=== PATIENT | female | born 1935 | race Hispanic/Latino ===

== ENCOUNTER 2016-02-27 10:05 | Inpatient (IN) | payer MEDICARE, OTHER ==
[~2016-02-27] VITALS: Ht 160 cm; Wt 54.4 kg
[2016-02-27] MEDS ORDERED: Ampicillin/Sulbactam Sod 3 GM in NS 100 ML IV SCH (10:45)
[2016-02-27 10:55] LABS: MEAN CORPUSCULAR HEMOGLOBIN 31.6 PG (27.0-31.0); MEAN CORPUSCULAR HGB CONC 33.9 G/DL (32.0-36.0); MEAN CORPUSCULAR VOLUME 93 FL (80-99); MEAN PLATELET VOLUME 6.9 FL (6.5-10.1); PLATELET COUNT 282 K/UL (150-450); RED BLOOD COUNT 5.18 M/UL (4.20-5.40); RED CELL DISTRIBUTION WIDTH 12.3 % (11.6-14.8)
[2016-02-27 10:59] LABS: ABG ALLEN TEST POSITIVE; ABG BASE EXCESS -0.5; ABG PCO2 33.8 mmHg (35.0-45.0)
[2016-02-27 11:00] VITALS: BP 124/72
[2016-02-27] MEDS ORDERED: Unasyn 3gm Inj ONE ×2 (11:09→11:37)
[2016-02-27 11:13] LABS: ALANINE AMINOTRANSFERASE 18 U/L (3-33); ALBUMIN/GLOBULIN RATIO 0.9 (1.0-2.7); ANION GAP 17 (5-15); ASPARTATE AMINO TRANSFERASE 23 U/L (5-40); CALCIUM 9.6 mg/dL (8.6-10.2); CARBON DIOXIDE 26 mEQ/L (20-30); CHLORIDE 97 mEQ/L (98-107); CREATININE 0.9 mg/dL (0.5-0.9); HEMOLYSIS 5; POTASSIUM 4.6 mEQ/L (3.4-4.9); SODIUM 140 mEQ/L (135-145); TOTAL PROTEIN 8.6 g/dL (6.6-8.7); TROPONIN I < 0.30 ng/mL (<=0.30)
[2016-02-27 11:16] LABS: REFLEX LACTIC ACID YES OR NO YES
[2016-02-27 11:23] LABS: CKMB 2.7 ng/mL (< 3.8)
[2016-02-27 11:25] LABS: BAND NEUTROPHILS % (MANUAL) 4 % (0-8); BASOPHILS % (MANUAL) 0 % (0-2); EOSINOPHILS % (MANUAL) 0 % (0-3); LYMPHOCYTES % (MANUAL) 4 % (20-45); NEUTROPHILS % (MANUAL) 87 % (45-75); PLATELET ESTIMATE ADEQUATE; PLATELET MORPHOLOGY NORMAL; TOTAL CELLS COUNTED 100
[2016-02-27 11:34] LABS: APPEARANCE,URINE CLEAR; KETONES,URINE 1+ (NEGATIVE); LEUKOCYTE ESTERASE ,URINE 1+ (NEGATIVE); NITRITE,URINE POSITIVE (NEGATIVE); PH,URINE 5 (4.5-8.0); PROTEIN,URINE 1+ (NEGATIVE); UROBILINOGEN,URINE 8 MG/DL (0.0-1.0)
[2016-02-27] MEDS ORDERED: MULTIVITAMINS1 EA11 ORAL (11:41)
[2016-02-27] MEDS ORDERED: SIMVASTATIN10 MG ORAL (11:41)
[2016-02-27] MEDS ORDERED: DONEPEZIL HCL10 M2 ORAL (11:41)
[2016-02-27] MEDS ORDERED: ASPIRIN81 MG ORAL (11:41)
[2016-02-27] MEDS ORDERED: DOK100 M1 PO (11:41)
[2016-02-27] MEDS ORDERED: VITAMIN D400 INTLU ORAL (11:41)
[2016-02-27] MEDS ORDERED: A & D OINT1 APPLI1 TOPIC (11:41)
[2016-02-27] MEDS ORDERED: CALCIUM CARBON500 M1 PO (11:41)
[2016-02-27] MEDS ORDERED: NORVASC2.5 MG ORAL (11:41)
[2016-02-27] MEDS ORDERED: OMEPRAZOLE20 M2 ORAL (11:41)
[2016-02-27 11:45] LABS: BACTERIA,URINE FEW /HPF; ICTOTEST NEGATIVE; SQUAMOUS EPITHELIAL CELL,UR FEW /LPF (NONE/OCC)
[2016-02-27] MEDS ORDERED: Vancomycin 1gm inj IVPB ONE (12:28)
[2016-02-27 13:45] VITALS: BP 149/86
--- NOTE | 2016-02-27 14:52 | Emergency Room Report ---
History of Present Illness General Chief Complaint: Vomiting Source: Medical Record Present Illness HPI Patient is a 80-year-old female who presented after increased fever and vomiting. The patient had had prior history of advanced dementia. She is normally nonverbal. The patient resides at [facility]. The patient was noted to have a nonbilious nonbloody vomit. She is also noted to have some diarrhea. The patient was noted to have prior a DO NOT RESUSCITATE. She has a durable power of literary writer. Allergies: Coded Allergies: No Known Allergies (Unverified , 02/27/16) Patient History Past Medical History: see triage record Reviewed Nursing Documentation: PMH: Agreed, PSxH: Agreed Nursing Documentation-PMH Past Medical History: No History, Except For Hx Hypertension: Yes Hx Gastrointestinal Problems: Yes - GERD History Of Psychiatric Problem: Yes - anxiety depression Hx Neurological Problems: Yes - dementia Review of Systems All Other Systems: limited - by mental status Physical Exam Vital Signs Date Time Temp Pulse Resp B/P Pulse Ox O2 Delivery O2 Flow Rate FiO2 02/27/16 10:07 100.8 101 24 130/69 95 Nasal Cannula 2.0 Sp02 EP Interpretation: normal General Appearance: moderate distress, Chronically Ill Eyes: bilateral eye PERRL, bilateral eye other ENT: moist mucus membranes Neck: limited range of motion Respiratory: lungs clear, no rhonchi Cardiovascular #1: no edema, tachycardia Gastrointestinal: soft, non-distended Musculoskeletal: decreased range of motion Neurologic: alert, motor weakness Psychiatric: other - aphasic Skin: normal inspection, normal color, no rash Medical Decision Making Diagnostic Impression: Primary Impression: Severe sepsis Additional Impressions: Advanced dementia Dehydration ER Course Patient presented for abdominal pain. Patient presented for abdominal pain. Differential diagnoses included ischemic bowel, appendicitis, perforated viscus , abdominal aortic aneurysm, inferior myocardial infarction, viral gastroenteritis Because of complexity of patient's case laboratory testing and imaging studies were ordered. The patient started on IV fluids and IV antibiotics. The patient is noted to be DO NOT RESUSCITATE. After discussion with the patient power of literary writer, the patient has received a treatment with IV fluids and IV antibiotics. She's not to be placed on mechanical ventilator or have surgery. The patient was okay to be hospitalized. Patient was discussed with Dr. Yazmin Shore who agreed to admit the patient. Labs Test 02/27/16 10:20 02/27/16 10:38 02/27/16 11:00 02/27/16 12:21 White Blood Count 21.0 K/UL (4.8-10.8) Red Blood Count 5.18 M/UL (4.20-5.40) Hemoglobin 16.3 G/DL (12.0-16.0) Hematocrit 48.2 % (37.0-47.0) Mean Corpuscular Volume 93 FL (80-99) Mean Corpuscular Hemoglobin 31.6 PG (27.0-31.0) Mean Corpuscular Hemoglobin Concent 33.9 G/DL (32.0-36.0) Red Cell Distribution Width 12.3 % (11.6-14.8) Platelet Count 282 K/UL (150-450) Mean Platelet Volume 6.9 FL (6.5-10.1) Neutrophils (%) (Auto) % (45.0-75.0) Lymphocytes (%) (Auto) % (20.0-45.0) Monocytes (%) (Auto) % (1.0-10.0) Eosinophils (%) (Auto) % (0.0-3.0) Basophils (%) (Auto) % (0.0-2.0) Differential Total Cells Counted 100 Neutrophils % (Manual) 87 % (45-75) Lymphocytes % (Manual) 4 % (20-45) Monocytes % (Manual) 5 % (1-10) Eosinophils % (Manual) 0 % (0-3) Basophils % (Manual) 0 % (0-2) Band Neutrophils 4 % (0-8) Platelet Estimate Adequate Platelet Morphology Normal Red Blood Cell Morphology Normal Sodium Level 140 mEQ/L (135-145) Potassium Level 4.6 mEQ/L (3.4-4.9) Chloride Level 97 mEQ/L (98-107) Carbon Dioxide Level 26 mEQ/L (20-30) Anion Gap 17 (5-15) Blood Urea Nitrogen 19 mg/dL (7-23) Creatinine 0.9 mg/dL (0.5-0.9) Estimat Glomerular Filtration Rate mL/min (>60) Glucose Level 188 mg/dL (74-106) Lactic Acid Level 3.60 mmol/L (0.66-2.22) 4.40 mmol/L (0.66-2.22) Calcium Level 9.6 mg/dL (8.6-10.2) Total Bilirubin 0.6 mg/dL (0.0-1.2) Aspartate Amino Transf (AST/SGOT) 23 U/L (5-40) Alanine Aminotransferase (ALT/SGPT) 18 U/L (3-33) Alkaline Phosphatase 115 U/L (35-104) Total Creatine Kinase 53 U/L (26-140) Creatine Kinase MB 2.7 ng/mL (< 3.8) Creatine Kinase MB Relative Index 5.0 Troponin I < 0.30 ng/mL (<=0.30) Total Protein 8.6 g/dL (6.6-8.7) Albumin 4.2 g/dL (3.5-5.2) Globulin 4.4 g/dL Albumin/Globulin Ratio 0.9 (1.0-2.7) Arterial Blood pH 7.440 (7.350-7.450) Arterial Blood Partial Pressure CO2 33.8 mmHg (35.0-45.0) Arterial Blood Partial Pressure O2 103.5 mmHg (75.0-100.0) Arterial Blood HCO3 22.8 mmol/L (22.0-26.0) Arterial Blood Oxygen Saturation 97.9 % (92.0-98.0) Arterial Blood Base Excess -0.5 Erick Test Positive Urine Color Brown Urine Appearance Clear Urine pH 5 (4.5-8.0) Urine Specific [place] 1.025 (1.005-1.035) Urine Protein 1+ (NEGATIVE) Urine Glucose (UA) Negative (NEGATIVE) Urine Ketones 1+ (NEGATIVE) Urine Occult Blood 4+ (NEGATIVE) Urine Nitrite Positive (NEGATIVE) Urine Bilirubin 1+ (NEGATIVE) Urine Ictotest Negative Urine Urobilinogen 8 MG/DL (0.0-1.0) Urine Leukocyte Esterase 1+ (NEGATIVE) Urine RBC 10-15 /HPF (0 - 2) Urine WBC 2-4 /HPF (0 - 2) Urine Squamous Epithelial Cells Few /LPF (NONE/OCC) Urine Bacteria Few /HPF (NONE) Last Vital Signs Date Time Temp Pulse Resp B/P Pulse Ox O2 Delivery O2 Flow Rate FiO2 02/27/16 13:45 98.0 99 29 149/86 100 Nasal Cannula 2.0 Status: unchanged Disposition: ADMITTED INPATIENT Condition: Critical Referrals: YAZMIN SHORE (PCP) Tim Hannah Feb 27, 2016 14:52
[2016-02-27 15:22] VITALS: BP 119/75
[2016-02-27 16:32] VITALS: BP 128/87
[2016-02-27] MEDS ORDERED: Hydromorphone 0.5mg/0.5ml inj IVP PRN (17:15)
[2016-02-27] MEDS: D5NS 1,000 ML IV SCH (19:55)
[2016-02-27] MEDS: Pantoprazole Inj IVP SCH (19:56)
[2016-02-27 20:00] VITALS: BP 146/70
[2016-02-28] VITALS: BP 127/44
[2016-02-28 04:00] VITALS: BP 105/58
[2016-02-28] MEDS: D5NS 1,000 ML IV SCH ×2 (07:05→14:35)
[2016-02-28] MEDS: Aspirin Baby 81mg ORAL SCH (09:00)
[2016-02-28] MEDS: Docusate 100mg cap ORAL SCH ×3 (09:00→18:00)
--- NOTE | 2016-02-28 10:07 | History & Physical ---
History and Physical History & Physicial Patient is a 80-year-old female who presented after increased fever and vomiting. The patient had had prior history of advanced dementia. She is normally nonverbal. The patient resides at [facility]. The patient was noted to have a nonbilious nonbloody vomit. She is also noted to have some diarrhea. The patient was noted to have prior a DO NOT RESUSCITATE. She has a durable power of traffic law attorney. sepsis dementia dehydration DNR DNI # [id number] YAZMIN CROSS Feb 28, 2016 10:07
[2016-02-28] MEDS: Pantoprazole Inj IVP SCH (10:18)
[2016-02-28 11:29] LABS: BASOPHILS % (AUTO) 0.8 % (0.0-2.0); EOSINOPHILS % (AUTO) 0.2 % (0.0-3.0); LYMPHOCYTES % (AUTO) 10.4 % (20.0-45.0); MEAN CORPUSCULAR HEMOGLOBIN 30.9 PG (27.0-31.0); MEAN CORPUSCULAR HGB CONC 32.4 G/DL (32.0-36.0); MEAN CORPUSCULAR VOLUME 96 FL (80-99); MEAN PLATELET VOLUME 7.2 FL (6.5-10.1); MONOCYTES % (AUTO) 5.8 % (1.0-10.0); NEUTROPHILS % (AUTO) 82.9 % (45.0-75.0); PLATELET COUNT 232 K/UL (150-450); RED CELL DISTRIBUTION WIDTH 12.8 % (11.6-14.8); WHITE BLOOD COUNT 15.1 K/UL (4.8-10.8)
--- NOTE | 2016-02-28 11:45 | Diagnostic Imaging Report ---
Indication: Dyspnea Comparison: None A single view chest radiograph was obtained. Findings: No definite infiltrate or pulmonary vascular congestion identified. The heart is enlarged. The aorta is mildly enlarged consistent with atherosclerotic vascular disease. The bones are osteopenic. Impression: No acute disease
[2016-02-28 11:47] LABS: ALANINE AMINOTRANSFERASE 15 U/L (3-33); ALBUMIN/GLOBULIN RATIO 0.8 (1.0-2.7); ANION GAP 12 (5-15); ASPARTATE AMINO TRANSFERASE 20 U/L (5-40); CALCIUM 8.5 mg/dL (8.6-10.2); CARBON DIOXIDE 27 mEQ/L (20-30); CHLORIDE 101 mEQ/L (98-107); CREATININE 0.9 mg/dL (0.5-0.9); HEMOLYSIS 3; PHOSPHORUS 2.7 mg/dL (2.5-4.8); POTASSIUM 3.9 mEQ/L (3.4-4.9); SODIUM 140 mEQ/L (135-145); TOTAL PROTEIN 7.1 g/dL (6.6-8.7); URIC ACID 3.2 mg/dL (3.0-7.5)
[2016-02-28] MEDS ORDERED: D5NS 1000ml IV ONE (17:44)
[2016-02-28] MEDS ORDERED: Tubing IV Secondary IV ONE (17:44)
--- NOTE | 2016-02-28 17:57 | History and Physical Report ---
DATE OF ADMISSION: 02/27/2016 HISTORY OF PRESENT ILLNESS: The patient is a 80-year-old female is a resident of [facility]. The patient was found to be vomiting multiple times, was sent to emergency room here at [facility]. After initial evaluation, the patient was found to have leukocytosis of 21,000, evidence of dehydration and high lactic level. The patient is being admitted for a sepsis. PAST MEDICAL HISTORY: Organic brain syndrome, previous CVA, hypertension, high cholesterol, and osteoporosis. PHYSICAL EXAMINATION: GENERAL: The patient is not verbal. VITAL SIGNS: Temperature 97.7 degrees, pulse rate 82, respiratory rate, which was 25 is now 18 and blood pressure now is 105/58. HEENT: Head is normocephalic. The face is pale. NECK: Rigid to all directions. Not icteric. HEART: Regular. LUNGS: Poor inspiratory effort. Decreased breath sounds over the bases. ABDOMEN: Soft to touch. NEUROMUSCULAR: The patient weak in all extremities. LABORATORY AND DIAGNOSTIC DATA: White BCs 21,000 and hemoglobin 16.3. BUN and creatinine normal. Lactate level 4.4. Albumin 4.2. Urine 15 RBCs, 4 white BCs 1+ and leukocyte esterase. The blood gas, pH 7.44 pCO2 33, pO2 103.5. Chest x-ray results has not reviewed yet. IMPRESSION: 1. Sepsis, source unclear. 2. Multiple vomiting, benign abdomen on examination. 3. Dementia. 4. Dehydration. 5. History of hypertension. 6. History of osteoporosis. PLAN: At this point is to keep the patient NPO, on IV hydration, Zosyn, ST evaluation and monitor CBC and electrolytes. The patient is Do Not Resuscitate/ Do Not Intubate. According to how the patient's condition evolves, we will make the proper changes in our future management. Seth Shore M.D. DR: ANA JOB#: [id number] CC:
[2016-02-28 20:00] VITALS: BP 130/48
[2016-02-28] MEDS: Donepezil 10mg tab ORAL SCH (21:41)
[2016-02-29] VITALS: BP 143/48
[2016-02-29 04:00] VITALS: BP 108/80
[2016-02-29 06:30] LABS: BASOPHILS % (AUTO) 0.5 % (0.0-2.0); EOSINOPHILS % (AUTO) 1.3 % (0.0-3.0); LYMPHOCYTES % (AUTO) 16.9 % (20.0-45.0); MEAN CORPUSCULAR HGB CONC 31.9 G/DL (32.0-36.0); MEAN CORPUSCULAR VOLUME 97 FL (80-99); MEAN PLATELET VOLUME 6.6 FL (6.5-10.1); MONOCYTES % (AUTO) 6.2 % (1.0-10.0); NEUTROPHILS % (AUTO) 75.2 % (45.0-75.0); PLATELET COUNT 216 K/UL (150-450); RED BLOOD COUNT 4.32 M/UL (4.20-5.40); RED CELL DISTRIBUTION WIDTH 12.6 % (11.6-14.8); WHITE BLOOD COUNT 12.8 K/UL (4.8-10.8)
[2016-02-29 07:08] LABS: ALANINE AMINOTRANSFERASE 11 U/L (3-33); ALBUMIN/GLOBULIN RATIO 0.8 (1.0-2.7); ANION GAP 13 (5-15); ASPARTATE AMINO TRANSFERASE 16 U/L (5-40); CALCIUM 8.3 mg/dL (8.6-10.2); CARBON DIOXIDE 25 mEQ/L (20-30); CHLORIDE 103 mEQ/L (98-107); CRP QUANT 9.3 mg/dL (< 0.5); HEMOLYSIS 9; MAGNESIUM 1.9 mg/dL (1.7-2.5); PHOSPHORUS 2.5 mg/dL (2.5-4.8); POTASSIUM 3.4 mEQ/L (3.4-4.9); SODIUM 141 mEQ/L (135-145); TOTAL PROTEIN 6.6 g/dL (6.6-8.7); URIC ACID 2.8 mg/dL (3.0-7.5)
[2016-02-29 08:00] VITALS: BP 142/51
--- NOTE | 2016-02-29 10:04 | General Progress Note ---
Assessment/Plan Status: stable Status Narrative WBCs lowering Assessment/Plan 1. Sepsis, source unclear. WBCs lowerin 2. Multiple vomiting, benign abdomen on examination. 3. Dementia. 4. Dehydration. 5. History of hypertension. 6. History of osteoporosis. Plan; Antibiotic- Hydrate- monitor Sx and Leukocytosis- St eval Subjective ROS Limited/Unobtainable: Yes Allergies: Coded Allergies: No Known Allergies (Unverified , 02/27/16) Objective Last 24 Hour Vital Signs Date Time Temp Pulse Resp B/P Pulse Ox O2 Delivery O2 Flow Rate FiO2 02/29/16 08:00 97.2 68 18 142/51 97 Nasal Cannula 2.0 02/29/16 07:56 Nasal Cannula 2.0 28 02/29/16 07:55 98 Nasal Cannula 2.0 28 02/29/16 04:00 97.5 71 18 108/80 95 Nasal Cannula 3.0 02/29/16 00:00 96.8 80 18 143/48 97 Nasal Cannula 3.0 02/28/16 20:12 Nasal Cannula 2.0 28 02/28/16 20:12 96 Nasal Cannula 2.0 28 02/28/16 20:00 98.4 81 20 130/48 95 Nasal Cannula 3.0 02/28/16 13:25 Nasal Cannula 2.0 28 02/28/16 13:25 98 Nasal Cannula 2.0 28 Intake and Output 02/28/16 02/29/16 19:00 07:00 Intake Total 375 ml Output Total 400 ml 350 ml Balance -25 ml -350 ml Intake IV Total 375 ml Output Urine Total 400 ml 350 ml # Bowel Movements 1 2 Laboratory Tests 02/28/16 10:55: White Blood Count 15.1H, Red Blood Count 4.50, Hemoglobin 13.9, Hematocrit 43.0 , Mean Corpuscular Volume 96, Mean Corpuscular Hemoglobin 30.9, Mean Corpuscular Hemoglobin Concent 32.4, Red Cell Distribution Width 12.8, Platelet Count 232, Mean Platelet Volume 7.2, Neutrophils (%) (Auto) 82.9H, Lymphocytes ( %) (Auto) 10.4L, Monocytes (%) (Auto) 5.8, Eosinophils (%) (Auto) 0.2, Basophils (%) (Auto) 0.8, Sodium Level 140, Potassium Level 3.9, Chloride Level 101, Carbon Dioxide Level 27, Anion Gap 12, Blood Urea Nitrogen 13, Creatinine 0.9, Estimat Glomerular Filtration Rate , Glucose Level 146H, Uric Acid 3.2, Calcium Level 8.5L, Phosphorus Level 2.7, Magnesium Level 2.0, Total Bilirubin 0.7, Gamma Glutamyl Transpeptidase 21, Aspartate Amino Transf (AST/SGOT) 20, Alanine Aminotransferase (ALT/SGPT) 15, Alkaline Phosphatase 104, C-Reactive Protein, Quantitative 13.0H, Pro-B-Type Natriuretic Peptide 1180H, Total Protein 7.1, Albumin 3.2L, Globulin 3.9, Albumin/Globulin Ratio 0.8L 02/29/16 05:15: White Blood Count 12.8H, Red Blood Count 4.32, Hemoglobin 13.4, Hematocrit 42.0 , Mean Corpuscular Volume 97, Mean Corpuscular Hemoglobin 31.0, Mean Corpuscular Hemoglobin Concent 31.9L, Red Cell Distribution Width 12.6, Platelet Count 216, Mean Platelet Volume 6.6, Neutrophils (%) (Auto) 75.2H, Lymphocytes (%) (Auto) 16.9L, Monocytes (%) (Auto) 6.2, Eosinophils (%) (Auto) 1.3, Basophils (%) (Auto) 0.5, Sodium Level 141, Potassium Level 3.4, Chloride Level 103, Carbon Dioxide Level 25, Anion Gap 13, Blood Urea Nitrogen 15, Creatinine 1.0H, Estimat Glomerular Filtration Rate , Glucose Level 144H, Uric Acid 2.8L, Calcium Level 8.3L, Phosphorus Level 2.5, Magnesium Level 1.9, Total Bilirubin 0.5, Aspartate Amino Transf (AST/SGOT) 16, Alanine Aminotransferase ( ALT/SGPT) 11, Alkaline Phosphatase 89, C-Reactive Protein, Quantitative 9.3H, Pro-B-Type Natriuretic Peptide 463H, Total Protein 6.6, Albumin 3.0L, Globulin 3.6, Albumin/Globulin Ratio 0.8L Height (Feet): 5 Height (Inches): 3.00 Weight (Pounds): 120 General Appearance: no apparent distress, confused Abdomen: soft Objective other PE not changed YAZMIN CROSS Feb 29, 2016 10:04
[2016-02-29] MEDS: Aspirin Baby 81mg ORAL SCH (10:34)
[2016-02-29] MEDS: Docusate 100mg cap ORAL SCH ×3 (10:34→17:50)
[2016-02-29] MEDS: D5NS 1,000 ML IV SCH (10:35)
--- NOTE | 2016-02-29 11:41 | Diagnostic Imaging Report ---
Indication: Chest Pain Comparison: 02/27/16 A single view chest radiograph was obtained. Findings: Cardiomegaly is stable. No definite infiltrate identified. Bones are osteopenic. Impression: No change
[2016-02-29 12:00] VITALS: BP 132/48
[2016-02-29] MEDS: Heparin 5000 units/ml inj SUBQ SCH ×2 (13:08→21:38)
[2016-02-29 16:00] VITALS: BP 113/64
[2016-02-29] MEDS ORDERED: NS 275ml ONE (16:31)
--- NOTE | 2016-02-29 17:47 | Consultation ---
History of Present Illness General Date patient seen: Feb 29, 2016 Chief Complaint: Coughing after emesis Reason for Consultation: high suspicion for aspiration Present Illness HPI The patient is a 80-year-old female, resident of [facility]. The patient patient was found to be vomiting multiple times and was sent to [facility]. The patient has been noticed to be coughing intractably and high suspicion for aspiration exists in the context of elderly patient with emesis and cough following. Initial chest radiographs not revealing acute infiltrate, which may be obscured in the context of emesis and dehydration. Allergies: Coded Allergies: No Known Allergies (Unverified , 02/27/16) Medication History Scheduled Amlodipine Besylate (Norvasc), 2.5 MG ORAL DAILY, (Reported) Aspirin* (Aspirin*), 81 MG ORAL DAILY, (Reported) Calcium Carbonate (Calcium Carbonate), 500 MG PO BID, (Reported) Docusate Sodium* (Colace*), 100 MG ORAL THREE TIMES A DAY Donepezil Hcl* (Donepezil Hcl*), 10 MG ORAL HS, (Reported) Levofloxacin* (Levaquin*), 250 MG ORAL DAILY Multivitamin (Multivitamins), 1 CAP ORAL DAILY, (Reported) Omeprazole (Omeprazole), 20 MG ORAL DAILY, (Reported) Simvastatin (Zocor), 10 MG ORAL BEDTIME, (Reported) Vitamin A & D (Vitamin A & D Ointment), TOPIC DAILY, (Reported) Vitamin D (Vitamin D3), 2,000 UNITS ORAL DAILY, (Reported) Scheduled PRN Acetaminophen* (Acetaminophen*), 650 MG ORAL Q6H PRN Codeine/Promethazine Hcl* (Promethazine-Codeine Syrup*), 5 ML ORAL Q4H PRN Patient History Healthcare decision maker DANAY PIERRE Resuscitation status Do Not Resuscitate Advanced Directive on File Review of Systems Constitutional: Reports: malaise Respiratory: Reports: PARADA, cough, shortness of breath, sputum, wheezing Gastrointestinal: Reports: abdominal pain, diarrhea, vomiting Physical Exam General Appearance: no apparent distress, mild distress Lines, tubes and drains: peripheral HEENT: normocephalic, atraumatic, PERRL Neck: non-tender, normal alignment Respiratory/Chest: chest wall non-tender, crackles/rales, rhonchi - bilaterally Breasts: no masses Cardiovascular/Chest: normal peripheral pulses, normal rate, regular rhythm, no JVD Abdomen: hyperactive bowel sounds, distended, guarding, rebound, tender Genitourinary/Rectal: normal genital exam, normal rectal exam Extremities: normal range of motion, non-tender, non-pitting Skin Exam: normal pigmentation Neurologic: butt maker II-XII grossly normal, no motor/sensory deficits Last 24 Hour Vital Signs Date Time Temp Pulse Resp B/P Pulse Ox O2 Delivery O2 Flow Rate FiO2 02/29/16 16:00 98.1 82 19 113/64 98 Nasal Cannula 2.5 02/29/16 12:00 97.3 73 18 132/48 95 Nasal Cannula 2.0 02/29/16 08:00 97.2 68 18 142/51 97 Nasal Cannula 2.0 02/29/16 07:56 Nasal Cannula 2.0 28 02/29/16 07:55 98 Nasal Cannula 2.0 28 02/29/16 04:00 97.5 71 18 108/80 95 Nasal Cannula 3.0 02/29/16 00:00 96.8 80 18 143/48 97 Nasal Cannula 3.0 02/28/16 20:12 Nasal Cannula 2.0 28 02/28/16 20:12 96 Nasal Cannula 2.0 28 02/28/16 20:00 98.4 81 20 130/48 95 Nasal Cannula 3.0 Intake and Output 02/28/16 02/29/16 19:00 07:00 Intake Total 375 ml Output Total 400 ml 350 ml Balance -25 ml -350 ml Intake IV Total 375 ml Output Urine Total 400 ml 350 ml # Bowel Movements 1 2 Laboratory Tests Test 02/29/16 05:15 White Blood Count 12.8 K/UL (4.8-10.8) H Red Blood Count 4.32 M/UL (4.20-5.40) Hemoglobin 13.4 G/DL (12.0-16.0) Hematocrit 42.0 % (37.0-47.0) Mean Corpuscular Volume 97 FL (80-99) Mean Corpuscular Hemoglobin 31.0 PG (27.0-31.0) Mean Corpuscular Hemoglobin Concent 31.9 G/DL (32.0-36.0) L Red Cell Distribution Width 12.6 % (11.6-14.8) Platelet Count 216 K/UL (150-450) Mean Platelet Volume 6.6 FL (6.5-10.1) Neutrophils (%) (Auto) 75.2 % (45.0-75.0) H Lymphocytes (%) (Auto) 16.9 % (20.0-45.0) L Monocytes (%) (Auto) 6.2 % (1.0-10.0) Eosinophils (%) (Auto) 1.3 % (0.0-3.0) Basophils (%) (Auto) 0.5 % (0.0-2.0) Sodium Level 141 mEQ/L (135-145) Potassium Level 3.4 mEQ/L (3.4-4.9) Chloride Level 103 mEQ/L (98-107) Carbon Dioxide Level 25 mEQ/L (20-30) Anion Gap 13 (5-15) Blood Urea Nitrogen 15 mg/dL (7-23) Creatinine 1.0 mg/dL (0.5-0.9) H Estimat Glomerular Filtration Rate mL/min (>60) Glucose Level 144 mg/dL (74-106) H Uric Acid 2.8 mg/dL (3.0-7.5) L Calcium Level 8.3 mg/dL (8.6-10.2) L Phosphorus Level 2.5 mg/dL (2.5-4.8) Magnesium Level 1.9 mg/dL (1.7-2.5) Total Bilirubin 0.5 mg/dL (0.0-1.2) Aspartate Amino Transf (AST/SGOT) 16 U/L (5-40) Alanine Aminotransferase (ALT/SGPT) 11 U/L (3-33) Alkaline Phosphatase 89 U/L (35-104) C-Reactive Protein, Quantitative 9.3 mg/dL (< 0.5) H Pro-B-Type Natriuretic Peptide 463 pg/mL (0-450) H Total Protein 6.6 g/dL (6.6-8.7) Albumin 3.0 g/dL (3.5-5.2) L Globulin 3.6 g/dL Albumin/Globulin Ratio 0.8 (1.0-2.7) L Height (Feet): 5 Height (Inches): 3.00 Weight (Pounds): 120 Medications Current Medications Medications (Trade) Dose Ordered Sig/Baljit Route PRN Reason Start Time Stop Time Status Last Admin Dose Admin Acetaminophen (Tylenol) 650 mg Q6H PRN ORAL Mild Pain/Temp > 100.0 02/27/16 17:15 03/28/16 17:14 Aspirin (ASA) 81 mg DAILY ORAL 02/28/16 09:00 03/29/16 08:59 02/29/16 10:34 Clonidine HCl (Catapres) 0.1 mg Q4H PRN ORAL SBP >170 02/27/16 17:15 03/28/16 17:14 Dextrose/Sodium Chloride (D5ns) 1,000 ml @ 50 mls/hr Q20H IV 02/29/16 10:30 03/30/16 10:29 02/29/16 10:35 Docusate Sodium (Colace) 100 mg THREE TIMES A DAY ORAL 02/28/16 09:00 03/29/16 08:59 02/29/16 13:06 Donepezil HCl (Aricept) 10 mg QHS ORAL 02/28/16 21:00 03/29/16 20:59 02/28/16 21:41 Heparin Sodium (Porcine) (Heparin 5000 units/ml) 5,000 units EVERY 12 HOURS SUBQ 02/29/16 11:00 03/30/16 10:59 02/29/16 13:08 Hydromorphone HCl (Dilaudid) 0.5 mg Q4H PRN IVP For moderate to severe pain 02/27/16 17:15 03/05/16 17:14 Ondansetron HCl (Zofran) 4 mg Q8H PRN IVP Nausea & Vomiting 02/27/16 17:15 03/28/16 17:14 Pantoprazole 40 mg 40 mg EVERY 12 HOURS ORAL 02/29/16 10:15 03/30/16 10:14 02/29/16 10:35 Piperacillin Sod/ Tazobactam Sod/ Dextrose (Zosyn/D5W 100ml) 100 ml @ 25 mls/hr EVERY 8 HOURS IVPB 02/27/16 22:00 03/05/16 21:59 02/29/16 13:06 Assessment/Plan Status: stable, progressing Assessment/Plan Assessment Dyspnea and cough after emesis Intractable emesis Jail patient Plan Aspiration precautions Empiric broad spec antbx Anti-emetics as needed Gentle IVF hydration CARA SOARES Feb 29, 2016 17:47
[2016-02-29] MEDS ORDERED: Promethazine/Codeine 5ml UD ORAL PRN (18:00)
[2016-02-29] MEDS: Donepezil 10mg tab ORAL SCH (21:37)
[2016-03-01] VITALS: BP 132/69
[2016-03-01 04:00] VITALS: BP 132/59
[2016-03-01] MEDS: D5NS 1,000 ML IV SCH (06:17)
[2016-03-01 07:41] LABS: BASOPHILS % (AUTO) 0.6 % (0.0-2.0); EOSINOPHILS % (AUTO) 3.2 % (0.0-3.0); LYMPHOCYTES % (AUTO) 21.8 % (20.0-45.0); MEAN CORPUSCULAR HEMOGLOBIN 30.5 PG (27.0-31.0); MEAN CORPUSCULAR HGB CONC 31.7 G/DL (32.0-36.0); MEAN CORPUSCULAR VOLUME 96 FL (80-99); MEAN PLATELET VOLUME 6.3 FL (6.5-10.1); MONOCYTES % (AUTO) 7.5 % (1.0-10.0); NEUTROPHILS % (AUTO) 66.8 % (45.0-75.0); PLATELET COUNT 192 K/UL (150-450); RED BLOOD COUNT 4.14 M/UL (4.20-5.40); RED CELL DISTRIBUTION WIDTH 12.1 % (11.6-14.8); WHITE BLOOD COUNT 10.1 K/UL (4.8-10.8)
[2016-03-01 07:57] LABS: ALANINE AMINOTRANSFERASE 10 U/L (3-33); ALBUMIN/GLOBULIN RATIO 0.7 (1.0-2.7); ANION GAP 12 (5-15); ASPARTATE AMINO TRANSFERASE 14 U/L (5-40); CALCIUM 8.3 mg/dL (8.6-10.2); CARBON DIOXIDE 27 mEQ/L (20-30); CHLORIDE 104 mEQ/L (98-107); CREATININE 0.8 mg/dL (0.5-0.9); CRP QUANT 4.3 mg/dL (< 0.5); HEMOLYSIS 4; POTASSIUM 3.5 mEQ/L (3.4-4.9); SODIUM 143 mEQ/L (135-145); TOTAL PROTEIN 6.1 g/dL (6.6-8.7)
[2016-03-01 08:00] VITALS: BP 130/51
[2016-03-01] MEDS: Docusate 100mg cap ORAL SCH ×2 (09:34→12:26)
[2016-03-01] MEDS: Aspirin Baby 81mg ORAL SCH (09:34)
[2016-03-01] MEDS: Heparin 5000 units/ml inj SUBQ SCH (09:35)
--- NOTE | 2016-03-01 11:23 | General Progress Note ---
Assessment/Plan Status: stable Status Narrative leukocytosis and high lactate level resolved Assessment/Plan 1. Sepsis, source unclear. WBCs lowering 2. Multiple vomiting, benign abdomen on examination. 3. Dementia. 4. Dehydration. 5. History of hypertension. 6. History of osteoporosis. Plan; change antibiotics to po levaquin DC ECF Subjective ROS Limited/Unobtainable: Yes Allergies: Coded Allergies: No Known Allergies (Unverified , 02/27/16) Objective Last 24 Hour Vital Signs Date Time Temp Pulse Resp B/P Pulse Ox O2 Delivery O2 Flow Rate FiO2 03/01/16 08:00 97.2 66 18 130/51 100 Nasal Cannula 2.0 03/01/16 07:51 Nasal Cannula 2.0 28 03/01/16 07:50 95 Nasal Cannula 2.0 28 03/01/16 04:00 97.7 62 20 132/59 96 Nasal Cannula 2.0 03/01/16 00:00 98.4 73 22 132/69 95 Nasal Cannula 2.0 02/29/16 19:30 98 Nasal Cannula 2.0 28 02/29/16 19:30 Nasal Cannula 2.0 28 02/29/16 16:00 98.1 82 19 113/64 98 Nasal Cannula 2.5 02/29/16 12:00 97.3 73 18 132/48 95 Nasal Cannula 2.0 Intake and Output 02/29/16 03/01/16 19:00 07:00 Intake Total 500 ml 175 ml Output Total 400 ml 700 ml Balance 100 ml -525 ml Intake IV Total 500 ml 175 ml Output Urine Total 400 ml 700 ml Current Medications Medications (Trade) Dose Ordered Sig/Baljit Route PRN Reason Start Time Stop Time Status Last Admin Dose Admin Acetaminophen (Tylenol) 650 mg Q6H PRN ORAL Mild Pain/Temp > 100.0 02/27/16 17:15 03/28/16 17:14 Aspirin (ASA) 81 mg DAILY ORAL 02/28/16 09:00 03/29/16 08:59 03/01/16 09:34 Clonidine HCl (Catapres) 0.1 mg Q4H PRN ORAL SBP >170 02/27/16 17:15 03/28/16 17:14 Docusate Sodium (Colace) 100 mg THREE TIMES A DAY ORAL 02/28/16 09:00 03/29/16 08:59 03/01/16 09:34 Donepezil HCl (Aricept) 10 mg QHS ORAL 02/28/16 21:00 03/29/16 20:59 02/29/16 21:37 Levofloxacin (Levaquin) 250 mg DAILY ORAL 03/01/16 12:00 03/08/16 11:59 Pantoprazole (Protonix) 40 mg EVERY 12 HOURS ORAL 02/29/16 10:15 03/30/16 10:14 03/01/16 09:34 Promethazine HCl/ Codeine (Phenergan with Codeine) 5 ml Q4H PRN ORAL For Cough 02/29/16 18:00 03/30/16 17:59 Laboratory Tests 03/01/16 05:55: White Blood Count 10.1, Red Blood Count 4.14L, Hemoglobin 12.6, Hematocrit 39.8 , Mean Corpuscular Volume 96, Mean Corpuscular Hemoglobin 30.5, Mean Corpuscular Hemoglobin Concent 31.7L, Red Cell Distribution Width 12.1, Platelet Count 192, Mean Platelet Volume 6.3L, Neutrophils (%) (Auto) 66.8, Lymphocytes (%) (Auto) 21.8, Monocytes (%) (Auto) 7.5, Eosinophils (%) (Auto) 3.2H, Basophils (%) (Auto) 0.6, Sodium Level 143, Potassium Level 3.5, Chloride Level 104, Carbon Dioxide Level 27, Anion Gap 12, Blood Urea Nitrogen 11, Creatinine 0.8, Estimat Glomerular Filtration Rate , Glucose Level 105, Calcium Level 8.3L, Total Bilirubin 0.4, Aspartate Amino Transf (AST/SGOT) 14, Alanine Aminotransferase (ALT/SGPT) 10, Alkaline Phosphatase 102, C-Reactive Protein, Quantitative 4.3H, Total Protein 6.1L, Albumin 2.7L, Globulin 3.4, Albumin/ Globulin Ratio 0.7L Height (Feet): 5 Height (Inches): 3.00 Weight (Pounds): 120 General Appearance: no apparent distress Objective other PE not changed YAZMIN CROSS Mar 01, 2016 11:23
[2016-03-01] MEDS ORDERED: COLACE100 MG ORAL (11:26)
[2016-03-01] MEDS ORDERED: PROMETHAZINE-C118 M1 ORAL (11:26)
[2016-03-01] MEDS ORDERED: ACETAMINOPHEN325 M1 ORAL (11:26)
[2016-03-01] MEDS ORDERED: LEVAQUIN250 M1 ORAL (11:26)
--- NOTE | 2016-03-01 11:27 | Discharge Instructions ---
Discharge Instructions Discharge Instructions Follow up with: myself at facility Call MD/Return to Hospital if: fever , lethargy. Diet: cardiac 2 GM Na, low fat Special Instructions aspiration percautions- For Congestive Heart Failure Reminder Report to your physician any weight gain of 5 pounds or more in one week. YAZMIN CROSS Mar 01, 2016 11:27
[2016-03-01 12:00] VITALS: BP 121/55
--- NOTE | 2016-03-01 18:02 | Cardiology Report ---
APPROVED REPORT EKG Measurement Heart [id number] Sinus tachycardia with frequent premature ventricular complexes Otherwise normal ECG
--- NOTE | 2016-03-03 19:08 | Discharge Summary ---
Discharge Summary Hospital Course Date of Admission Feb 27, 2016 at 15:03 Date of Discharge Mar 01, 2016 at 15:00 Admitting Diagnosis Sepsis, Urinary Tract Infection TANYA Negin Victoria is a 80 year old female who was admitted on Feb 27, 2016 at 15:03 for Urinary Tract Infection Hospital Course [id number] Discharge Discharge Disposition Patient was discharged to SNF/Subacute Facility(03) Discharge Diagnoses: Discharge Instructions Discharge Instructions Follow up with: myself at facility Call MD/Return to Hospital if: fever , lethargy. Gretchen Perez NP Mar 03, 2016 19:08
--- NOTE | 2016-03-04 09:18 | Discharge Summary 2 SIG ---
DATE OF ADMISSION: 02/27/2016 DATE OF DISCHARGE: 03/01/2016 BRIEF HOSPITAL COURSE: The patient is a 80-year-old female, resident of [facility]. The patient patient was found to be vomiting multiple times and was sent to [facility]. After evaluation was found to have leukocytosis of 21,000 with evidence of dehydration and high lactic acid level. The patient was admitted for sepsis. Initially was placed on NPO and was given IV hydration and started on Zosyn. The patient is DNR/DNI status. She was pancultured. Blood culture did not isolate any growth. Influenza A and B was negative. The C. difficile was negative. Sepsis, source was unclear. WBC improved. Antibiotics was changed to p.o. Levaquin. The patient was eventually discharged back to senior living with strict aspiration precautions. FINAL DIAGNOSES: 1. Sepsis, source unclear. 2. Multiple vomiting with benign abdominal examination. 3. Dementia. 4. Dehydration. 5. Hypertension. 6. Osteoporosis. Seth Shore M.D. I have been assigned to dictate discharge summary on this account and I was not involved in the patient's management. Gretchen Perez N.P. DR: Chris JOB#: [id number] CC: WILLI
== END 2016-03-01 15:00 | DRG 872 ==
LOC: EDUNIT# 10:05 → EDBD 10:05 → EMR 10:49 → EDBEDREQSVC 12:32 → EDBEDREQ 14:42 → 4W 15:03
DX: A41.9 Sepsis, unspecified organism (principal); E86.0 Dehydration; F03.90 Unspecified dementia, unspecified severity, without behavioral disturbance, psychotic disturbance, mood disturbance, and anxiety; Z66 Do not resuscitate; M81.0 Age-related osteoporosis without current pathological fracture; I10 Essential (primary) hypertension; R11.10 Vomiting, unspecified; Z86.73 Personal history of transient ischemic attack (TIA), and cerebral infarction without residual deficits
CPT/HCPCS: 36415; 36600; 71010; 80053; 81003; 82550; 82553; 82803; 82977; 83605; 83735; 83880; 84100; 84484; 84550; 85007; 85025; 86140; 86710; 87040; 87081; 87493; 93005; 94760; J2405

== ENCOUNTER 2017-04-22 21:43 | Inpatient (IN) | payer MEDICARE, OTHER ==
[~2017-04-22] VITALS: Ht 165.1 cm; Wt 61.2 kg
[~2017-04-22 21:43] MED LIST: A & D OINT1 APPLI1 TOPIC; ACETAMINOPHEN325 M1 ORAL; ASPIRIN81 MG ORAL; CALCIUM CARBON500 M1 PO; COLACE100 MG ORAL; DOK100 M1 PO; DONEPEZIL HCL10 M2 ORAL; LEVAQUIN250 M1 ORAL; MULTIVITAMINS1 EA11 ORAL; NORVASC2.5 MG ORAL; OMEPRAZOLE20 M2 ORAL; PROMETHAZINE-C118 M1 ORAL; SIMVASTATIN10 MG ORAL; VITAMIN D400 INTLU ORAL
[2017-04-22 22:00] VITALS: BP 137/72
[2017-04-22 23:10] LABS: HEMATOCRIT 51.2 % (37.0-47.0); HEMOGLOBIN 17.1 G/DL (12.0-16.0); MEAN CORPUSCULAR VOLUME 93 FL (80-99); PLATELET COUNT 239 K/UL (150-450); RED CELL DISTRIBUTION WIDTH 12.6 % (11.6-14.8); WHITE BLOOD COUNT 13.1 K/UL (4.8-10.8)
[2017-04-22 23:25] LABS: ANION GAP 10 mmol/L (5-15); BLOOD UREA NITROGEN 44 mg/dL (7-18); CALCIUM 9.1 MG/DL (8.5-10.1); CARBON DIOXIDE 29 MMOL/L (21-32); CHLORIDE 117 MMOL/L (98-107); CREATININE 1.4 MG/DL (0.55-1.30); POTASSIUM 3.6 MMOL/L (3.5-5.1); SODIUM 156 MMOL/L (136-145)
[2017-04-22] MEDS ORDERED: Acetaminophen 650 MG SUPP RECTAL ONE (23:45)
[2017-04-22 23:53] LABS: ALANINE AMINOTRANSFERASE 63 U/L (12-78); ALBUMIN/GLOBULIN RATIO 0.5 (1.0-2.7); ALKALINE PHOSPHATASE 106 U/L (46-116); ASPARTATE AMINO TRANSFERASE 64 U/L (15-37); BILIRUBIN,TOTAL 0.5 MG/DL (0.2-1.0); CKMB 1.1 NG/ML (0.0-3.6); CREATINE KINASE 398 U/L (26-308)
[2017-04-23] VITALS (10 sets, daily range): BP systolic 111–159; BP diastolic 63–84
[2017-04-23] MEDS ORDERED: Cefepime HCl 1 GM in D5W 55 ML IVPB ONE (00:15)
--- NOTE | 2017-04-23 00:19 | Emergency Room Report ---
History of Present Illness General Chief Complaint: Fever Source: Family Member, EMS Present Illness HPI 82-year-old female sent by primary care doctor at [facility] for fever. per SNF records, sepsis, UTI, dysphagia, GERD, HTN, osteo She has history of Alzheimer's, not providing history of present illness at this time. History of present illness otherwise limited. Allergies: Coded Allergies: No Known Allergies (Unverified , 02/27/16) Patient History Past Medical History: other - see HPI Past Surgical History: none, unable to obtain Pertinent Family History: none, unable to obtain Social History: Denies: smoking, alcohol use, drug use Now: No Immunizations: UTD Reviewed Nursing Documentation: PMH: Agreed, PSxH: Agreed Nursing Documentation-PMH Hx Hypertension: Yes - Hyperlipidemia Hx Cancer: No Hx Gastrointestinal Problems: Yes - Sepsis, UTI, gastric reflux History Of Psychiatric Problem: Yes - Dementia, Anxiety , depression Hx Neurological Problems: Yes - Dysphagia, Hx Dementia: Yes Review of Systems All Other Systems: limited - Alzheimers Physical Exam Vital Signs Date Time Temp Pulse Resp B/P (MAP) Pulse Ox O2 Delivery O2 Flow Rate FiO2 04/22/17 21:34 100.9 90 18 137/72 94 Nasal Cannula 4.0 100.9 Sp02 EP Interpretation: reviewed, normal General Appearance: normal inspection, well appearing, no apparent distress, alert, non-toxic, other - Eyes closed, smiling, responds to physical stimuli Head: normocephalic, atraumatic Eyes: bilateral eye PERRL, bilateral eye EOMI ENT: normal ENT inspection, normal pharynx, no angioedema, TMs + canals normal , uvula midline, moist mucus membranes Neck: normal inspection, full range of motion, supple, thyroid normal, no meningismus, no bony tend Respiratory: normal inspection, lungs clear, normal breath sounds, no rhonchi, no respiratory distress, no retraction, no accessory muscle use, no wheezing, speaking full sentences Cardiovascular #1: regular rate, rhythm, no edema, no JVD, normal capillary refill Gastrointestinal: normal inspection, normal bowel sounds, non tender, soft, no mass, no peritonitis, non-distended, no guarding, no hernia, no pulsatile mass Genitourinary: no CVA tenderness Musculoskeletal: normal inspection, back normal, normal range of motion, no calf tenderness, pelvis stable, Vanessa's Sign negative Neurologic: normal inspection, alert, responsive, cut off saw grader III-XII nml as tested, motor strength/tone normal, cerebellar normal, normal gait, speech normal, other - 4 limb movement normal Skin: normal inspection, normal color, no rash Lymphatic: normal inspection, no adenopathy Medical Decision Making Diagnostic Impression: Primary Impression: Fever of unknown origin ER Course Fever of unknown origin VSS, afebrile No obvious source - UA pending at time of admission ?aspiration Was given empiric Abx Blood, Urine Cx pending Endorsed to Dr Shore for tele admit at 1218am EKG Diagnostic Results Rate: normal Rhythm: NSR ST Segments: no acute changes ASA given to the pt in ED: No Rhythm Strip Diag. Results EP Interpretation: yes Rate: 94 Rhythm: NSR Chest X-Ray Diagnostic Results Chest X-Ray Diagnostic Results : Chest X-Ray Ordered: Yes # of Views/Limited/Complete: 1 View Indication: Shortness of Breath EP Interpretation: Yes Interpretation: no consolidation, no effusion, no pneumothorax, no acute cardiopulmonary disease Impression: No acute disease Electronically Signed by: Dr Raleigh Zuniga MD Last Vital Signs Date Time Temp Pulse Resp B/P (MAP) Pulse Ox O2 Delivery O2 Flow Rate FiO2 04/22/17 23:59 102.0 04/22/17 21:34 90 18 137/72 94 Nasal Cannula 4.0 Status: improved Disposition: ADMITTED INPATIENT Condition: Serious Referrals: YAZMIN SHORE (PCP) RALEIGH ZUNIGA M.D. Apr 23, 2017 00:19
[2017-04-23 00:35] LABS: APPEARANCE,URINE CLEAR; BILIRUBIN, URINE NEGATIVE (NEGATIVE); GLUCOSE, URINE (UA) NEGATIVE (NEGATIVE); KETONES,URINE 1+ (NEGATIVE); LEUKOCYTE ESTERASE ,URINE 1+ (NEGATIVE); NITRITE,URINE NEGATIVE (NEGATIVE); PH,URINE 5 (4.5-8.0); PROTEIN,URINE 2+ (NEGATIVE); UROBILINOGEN,URINE 1 MG/DL (0.0-1.0)
[2017-04-23 00:38] LABS: COLOR,URINE YELLOW
[2017-04-23] MEDS ORDERED: Vancomycin 1 GM in D5W 275 ML IVPB ONE (01:00)
[2017-04-23] MEDS ORDERED: Cefepime 1gm vial ONE (01:11)
[2017-04-23] MEDS ORDERED: Acetaminophen 650 MG SUPP RECTAL PRN (01:30)
[2017-04-23] MEDS ORDERED: Vancomycin 1gm inj IVPB ONE (01:30)
[2017-04-23] MEDS ORDERED: Vancomycin 1gm/D5W 275ml IVPB SCH ×2 (04:00)
[2017-04-23] MEDS ORDERED: Oseltamivir 75mg cap ORAL SCH (09:00)
[2017-04-23 09:11] LABS: HEMATOCRIT 49.1 % (37.0-47.0); HEMOGLOBIN 16.3 G/DL (12.0-16.0); MEAN CORPUSCULAR VOLUME 94 FL (80-99); PLATELET COUNT 230 K/UL (150-450); RED BLOOD COUNT 5.21 M/UL (4.20-5.40); RED CELL DISTRIBUTION WIDTH 12.5 % (11.6-14.8); WHITE BLOOD COUNT 13.6 K/UL (4.8-10.8)
[2017-04-23] MEDS: Heparin 5000 units/ml inj SUBQ SCH ×2 (09:44→21:13)
[2017-04-23 09:52] LABS: ALANINE AMINOTRANSFERASE 57 U/L (12-78); ALBUMIN 2.8 G/DL (3.4-5.0); ALBUMIN/GLOBULIN RATIO 0.5 (1.0-2.7); ALKALINE PHOSPHATASE 100 U/L (46-116); ANION GAP 12 mmol/L (5-15); ASPARTATE AMINO TRANSFERASE 52 U/L (15-37); BILIRUBIN,TOTAL 0.6 MG/DL (0.2-1.0); BLOOD UREA NITROGEN 47 mg/dL (7-18); CALCIUM 8.7 MG/DL (8.5-10.1); CARBON DIOXIDE 25 MMOL/L (21-32); CHLORIDE 116 MMOL/L (98-107); CHOLESTEROL 129 MG/DL (< 200); CREATININE 1.3 MG/DL (0.55-1.30); HDL CHOLESTEROL 29 MG/DL (40-60); PHOSPHORUS 2.8 MG/DL (2.5-4.9); POTASSIUM 3.3 MMOL/L (3.5-5.1); SODIUM 153 MMOL/L (136-145); TRIGLYCERIDES 95 MG/DL (30-150)
--- NOTE | 2017-04-23 11:31 | Consultation ---
History of Present Illness General Date patient seen: Apr 23, 2017 Time patient seen: 11:00 Chief Complaint: Fever Referring physician: dr Shore Reason for Consultation: aspiration Present Illness HPI 82 y/old female with DNR/DNII status, with PMH of Alzheimer dementia, HTN, OP , dysphagia, GERD, was brought for evaluation from SNF for fever in ED hypoxic, febrile, with leukocytosis ECG with NSR CXR no acute CP pathology UA no gross evidence of UTI Na-156 BUN-44 and creat-1.4 troponin negative patient was admitted for further management Allergies: Coded Allergies: No Known Allergies (Unverified , 02/27/16) Medication History Scheduled Amlodipine Besylate (Norvasc), 2.5 MG ORAL DAILY, (Reported) Aspirin* (Aspirin*), 81 MG ORAL DAILY, (Reported) Calcium Carbonate (Calcium Carbonate), 500 MG PO BID, (Reported) Docusate Sodium* (Colace*), 100 MG ORAL THREE TIMES A DAY Donepezil Hcl* (Donepezil Hcl*), 10 MG ORAL HS, (Reported) Levofloxacin* (Levaquin*), 250 MG ORAL DAILY Multivitamin (Multivitamins), 1 CAP ORAL DAILY, (Reported) Omeprazole (Omeprazole), 20 MG ORAL DAILY, (Reported) Simvastatin (Zocor), 10 MG ORAL BEDTIME, (Reported) Vitamin A & D (Vitamin A & D Ointment), TOPIC DAILY, (Reported) Vitamin D (Vitamin D3), 2,000 UNITS ORAL DAILY, (Reported) Scheduled PRN Acetaminophen* (Acetaminophen 325MG Tablet*), 650 MG ORAL Q6H PRN Codeine/Promethazine Hcl* (Promethazine-Codeine Syrup*), 5 ML ORAL Q4H PRN Patient History Healthcare decision maker Resuscitation status Do Not Resuscitate Advanced Directive on File No Review of Systems ROS Narrative unable to obtain any info due to ALOC Physical Exam Lines, tubes and drains: peripheral HEENT: normocephalic, atraumatic, anicteric Neck: supple Respiratory/Chest: rhonchi - bilaterally - with coarse BS quality Cardiovascular/Chest: normal peripheral pulses, normal rate - SR with frequent PAC and PVC, short run of A flutter , self subsided Abdomen: normal bowel sounds, non tender, soft Skin Exam: other - R foot ulcer Neurologic: abnormal gait - bedridden , other - lethargic, contracted BLE Musculoskeletal: atrophy Last 24 Hour Vital Signs Date Time Temp Pulse Resp B/P (MAP) Pulse Ox O2 Delivery O2 Flow Rate FiO2 04/23/17 08:10 154 04/23/17 08:00 92 04/23/17 08:00 98.4 95 20 143/84 93 Nasal Cannula 3.0 98.4 04/23/17 04:25 97.9 80 19 150/80 95 Nasal Cannula 3.0 97.9 04/23/17 04:00 84 04/23/17 02:00 84 04/23/17 01:43 100.0 80 18 159/84 94 Nasal Cannula 3.0 100.0 04/23/17 01:24 100.0 80 18 159/84 94 Nasal Cannula 3.0 100.0 04/23/17 00:29 100.0 04/22/17 23:59 102.0 04/22/17 22:00 100.9 90 18 137/72 94 Nasal Cannula 4.0 100.9 04/22/17 21:34 100.9 90 18 137/72 94 Nasal Cannula 4.0 100.9 Intake and Output 04/22/17 04/23/17 19:00 07:00 Intake Total 0 ml Output Total 200 ml Balance -200 ml Intake Oral 0 ml Output Urine Total 200 ml # Bowel Movements 1 Laboratory Tests Test 04/22/17 20:00 04/22/17 23:07 04/23/17 06:25 White Blood Count 13.1 K/UL (4.8-10.8) H 13.6 K/UL (4.8-10.8) H Red Blood Count 5.50 M/UL (4.20-5.40) H 5.21 M/UL (4.20-5.40) Hemoglobin 17.1 G/DL (12.0-16.0) H 16.3 G/DL (12.0-16.0) H Hematocrit 51.2 % (37.0-47.0) H 49.1 % (37.0-47.0) H Mean Corpuscular Volume 93 FL (80-99) 94 FL (80-99) Mean Corpuscular Hemoglobin 31.1 PG (27.0-31.0) H 31.3 PG (27.0-31.0) H Mean Corpuscular Hemoglobin Concent 33.4 G/DL (32.0-36.0) 33.2 G/DL (32.0-36.0) Red Cell Distribution Width 12.6 % (11.6-14.8) 12.5 % (11.6-14.8) Platelet Count 239 K/UL (150-450) 230 K/UL (150-450) Mean Platelet Volume 7.4 FL (6.5-10.1) 7.3 FL (6.5-10.1) Neutrophils (%) (Auto) % (45.0-75.0) % (45.0-75.0) Lymphocytes (%) (Auto) % (20.0-45.0) % (20.0-45.0) Monocytes (%) (Auto) % (1.0-10.0) % (1.0-10.0) Eosinophils (%) (Auto) % (0.0-3.0) % (0.0-3.0) Basophils (%) (Auto) % (0.0-2.0) % (0.0-2.0) Differential Total Cells Counted 100 100 Neutrophils % (Manual) 79 % (45-75) H 84 % (45-75) H Lymphocytes % (Manual) 13 % (20-45) L 12 % (20-45) L Monocytes % (Manual) 3 % (1-10) 4 % (1-10) Eosinophils % (Manual) 0 % (0-3) 0 % (0-3) Basophils % (Manual) 0 % (0-2) 0 % (0-2) Band Neutrophils 5 % (0-8) 0 % (0-8) Platelet Estimate Adequate Adequate Platelet Morphology Normal Normal Sodium Level 156 MMOL/L (136-145) H 153 MMOL/L (136-145) H Potassium Level 3.6 MMOL/L (3.5-5.1) 3.3 MMOL/L (3.5-5.1) L Chloride Level 117 MMOL/L (98-107) H 116 MMOL/L (98-107) H Carbon Dioxide Level 29 MMOL/L (21-32) 25 MMOL/L (21-32) Anion Gap 10 mmol/L (5-15) 12 mmol/L (5-15) Blood Urea Nitrogen 44 mg/dL (7-18) H 47 mg/dL (7-18) H Creatinine 1.4 MG/DL (0.55-1.30) H 1.3 MG/DL (0.55-1.30) Estimat Glomerular Filtration Rate mL/min (>60) mL/min (>60) Glucose Level 177 MG/DL (74-106) H 221 MG/DL (74-106) H Lactic Acid Level 1.70 mmol/L (0.66-2.22) Calcium Level 9.1 MG/DL (8.5-10.1) 8.7 MG/DL (8.5-10.1) Total Bilirubin 0.5 MG/DL (0.2-1.0) 0.6 MG/DL (0.2-1.0) Aspartate Amino Transf (AST/SGOT) 64 U/L (15-37) H 52 U/L (15-37) H Alanine Aminotransferase (ALT/SGPT) 63 U/L (12-78) 57 U/L (12-78) Alkaline Phosphatase 106 U/L (46-116) 100 U/L (46-116) Total Creatine Kinase 398 U/L (26-308) H Creatine Kinase MB 1.1 NG/ML (0.0-3.6) Creatine Kinase MB Relative Index 0.2 Troponin I 0.084 ng/mL (0.000-0.056) 0.092 ng/mL (0.000-0.056) Total Protein 8.8 G/DL (6.4-8.2) H 8.3 G/DL (6.4-8.2) H Albumin 3.0 G/DL (3.4-5.0) L 2.8 G/DL (3.4-5.0) L Globulin 5.8 g/dL 5.5 g/dL Albumin/Globulin Ratio 0.5 (1.0-2.7) L 0.5 (1.0-2.7) L Urine Color Yellow Urine Appearance Clear Urine pH 5 (4.5-8.0) Urine Specific [place] 1.025 (1.005-1.035) Urine Protein 2+ (NEGATIVE) H Urine Glucose (UA) Negative (NEGATIVE) Urine Ketones 1+ (NEGATIVE) H Urine Occult Blood 1+ (NEGATIVE) H Urine Nitrite Negative (NEGATIVE) Urine Bilirubin Negative (NEGATIVE) Urine Urobilinogen 1 MG/DL (0.0-1.0) H Urine Leukocyte Esterase 1+ (NEGATIVE) H Urine RBC 0-2 /HPF (0 - 2) Urine WBC 2-4 /HPF (0 - 2) Urine Squamous Epithelial Cells Occasional /LPF Urine Amorphous Sediment Moderate /LPF (NONE) H Urine Bacteria Few /HPF (NONE) Urine Mucus Few /LPF (NONE/OCC) H Red Blood Cell Morphology Normal Hemoglobin A1c 6.1 % (4.3-6.0) H Uric Acid 7.1 MG/DL (2.6-7.2) Phosphorus Level 2.8 MG/DL (2.5-4.9) Magnesium Level 2.1 MG/DL (1.8-2.4) C-Reactive Protein, Quantitative 5.0 mg/dL (0.00-0.90) H Pro-B-Type Natriuretic Peptide 818 pg/mL (0-125) H Triglycerides Level 95 MG/DL (30-150) Cholesterol Level 129 MG/DL (< 200) LDL Cholesterol 88 mg/dL (<100) HDL Cholesterol 29 MG/DL (40-60) L Cholesterol/HDL Ratio 4.4 (3.3-4.4) Thyroid Stimulating Hormone (TSH) 1.070 uiU/mL (0.358-3.740) Height (Feet): 5 Height (Inches): 3.00 Weight (Pounds): 135 Medications Current Medications Medications (Trade) Dose Ordered Sig/Baljit Route PRN Reason Start Time Stop Time Status Last Admin Dose Admin Acetaminophen (Tylenol) 650 mg Q4H PRN RECTAL Mild Pain (Pain Scale 1-3) 04/23/17 01:30 05/23/17 01:29 Cefepime HCl 0.5 gm/Dextrose 55 ml @ 110 mls/hr Q24H IVPB 04/24/17 09:00 05/01/17 08:59 Heparin Sodium (Porcine) (Heparin 5000 units/ml) 5,000 units EVERY 12 HOURS SUBQ 04/23/17 09:00 05/23/17 08:59 04/23/17 09:44 Metronidazole 100 ml @ 100 mls/hr Q8HR IVPB 04/23/17 06:00 04/30/17 05:59 04/23/17 10:49 Ondansetron HCl (Zofran) 4 mg Q6H PRN IVP Nausea & Vomiting 04/23/17 01:30 05/23/17 01:29 Oseltamivir Phosphate (Tamiflu) 30 mg DAILY ORAL 04/23/17 09:00 04/28/17 08:59 Sodium Chloride 1,000 ml @ 75 mls/hr [id number] IV 04/23/17 02:00 05/23/17 01:59 04/23/17 04:34 Vancomycin HCl (Vanco rx to dose) 1 ea DAILY PRN MISC Per rx protocol 04/23/17 01:15 05/23/17 01:14 Vancomycin HCl 1 gm/Dextrose 275 ml @ 140 mls/hr Q48H IVPB 04/25/17 09:00 04/28/17 08:59 Assessment/Plan Assessment/Plan ASSESSMENT new onset of A fib with RVR acute hypoxemic RF probably sepsis aspiration probable aspiration PNA possible UTI R foot ulcer elevated troponin Hyper Na ( likely free water deficit) dehydration ANATOLY likely 2 to dehydration PLAN OF CARE tele O2 titrate pulm toilet with HHN atc and prn and CPT tid x 48 hrs NPO empiric abx + Tamiflu ( empirically, influenza screen negative but came from SNF with flu cases) ID follows fup with cx Fup with CXR in am sputum cx if able swallow eval when more awake repeat troponin, ECG ECHO DVT prophylaxis IVF monitor renal parameters, correct lytes as needed, avoid nephrotoxic ADDENDUM AT 1500 : suddenly developed AF with RVR , HHN treatment stopped cardio eval s/p Digoxin x 1- not responded Cardizem IV if no response, amiodarone gtt and transfer to ICU cardio at the bedside case discussed and evaluated by supervising physician Cristo Hendricks)Benita NP Apr 23, 2017 11:31
--- NOTE | 2017-04-23 11:43 | Diagnostic Imaging Report ---
Indication: Dyspnea Comparison: 02/29/2016 A single view chest radiograph was obtained. Findings: No definite infiltrate or pulmonary vascular congestion identified. The heart is enlarged. The aorta is mildly enlarged consistent with atherosclerotic vascular disease. The bones are osteopenic. Impression: No acute disease
[2017-04-23] MEDS ORDERED: Albuterol/Ipratropium 3ml neb HHN PRN (11:45)
[2017-04-23] MEDS ORDERED: Pantoprazole Inj IVP ONE (12:00)
--- NOTE | 2017-04-23 12:00 | History & Physical ---
History and Physical History & Physicial fever chest congestion, hypoxia , possible aspiration UTI Renal failure Dehydration High Na Low Alb High Troponin DNR DNI Osteoporosis h/o HTN functional quadriplegia Hydrate NPO Antibiotics ASA Nitro Beta blockers # [id number] YAZMIN CROSS Apr 23, 2017 12:00
[2017-04-23] MEDS ORDERED: Nitroglycerin 2% oint pkt TOPIC ONE (12:15)
[2017-04-23] MEDS ORDERED: Albuterol/Ipratropium 3ml neb HHN SCH (13:00)
[2017-04-23] MEDS ORDERED: Potassium Chloride 40 MEQ in Sodium Chloride 500ML 550 ML IVPB ONE (13:00)
[2017-04-23] MEDS ORDERED: Digoxin 0.5mg/2ml Inj IVP ONE ×2 (13:27→13:30)
--- NOTE | 2017-04-23 13:29 | Wound Care Consultation ---
Wound Assessment Wound Assessment : Wound Number: 1 Wound Present on Admission: Yes New Wound: No Status Change of Wound: No Wound Location Body Site Modif: right, plantar Wound Location Body Site: metatarsal head - 1st Wound Type: pressure ulcer Mumtaz Test: Does not Mumtaz Pressure Ulcer Stage: IV Wound Thickness: Full Thickness Wound Length: 2.5 Wound Width: 2.5 Wound Depth: 0.4 Percent of Wound [place]/Red: 80 Percent of Wound Bed Yellow/Wh: 20 Wound Drainage Description: Serosanguineous Wound Drainage Amount: Moderate Wound Drainage Odor: None/Absent Tissue Surrounding Wound: Macerated Wound General Appearance: Reddened, Draining, Muscle Visible, Bone Visible Wound Comment #1 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
--- NOTE | 2017-04-23 13:39 | Infectious Diseases Prog Note ---
Assessment/Plan Problems: (1) Right foot ulcer Assessment & Plan: rule out underlying osteomyelitis, will order ESR, and X ray of the right foot, await wound culture , continue vancomycin and cefepime, add metronidazol (2) Urinary tract infection Assessment & Plan: will send urine culture, already on cefepime (3) Sepsis Assessment & Plan: due to the above , continue vancomycin and cefepime, pending blood culture (4) Fever Assessment & Plan: due to the above , continue wide spectrum antibiotics , and tylenol as needed (5) Tachycardia Assessment & Plan: suspect due to A fIB , new onset started on metroprolol and digoxin loading dose, monitor HR, repeat EKG , consider cards consult Subjective Allergies: Coded Allergies: No Known Allergies (Unverified , 02/27/16) Objective Vital Signs Last 24 Hour Vital Signs Date Time Temp Pulse Resp B/P (MAP) Pulse Ox O2 Delivery O2 Flow Rate FiO2 04/23/17 13:17 62 18 98 Nasal Cannula 2.0 28 04/23/17 13:05 28 04/23/17 13:05 84 18 91 Nasal Cannula 2.0 28 04/23/17 08:10 154 04/23/17 08:00 92 04/23/17 08:00 98.4 95 20 143/84 93 Nasal Cannula 3.0 98.4 04/23/17 04:25 97.9 80 19 150/80 95 Nasal Cannula 3.0 97.9 04/23/17 04:00 84 04/23/17 02:00 84 04/23/17 01:43 100.0 80 18 159/84 94 Nasal Cannula 3.0 100.0 04/23/17 01:24 100.0 80 18 159/84 94 Nasal Cannula 3.0 100.0 04/23/17 00:29 100.0 04/22/17 23:59 102.0 04/22/17 22:00 100.9 90 18 137/72 94 Nasal Cannula 4.0 100.9 04/22/17 21:34 100.9 90 18 137/72 94 Nasal Cannula 4.0 100.9 Height (Feet): 5 Height (Inches): 3.00 Weight (Pounds): 135 Microbiology Date/Time Source Procedure Growth Status 04/22/17 00:00 Nasal Nares Influenza Types A,B Antigen (KARUNA) - Final Complete Laboratory Tests Test 3/3/18 20:00 04/22/17 23:07 04/23/17 06:25 White Blood Count 13.1 K/UL (4.8-10.8) H 13.6 K/UL (4.8-10.8) H Red Blood Count 5.50 M/UL (4.20-5.40) H 5.21 M/UL (4.20-5.40) Hemoglobin 17.1 G/DL (12.0-16.0) H 16.3 G/DL (12.0-16.0) H Hematocrit 51.2 % (37.0-47.0) H 49.1 % (37.0-47.0) H Mean Corpuscular Volume 93 FL (80-99) 94 FL (80-99) Mean Corpuscular Hemoglobin 31.1 PG (27.0-31.0) H 31.3 PG (27.0-31.0) H Mean Corpuscular Hemoglobin Concent 33.4 G/DL (32.0-36.0) 33.2 G/DL (32.0-36.0) Red Cell Distribution Width 12.6 % (11.6-14.8) 12.5 % (11.6-14.8) Platelet Count 239 K/UL (150-450) 230 K/UL (150-450) Mean Platelet Volume 7.4 FL (6.5-10.1) 7.3 FL (6.5-10.1) Neutrophils (%) (Auto) % (45.0-75.0) % (45.0-75.0) Lymphocytes (%) (Auto) % (20.0-45.0) % (20.0-45.0) Monocytes (%) (Auto) % (1.0-10.0) % (1.0-10.0) Eosinophils (%) (Auto) % (0.0-3.0) % (0.0-3.0) Basophils (%) (Auto) % (0.0-2.0) % (0.0-2.0) Differential Total Cells Counted 100 100 Neutrophils % (Manual) 79 % (45-75) H 84 % (45-75) H Lymphocytes % (Manual) 13 % (20-45) L 12 % (20-45) L Monocytes % (Manual) 3 % (1-10) 4 % (1-10) Eosinophils % (Manual) 0 % (0-3) 0 % (0-3) Basophils % (Manual) 0 % (0-2) 0 % (0-2) Band Neutrophils 5 % (0-8) 0 % (0-8) Platelet Estimate Adequate Adequate Platelet Morphology Normal Normal Sodium Level 156 MMOL/L (136-145) H 153 MMOL/L (136-145) H Potassium Level 3.6 MMOL/L (3.5-5.1) 3.3 MMOL/L (3.5-5.1) L Chloride Level 117 MMOL/L (98-107) H 116 MMOL/L (98-107) H Carbon Dioxide Level 29 MMOL/L (21-32) 25 MMOL/L (21-32) Anion Gap 10 mmol/L (5-15) 12 mmol/L (5-15) Blood Urea Nitrogen 44 mg/dL (7-18) H 47 mg/dL (7-18) H Creatinine 1.4 MG/DL (0.55-1.30) H 1.3 MG/DL (0.55-1.30) Estimat Glomerular Filtration Rate mL/min (>60) mL/min (>60) Glucose Level 177 MG/DL (74-106) H 221 MG/DL (74-106) H Lactic Acid Level 1.70 mmol/L (0.66-2.22) Calcium Level 9.1 MG/DL (8.5-10.1) 8.7 MG/DL (8.5-10.1) Total Bilirubin 0.5 MG/DL (0.2-1.0) 0.6 MG/DL (0.2-1.0) Aspartate Amino Transf (AST/SGOT) 64 U/L (15-37) H 52 U/L (15-37) H Alanine Aminotransferase (ALT/SGPT) 63 U/L (12-78) 57 U/L (12-78) Alkaline Phosphatase 106 U/L (46-116) 100 U/L (46-116) Total Creatine Kinase 398 U/L (26-308) H Creatine Kinase MB 1.1 NG/ML (0.0-3.6) Creatine Kinase MB Relative Index 0.2 Troponin I 0.084 ng/mL (0.000-0.056) 0.092 ng/mL (0.000-0.056) Total Protein 8.8 G/DL (6.4-8.2) H 8.3 G/DL (6.4-8.2) H Albumin 3.0 G/DL (3.4-5.0) L 2.8 G/DL (3.4-5.0) L Globulin 5.8 g/dL 5.5 g/dL Albumin/Globulin Ratio 0.5 (1.0-2.7) L 0.5 (1.0-2.7) L Urine Color Yellow Urine Appearance Clear Urine pH 5 (4.5-8.0) Urine Specific [place] 1.025 (1.005-1.035) Urine Protein 2+ (NEGATIVE) H Urine Glucose (UA) Negative (NEGATIVE) Urine Ketones 1+ (NEGATIVE) H Urine Occult Blood 1+ (NEGATIVE) H Urine Nitrite Negative (NEGATIVE) Urine Bilirubin Negative (NEGATIVE) Urine Urobilinogen 1 MG/DL (0.0-1.0) H Urine Leukocyte Esterase 1+ (NEGATIVE) H Urine RBC 0-2 /HPF (0 - 2) Urine WBC 2-4 /HPF (0 - 2) Urine Squamous Epithelial Cells Occasional /LPF Urine Amorphous Sediment Moderate /LPF (NONE) H Urine Bacteria Few /HPF (NONE) Urine Mucus Few /LPF (NONE/OCC) H Red Blood Cell Morphology Normal Hemoglobin A1c 6.1 % (4.3-6.0) H Uric Acid 7.1 MG/DL (2.6-7.2) Phosphorus Level 2.8 MG/DL (2.5-4.9) Magnesium Level 2.1 MG/DL (1.8-2.4) C-Reactive Protein, Quantitative 5.4 mg/dL (0.00-0.90) H Pro-B-Type Natriuretic Peptide 818 pg/mL (0-125) H Triglycerides Level 95 MG/DL (30-150) Cholesterol Level 129 MG/DL (< 200) LDL Cholesterol 88 mg/dL (<100) HDL Cholesterol 29 MG/DL (40-60) L Cholesterol/HDL Ratio 4.4 (3.3-4.4) Thyroid Stimulating Hormone (TSH) 1.070 uiU/mL (0.358-3.740) Current Medications Medications (Trade) Dose Ordered Sig/Baljit Route PRN Reason Start Time Stop Time Status Last Admin Dose Admin Acetaminophen (Tylenol) 650 mg Q4H PRN RECTAL Mild Pain (Pain Scale 1-3) 04/23/17 01:30 05/23/17 01:29 Albuterol/ Ipratropium (Albuterol/ Ipratropium) 3 ml Q4H PRN HHN Shortness of Breath 04/23/17 11:45 04/28/17 11:44 Aspirin (ASA) 325 mg DAILY ORAL 04/23/17 12:30 05/23/17 12:29 Cefepime HCl 0.5 gm/Dextrose 55 ml @ 110 mls/hr Q24H IVPB 04/24/17 09:00 05/01/17 08:59 Heparin Sodium (Porcine) (Heparin 5000 units/ml) 5,000 units EVERY 12 HOURS SUBQ 04/23/17 09:00 05/23/17 08:59 04/23/17 09:44 Metoprolol Tartrate (Lopressor) 12.5 mg Q12HR ORAL 04/23/17 21:00 05/23/17 20:59 Metronidazole 100 ml @ 100 mls/hr Q8HR IVPB 04/23/17 06:00 04/30/17 05:59 04/23/17 10:49 Nitroglycerin (Nitro-Bid) 1 inch Q6HR TOPIC 04/23/17 18:00 05/23/17 17:59 Ondansetron HCl (Zofran) 4 mg Q6H PRN IVP Nausea & Vomiting 04/23/17 01:30 05/23/17 01:29 Oseltamivir Phosphate (Tamiflu) 30 mg DAILY ORAL 04/23/17 09:00 04/28/17 08:59 Pantoprazole (Protonix) 40 mg EVERY 12 HOURS IVP 04/23/17 21:00 05/23/17 20:59 Potassium Chloride 40 meq/ Sodium Chloride 570 ml @ 142.5 mls/ hr ONCE ONCE IVPB 04/23/17 13:00 04/23/17 16:59 Sodium Chloride 1,000 ml @ 100 mls/hr Q10H IV 04/23/17 13:00 05/23/17 12:59 Vancomycin HCl (Vanco rx to dose) 1 ea DAILY PRN MISC Per rx protocol 04/23/17 01:15 05/23/17 01:14 Vancomycin/Sodium Chloride 250 ml @ 166.667 mls/hr Q24H IVPB 04/24/17 05:00 04/29/17 04:59 Damon Briggs M.D. Apr 23, 2017 13:39
[2017-04-23] MEDS ORDERED: metroNIDAZOLE 500mg tab ORAL SCH ×2 (14:00→22:00)
--- NOTE | 2017-04-23 14:27 | Cardiology Progress Note ---
Assessment/Plan Assessment/Plan [id number] afib tachy dehydration dementia ditl iv may need trip may need kathy trasfer resume bb Objective Last 24 Hour Vital Signs Date Time Temp Pulse Resp B/P (MAP) Pulse Ox O2 Delivery O2 Flow Rate FiO2 04/23/17 13:40 118/53 04/23/17 13:38 206 04/23/17 13:17 62 18 98 Nasal Cannula 2.0 28 04/23/17 13:05 28 04/23/17 13:05 84 18 91 Nasal Cannula 2.0 28 04/23/17 08:10 154 04/23/17 08:00 92 04/23/17 08:00 98.4 95 20 143/84 93 Nasal Cannula 3.0 98.4 04/23/17 04:25 97.9 80 19 150/80 95 Nasal Cannula 3.0 97.9 04/23/17 04:00 84 04/23/17 02:00 84 04/23/17 01:43 100.0 80 18 159/84 94 Nasal Cannula 3.0 100.0 04/23/17 01:24 100.0 80 18 159/84 94 Nasal Cannula 3.0 100.0 04/23/17 00:29 100.0 04/22/17 23:59 102.0 04/22/17 22:00 100.9 90 18 137/72 94 Nasal Cannula 4.0 100.9 04/22/17 21:34 100.9 90 18 137/72 94 Nasal Cannula 4.0 100.9 Intake and Output 04/22/17 04/23/17 19:00 07:00 Intake Total 0 ml Output Total 200 ml Balance -200 ml Intake Oral 0 ml Output Urine Total 200 ml # Bowel Movements 1 Laboratory Tests Test 04/22/17 20:00 04/22/17 23:07 04/23/17 06:25 White Blood Count 13.1 K/UL (4.8-10.8) H 13.6 K/UL (4.8-10.8) H Red Blood Count 5.50 M/UL (4.20-5.40) H 5.21 M/UL (4.20-5.40) Hemoglobin 17.1 G/DL (12.0-16.0) H 16.3 G/DL (12.0-16.0) H Hematocrit 51.2 % (37.0-47.0) H 49.1 % (37.0-47.0) H Mean Corpuscular Volume 93 FL (80-99) 94 FL (80-99) Mean Corpuscular Hemoglobin 31.1 PG (27.0-31.0) H 31.3 PG (27.0-31.0) H Mean Corpuscular Hemoglobin Concent 33.4 G/DL (32.0-36.0) 33.2 G/DL (32.0-36.0) Red Cell Distribution Width 12.6 % (11.6-14.8) 12.5 % (11.6-14.8) Platelet Count 239 K/UL (150-450) 230 K/UL (150-450) Mean Platelet Volume 7.4 FL (6.5-10.1) 7.3 FL (6.5-10.1) Neutrophils (%) (Auto) % (45.0-75.0) % (45.0-75.0) Lymphocytes (%) (Auto) % (20.0-45.0) % (20.0-45.0) Monocytes (%) (Auto) % (1.0-10.0) % (1.0-10.0) Eosinophils (%) (Auto) % (0.0-3.0) % (0.0-3.0) Basophils (%) (Auto) % (0.0-2.0) % (0.0-2.0) Differential Total Cells Counted 100 100 Neutrophils % (Manual) 79 % (45-75) H 84 % (45-75) H Lymphocytes % (Manual) 13 % (20-45) L 12 % (20-45) L Monocytes % (Manual) 3 % (1-10) 4 % (1-10) Eosinophils % (Manual) 0 % (0-3) 0 % (0-3) Basophils % (Manual) 0 % (0-2) 0 % (0-2) Band Neutrophils 5 % (0-8) 0 % (0-8) Platelet Estimate Adequate Adequate Platelet Morphology Normal Normal Sodium Level 156 MMOL/L (136-145) H 153 MMOL/L (136-145) H Potassium Level 3.6 MMOL/L (3.5-5.1) 3.3 MMOL/L (3.5-5.1) L Chloride Level 117 MMOL/L (98-107) H 116 MMOL/L (98-107) H Carbon Dioxide Level 29 MMOL/L (21-32) 25 MMOL/L (21-32) Anion Gap 10 mmol/L (5-15) 12 mmol/L (5-15) Blood Urea Nitrogen 44 mg/dL (7-18) H 47 mg/dL (7-18) H Creatinine 1.4 MG/DL (0.55-1.30) H 1.3 MG/DL (0.55-1.30) Estimat Glomerular Filtration Rate mL/min (>60) mL/min (>60) Glucose Level 177 MG/DL (74-106) H 221 MG/DL (74-106) H Lactic Acid Level 1.70 mmol/L (0.66-2.22) Calcium Level 9.1 MG/DL (8.5-10.1) 8.7 MG/DL (8.5-10.1) Total Bilirubin 0.5 MG/DL (0.2-1.0) 0.6 MG/DL (0.2-1.0) Aspartate Amino Transf (AST/SGOT) 64 U/L (15-37) H 52 U/L (15-37) H Alanine Aminotransferase (ALT/SGPT) 63 U/L (12-78) 57 U/L (12-78) Alkaline Phosphatase 106 U/L (46-116) 100 U/L (46-116) Total Creatine Kinase 398 U/L (26-308) H Creatine Kinase MB 1.1 NG/ML (0.0-3.6) Creatine Kinase MB Relative Index 0.2 Troponin I 0.084 ng/mL (0.000-0.056) 0.092 ng/mL (0.000-0.056) Total Protein 8.8 G/DL (6.4-8.2) H 8.3 G/DL (6.4-8.2) H Albumin 3.0 G/DL (3.4-5.0) L 2.8 G/DL (3.4-5.0) L Globulin 5.8 g/dL 5.5 g/dL Albumin/Globulin Ratio 0.5 (1.0-2.7) L 0.5 (1.0-2.7) L Urine Color Yellow Urine Appearance Clear Urine pH 5 (4.5-8.0) Urine Specific [place] 1.025 (1.005-1.035) Urine Protein 2+ (NEGATIVE) H Urine Glucose (UA) Negative (NEGATIVE) Urine Ketones 1+ (NEGATIVE) H Urine Occult Blood 1+ (NEGATIVE) H Urine Nitrite Negative (NEGATIVE) Urine Bilirubin Negative (NEGATIVE) Urine Urobilinogen 1 MG/DL (0.0-1.0) H Urine Leukocyte Esterase 1+ (NEGATIVE) H Urine RBC 0-2 /HPF (0 - 2) Urine WBC 2-4 /HPF (0 - 2) Urine Squamous Epithelial Cells Occasional /LPF Urine Amorphous Sediment Moderate /LPF (NONE) H Urine Bacteria Few /HPF (NONE) Urine Mucus Few /LPF (NONE/OCC) H Red Blood Cell Morphology Normal Erythrocyte Sedimentation Rate Pending Hemoglobin A1c 6.1 % (4.3-6.0) H Uric Acid 7.1 MG/DL (2.6-7.2) Phosphorus Level 2.8 MG/DL (2.5-4.9) Magnesium Level 2.1 MG/DL (1.8-2.4) C-Reactive Protein, Quantitative 5.4 mg/dL (0.00-0.90) H Pro-B-Type Natriuretic Peptide 818 pg/mL (0-125) H Triglycerides Level 95 MG/DL (30-150) Cholesterol Level 129 MG/DL (< 200) LDL Cholesterol 88 mg/dL (<100) HDL Cholesterol 29 MG/DL (40-60) L Cholesterol/HDL Ratio 4.4 (3.3-4.4) Thyroid Stimulating Hormone (TSH) 1.070 uiU/mL (0.358-3.740) Microbiology Date/Time Source Procedure Growth Status 04/22/17 00:00 Nasal Nares Influenza Types A,B Antigen (KARUNA) - Final Complete KHOA KWONG Apr 23, 2017 14:26
[2017-04-23] MEDS ORDERED: dilTIAZem HCl 25mg/5ml Inj IVP ONE (14:30)
[2017-04-23] MEDS ORDERED: 1/2 NS 1000ml IV ONE (16:38)
[2017-04-23] MEDS ORDERED: D5W 275ml ONE (16:38)
[2017-04-23] MEDS ORDERED: Tubing IV Secondary IV ONE (16:38)
[2017-04-23] MEDS ORDERED: Nitroglycerin 2% oint pkt TOPIC SCH (18:00)
[2017-04-23] MEDS ORDERED: Amiodarone 200mg tab ORAL ONE (18:45)
[2017-04-23] MEDS ORDERED: Levalbuterol Inh UD 1.25mg/0.5ml HHN SCH (19:00)
--- NOTE | 2017-04-23 19:15 | History and Physical Report ---
DATE OF ADMISSION: 04/22/2017 HISTORY OF PRESENT ILLNESS: The patient is an 82-year-old female, a resident of [facility]. The patient has multiple medical problems. The patient was transferred to emergency room last evening with the complaint of chest congestion and fever, which are symptoms that the nurses brought up to my attention. The patient was summoned to go to emergency room. After initial evaluation, the patient was admitted for further management. PAST MEDICAL HISTORY: The patient is significant for organic brain syndrome, previous CVA, hypertension, high cholesterol, and osteoporosis. The patient is DNR and DNI. PHYSICAL EXAMINATION: GENERAL: On examination today, the patient is not verbal. VITAL SIGNS: Heart rate is variable, around 85 at this time, temperature was 100 degrees max and now is 98.4 degrees, respiratory rate 20, and the patient is on oxygen with 3 liters. HEENT: Head is normocephalic. Face is pale. NECK: Rigid to all directions. HEART: Mainly irregular with occasional irregular beats. LUNGS: Poor inspiratory effort. Decreased breath sounds over the bases. Few rhonchi. ABDOMEN: Soft. EXTREMITIES: The patient is weak in all extremities. LABORATORY AND DIAGNOSTIC DATA: WBCs were 13.1 and hemoglobin 17.1. Sodium 156, BUN 44, and creatinine 1.4. Albumin of 3. Urine had 1+ leukocyte esterase, 4 RBCs, few bacteria. The chest x-ray was not suggestive of any acute problem. IMPRESSION: This 82-year-old came in with fever, chest congestion, hypoxia, and is suspected to have aspiration pneumonia early. Other conditions, acute renal failure, hypernatremia secondary to dehydration, and elevated troponin, which appears to be a stress-related and leak, hypoalbuminemia, evidence of UTI, and also the patient is DNR, DNI, osteoporosis, and hypertension by history. PLAN: Hydrate with half normal saline. Keep NPO. The patient started on cefepime, vancomycin, and Flagyl. ST evaluation is pending. Nitro paste, beta-josué, and aspirin is being given. According to how the patient's condition evolves, we will make the proper changes in our future management. Seth Shore M.D. DR: ANA JOB#: [id number] CC:
[2017-04-23] MEDS ORDERED: Metoprolol Tartrate 12.5mg TAB ORAL SCH (21:00)
[2017-04-23] MEDS ORDERED: Pantoprazole Inj IVP SCH (21:00)
[2017-04-23] MEDS ORDERED: Pneumococcal Vaccine 25mcg/0.5ml IM ONE (21:00)
[2017-04-23] MEDS: Nitroglycerin 2% oint pkt TOPIC SCH (23:08)
[2017-04-23] MEDS ORDERED: Metoprolol 5mg/5ml Inj IVP PRN (23:45)
--- NOTE | 2017-04-23 23:45 | Consultation ---
DATE OF CONSULTATION: 04/23/2017 CARDIOLOGY CONSULTATION CONSULTING PHYSICIAN: Bryn Islas M.D. REFERRING PHYSICIAN: Lauro Lopez M.D. and Seth Shore M.D. REASON FOR REFERRAL: Acute onset of atrial fibrillation with rapid ventricular response. HISTORY OF PRESENT ILLNESS: This is a very unfortunate female who is a resident of a convalescent facility. The patient is completely incapable of providing any meaningful history. Information was obtained from the patient's chart. It appears from the emergency room from the [facility] sheet that they picked the patient up from [facility] for fevers and chest congestion. The patient nonambulatory, unable to get out of bed without assistance due to risk. In any case, the patient was transferred to the emergency room at [facility]. Initially, blood pressure 139/67 with a pulse of 103 per paramedics. The patient was brought to the emergency room, was seen by the emergency room physician, and was admitted to the hospital because of fevers to be worked up. Temperature of 102 was documented in the emergency room. She has been receiving some breathing treatments here on the telemetry unit, developed sudden onset of tachycardia, rates upwards of 180 to 190. This urgent consultation requested. The patient is again not able to provide information. Data from the chart indicates she has a history of sepsis, dementia, dehydration, hypertension, osteoporosis, organic brain syndrome, prior CVA, hyperlipidemia, and systemic hypertension. SOCIAL HISTORY: She is a resident of [facility]. REVIEW OF SYSTEMS: Unable to obtain. PHYSICAL EXAMINATION: GENERAL: Shows to be elderly female, responsive but not verbal, noncommunicative to . Oral hygiene is quite poor with layer of lower part of the dentures. NECK: Supple. LUNGS: Bilaterally appear to be clear. CARDIAC: Irregularly irregular. Tachycardic. No heaves or thrills noted. ABDOMEN: Soft and nontender. EXTREMITIES: Contracted with edema. NEUROLOGICALLY: As mentioned arousable but not very communicative at all. LABORATORY AND DIAGNOSTIC DATA: White count of 13.6, hemoglobin 16.3, and platelet count of 230 is documented. Sodium of 153, potassium 3.3, chloride 116, bicarb 25, BUN 47, creatinine 1.3 glucose of 221. In direct comparison with prior levels in February 2016 BUN of 11 at that time. Hemoglobin A1c of 6.1. Liver function tests are normal. Troponin is 0.084 and 0.092. CRP of 5.4. ProBNP is only 818. Total cholesterol 129. TSH of 1.07. Urinalysis 0 to 2 RBCs and 2 to 4 WBCs. Influenza A negative. Chest x-ray that showed no acute disease processes. The EKG just performed shows atrial fibrillation with rapid ventricular response with some nonspecific ST-segment changes compared to the EKG performed earlier at the time of admission, sinus rhythm was documented on that EKG with normal QRS axis. ASSESSMENT AND PLAN: 1. Acute onset of atrial fibrillation with rapid ventricular response. 2. Tachycardia. 3. Dementia. 4. History of cerebrovascular accident. 5. Azotemia. 6. Possible sepsis. This patient was seen in urgent consultation, requested urgent administration of intravenous boluses of Cardizem to be given. The patient remains DNR/DNI as per my discussion with Pulmonary. Beta-agonist inhalers should be discontinued. The patient does not appear to be wheezing. She received some intravenous fluids as she does appear to be somewhat dehydrated based on her laboratories and her oral mucosa and if possible to restart the patient's beta blockers to control the patient's heart rate, not a candidate for cardioversion. The patient will be treated medically and this point we will hold off on anticoagulation as I suspect she may convert but we will watch the patient on telemetry and provide further recommendation depending on the duration and/or recurrence of episodes of atrial fibrillation. Bryn Islas M.D. DR: Duncan JOB#: [id number] CC:
[2017-04-24] VITALS: BP 120/78
--- NOTE | 2017-04-24 00:15 | Consultation ---
DATE OF CONSULTATION: 04/23/2017 INFECTIOUS DISEASE CONSULTATION REQUESTING PHYSICIAN: Seth Shore M.D. REASON FOR CONSULTATION: Fever and right foot ulcer, possible osteomyelitis and urinary tract infection. Recommendation for antibiotics treatment and further management. HISTORY OF PRESENT ILLNESS: The patient is an 82-year-old female who is a intermediate resident of [facility] with past medical history of dementia, depression, dysphagia and hyperlipidemia was sent to the emergency room at [facility] for fever and right foot wound ulcer. The patient was found to have temperature of 100.9 and was saturating 94% on four liters nasal cannula. She also had urine tract infection on urinalysis at the emergency room. The patient also was found to have right foot ulcer with possible underlying osteomyelitis. Infectious diseases consultation was requested for further evaluation and management. As of note, the patient is demented, cannot provide any history. History was mainly obtained from the medical record. REVIEW OF SYSTEMS: Unable to obtain. The patient is a poor historian, cannot provide any good history. PAST MEDICAL HISTORY: Significant for hypertension, hyperlipidemia, GERD, dementia, anxiety, depression, dysphagia. PAST SURGICAL HISTORY: Unable to obtain at this point. FAMILY HISTORY: Unable to obtain. SOCIAL HISTORY: The patient is a resident of [facility]. No recent drugs, tobacco, or alcohol. ALLERGIES: No known drug allergy. MEDICATIONS: She is currently started on cefepime and vancomycin by the admitting team. She received also vancomycin and cefepime in the emergency room. For the rest of her medications, please refer to MAR. PHYSICAL EXAMINATION: VITAL SIGNS: Temperature of 98.4, pulse 95, respirations 20, blood pressure 143/84, pulse oximetry 93% on three liters nasal cannula. GENERAL: Elderly female, lying in bed, comfortable, respond to verbal commands, breathing through her mouth, not in acute distress, tachycardic. HEENT: Normocephalic and atraumatic. Pupils reactive to light equally. Poor dental hygiene. No oral ulcers or thrush. NECK: Supple. No lymphadenopathy. CARDIOVASCULAR: She is tachycardic with regular rhythm. S1 and S2 normal. No murmur. LUNGS: She had diminished breathing sounds at the bases. No wheezing or rhonchi. ABDOMEN: Soft, nontender, nondistended. Positive bowel sounds. No hepatosplenomegaly or ascites. EXTREMITIES: She had right foot wound on the medial lower aspect of the front foot draining brownish pus like material with skin erythema on the borders and exposed bone. LABORATORY DATA: Labs showed white count of 13.6, hemoglobin of 16.3, platelet count of 230. BUN of 47 and creatinine 1.3. AST of 52 and ALT of 57. Urinalysis showed negative nitrite, urobilinogen of 1, few bacteria, and few mucus. IMAGING: Chest x-ray showed no acute disease. ASSESSMENT AND RECOMMENDATION: 1. Right foot ulcer to rule out underlying osteomyelitis. We will order sedimentation rate and MRI of the right foot and send wound culture. We will continue vancomycin and cefepime. Add Flagyl to cover anaerobes. Continue local wound care as per wound care service. 2. Urinary tract infection. The patient already on cefepime. We will send urine culture. 3. Sepsis due to the above. Continue vancomycin and cefepime. Pending further culture results. 4. Fever due to the above. Continue wide-spectrum antibiotics and Tylenol as needed. 5. Tachycardia suspect due to atrial fibrillation new onset started on digoxin loading dose and metoprolol. Consult Cardiology. Monitor EKG. Thank you for the consult. ID will continue to follow. Damon Briggs M.D. DR: Christiane JOB#: [id number] CC:
[2017-04-24] MEDS ORDERED: Acetaminophen 650 MG SUPP RECTAL PRN (01:30)
[2017-04-24 04:00] VITALS: BP 117/63
[2017-04-24] MEDS ORDERED: Vancomycin 750mg/NS 250ml IVPB SCH (05:00)
[2017-04-24] MEDS ORDERED: Vancomycin 750mg/NS 250ml 250 ML IVPB SCH (05:00)
[2017-04-24] MEDS: Nitroglycerin 2% oint pkt TOPIC SCH ×3 (06:14→18:25)
[2017-04-24 08:00] VITALS: BP 158/56
[2017-04-24] MEDS: Levalbuterol Inh UD 1.25mg/0.5ml HHN SCH ×3 (08:14→19:34)
[2017-04-24] MEDS: Amiodarone 200mg tab ORAL SCH ×3 (09:00→21:12)
[2017-04-24] MEDS ORDERED: Cefepime HCl 0.5 GM in D5W 55 ML IVPB SCH ×4 (09:00)
[2017-04-24] MEDS ORDERED: Amiodarone 200mg tab ORAL SCH (09:00)
[2017-04-24] MEDS: Metoprolol Tartrate 12.5mg TAB ORAL SCH ×3 (09:00→21:11)
[2017-04-24] MEDS: Pantoprazole Inj IVP SCH ×2 (09:11→21:12)
[2017-04-24] MEDS: Heparin 5000 units/ml inj SUBQ SCH ×2 (09:14→21:19)
[2017-04-24 09:21] LABS: HEMATOCRIT 44.4 % (37.0-47.0); HEMOGLOBIN 14.5 G/DL (12.0-16.0); MEAN CORPUSCULAR VOLUME 96 FL (80-99); PLATELET COUNT 172 K/UL (150-450); RED BLOOD COUNT 4.63 M/UL (4.20-5.40); RED CELL DISTRIBUTION WIDTH 12.9 % (11.6-14.8); WHITE BLOOD COUNT 13.9 K/UL (4.8-10.8)
[2017-04-24 09:42] LABS: ALANINE AMINOTRANSFERASE 40 U/L (12-78); ALBUMIN 2.6 G/DL (3.4-5.0); ALBUMIN/GLOBULIN RATIO 0.5 (1.0-2.7); ALKALINE PHOSPHATASE 98 U/L (46-116); ANION GAP 11 mmol/L (5-15); ASPARTATE AMINO TRANSFERASE 43 U/L (15-37); BILIRUBIN,TOTAL 0.6 MG/DL (0.2-1.0); BLOOD UREA NITROGEN 36 mg/dL (7-18); CALCIUM 8.5 MG/DL (8.5-10.1); CARBON DIOXIDE 25 MMOL/L (21-32); CHLORIDE 118 MMOL/L (98-107); CREATININE 1.3 MG/DL (0.55-1.30); PHOSPHORUS 1.9 MG/DL (2.5-4.9); POTASSIUM 3.9 MMOL/L (3.5-5.1); SODIUM 154 MMOL/L (136-145)
--- NOTE | 2017-04-24 11:17 | General Progress Note ---
Assessment/Plan Problem List: (1) Urinary tract infection ICD Codes: N39.0 - Urinary tract infection, site not specified SNOMED: 33242931 (2) Sepsis ICD Codes: A41.9 - Sepsis, unspecified organism SNOMED: 68894773 (3) Pneumonia Assessment & Plan: likely aspiration ICD Codes: J18.9 - Pneumonia, unspecified organism SNOMED: 423812553 (4) Acute renal failure Assessment & Plan: partly dehydration ICD Codes: N17.9 - Acute kidney failure, unspecified SNOMED: 83623603 (5) Atrial fibrillation with RVR Assessment & Plan: new onset ICD Codes: I48.91 - Unspecified atrial fibrillation SNOMED: 605033403335666 Status Narrative This 82-year-old came in with fever, chest congestion, hypoxia, and is suspected to have aspiration pneumonia early. acute renal failure, hypernatremia secondary to dehydration, elevated troponin, which appears to be a stress-related and leak, hypoalbuminemia, evidence of UTI, DNR, DNI, osteoporosis, hypertension atrial fib with FVR Assessment/Plan NGT Hydrate HR control Antibiotics ? PEG- DPOA to decide Per orders Subjective ROS Limited/Unobtainable: No Constitutional: Reports: malaise Allergies: Coded Allergies: No Known Allergies (Unverified , 02/27/16) Objective Last 24 Hour Vital Signs Date Time Temp Pulse Resp B/P (MAP) Pulse Ox O2 Delivery O2 Flow Rate FiO2 04/24/17 09:10 92 128/79 04/24/17 08:19 Nasal Cannula 4.0 36 04/24/17 08:00 98.1 74 18 158/56 97 Nasal Cannula 4.0 98.1 04/24/17 08:00 73 04/24/17 07:54 92 18 98 Nasal Cannula 4.0 36 04/24/17 07:45 88 20 96 Nasal Cannula 4.0 36 04/24/17 07:44 88 20 Nasal Cannula 4.0 36 04/24/17 07:44 96 Nasal Cannula 4.0 36 04/24/17 06:14 128/79 04/24/17 04:00 69 04/24/17 04:00 97.5 70 20 117/63 97 Nasal Cannula 3.0 97.5 04/24/17 00:00 75 04/24/17 00:00 98.5 80 24 120/78 97 Nasal Cannula 3.0 98.5 04/23/17 23:08 136/82 04/23/17 21:15 86 130/74 04/23/17 20:03 36 04/23/17 20:03 86 20 93 Nasal Cannula 4.0 36 04/23/17 20:00 99.1 90 22 116/75 96 Nasal Cannula 3.0 99.1 04/23/17 20:00 155 04/23/17 19:25 97.9 81 20 130/74 94 Nasal Cannula 3.0 97.9 04/23/17 18:00 84 24 143/73 92 Nasal Cannula 3.0 04/23/17 17:45 147/77 04/23/17 17:00 79 22 136/63 93 Nasal Cannula 3.0 04/23/17 16:30 86 04/23/17 16:00 85 04/23/17 16:00 97.6 78 27 111/76 92 Nasal Cannula 3.0 97.6 04/23/17 15:43 37 125/66 92 Nasal Cannula 3.0 04/23/17 15:30 97.3 88 20 143/84 93 Nasal Cannula 3.0 97.3 04/23/17 15:30 88 04/23/17 14:30 180 123/66 04/23/17 13:40 118/53 04/23/17 13:38 206 04/23/17 13:17 62 18 98 Nasal Cannula 2.0 28 04/23/17 13:05 28 04/23/17 13:05 84 18 91 Nasal Cannula 2.0 28 04/23/17 12:00 81 Intake and Output 04/23/17 04/24/17 19:00 07:00 Intake Total 1332 ml 1373.2 ml Output Total 380 ml 200 ml Balance 952 ml 1173.2 ml IV Total 1332 ml 1373.2 ml Output Urine Total 380 ml 200 ml # Bowel Movements 1 Laboratory Tests 04/24/17 08:50: White Blood Count 13.9H, Red Blood Count 4.63, Hemoglobin 14.5, Hematocrit 44.4 , Mean Corpuscular Volume 96, Mean Corpuscular Hemoglobin 31.3H, Mean Corpuscular Hemoglobin Concent 32.6, Red Cell Distribution Width 12.9, Platelet Count 172, Mean Platelet Volume 8.4, Neutrophils (%) (Auto) , Lymphocytes (%) ( Auto) , Monocytes (%) (Auto) , Eosinophils (%) (Auto) , Basophils (%) (Auto) , Differential Total Cells Counted 100, Neutrophils % (Manual) 86H, Lymphocytes % (Manual) 8L, Monocytes % (Manual) 6, Eosinophils % (Manual) 0, Basophils % ( Manual) 0, Band Neutrophils 0, Platelet Estimate Adequate, Platelet Morphology Normal, Red Blood Cell Morphology Normal, Sodium Level 154H, Potassium Level 3.9 , Chloride Level 118H, Carbon Dioxide Level 25, Anion Gap 11, Blood Urea Nitrogen 36H, Creatinine 1.3, Estimat Glomerular Filtration Rate , Glucose Level 169H, Uric Acid 5.5, Calcium Level 8.5, Phosphorus Level 1.9L, Magnesium Level 1.9, Total Bilirubin 0.6, Aspartate Amino Transf (AST/SGOT) 43H, Alanine Aminotransferase (ALT/SGPT) 40, Alkaline Phosphatase 98, Troponin I 0.282H, Pro- B-Type Natriuretic Peptide 1861H, Total Protein 7.6, Albumin 2.6L, Globulin 5.0 , Albumin/Globulin Ratio 0.5L Height (Feet): 5 Height (Inches): 3.00 Weight (Pounds): 135 General Appearance: mild distress Cardiovascular: tachycardia, arrhythmia Respiratory/Chest: decreased breath sounds Abdomen: soft YAZMIN CROSS 5, 2018 11:17
--- NOTE | 2017-04-24 11:32 | Diagnostic Imaging Report ---
Indication: Shortness of breath Technique: One view of the chest Comparison: 04/22/2017 Findings: The heart is upper limits of normal in size. There is suggestion of retrocardiac atelectasis and consolidation, as well as some hazy and reticular infiltrate developing in the right midlung. Impression: Suspect developing retrocardiac atelectasis and right perihilar hazy and reticular infiltrate
--- NOTE | 2017-04-24 11:59 | Pulmonology Progress Note ---
Assessment/Plan Problems: (1) Pneumonia (2) Acute renal failure (3) Atrial fibrillation with RVR (4) Fever (5) Sepsis Assessment/Plan titrate fio2 to st of 92% aspiration precaution respiratory treatment continue abx check cultures dvt prophylaxis monitor heart rate d/w manager social and pts DPOA, Subjective ROS Limited/Unobtainable: No Constitutional: Reports: no symptoms HEENT: Repors: no symptoms Allergies: Coded Allergies: No Known Allergies (Unverified , 02/27/16) Objective Last 24 Hour Vital Signs Date Time Temp Pulse Resp B/P (MAP) Pulse Ox O2 Delivery O2 Flow Rate FiO2 04/24/17 11:40 128/79 04/24/17 09:10 92 128/79 04/24/17 08:19 Nasal Cannula 4.0 36 04/24/17 08:00 98.1 74 18 158/56 97 Nasal Cannula 4.0 98.1 04/24/17 08:00 73 04/24/17 07:54 92 18 98 Nasal Cannula 4.0 36 04/24/17 07:45 88 20 96 Nasal Cannula 4.0 36 04/24/17 07:44 88 20 Nasal Cannula 4.0 36 04/24/17 07:44 96 Nasal Cannula 4.0 36 04/24/17 06:14 128/79 04/24/17 04:00 69 04/24/17 04:00 97.5 70 20 117/63 97 Nasal Cannula 3.0 97.5 04/24/17 00:00 75 04/24/17 00:00 98.5 80 24 120/78 97 Nasal Cannula 3.0 98.5 04/23/17 23:08 136/82 04/23/17 21:15 86 130/74 04/23/17 20:03 36 04/23/17 20:03 86 20 93 Nasal Cannula 4.0 36 04/23/17 20:00 99.1 90 22 116/75 96 Nasal Cannula 3.0 99.1 04/23/17 20:00 155 04/23/17 19:25 97.9 81 20 130/74 94 Nasal Cannula 3.0 97.9 04/23/17 18:00 84 24 143/73 92 Nasal Cannula 3.0 04/23/17 17:45 147/77 04/23/17 17:00 79 22 136/63 93 Nasal Cannula 3.0 04/23/17 16:30 86 04/23/17 16:00 85 04/23/17 16:00 97.6 78 27 111/76 92 Nasal Cannula 3.0 97.6 04/23/17 15:43 37 125/66 92 Nasal Cannula 3.0 04/23/17 15:30 97.3 88 20 143/84 93 Nasal Cannula 3.0 97.3 04/23/17 15:30 88 04/23/17 14:30 180 123/66 04/23/17 13:40 118/53 04/23/17 13:38 206 04/23/17 13:17 62 18 98 Nasal Cannula 2.0 28 04/23/17 13:05 28 04/23/17 13:05 84 18 91 Nasal Cannula 2.0 28 04/23/17 12:00 81 Intake and Output 04/23/17 04/24/17 19:00 07:00 Intake Total 1332 ml 1373.2 ml Output Total 380 ml 200 ml Balance 952 ml 1173.2 ml IV Total 1332 ml 1373.2 ml Output Urine Total 380 ml 200 ml # Bowel Movements 1 General Appearance: WD/WN HEENT: atraumatic Respiratory/Chest: chest wall non-tender, lungs clear Abdomen: normal bowel sounds, soft, non tender Genitourinary: normal external genitalia Extremities: no clubbing Skin: no rash Microbiology Date/Time Source Procedure Growth Status 04/22/17 20:05 Blood Blood Culture - Preliminary NO GROWTH AFTER 24 HOURS Resulted 04/22/17 20:00 Blood Blood Culture - Preliminary NO GROWTH AFTER 24 HOURS Resulted 04/22/17 00:00 Nasal Nares Influenza Types A,B Antigen (KARUNA) - Final Complete Laboratory Tests 04/24/17 08:50: White Blood Count 13.9H, Red Blood Count 4.63, Hemoglobin 14.5, Hematocrit 44.4 , Mean Corpuscular Volume 96, Mean Corpuscular Hemoglobin 31.3H, Mean Corpuscular Hemoglobin Concent 32.6, Red Cell Distribution Width 12.9, Platelet Count 172, Mean Platelet Volume 8.4, Neutrophils (%) (Auto) , Lymphocytes (%) ( Auto) , Monocytes (%) (Auto) , Eosinophils (%) (Auto) , Basophils (%) (Auto) , Differential Total Cells Counted 100, Neutrophils % (Manual) 86H, Lymphocytes % (Manual) 8L, Monocytes % (Manual) 6, Eosinophils % (Manual) 0, Basophils % ( Manual) 0, Band Neutrophils 0, Platelet Estimate Adequate, Platelet Morphology Normal, Red Blood Cell Morphology Normal, Sodium Level 154H, Potassium Level 3.9 , Chloride Level 118H, Carbon Dioxide Level 25, Anion Gap 11, Blood Urea Nitrogen 36H, Creatinine 1.3, Estimat Glomerular Filtration Rate , Glucose Level 169H, Uric Acid 5.5, Calcium Level 8.5, Phosphorus Level 1.9L, Magnesium Level 1.9, Total Bilirubin 0.6, Aspartate Amino Transf (AST/SGOT) 43H, Alanine Aminotransferase (ALT/SGPT) 40, Alkaline Phosphatase 98, Troponin I 0.282H, C- Reactive Protein, Quantitative 15.5H, Pro-B-Type Natriuretic Peptide 1861H, Total Protein 7.6, Albumin 2.6L, Globulin 5.0, Albumin/Globulin Ratio 0.5L Current Medications Medications (Trade) Dose Ordered Sig/Baljit Route PRN Reason Start Time Stop Time Status Last Admin Dose Admin Acetaminophen (Tylenol) 650 mg Q4H PRN RECTAL Mild Pain (Pain Scale 1-3) 04/24/17 01:30 05/23/17 01:29 Amiodarone HCl (Cordarone) 200 mg EVERY 12 HOURS ORAL 04/24/17 09:00 05/24/17 08:59 04/24/17 09:10 Aspirin (ASA) 325 mg DAILY ORAL 04/24/17 09:00 05/23/17 12:29 04/24/17 09:07 Cefepime HCl 0.5 gm/Dextrose 55 ml @ 110 mls/hr Q24H IVPB 04/24/17 09:00 05/01/17 08:59 04/24/17 09:07 Dextrose 1,000 ml @ 75 mls/hr [id number] IV 04/24/17 11:30 05/24/17 11:29 04/24/17 11:41 Heparin Sodium (Porcine) (Heparin 5000 units/ml) 5,000 units EVERY 12 HOURS SUBQ 04/24/17 09:00 05/23/17 08:59 04/24/17 09:14 Levalbuterol HCl (Xopenex) 1.25 mg TIDRT HHN 04/24/17 07:00 04/28/17 18:59 04/24/17 08:14 Metoprolol Tartrate (Lopressor) 5 mg Q6HR PRN IVP for heart rate >125 04/23/17 23:45 05/23/17 23:44 Metoprolol Tartrate (Lopressor) 12.5 mg Q12HR ORAL 04/24/17 09:00 05/23/17 20:59 04/24/17 09:10 Metronidazole 100 ml @ 100 mls/hr Q8HR IVPB 04/23/17 22:00 04/30/17 05:59 04/24/17 06:14 Nitroglycerin (Nitro-Bid) 1.5 inch Q6HR TOPIC 04/24/17 12:00 05/24/17 11:59 04/24/17 11:40 Ondansetron HCl (Zofran) 4 mg Q6H PRN IVP Nausea & Vomiting 04/24/17 01:30 05/23/17 01:29 Oseltamivir Phosphate (Tamiflu) 30 mg DAILY ORAL 04/24/17 09:00 04/28/17 08:59 04/24/17 09:07 Pantoprazole (Protonix) 40 mg EVERY 12 HOURS IVP 04/24/17 09:00 05/23/17 20:59 04/24/17 09:11 Potassium Phosphate 30 mm/ Sodium Chloride 285 ml @ 47.5 mls/hr ONCE ONCE IV 04/24/17 13:00 04/24/17 18:59 Vancomycin HCl (Vanco rx to dose) 1 ea DAILY PRN MISC Per rx protocol 04/24/17 09:00 05/23/17 01:14 Vancomycin/Sodium Chloride 250 ml @ 166.667 mls/hr Q24H IVPB 04/24/17 05:00 04/29/17 04:59 04/24/17 04:04 CARA SOARES Apr 24, 2017 11:59
[2017-04-24 12:48] VITALS: BP 141/64
[2017-04-24] MEDS ORDERED: Potassium Phosphate 30 MM in NS 275 ML IV ONE (13:00)
--- NOTE | 2017-04-24 14:20 | Infectious Diseases Prog Note ---
Assessment/Plan Problems: (1) Pneumonia Assessment & Plan: with right perihilar infiltrates , continue vancomycin, cefepime and metronidazole , pending culture (2) Right foot ulcer Assessment & Plan: rule out underlying osteomyelitis, await MRI of of the right foot, and wound culture , continue vancomycin, cefepime, and metronidazole (3) Urinary tract infection Assessment & Plan: await urine culture, already on cefepime (4) Sepsis Assessment & Plan: due to the above , continue vancomycin and cefepime, pending blood culture (5) Fever Assessment & Plan: due to the above , continue wide spectrum antibiotics , and tylenol as needed (6) Tachycardia Assessment & Plan: suspect due to A fIB , new onset started on metroprolol and digoxin loading dose, monitor HR, repeat EKG , cardiology is following Subjective ROS Limited/Unobtainable: Yes Allergies: Coded Allergies: No Known Allergies (Unverified , 02/27/16) Subjective she was up in bed, alert, nonverbale, no cough or SOB, no fever or chills, no nausea or vomiting Objective Vital Signs Last 24 Hour Vital Signs Date Time Temp Pulse Resp B/P (MAP) Pulse Ox O2 Delivery O2 Flow Rate FiO2 04/24/17 12:57 Nasal Cannula 04/24/17 12:57 Nasal Cannula 04/24/17 12:48 98.1 97 19 141/64 97 Nasal Cannula 4.0 98.1 04/24/17 11:40 128/79 04/24/17 09:10 92 128/79 04/24/17 08:19 Nasal Cannula 4.0 36 04/24/17 08:00 98.1 74 18 158/56 97 Nasal Cannula 4.0 98.1 04/24/17 08:00 73 04/24/17 07:54 92 18 98 Nasal Cannula 4.0 36 04/24/17 07:45 88 20 96 Nasal Cannula 4.0 36 04/24/17 07:44 88 20 Nasal Cannula 4.0 36 04/24/17 07:44 96 Nasal Cannula 4.0 36 04/24/17 06:14 128/79 04/24/17 04:00 69 04/24/17 04:00 97.5 70 20 117/63 97 Nasal Cannula 3.0 97.5 04/24/17 00:00 75 04/24/17 00:00 98.5 80 24 120/78 97 Nasal Cannula 3.0 98.5 04/23/17 23:08 136/82 04/23/17 21:15 86 130/74 04/23/17 20:03 36 04/23/17 20:03 86 20 93 Nasal Cannula 4.0 36 04/23/17 20:00 99.1 90 22 116/75 96 Nasal Cannula 3.0 99.1 04/23/17 20:00 155 04/23/17 19:25 97.9 81 20 130/74 94 Nasal Cannula 3.0 97.9 04/23/17 18:00 84 24 143/73 92 Nasal Cannula 3.0 04/23/17 17:45 147/77 04/23/17 17:00 79 22 136/63 93 Nasal Cannula 3.0 04/23/17 16:30 86 04/23/17 16:00 85 04/23/17 16:00 97.6 78 27 111/76 92 Nasal Cannula 3.0 97.6 04/23/17 15:43 37 125/66 92 Nasal Cannula 3.0 04/23/17 15:30 97.3 88 20 143/84 93 Nasal Cannula 3.0 97.3 04/23/17 15:30 88 04/23/17 14:30 180 123/66 Height (Feet): 5 Height (Inches): 3.00 Weight (Pounds): 135 General Appearance: WD/WN, no acute distress HEENT: normocephalic, atraumatic, anicteric, mucous membranes moist, PERRL Respiratory/Chest: chest wall non-tender, normal breath sounds, no respiratory distress, no accessory muscle use, decreased breath sounds Cardiovascular: normal peripheral pulses, normal rate, regular rhythm, no gallop/murmur, no JVD Abdomen: normal bowel sounds, soft, non tender, no organomegaly, non distended , no mass, no scars Extremities: no cyanosis, no clubbing Skin: no rash, no lesions, no ulcers Neurologic/Psychiatric: alert, responsive Lymphatic: no neck adenopathy, no groin adenopathy Microbiology Date/Time Source Procedure Growth Status 04/22/17 20:05 Blood Blood Culture - Preliminary NO GROWTH AFTER 24 HOURS Resulted 04/22/17 20:00 Blood Blood Culture - Preliminary NO GROWTH AFTER 24 HOURS Resulted 04/22/17 00:00 Nasal Nares Influenza Types A,B Antigen (KARUNA) - Final Complete Laboratory Tests Test 04/24/17 08:50 White Blood Count 13.9 K/UL (4.8-10.8) H Red Blood Count 4.63 M/UL (4.20-5.40) Hemoglobin 14.5 G/DL (12.0-16.0) Hematocrit 44.4 % (37.0-47.0) Mean Corpuscular Volume 96 FL (80-99) Mean Corpuscular Hemoglobin 31.3 PG (27.0-31.0) H Mean Corpuscular Hemoglobin Concent 32.6 G/DL (32.0-36.0) Red Cell Distribution Width 12.9 % (11.6-14.8) Platelet Count 172 K/UL (150-450) Mean Platelet Volume 8.4 FL (6.5-10.1) Neutrophils (%) (Auto) % (45.0-75.0) Lymphocytes (%) (Auto) % (20.0-45.0) Monocytes (%) (Auto) % (1.0-10.0) Eosinophils (%) (Auto) % (0.0-3.0) Basophils (%) (Auto) % (0.0-2.0) Differential Total Cells Counted 100 Neutrophils % (Manual) 86 % (45-75) H Lymphocytes % (Manual) 8 % (20-45) L Monocytes % (Manual) 6 % (1-10) Eosinophils % (Manual) 0 % (0-3) Basophils % (Manual) 0 % (0-2) Band Neutrophils 0 % (0-8) Platelet Estimate Adequate Platelet Morphology Normal Red Blood Cell Morphology Normal Sodium Level 154 MMOL/L (136-145) H Potassium Level 3.9 MMOL/L (3.5-5.1) Chloride Level 118 MMOL/L (98-107) H Carbon Dioxide Level 25 MMOL/L (21-32) Anion Gap 11 mmol/L (5-15) Blood Urea Nitrogen 36 mg/dL (7-18) H Creatinine 1.3 MG/DL (0.55-1.30) Estimat Glomerular Filtration Rate mL/min (>60) Glucose Level 169 MG/DL (74-106) H Uric Acid 5.5 MG/DL (2.6-7.2) Calcium Level 8.5 MG/DL (8.5-10.1) Phosphorus Level 1.9 MG/DL (2.5-4.9) L Magnesium Level 1.9 MG/DL (1.8-2.4) Total Bilirubin 0.6 MG/DL (0.2-1.0) Aspartate Amino Transf (AST/SGOT) 43 U/L (15-37) H Alanine Aminotransferase (ALT/SGPT) 40 U/L (12-78) Alkaline Phosphatase 98 U/L (46-116) Troponin I 0.282 ng/mL (0.000-0.056) C-Reactive Protein, Quantitative 15.5 mg/dL (0.00-0.90) H Pro-B-Type Natriuretic Peptide 1861 pg/mL (0-125) H Total Protein 7.6 G/DL (6.4-8.2) Albumin 2.6 G/DL (3.4-5.0) L Globulin 5.0 g/dL Albumin/Globulin Ratio 0.5 (1.0-2.7) L Current Medications Medications (Trade) Dose Ordered Sig/Baljit Route PRN Reason Start Time Stop Time Status Last Admin Dose Admin Acetaminophen (Tylenol) 650 mg Q4H PRN RECTAL Mild Pain (Pain Scale 1-3) 04/24/17 01:30 05/23/17 01:29 Amiodarone HCl (Cordarone) 200 mg EVERY 12 HOURS ORAL 04/24/17 09:00 05/24/17 08:59 04/24/17 09:10 Aspirin (ASA) 325 mg DAILY ORAL 04/24/17 09:00 05/23/17 12:29 04/24/17 09:07 Cefepime HCl 1 gm/ Sodium Chloride 55 ml @ 110 mls/hr Q24H IVPB 04/24/17 21:00 05/01/17 20:59 Dextrose 1,000 ml @ 75 mls/hr [id number] IV 04/24/17 11:30 05/24/17 11:29 04/24/17 11:41 Heparin Sodium (Porcine) (Heparin 5000 units/ml) 5,000 units EVERY 12 HOURS SUBQ 04/24/17 09:00 05/23/17 08:59 04/24/17 09:14 Levalbuterol HCl (Xopenex) 1.25 mg TIDRT HHN 04/24/17 07:00 04/28/17 18:59 04/24/17 08:14 Metoprolol Tartrate (Lopressor) 5 mg Q6HR PRN IVP for heart rate >125 04/23/17 23:45 05/23/17 23:44 Metoprolol Tartrate (Lopressor) 12.5 mg Q12HR ORAL 04/24/17 09:00 05/23/17 20:59 04/24/17 09:10 Metronidazole 100 ml @ 100 mls/hr Q8HR IVPB 04/23/17 22:00 04/30/17 05:59 04/24/17 06:14 Nitroglycerin (Nitro-Bid) 1.5 inch Q6HR TOPIC 04/24/17 12:00 05/24/17 11:59 04/24/17 11:40 Ondansetron HCl (Zofran) 4 mg Q6H PRN IVP Nausea & Vomiting 04/24/17 01:30 05/23/17 01:29 Oseltamivir Phosphate (Tamiflu) 30 mg DAILY ORAL 04/24/17 09:00 04/28/17 08:59 04/24/17 09:07 Pantoprazole (Protonix) 40 mg EVERY 12 HOURS IVP 04/24/17 09:00 05/23/17 20:59 04/24/17 09:11 Potassium Phosphate 30 mm/ Sodium Chloride 285 ml @ 47.5 mls/hr ONCE ONCE IV 04/24/17 13:00 04/24/17 18:59 Vancomycin HCl (Vanco rx to dose) 1 ea DAILY PRN MISC Per rx protocol 04/24/17 09:00 05/23/17 01:14 Vancomycin/Sodium Chloride 250 ml @ 166.667 mls/hr Q24H IVPB 04/24/17 05:00 04/29/17 04:59 04/24/17 04:04 Damon Briggs M.D. Apr 24, 2017 14:20
[2017-04-24 16:00] VITALS: BP 150/64
--- NOTE | 2017-04-24 16:35 | Diagnostic Imaging Report ---
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 No plain radiographic correlation available Findings: Exam is limited. Due to patient being in traction, only torso coil couldn't be utilized, surface coil not able to be utilized. Also, patient demonstrated limited ability to hold still, so there is significant motion artifact. I STIR and abnormal low T1 signal is seen in the first metatarsal head, and in the base of the first proximal phalanx. The distal aspect of the proximal phalanx as well as the distal phalanx of the first toe demonstrate normal signal. Abnormal increased STIR and decreased T1 signal is also seen in the largest sesamoid adjacent to the inferomedial aspect of the first metatarsophalangeal joint There is edema surrounding the first metatarsal head, as well as edema extending into the deep plantar soft tissues. The remainder of the osseous marrow signal is normal. No focal drainable fluid collection demonstrated. Impression: Abnormal marrow signal within the first metatarsal head and base of the first proximal phalanx, highly suspicious for acute osteomyelitis. Surrounding edema is suspicious for soft tissue cellulitis. There is probably involvement of the adjacent largest sesamoid as well. No drainable abscess demonstrated Findings discussed by phone with Dr. Shore at the time of interpretation
--- NOTE | 2017-04-24 16:43 | Diagnostic Imaging Report ---
Indication: Nasogastric tube placement Technique: One view of the upper abdomen Comparison: 09/14/2011 Findings: Interim placement of a nasogastric tube, tip which projects at the level gastric fundus, proximal port just beyond the gastroesophageal junction. Small bowel loops are upper limits of normal in caliber but not frankly dilated. Gas is seen in nondilated colon. There is an inferior vena cava filter Impression: Satisfactory nasogastric tube placement Other findings as described
--- NOTE | 2017-04-24 19:58 | Cardiology Progress Note ---
Assessment/Plan Assessment/Plan 1. Acute onset of atrial fibrillation with rapid ventricular response. 2. Tachycardia. 3. Dementia. 4. History of cerebrovascular accident. 5. Azotemia. 6. Possible sepsis multiple phone call and med adjustment n over ntie now on kathy tele sinus at the moment on amiod oral / ng loading iv metoprolol prn trop min elevated likely related to demand with hr in excess of 160 bpm yest bp seem good cxr personally reviewed tel personally reviewed afib sinus Subjective ROS Limited/Unobtainable: Yes Objective Last 24 Hour Vital Signs Date Time Temp Pulse Resp B/P (MAP) Pulse Ox O2 Delivery O2 Flow Rate FiO2 04/24/17 19:43 88 18 97 Nasal Cannula 4.0 36 04/24/17 19:39 Nasal Cannula 4.0 36 04/24/17 19:39 96 Nasal Cannula 4.0 36 04/24/17 19:34 84 20 96 Nasal Cannula 4.0 36 04/24/17 18:25 150/64 04/24/17 16:00 98.4 98 20 150/64 98 Nasal Cannula 4.0 98.4 04/24/17 16:00 77 04/24/17 12:57 Nasal Cannula 04/24/17 12:57 Nasal Cannula 04/24/17 12:48 98.1 97 19 141/64 97 Nasal Cannula 4.0 98.1 04/24/17 11:40 128/79 04/24/17 08:19 Nasal Cannula 4.0 36 04/24/17 08:00 98.1 74 18 158/56 97 Nasal Cannula 4.0 98.1 04/24/17 08:00 73 04/24/17 07:54 92 18 98 Nasal Cannula 4.0 36 04/24/17 07:45 88 20 96 Nasal Cannula 4.0 36 04/24/17 07:44 88 20 Nasal Cannula 4.0 36 04/24/17 07:44 96 Nasal Cannula 4.0 36 04/24/17 06:14 128/79 04/24/17 04:00 69 04/24/17 04:00 97.5 70 20 117/63 97 Nasal Cannula 3.0 97.5 04/24/17 00:00 75 04/24/17 00:00 98.5 80 24 120/78 97 Nasal Cannula 3.0 98.5 04/23/17 23:08 136/82 3/4/18 21:15 86 130/74 04/23/17 20:03 36 04/23/17 20:03 86 20 93 Nasal Cannula 4.0 36 04/23/17 20:00 99.1 90 22 116/75 96 Nasal Cannula 3.0 99.1 04/23/17 20:00 155 General Appearance: no apparent distress, alert Neck: supple Cardiovascular: normal rate Respiratory/Chest: lungs clear, normal breath sounds Abdomen: normal bowel sounds, non tender, soft Extremities: no swelling Intake and Output 04/23/17 04/24/17 19:00 07:00 Intake Total 1432 ml 1373.2 ml Output Total 380 ml 200 ml Balance 1052 ml 1173.2 ml IV Total 1432 ml 1373.2 ml Output Urine Total 380 ml 200 ml # Bowel Movements 1 Laboratory Tests Test 04/24/17 08:50 White Blood Count 13.9 K/UL (4.8-10.8) H Red Blood Count 4.63 M/UL (4.20-5.40) Hemoglobin 14.5 G/DL (12.0-16.0) Hematocrit 44.4 % (37.0-47.0) Mean Corpuscular Volume 96 FL (80-99) Mean Corpuscular Hemoglobin 31.3 PG (27.0-31.0) H Mean Corpuscular Hemoglobin Concent 32.6 G/DL (32.0-36.0) Red Cell Distribution Width 12.9 % (11.6-14.8) Platelet Count 172 K/UL (150-450) Mean Platelet Volume 8.4 FL (6.5-10.1) Neutrophils (%) (Auto) % (45.0-75.0) Lymphocytes (%) (Auto) % (20.0-45.0) Monocytes (%) (Auto) % (1.0-10.0) Eosinophils (%) (Auto) % (0.0-3.0) Basophils (%) (Auto) % (0.0-2.0) Differential Total Cells Counted 100 Neutrophils % (Manual) 86 % (45-75) H Lymphocytes % (Manual) 8 % (20-45) L Monocytes % (Manual) 6 % (1-10) Eosinophils % (Manual) 0 % (0-3) Basophils % (Manual) 0 % (0-2) Band Neutrophils 0 % (0-8) Platelet Estimate Adequate Platelet Morphology Normal Red Blood Cell Morphology Normal Sodium Level 154 MMOL/L (136-145) H Potassium Level 3.9 MMOL/L (3.5-5.1) Chloride Level 118 MMOL/L (98-107) H Carbon Dioxide Level 25 MMOL/L (21-32) Anion Gap 11 mmol/L (5-15) Blood Urea Nitrogen 36 mg/dL (7-18) H Creatinine 1.3 MG/DL (0.55-1.30) Estimat Glomerular Filtration Rate mL/min (>60) Glucose Level 169 MG/DL (74-106) H Uric Acid 5.5 MG/DL (2.6-7.2) Calcium Level 8.5 MG/DL (8.5-10.1) Phosphorus Level 1.9 MG/DL (2.5-4.9) L Magnesium Level 1.9 MG/DL (1.8-2.4) Total Bilirubin 0.6 MG/DL (0.2-1.0) Aspartate Amino Transf (AST/SGOT) 43 U/L (15-37) H Alanine Aminotransferase (ALT/SGPT) 40 U/L (12-78) Alkaline Phosphatase 98 U/L (46-116) Troponin I 0.282 ng/mL (0.000-0.056) C-Reactive Protein, Quantitative 15.5 mg/dL (0.00-0.90) H Pro-B-Type Natriuretic Peptide 1861 pg/mL (0-125) H Total Protein 7.6 G/DL (6.4-8.2) Albumin 2.6 G/DL (3.4-5.0) L Globulin 5.0 g/dL Albumin/Globulin Ratio 0.5 (1.0-2.7) L Microbiology Date/Time Source Procedure Growth Status 04/22/17 20:05 Blood Blood Culture - Preliminary NO GROWTH AFTER 24 HOURS Resulted 04/22/17 20:00 Blood Blood Culture - Preliminary NO GROWTH AFTER 24 HOURS Resulted 04/22/17 00:00 Nasal Nares Influenza Types A,B Antigen (KARUNA) - Final Complete KHOA KWONG Apr 24, 2017 19:58
[2017-04-24 20:00] VITALS: BP 133/57
[2017-04-24] MEDS ORDERED: Cefepime HCl 1 GM in NS 55 ML IVPB SCH (21:00)
[2017-04-25] VITALS (8 sets, daily range): BP systolic 116–142; BP diastolic 47–85
[2017-04-25] MEDS ORDERED: Metoprolol 5mg/5ml Inj IVP PRN
[2017-04-25] MEDS: Nitroglycerin 2% oint pkt TOPIC SCH ×2 (01:26→05:46)
[2017-04-25] MEDS ORDERED: Acetaminophen 650 MG SUPP RECTAL PRN (01:30)
[2017-04-25] MEDS: Vancomycin 750mg/NS 250ml 250 ML IVPB SCH (05:45)
[2017-04-25] MEDS: Levalbuterol Inh UD 1.25mg/0.5ml HHN SCH ×3 (07:00→19:56)
[2017-04-25 08:31] LABS: HEMATOCRIT 37.7 % (37.0-47.0); HEMOGLOBIN 12.6 G/DL (12.0-16.0); MEAN CORPUSCULAR VOLUME 94 FL (80-99); PLATELET COUNT 149 K/UL (150-450); RED BLOOD COUNT 4.02 M/UL (4.20-5.40); RED CELL DISTRIBUTION WIDTH 12.1 % (11.6-14.8); WHITE BLOOD COUNT 10.8 K/UL (4.8-10.8)
[2017-04-25 08:45] LABS: ALANINE AMINOTRANSFERASE 24 U/L (12-78); ALBUMIN 2.1 G/DL (3.4-5.0); ALBUMIN/GLOBULIN RATIO 0.5 (1.0-2.7); ALKALINE PHOSPHATASE 85 U/L (46-116); ANION GAP 9 mmol/L (5-15); ASPARTATE AMINO TRANSFERASE 25 U/L (15-37); BILIRUBIN,TOTAL 0.4 MG/DL (0.2-1.0); BLOOD UREA NITROGEN 20 mg/dL (7-18); CALCIUM 7.9 MG/DL (8.5-10.1); CARBON DIOXIDE 25 MMOL/L (21-32); CHLORIDE 118 MMOL/L (98-107); PHOSPHORUS 1.8 MG/DL (2.5-4.9); POTASSIUM 3.3 MMOL/L (3.5-5.1); SODIUM 152 MMOL/L (136-145)
--- NOTE | 2017-04-25 08:52 | Pulmonology Progress Note ---
Assessment/Plan Problems: (1) Pneumonia (2) Acute renal failure (3) Atrial fibrillation with RVR (4) Fever (5) Sepsis Assessment/Plan titrate fio2 to st of 92% aspiration precaution respiratory treatment continue abx check cultures dvt prophylaxis monitor heart rate, sinus and afib d/w manager social services and pts DPOA, pt will get PEG feeding tube as indicated by the pt Subjective ROS Limited/Unobtainable: No Constitutional: Reports: no symptoms HEENT: Repors: no symptoms Respiratory: Reports: no symptoms Allergies: Coded Allergies: No Known Allergies (Unverified , 02/27/16) Objective Last 24 Hour Vital Signs Date Time Temp Pulse Resp B/P (MAP) Pulse Ox O2 Delivery O2 Flow Rate FiO2 04/25/17 07:46 97.1 69 18 126/85 94 97.1 04/25/17 05:46 116/47 04/25/17 04:00 70 04/25/17 04:00 97.6 67 20 116/47 95 Nasal Cannula 4.0 97.6 04/25/17 01:26 119/49 04/25/17 00:00 66 04/25/17 00:00 97.5 66 20 119/49 97 Nasal Cannula 4.0 97.5 04/24/17 21:11 76 133/57 04/24/17 20:00 73 04/24/17 20:00 97.7 76 24 133/57 94 Nasal Cannula 4.0 97.7 04/24/17 19:43 88 18 97 Nasal Cannula 4.0 36 04/24/17 19:39 Nasal Cannula 4.0 36 04/24/17 19:39 96 Nasal Cannula 4.0 36 04/24/17 19:34 84 20 96 Nasal Cannula 4.0 36 04/24/17 18:25 150/64 04/24/17 16:00 98.4 98 20 150/64 98 Nasal Cannula 4.0 98.4 04/24/17 16:00 77 04/24/17 12:57 Nasal Cannula 04/24/17 12:57 Nasal Cannula 04/24/17 12:48 98.1 97 19 141/64 97 Nasal Cannula 4.0 98.1 04/24/17 11:40 128/79 Intake and Output 04/24/17 04/25/17 19:00 07:00 Intake Total 2823.0 ml 825 ml Output Total 800 ml 350 ml Balance 2023.0 ml 475 ml IV Total 2823.0 ml 825 ml Output Urine Total 800 ml 350 ml # Bowel Movements 2 General Appearance: WD/WN HEENT: normocephalic, atraumatic Respiratory/Chest: chest wall non-tender, lungs clear Breasts: no masses Cardiovascular: normal peripheral pulses, normal rate, regularly irregular Abdomen: normal bowel sounds, soft, non tender Microbiology Date/Time Source Procedure Growth Status 04/22/17 20:05 Blood Blood Culture - Preliminary NO GROWTH AFTER 24 HOURS Resulted 04/22/17 20:00 Blood Blood Culture - Preliminary NO GROWTH AFTER 24 HOURS Resulted Laboratory Tests 04/25/17 06:30: White Blood Count 10.8, Red Blood Count 4.02L, Hemoglobin 12.6, Hematocrit 37.7 , Mean Corpuscular Volume 94, Mean Corpuscular Hemoglobin 31.4H, Mean Corpuscular Hemoglobin Concent 33.5, Red Cell Distribution Width 12.1, Platelet Count 149L, Mean Platelet Volume 8.6, Neutrophils (%) (Auto) , Lymphocytes (%) ( Auto) , Monocytes (%) (Auto) , Eosinophils (%) (Auto) , Basophils (%) (Auto) , Differential Total Cells Counted 100, Neutrophils % (Manual) 82H, Lymphocytes % (Manual) 15L, Monocytes % (Manual) 2, Eosinophils % (Manual) 1, Basophils % ( Manual) 0, Band Neutrophils 0, Platelet Estimate DecreasedL, Platelet Morphology Normal, Red Blood Cell Morphology Normal, Sodium Level [Pending], Potassium Level [Pending], Chloride Level [Pending], Carbon Dioxide Level [ Pending], Blood Urea Nitrogen [Pending], Creatinine [Pending], Estimat Glomerular Filtration Rate [Pending], Glucose Level [Pending], Uric Acid [ Pending], Calcium Level [Pending], Phosphorus Level [Pending], Magnesium Level [ Pending], Total Bilirubin [Pending], Aspartate Amino Transf (AST/SGOT) [Pending] , Alanine Aminotransferase (ALT/SGPT) [Pending], Alkaline Phosphatase [Pending] , Pro-B-Type Natriuretic Peptide [Pending], Total Protein [Pending], Albumin [ Pending], Globulin [Pending] Current Medications Medications (Trade) Dose Ordered Sig/Baljit Route PRN Reason Start Time Stop Time Status Last Admin Dose Admin Acetaminophen (Tylenol) 650 mg Q4H PRN RECTAL Mild Pain (Pain Scale 1-3) 04/25/17 01:30 05/23/17 01:29 Amiodarone HCl (Cordarone) 200 mg EVERY 12 HOURS ORAL 04/25/17 09:00 05/24/17 08:59 Aspirin (ASA) 325 mg DAILY ORAL 04/25/17 09:00 05/23/17 12:29 Cefepime HCl 1 gm/ Sodium Chloride 55 ml @ 110 mls/hr Q24H IVPB 04/25/17 21:00 05/01/17 20:59 Dextrose 1,000 ml @ 75 mls/hr [id number] IV 04/24/17 22:30 05/24/17 11:29 04/25/17 00:19 Heparin Sodium (Porcine) (Heparin 5000 units/ml) 5,000 units EVERY 12 HOURS SUBQ 04/25/17 09:00 05/23/17 08:59 Levalbuterol HCl (Xopenex) 1.25 mg TIDRT HHN 04/25/17 07:00 04/28/17 18:59 Metoprolol Tartrate (Lopressor) 5 mg Q6HR PRN IVP for heart rate >125 04/25/17 00:00 05/23/17 23:44 Metoprolol Tartrate (Lopressor) 12.5 mg Q12HR ORAL 04/25/17 09:00 05/23/17 20:59 Metronidazole 100 ml @ 100 mls/hr Q8HR IVPB 04/25/17 06:00 04/30/17 05:59 04/25/17 05:46 Nitroglycerin (Nitro-Bid) 1.5 inch Q6HR TOPIC 04/25/17 00:00 05/24/17 11:59 04/25/17 05:46 Ondansetron HCl (Zofran) 4 mg Q6H PRN IVP Nausea & Vomiting 04/25/17 01:30 05/23/17 01:29 Pantoprazole (Protonix) 40 mg EVERY 12 HOURS IVP 04/25/17 09:00 05/23/17 20:59 Vancomycin HCl (Vanco rx to dose) 1 ea DAILY PRN MISC Per rx protocol 04/25/17 09:00 05/23/17 01:14 Vancomycin/Sodium Chloride 250 ml @ 166.667 mls/hr Q24H IVPB 04/25/17 05:00 04/29/17 04:59 04/25/17 05:45 CARA SOARES Apr 25, 2017 08:52
[2017-04-25] MEDS ORDERED: Vancomycin 1gm/D5W 275ml IVPB SCH ×2 (09:00)
[2017-04-25] MEDS ORDERED: Metoprolol Tartrate 12.5mg TAB ORAL SCH (09:00)
[2017-04-25] MEDS ORDERED: Albuterol/Ipratropium 3ml neb ONE ×2 (09:03→13:44)
[2017-04-25] MEDS ORDERED: Albuterol/Ipratropium 3ml neb HHN PRN (09:15)
[2017-04-25] MEDS: Amiodarone 200mg tab ORAL SCH ×2 (09:43→21:08)
[2017-04-25] MEDS: Pantoprazole Inj IVP SCH ×2 (09:43→21:05)
[2017-04-25] MEDS: Heparin 5000 units/ml inj SUBQ SCH ×3 (09:44→21:00)
--- NOTE | 2017-04-25 11:13 | Cardiology Progress Note ---
Assessment/Plan Assessment/Plan 1. Acute onset of atrial fibrillation with rapid ventricular response. 2. Tachycardia. 3. Dementia. 4. History of cerebrovascular accident. 5. Azotemia. 6. Possible sepsis now on tele unite tele sinus with intermittent afib but short on amiod oral / ng loading iv metoprolol prn trop min elevated likely related to demand with hr in excess of 160 bpm previously bp seem good tel personally reviewed amiod loading 400 mg bid for 1 week then 200 mg dialy is to star ton feedign today need more free water as per dr martinez Subjective ROS Limited/Unobtainable: Yes Objective Last 24 Hour Vital Signs Date Time Temp Pulse Resp B/P (MAP) Pulse Ox O2 Delivery O2 Flow Rate FiO2 04/25/17 09:43 70 126/85 04/25/17 09:12 70 18 97 Nasal Cannula 4.0 36 04/25/17 09:00 67 20 93 Nasal Cannula 4.0 36 04/25/17 07:50 Nasal Cannula 4.0 36 04/25/17 07:49 93 Nasal Cannula 4.0 36 04/25/17 07:46 97.1 69 18 126/85 94 97.1 04/25/17 05:46 116/47 04/25/17 04:00 70 04/25/17 04:00 97.6 67 20 116/47 95 Nasal Cannula 4.0 97.6 04/25/17 01:26 119/49 04/25/17 00:00 66 04/25/17 00:00 97.5 66 20 119/49 97 Nasal Cannula 4.0 97.5 04/24/17 21:11 76 133/57 04/24/17 20:00 73 04/24/17 20:00 97.7 76 24 133/57 94 Nasal Cannula 4.0 97.7 04/24/17 19:43 88 18 97 Nasal Cannula 4.0 36 04/24/17 19:39 Nasal Cannula 4.0 36 04/24/17 19:39 96 Nasal Cannula 4.0 36 04/24/17 19:34 84 20 96 Nasal Cannula 4.0 36 04/24/17 18:25 150/64 04/24/17 16:00 98.4 98 20 150/64 98 Nasal Cannula 4.0 98.4 04/24/17 16:00 77 04/24/17 12:57 Nasal Cannula 04/24/17 12:57 Nasal Cannula 04/24/17 12:48 98.1 97 19 141/64 97 Nasal Cannula 4.0 98.1 04/24/17 11:40 128/79 General Appearance: alert Neck: supple Cardiovascular: normal rate Respiratory/Chest: rhonchi - bilaterally - few Abdomen: normal bowel sounds, soft, tender - min Extremities: no swelling, other - contracted Intake and Output 04/24/17 04/25/17 19:00 07:00 Intake Total 2823.0 ml 825 ml Output Total 800 ml 350 ml Balance 2023.0 ml 475 ml IV Total 2823.0 ml 825 ml Output Urine Total 800 ml 350 ml # Bowel Movements 2 Laboratory Tests Test 04/25/17 06:30 White Blood Count 10.8 K/UL (4.8-10.8) Red Blood Count 4.02 M/UL (4.20-5.40) L Hemoglobin 12.6 G/DL (12.0-16.0) Hematocrit 37.7 % (37.0-47.0) Mean Corpuscular Volume 94 FL (80-99) Mean Corpuscular Hemoglobin 31.4 PG (27.0-31.0) H Mean Corpuscular Hemoglobin Concent 33.5 G/DL (32.0-36.0) Red Cell Distribution Width 12.1 % (11.6-14.8) Platelet Count 149 K/UL (150-450) L Mean Platelet Volume 8.6 FL (6.5-10.1) Neutrophils (%) (Auto) % (45.0-75.0) Lymphocytes (%) (Auto) % (20.0-45.0) Monocytes (%) (Auto) % (1.0-10.0) Eosinophils (%) (Auto) % (0.0-3.0) Basophils (%) (Auto) % (0.0-2.0) Differential Total Cells Counted 100 Neutrophils % (Manual) 82 % (45-75) H Lymphocytes % (Manual) 15 % (20-45) L Monocytes % (Manual) 2 % (1-10) Eosinophils % (Manual) 1 % (0-3) Basophils % (Manual) 0 % (0-2) Band Neutrophils 0 % (0-8) Platelet Estimate Decreased L Platelet Morphology Normal Red Blood Cell Morphology Normal Sodium Level 152 MMOL/L (136-145) H Potassium Level 3.3 MMOL/L (3.5-5.1) L Chloride Level 118 MMOL/L (98-107) H Carbon Dioxide Level 25 MMOL/L (21-32) Anion Gap 9 mmol/L (5-15) Blood Urea Nitrogen 20 mg/dL (7-18) H Creatinine 1.0 MG/DL (0.55-1.30) Estimat Glomerular Filtration Rate mL/min (>60) Glucose Level 164 MG/DL (74-106) H Uric Acid 4.5 MG/DL (2.6-7.2) Calcium Level 7.9 MG/DL (8.5-10.1) L Phosphorus Level 1.8 MG/DL (2.5-4.9) L Magnesium Level 1.7 MG/DL (1.8-2.4) L Total Bilirubin 0.4 MG/DL (0.2-1.0) Aspartate Amino Transf (AST/SGOT) 25 U/L (15-37) Alanine Aminotransferase (ALT/SGPT) 24 U/L (12-78) Alkaline Phosphatase 85 U/L (46-116) Pro-B-Type Natriuretic Peptide 2136 pg/mL (0-125) H Total Protein 6.1 G/DL (6.4-8.2) L Albumin 2.1 G/DL (3.4-5.0) L Globulin 4.0 g/dL Albumin/Globulin Ratio 0.5 (1.0-2.7) L Microbiology Date/Time Source Procedure Growth Status 04/22/17 20:05 Blood Blood Culture - Preliminary NO GROWTH AFTER 24 HOURS Resulted 04/22/17 20:00 Blood Blood Culture - Preliminary NO GROWTH AFTER 24 HOURS Resulted KHOA KWONG Apr 25, 2017 11:13
[2017-04-25] MEDS: dilTIAZem HCl 30mg tab NG SCH ×2 (11:58→17:27)
--- NOTE | 2017-04-25 12:56 | General Progress Note ---
Assessment/Plan Problem List: (1) Urinary tract infection ICD Codes: N39.0 - Urinary tract infection, site not specified SNOMED: 04802550 (2) Sepsis ICD Codes: A41.9 - Sepsis, unspecified organism SNOMED: 74198091 (3) Pneumonia Assessment & Plan: likely aspiration ICD Codes: J18.9 - Pneumonia, unspecified organism SNOMED: 684609479 (4) Acute renal failure Assessment & Plan: partly dehydration ICD Codes: N17.9 - Acute kidney failure, unspecified SNOMED: 34535125 (5) Atrial fibrillation with RVR Assessment & Plan: new onset ICD Codes: I48.91 - Unspecified atrial fibrillation SNOMED: 487767383837702 Status: stable Status Narrative remains dehydrated Assessment/Plan Due PEG Hydrate D% KCL and Phos IV HR control Antibiotics Vanco Cefepime PEG- DPOA agreed Per orders Subjective ROS Limited/Unobtainable: No Constitutional: Reports: malaise Allergies: Coded Allergies: No Known Allergies (Unverified , 02/27/16) Objective Last 24 Hour Vital Signs Date Time Temp Pulse Resp B/P (MAP) Pulse Ox O2 Delivery O2 Flow Rate FiO2 04/25/17 11:58 70 126/85 04/25/17 09:43 70 126/85 04/25/17 09:12 70 18 97 Nasal Cannula 4.0 36 04/25/17 09:00 67 20 93 Nasal Cannula 4.0 36 04/25/17 08:00 66 04/25/17 07:50 Nasal Cannula 4.0 36 04/25/17 07:49 93 Nasal Cannula 4.0 36 04/25/17 07:46 97.1 69 18 126/85 94 97.1 04/25/17 05:46 116/47 04/25/17 04:00 70 04/25/17 04:00 97.6 67 20 116/47 95 Nasal Cannula 4.0 97.6 04/25/17 01:26 119/49 04/25/17 00:00 66 04/25/17 00:00 97.5 66 20 119/49 97 Nasal Cannula 4.0 97.5 04/24/17 21:11 76 133/57 04/24/17 20:00 73 04/24/17 20:00 97.7 76 24 133/57 94 Nasal Cannula 4.0 97.7 04/24/17 19:43 88 18 97 Nasal Cannula 4.0 36 04/24/17 19:39 Nasal Cannula 4.0 36 04/24/17 19:39 96 Nasal Cannula 4.0 36 04/24/17 19:34 84 20 96 Nasal Cannula 4.0 36 04/24/17 18:25 150/64 04/24/17 16:00 98.4 98 20 150/64 98 Nasal Cannula 4.0 98.4 04/24/17 16:00 77 04/24/17 12:57 Nasal Cannula 04/24/17 12:57 Nasal Cannula Intake and Output 04/24/17 04/25/17 19:00 07:00 Intake Total 2823.0 ml 825 ml Output Total 800 ml 350 ml Balance 2023.0 ml 475 ml IV Total 2823.0 ml 825 ml Output Urine Total 800 ml 350 ml # Bowel Movements 2 Laboratory Tests 04/25/17 06:30: White Blood Count 10.8, Red Blood Count 4.02L, Hemoglobin 12.6, Hematocrit 37.7 , Mean Corpuscular Volume 94, Mean Corpuscular Hemoglobin 31.4H, Mean Corpuscular Hemoglobin Concent 33.5, Red Cell Distribution Width 12.1, Platelet Count 149L, Mean Platelet Volume 8.6, Neutrophils (%) (Auto) , Lymphocytes (%) ( Auto) , Monocytes (%) (Auto) , Eosinophils (%) (Auto) , Basophils (%) (Auto) , Differential Total Cells Counted 100, Neutrophils % (Manual) 82H, Lymphocytes % (Manual) 15L, Monocytes % (Manual) 2, Eosinophils % (Manual) 1, Basophils % ( Manual) 0, Band Neutrophils 0, Platelet Estimate DecreasedL, Platelet Morphology Normal, Red Blood Cell Morphology Normal, Sodium Level 152H, Potassium Level 3.3L, Chloride Level 118H, Carbon Dioxide Level 25, Anion Gap 9 , Blood Urea Nitrogen 20H, Creatinine 1.0, Estimat Glomerular Filtration Rate , Glucose Level 164H, Uric Acid 4.5, Calcium Level 7.9L, Phosphorus Level 1.8L, Magnesium Level 1.7L, Total Bilirubin 0.4, Aspartate Amino Transf (AST/SGOT) 25 , Alanine Aminotransferase (ALT/SGPT) 24, Alkaline Phosphatase 85, Pro-B-Type Natriuretic Peptide 2136H, Total Protein 6.1L, Albumin 2.1L, Globulin 4.0, Albumin/Globulin Ratio 0.5L Height (Feet): 5 Height (Inches): 3.00 Weight (Pounds): 135 General Appearance: no apparent distress Neck: limited range of motion Cardiovascular: normal rate Respiratory/Chest: decreased breath sounds Abdomen: soft YAZMIN CROSS Apr 25, 2017 12:55
[2017-04-25] MEDS ORDERED: Potassium Phosphate 30 MM in NS 275 ML IV ONE (14:30)
--- NOTE | 2017-04-25 15:21 | GI Initial Consult Note ---
Davenport,Albertina Ye N.PHeather 04/25/17 1521: History of Present Illness General Date patient seen: Apr 25, 2017 Time patient seen: 15:11 Reason for Hospitalization: Fever Referring physician: dr Shore Reason for Consultation: PEG EVALUATION Present Illness HPI 82-year-old female sent by primary care doctor at [facility] for fever. per SNF records, sepsis, UTI, dysphagia, GERD, HTN, osteo She has history of Alzheimer's, not providing history of present illness at this time. History of present illness otherwise limited. GI consulted for PEG. HPI noted above. The patient is significant for organic brain syndrome, previous CVA, hypertension, high cholesterol, and osteoporosis. The patient is DNR and DNI. Primary MD, Dr. Shore had recently d/w family/DPOA regarding GT placement and they have agreed. Consent signed, and in chart. ROS limited, all medical record obtained in chart. Unknown history of endoscopy/colonoscopy. ST evaluation reviewed. Home Meds Active Scripts Acetaminophen* (ACETAMINOPHEN*) 650 Mg Supp.rect, 650 MG RECTAL Q4H Y for 30 Days, SUPP Prov:YAZMIN SHORE 04/27/17 Levalbuterol HCl (Xopenex Concentrate) 1.25 Mg/0.5 Ml Vial.neb, 1.25 MG HHN TIDRT for 14 Days, VIAL Prov:YAZMIN SHORE 04/27/17 Tramadol Hcl* (ULTRAM*) 50 Mg Tablet, 25 MG GT Q6HR Y for 30 Days, TAB Prov:YAZMIN SHORE 04/27/17 Lactobacillus Rhamnosus Gg* (CULTURELLE*) 1 Each Capsule, 1 TAB GT THREE TIMES A DAY for 30 Days, CAP Prov:YAZMIN SHORE 04/27/17 Isosorbide Dinitrate* (ISORDIL*) 10 Mg Tablet, 10 MG GT Q6HR for 30 Days, TAB Prov:YAZMIN SHORE 04/27/17 Famotidine (FAMOTIDINE) 20 Mg Tablet, 20 MG GT BID for 30 Days, TAB Prov:YAZMIN SHORE 04/27/17 Doxycycline Hyclate (DOXYCYCLINE HYCLATE) 100 Mg Capsule, 100 MG GT EVERY 12 HOURS for 30 Days, CAP Prov:YAZMIN SHORE 3/8/18 Diltiazem HCl (Diltiazem 12Hr ER) 60 Mg Cap.er.12h, 30 MG GT EVERY 8 HOURS for 30 Days, CAP Prov:YAZMIN SHORE 04/27/17 Ciprofloxacin* (CIPROFLOXACIN*) 250 Mg Tablet, 250 MG GT EVERY 12 HOURS for 30 Days, TAB Prov:YAZMIN SHORE 04/27/17 Amiodarone Hcl* (PACERONE*) 200 Mg Tablet, 200 MG GT DAILY for 30 Days, TAB Prov:YAZMIN SHORE 04/27/17 Codeine/Promethazine Hcl* (PROMETHAZINE-CODEINE SYRUP*) 118 Ml Syrup, 5 ML ORAL Q4H Y for 7 Days, ML Prov:YAZMIN SHORE 03/01/16 Acetaminophen* (ACETAMINOPHEN 325MG TABLET*) 325 Mg Tablet, 650 MG ORAL Q6H Y for 30 Days, TAB Prov:YAZMIN SHORE 03/01/16 Levofloxacin* (LEVAQUIN*) 250 Mg Tablet, 250 MG ORAL DAILY for 7 Days, TAB Prov:YAZMIN SHORE 03/01/16 Docusate Sodium* (COLACE*) 100 Mg Capsule, 100 MG ORAL THREE TIMES A DAY for 30 Days, CAP Prov:YAZMIN SHORE 03/01/16 Reported Medications Vitamin A & D (Vitamin A & D Ointment) 56.7 Gm Oint...g., TOPIC DAILY 02/27/16 Vitamin D (Vitamin D3) 400 Unit Tablet, 2000 UNITS ORAL DAILY, TAB 02/27/16 Simvastatin (ZOCOR) 10 Mg Tablet, 10 MG ORAL BEDTIME, TAB 02/27/16 Omeprazole (OMEPRAZOLE) 20 Mg Capsule.dr, 20 MG ORAL DAILY, CAP 02/27/16 Amlodipine Besylate (Norvasc) 2.5 Mg Tablet, 2.5 MG ORAL DAILY, TAB 02/27/16 Multivitamin (MULTIVITAMINS) 1 Each Capsule, 1 CAP ORAL DAILY, CAP 02/27/16 Donepezil Hcl* (DONEPEZIL HCL*) 10 Mg Tab.rapdis, 10 MG ORAL HS, TAB 02/27/16 Calcium Carbonate (CALCIUM CARBONATE) 500 Mg Tablet, 500 MG PO BID, TAB 02/27/16 Aspirin* (ASPIRIN*) 81 Mg Tab.chew, 81 MG ORAL DAILY, TAB 02/27/16 Med list reviewed/reconciled: Yes Allergies: Coded Allergies: No Known Allergies (Unverified , 02/27/16) Patient History Limited by: medical condition History Provided By: Medical Record Review of Systems All Other Systems: negative except mentioned in HPI Physical Exam Vital Signs Date Time Temp Pulse Resp B/P (MAP) Pulse Ox O2 Delivery O2 Flow Rate FiO2 04/22/17 21:34 100.9 90 18 137/72 94 Nasal Cannula 4.0 100.9 04/23/17 13:05 28 Sp02 EP Interpretation: reviewed Labs Laboratory Tests Test 04/25/17 06:30 White Blood Count 10.8 K/UL (4.8-10.8) Red Blood Count 4.02 M/UL (4.20-5.40) L Hemoglobin 12.6 G/DL (12.0-16.0) Hematocrit 37.7 % (37.0-47.0) Mean Corpuscular Volume 94 FL (80-99) Mean Corpuscular Hemoglobin 31.4 PG (27.0-31.0) H Mean Corpuscular Hemoglobin Concent 33.5 G/DL (32.0-36.0) Red Cell Distribution Width 12.1 % (11.6-14.8) Platelet Count 149 K/UL (150-450) L Mean Platelet Volume 8.6 FL (6.5-10.1) Neutrophils (%) (Auto) % (45.0-75.0) Lymphocytes (%) (Auto) % (20.0-45.0) Monocytes (%) (Auto) % (1.0-10.0) Eosinophils (%) (Auto) % (0.0-3.0) Basophils (%) (Auto) % (0.0-2.0) Differential Total Cells Counted 100 Neutrophils % (Manual) 82 % (45-75) H Lymphocytes % (Manual) 15 % (20-45) L Monocytes % (Manual) 2 % (1-10) Eosinophils % (Manual) 1 % (0-3) Basophils % (Manual) 0 % (0-2) Band Neutrophils 0 % (0-8) Platelet Estimate Decreased L Platelet Morphology Normal Red Blood Cell Morphology Normal Sodium Level 152 MMOL/L (136-145) H Potassium Level 3.3 MMOL/L (3.5-5.1) L Chloride Level 118 MMOL/L (98-107) H Carbon Dioxide Level 25 MMOL/L (21-32) Anion Gap 9 mmol/L (5-15) Blood Urea Nitrogen 20 mg/dL (7-18) H Creatinine 1.0 MG/DL (0.55-1.30) Estimat Glomerular Filtration Rate mL/min (>60) Glucose Level 164 MG/DL (74-106) H Uric Acid 4.5 MG/DL (2.6-7.2) Calcium Level 7.9 MG/DL (8.5-10.1) L Phosphorus Level 1.8 MG/DL (2.5-4.9) L Magnesium Level 1.7 MG/DL (1.8-2.4) L Total Bilirubin 0.4 MG/DL (0.2-1.0) Aspartate Amino Transf (AST/SGOT) 25 U/L (15-37) Alanine Aminotransferase (ALT/SGPT) 24 U/L (12-78) Alkaline Phosphatase 85 U/L (46-116) Pro-B-Type Natriuretic Peptide 2136 pg/mL (0-125) H Total Protein 6.1 G/DL (6.4-8.2) L Albumin 2.1 G/DL (3.4-5.0) L Globulin 4.0 g/dL Albumin/Globulin Ratio 0.5 (1.0-2.7) L General Appearance: no apparent distress Head: normocephalic EENT: normal ENT inspection Neck: supple Respiratory: other - NC Cardiovascular: normal rate Gastrointestinal: soft Neurologic: alert Skin: normal inspection, normal color, no rash, warm/dry Lymphatic: normal inspection, no adenopathy Current Medications Current Medications Medications (Trade) Dose Ordered Sig/Baljit Route PRN Reason Start Time Stop Time Status Last Admin Dose Admin Acetaminophen (Tylenol) 650 mg Q4H PRN RECTAL Mild Pain (Pain Scale 1-3) 04/25/17 01:30 05/23/17 01:29 Amiodarone HCl (Cordarone) 200 mg EVERY 12 HOURS ORAL 04/25/17 09:00 05/02/17 08:59 04/25/17 09:43 Aspirin (ASA) 325 mg DAILY ORAL 04/25/17 09:00 05/23/17 12:29 04/25/17 09:42 Cefepime HCl 1 gm/ Sodium Chloride 55 ml @ 110 mls/hr Q24H IVPB 04/25/17 21:00 05/01/17 20:59 Dextrose 1,000 ml @ 100 mls/hr Q10H IV 04/25/17 13:45 05/25/17 13:44 04/25/17 13:30 Diltiazem HCl (Cardizem) 30 mg EVERY 6 HOURS NG 04/25/17 12:00 05/25/17 11:59 04/25/17 11:58 Heparin Sodium (Porcine) (Heparin 5000 units/ml) 5,000 units EVERY 12 HOURS SUBQ 04/25/17 09:00 05/23/17 08:59 04/25/17 11:14 Levalbuterol HCl (Xopenex) 1.25 mg TIDRT HHN 04/25/17 07:00 04/28/17 18:59 Magnesium Sulfate 100 ml @ 100 mls/hr Q1H IVPB 04/25/17 14:00 04/25/17 17:59 04/25/17 14:43 Metoprolol Tartrate (Lopressor) 5 mg Q6HR PRN IVP for heart rate >125 04/25/17 00:00 05/23/17 23:44 Metronidazole 100 ml @ 100 mls/hr Q8HR IVPB 04/25/17 06:00 04/30/17 05:59 04/25/17 13:32 Ondansetron HCl (Zofran) 4 mg Q6H PRN IVP Nausea & Vomiting 04/25/17 01:30 05/23/17 01:29 Pantoprazole (Protonix) 40 mg EVERY 12 HOURS IVP 04/25/17 09:00 05/23/17 20:59 04/25/17 09:43 Potassium Phosphate 30 mm/ Sodium Chloride 285 ml @ 47.5 mls/hr ONCE ONCE IV 04/25/17 14:30 04/25/17 20:29 Vancomycin HCl (Vanco rx to dose) 1 ea DAILY PRN MISC Per rx protocol 04/25/17 09:00 05/23/17 01:14 Vancomycin/Sodium Chloride 250 ml @ 166.667 mls/hr Q24H IVPB 04/25/17 05:00 04/29/17 04:59 04/25/17 05:45 GI: Plan Problems: (1) Encounter for PEG (percutaneous endoscopic gastrostomy) (2) Dysphagia Plan PEG tentatively scheduled for tomorrow, will require cardiac clearance given elevated troponin levels. - NPO @ [place]. - hold all blood thinners tonight. - consent signed, primary d/w with DPOA ST evaluation reviewed ppi prn transfusions RD recs fu labs Discussed with Dr. Rascon. Thank you for this patient referral, we will follow. ABIODUNCHRISTIE 05/02/17 1330: History of Present Illness General Reason for Hospitalization: Fever Present Illness Home Meds Active Scripts Acetaminophen* (ACETAMINOPHEN*) 650 Mg Supp.rect, 650 MG RECTAL Q4H Y for 30 Days, SUPP Prov:YAZMIN SHORE 04/27/17 Levalbuterol HCl (Xopenex Concentrate) 1.25 Mg/0.5 Ml Vial.neb, 1.25 MG HHN TIDRT for 14 Days, VIAL Prov:YAZMIN SHORE 04/27/17 Tramadol Hcl* (ULTRAM*) 50 Mg Tablet, 25 MG GT Q6HR Y for 30 Days, TAB Prov:YAZMIN SHORE 04/27/17 Lactobacillus Rhamnosus Gg* (CULTURELLE*) 1 Each Capsule, 1 TAB GT THREE TIMES A DAY for 30 Days, CAP Prov:YAZMIN SHORE 04/27/17 Isosorbide Dinitrate* (ISORDIL*) 10 Mg Tablet, 10 MG GT Q6HR for 30 Days, TAB Prov:YAZMIN SHORE 04/27/17 Famotidine (FAMOTIDINE) 20 Mg Tablet, 20 MG GT BID for 30 Days, TAB Prov:YAZMIN SHORE 04/27/17 Doxycycline Hyclate (DOXYCYCLINE HYCLATE) 100 Mg Capsule, 100 MG GT EVERY 12 HOURS for 30 Days, CAP Prov:YAZMIN SHORE 04/27/17 Diltiazem HCl (Diltiazem 12Hr ER) 60 Mg Cap.er.12h, 30 MG GT EVERY 8 HOURS for 30 Days, CAP Prov:YAZMIN SHORE 04/27/17 Ciprofloxacin* (CIPROFLOXACIN*) 250 Mg Tablet, 250 MG GT EVERY 12 HOURS for 30 Days, TAB Prov:YAZMIN SHORE 04/27/17 Amiodarone Hcl* (PACERONE*) 200 Mg Tablet, 200 MG GT DAILY for 30 Days, TAB Prov:YAZMIN SHORE 04/27/17 Codeine/Promethazine Hcl* (PROMETHAZINE-CODEINE SYRUP*) 118 Ml Syrup, 5 ML ORAL Q4H Y for 7 Days, ML Prov:YAZMIN SHORE 03/01/16 Acetaminophen* (ACETAMINOPHEN 325MG TABLET*) 325 Mg Tablet, 650 MG ORAL Q6H Y for 30 Days, TAB Prov:YAZMIN SHORE 03/01/16 Levofloxacin* (LEVAQUIN*) 250 Mg Tablet, 250 MG ORAL DAILY for 7 Days, TAB Prov:YAZMIN SHORE 03/01/16 Docusate Sodium* (COLACE*) 100 Mg Capsule, 100 MG ORAL THREE TIMES A DAY for 30 Days, CAP Prov:YAZMIN SHROE 03/01/16 Reported Medications Vitamin A & D (Vitamin A & D Ointment) 56.7 Gm Oint...g., TOPIC DAILY 02/27/16 Vitamin D (Vitamin D3) 400 Unit Tablet, 2000 UNITS ORAL DAILY, TAB 02/27/16 Simvastatin (ZOCOR) 10 Mg Tablet, 10 MG ORAL BEDTIME, TAB 02/27/16 Omeprazole (OMEPRAZOLE) 20 Mg Capsule.dr, 20 MG ORAL DAILY, CAP 02/27/16 Amlodipine Besylate (Norvasc) 2.5 Mg Tablet, 2.5 MG ORAL DAILY, TAB 02/27/16 Multivitamin (MULTIVITAMINS) 1 Each Capsule, 1 CAP ORAL DAILY, CAP 02/27/16 Donepezil Hcl* (DONEPEZIL HCL*) 10 Mg Tab.rapdis, 10 MG ORAL HS, TAB 02/27/16 Calcium Carbonate (CALCIUM CARBONATE) 500 Mg Tablet, 500 MG PO BID, TAB 02/27/16 Aspirin* (ASPIRIN*) 81 Mg Tab.chew, 81 MG ORAL DAILY, TAB 02/27/16 Allergies: Coded Allergies: No Known Allergies (Unverified , 02/27/16) GI: Plan Plan The patient was seen and examined at bedside and all new and available data was reviewed in the patients chart. I agree with the above findings, impression and plan. (Patient seen earlier today. Signature stamp does not reflect patient encounter time.). - MD Ethel Salcido,[facility] Ye N.PHeather Apr 25, 2017 15:21 CHRISTIE RASCON May 02, 2017 13:30
--- NOTE | 2017-04-25 15:27 | Infectious Diseases Prog Note ---
Assessment/Plan Problems: (1) Pneumonia Assessment & Plan: with right perihilar infiltrates , continue vancomycin, cefepime and metronidazole , pending culture (2) Foot osteomyelitis, right Assessment & Plan: confirmed on MRI of the right foot , will need 6 weeks of iv antibiotics , and local wound care (3) Right foot ulcer Assessment & Plan: with cellulitis and underlying osteomyelitis as per MRI of of the right foot, await wound culture , continue vancomycin, cefepime, and metronidazole for 6 weeks . monitor labs weekly , continue local wound care (4) Urinary tract infection Assessment & Plan: await urine culture, already on cefepime (5) Sepsis Assessment & Plan: due to the above , continue vancomycin and cefepime, pending blood culture (6) Fever Assessment & Plan: improving , due to the above , continue wide spectrum antibiotics , and tylenol as needed (7) Tachycardia Assessment & Plan: suspect due to A fIB , new onset started on rate controlling meds , monitor HR, repeat EKG , cardiology is following Subjective ROS Limited/Unobtainable: Yes Allergies: Coded Allergies: No Known Allergies (Unverified , 02/27/16) Subjective she was up in bed, responds to verbal commands , non verbal , no cough or SOB, no fever or chills, no nausea or vomiting Objective Vital Signs Last 24 Hour Vital Signs Date Time Temp Pulse Resp B/P (MAP) Pulse Ox O2 Delivery O2 Flow Rate FiO2 04/25/17 13:59 69 18 97 Nasal Cannula 4.0 36 04/25/17 13:50 65 20 Nasal Cannula 4.0 36 04/25/17 11:58 70 126/85 04/25/17 09:43 70 126/85 04/25/17 09:12 70 18 97 Nasal Cannula 4.0 36 04/25/17 09:00 67 20 93 Nasal Cannula 4.0 36 04/25/17 08:00 66 04/25/17 07:50 Nasal Cannula 4.0 36 04/25/17 07:49 93 Nasal Cannula 4.0 36 04/25/17 07:46 97.1 69 18 126/85 94 97.1 04/25/17 05:46 116/47 04/25/17 04:00 70 04/25/17 04:00 97.6 67 20 116/47 95 Nasal Cannula 4.0 97.6 04/25/17 01:26 119/49 04/25/17 00:00 66 04/25/17 00:00 97.5 66 20 119/49 97 Nasal Cannula 4.0 97.5 04/24/17 21:11 76 133/57 04/24/17 20:00 73 04/24/17 20:00 97.7 76 24 133/57 94 Nasal Cannula 4.0 97.7 04/24/17 19:43 88 18 97 Nasal Cannula 4.0 36 04/24/17 19:39 Nasal Cannula 4.0 36 04/24/17 19:39 96 Nasal Cannula 4.0 36 04/24/17 19:34 84 20 96 Nasal Cannula 4.0 36 04/24/17 18:25 150/64 04/24/17 16:00 98.4 98 20 150/64 98 Nasal Cannula 4.0 98.4 04/24/17 16:00 77 Height (Feet): 5 Height (Inches): 3.00 Weight (Pounds): 135 General Appearance: WD/WN, no acute distress HEENT: normocephalic, atraumatic, anicteric, mucous membranes moist, PERRL, supple, no JVD Respiratory/Chest: chest wall non-tender, normal breath sounds, no respiratory distress, no accessory muscle use, decreased breath sounds Cardiovascular: normal peripheral pulses, normal rate, regular rhythm, no gallop/murmur, no JVD Abdomen: normal bowel sounds, soft, non tender, no organomegaly, non distended , no mass, no scars Extremities: no cyanosis, no clubbing Skin: no rash, ulcers Neurologic/Psychiatric: responsive Lymphatic: no neck adenopathy, no groin adenopathy Microbiology Date/Time Source Procedure Growth Status 04/22/17 20:05 Blood Blood Culture - Preliminary NO GROWTH AFTER 24 HOURS Resulted 04/22/17 20:00 Blood Blood Culture - Preliminary NO GROWTH AFTER 24 HOURS Resulted Laboratory Tests Test 04/25/17 06:30 White Blood Count 10.8 K/UL (4.8-10.8) Red Blood Count 4.02 M/UL (4.20-5.40) L Hemoglobin 12.6 G/DL (12.0-16.0) Hematocrit 37.7 % (37.0-47.0) Mean Corpuscular Volume 94 FL (80-99) Mean Corpuscular Hemoglobin 31.4 PG (27.0-31.0) H Mean Corpuscular Hemoglobin Concent 33.5 G/DL (32.0-36.0) Red Cell Distribution Width 12.1 % (11.6-14.8) Platelet Count 149 K/UL (150-450) L Mean Platelet Volume 8.6 FL (6.5-10.1) Neutrophils (%) (Auto) % (45.0-75.0) Lymphocytes (%) (Auto) % (20.0-45.0) Monocytes (%) (Auto) % (1.0-10.0) Eosinophils (%) (Auto) % (0.0-3.0) Basophils (%) (Auto) % (0.0-2.0) Differential Total Cells Counted 100 Neutrophils % (Manual) 82 % (45-75) H Lymphocytes % (Manual) 15 % (20-45) L Monocytes % (Manual) 2 % (1-10) Eosinophils % (Manual) 1 % (0-3) Basophils % (Manual) 0 % (0-2) Band Neutrophils 0 % (0-8) Platelet Estimate Decreased L Platelet Morphology Normal Red Blood Cell Morphology Normal Sodium Level 152 MMOL/L (136-145) H Potassium Level 3.3 MMOL/L (3.5-5.1) L Chloride Level 118 MMOL/L (98-107) H Carbon Dioxide Level 25 MMOL/L (21-32) Anion Gap 9 mmol/L (5-15) Blood Urea Nitrogen 20 mg/dL (7-18) H Creatinine 1.0 MG/DL (0.55-1.30) Estimat Glomerular Filtration Rate mL/min (>60) Glucose Level 164 MG/DL (74-106) H Uric Acid 4.5 MG/DL (2.6-7.2) Calcium Level 7.9 MG/DL (8.5-10.1) L Phosphorus Level 1.8 MG/DL (2.5-4.9) L Magnesium Level 1.7 MG/DL (1.8-2.4) L Total Bilirubin 0.4 MG/DL (0.2-1.0) Aspartate Amino Transf (AST/SGOT) 25 U/L (15-37) Alanine Aminotransferase (ALT/SGPT) 24 U/L (12-78) Alkaline Phosphatase 85 U/L (46-116) Pro-B-Type Natriuretic Peptide 2136 pg/mL (0-125) H Total Protein 6.1 G/DL (6.4-8.2) L Albumin 2.1 G/DL (3.4-5.0) L Globulin 4.0 g/dL Albumin/Globulin Ratio 0.5 (1.0-2.7) L Current Medications Medications (Trade) Dose Ordered Sig/Baljit Route PRN Reason Start Time Stop Time Status Last Admin Dose Admin Acetaminophen (Tylenol) 650 mg Q4H PRN RECTAL Mild Pain (Pain Scale 1-3) 04/25/17 01:30 05/23/17 01:29 Amiodarone HCl (Cordarone) 200 mg EVERY 12 HOURS ORAL 04/25/17 09:00 05/02/17 08:59 04/25/17 09:43 Aspirin (ASA) 325 mg DAILY ORAL 04/25/17 09:00 05/23/17 12:29 04/25/17 09:42 Cefepime HCl 1 gm/ Sodium Chloride 55 ml @ 110 mls/hr Q24H IVPB 04/25/17 21:00 05/01/17 20:59 Dextrose 1,000 ml @ 100 mls/hr Q10H IV 04/25/17 13:45 05/25/17 13:44 04/25/17 13:30 Diltiazem HCl (Cardizem) 30 mg EVERY 6 HOURS NG 04/25/17 12:00 05/25/17 11:59 04/25/17 11:58 Heparin Sodium (Porcine) (Heparin 5000 units/ml) 5,000 units EVERY 12 HOURS SUBQ 04/25/17 09:00 05/23/17 08:59 04/25/17 11:14 Levalbuterol HCl (Xopenex) 1.25 mg TIDRT HHN 04/25/17 07:00 04/28/17 18:59 Magnesium Sulfate 100 ml @ 100 mls/hr Q1H IVPB 04/25/17 14:00 04/25/17 17:59 04/25/17 14:43 Metoprolol Tartrate (Lopressor) 5 mg Q6HR PRN IVP for heart rate >125 04/25/17 00:00 05/23/17 23:44 Metronidazole 100 ml @ 100 mls/hr Q8HR IVPB 04/25/17 06:00 04/30/17 05:59 04/25/17 13:32 Ondansetron HCl (Zofran) 4 mg Q6H PRN IVP Nausea & Vomiting 04/25/17 01:30 05/23/17 01:29 Pantoprazole (Protonix) 40 mg EVERY 12 HOURS IVP 04/25/17 09:00 05/23/17 20:59 04/25/17 09:43 Potassium Phosphate 30 mm/ Sodium Chloride 285 ml @ 47.5 mls/hr ONCE ONCE IV 04/25/17 14:30 04/25/17 20:29 Vancomycin HCl (Vanco rx to dose) 1 ea DAILY PRN MISC Per rx protocol 04/25/17 09:00 05/23/17 01:14 Vancomycin/Sodium Chloride 250 ml @ 166.667 mls/hr Q24H IVPB 04/25/17 05:00 04/29/17 04:59 04/25/17 05:45 Damon Briggs M.D. Apr 25, 2017 15:27
--- NOTE | 2017-04-25 19:59 | Cardiology Report ---
APPROVED REPORT EKG Measurement Heart [id number] OR [id number] Sinus rhythm, non-conducted APC. Abnormal ECG
[2017-04-25] MEDS ORDERED: Cefepime HCl 1 GM in NS 55 ML IVPB SCH (21:00)
[2017-04-26] VITALS (8 sets, daily range): BP systolic 101–141; BP diastolic 49–71
[2017-04-26] MEDS: dilTIAZem HCl 30mg tab NG SCH ×2 (01:06→06:42)
[2017-04-26] MEDS: Vancomycin 750mg/NS 250ml 250 ML IVPB SCH (04:58)
[2017-04-26 05:09] LABS: BASOPHILS % (AUTO) 0.1 % (0.0-2.0); EOSINOPHILS % (AUTO) 0.6 % (0.0-3.0); HEMATOCRIT 34.1 % (37.0-47.0); HEMOGLOBIN 11.7 G/DL (12.0-16.0); LYMPHOCYTES % (AUTO) 11.8 % (20.0-45.0); MEAN CORPUSCULAR VOLUME 92 FL (80-99); MONOCYTES % (AUTO) 3.6 % (1.0-10.0); NEUTROPHILS % (AUTO) 83.9 % (45.0-75.0); PLATELET COUNT 155 K/UL (150-450); RED CELL DISTRIBUTION WIDTH 12.4 % (11.6-14.8); WHITE BLOOD COUNT 8.3 K/UL (4.8-10.8)
[2017-04-26 05:12] LABS: INR 1.2 (0.9-1.1)
[2017-04-26 05:15] LABS: PHOSPHORUS 2.1 MG/DL (2.5-4.9)
[2017-04-26 05:27] LABS: ALANINE AMINOTRANSFERASE 35 U/L (12-78); ALBUMIN 1.8 G/DL (3.4-5.0); ALBUMIN/GLOBULIN RATIO 0.5 (1.0-2.7); ALKALINE PHOSPHATASE 94 U/L (46-116); ANION GAP 8 mmol/L (5-15); ASPARTATE AMINO TRANSFERASE 78 U/L (15-37); BILIRUBIN,TOTAL 0.2 MG/DL (0.2-1.0); BLOOD UREA NITROGEN 17 mg/dL (7-18); CALCIUM 7.4 MG/DL (8.5-10.1); CARBON DIOXIDE 24 MMOL/L (21-32); CHLORIDE 113 MMOL/L (98-107); CREATININE 0.9 MG/DL (0.55-1.30); POTASSIUM 3.5 MMOL/L (3.5-5.1); SODIUM 145 MMOL/L (136-145)
[2017-04-26] MEDS ORDERED: fentaNYL 100 mcg/2 mL IV PRN (06:45)
[2017-04-26] MEDS ORDERED: DiphenhydrAMINE 50mg/ml Inj IVP PRN (06:45)
[2017-04-26] MEDS ORDERED: Atropine Inj 1mg/10ml Syr IV PRN (06:45)
--- NOTE | 2017-04-26 06:45 | Anethesia Preoperative Eval ---
Anesthesia Pre-op PMH/ROS General Date of Evaluation: Apr 26, 2017 Time of Evaluation: 06:42 Anesthesiologist: lance ASA Score: ASA 3 Mallampati Score Class I : Soft palate, uvula, fauces, pillars visible Class II: Soft palate, uvula, fauces visible Class III: Soft palate, base of uvula visible Class IV: Only hard plate visible Mallampati Classification: Class II Surgeon: magy Diagnosis: dysphagia Surgical Procedure: egd/peg Anesthesia History: none Social History: smoking - nonsmoker Family History: no anesthesia problems Allergies: Coded Allergies: No Known Allergies (Unverified , 02/27/16) Medications: see eMAR Past Medical History Cardiovascular: Reports: HTN, arrhythmia Pulmonary: Reports: other - pneumonia Gastrointestinal/Genitourinary: Reports: GERD, other - arf Neurologic/Psychiatric: Reports: dementia, depression/anxiety Hematology/Immune: Reports: anemia Anesthesia Pre-op Phys. Exam Physician Exam Last Vital Signs Date Time Temp Pulse Resp B/P (MAP) Pulse Ox O2 Delivery O2 Flow Rate FiO2 04/26/17 04:02 65 04/26/17 01:06 124/55 04/26/17 00:00 97.5 16 95 Nasal Cannula 4.0 97.5 04/25/17 20:01 32 Constitutional: NAD Neurologic: CN 2-12 intact Cardiovascular: RRR Respiratory: CTA Gastrointestinal: S/NT/ND Airway Exam Mallampati Score: Class II MO: full Neck: short TMD: 2fb ROM: limited Teeth: missing Anesthesia Pre-op A/P Labs Hematology Test 04/26/17 04:00 White Blood Count 8.3 K/UL (4.8-10.8) Red Blood Count 3.70 M/UL (4.20-5.40) L Hemoglobin 11.7 G/DL (12.0-16.0) L Hematocrit 34.1 % (37.0-47.0) L Mean Corpuscular Volume 92 FL (80-99) Mean Corpuscular Hemoglobin 31.8 PG (27.0-31.0) H Mean Corpuscular Hemoglobin Concent 34.4 G/DL (32.0-36.0) Red Cell Distribution Width 12.4 % (11.6-14.8) Platelet Count 155 K/UL (150-450) Mean Platelet Volume 9.8 FL (6.5-10.1) Neutrophils (%) (Auto) 83.9 % (45.0-75.0) H Lymphocytes (%) (Auto) 11.8 % (20.0-45.0) L Monocytes (%) (Auto) 3.6 % (1.0-10.0) Eosinophils (%) (Auto) 0.6 % (0.0-3.0) Basophils (%) (Auto) 0.1 % (0.0-2.0) Coagulation Test 04/26/17 04:00 Prothrombin Time 12.7 SEC (9.30-11.50) H Prothromb Time International Ratio 1.2 (0.9-1.1) H Activated Partial Thromboplast Time 31 SEC (23-33) Chemistry Test 04/26/17 04:00 Sodium Level 145 MMOL/L (136-145) Potassium Level 3.5 MMOL/L (3.5-5.1) Chloride Level 113 MMOL/L (98-107) H Carbon Dioxide Level 24 MMOL/L (21-32) Anion Gap 8 mmol/L (5-15) Blood Urea Nitrogen 17 mg/dL (7-18) Creatinine 0.9 MG/DL (0.55-1.30) Estimat Glomerular Filtration Rate mL/min (>60) Glucose Level 182 MG/DL (74-106) H Uric Acid 3.7 MG/DL (2.6-7.2) Calcium Level 7.4 MG/DL (8.5-10.1) L Phosphorus Level 2.1 MG/DL (2.5-4.9) L Magnesium Level 2.4 MG/DL (1.8-2.4) Total Bilirubin 0.2 MG/DL (0.2-1.0) Aspartate Amino Transf (AST/SGOT) 78 U/L (15-37) H Alanine Aminotransferase (ALT/SGPT) 35 U/L (12-78) Alkaline Phosphatase 94 U/L (46-116) Troponin I 0.078 ng/mL (0.000-0.056) C-Reactive Protein, Quantitative 9.7 mg/dL (0.00-0.90) H Pro-B-Type Natriuretic Peptide 2197 pg/mL (0-125) H Total Protein 5.1 G/DL (6.4-8.2) L Albumin 1.8 G/DL (3.4-5.0) L Globulin 3.3 g/dL Albumin/Globulin Ratio 0.5 (1.0-2.7) L Risk Assessment & Plan Assessment: asa3 Plan: mac Status Change Before Surgery: No Pre-Antibiotics Drug: RONALD Fung Apr 26, 2017 06:45
[2017-04-26] MEDS: Levalbuterol Inh UD 1.25mg/0.5ml HHN SCH ×3 (07:00→19:52)
--- NOTE | 2017-04-26 07:03 | Pre-Procedure Note/Attestation ---
Pre-Procedure Note/Attestation Complete Prior to Procedure Planned Procedure: not applicable Procedure Narrative: egd/peg Indications for Procedure Pre-Operative Diagnosis: dysphagia, FTT Attestation I attest that I discussed the nature of the procedure; its benefits; risks and complications; and alternatives (and the risks and benefits of such alternatives ), prior to the procedure, with the patient (or the patient's legal business center representative). I attest that, if there was a reasonable possibility of needing a blood transfusion, the patient (or the patient's legal business center representative) was given the [facility] standardized written summary, pursuant to the Steve Conchita Blood Safety Act ([place] Health and Safety Code # 1645, as amended). I attest that I re-evaluated the patient just prior to the surgery and that there has been no change in the patient's H&P, except as documented below: CHRISTIE RASCON Apr 26, 2017 07:03
--- NOTE | 2017-04-26 07:05 | General Progress Note ---
Assessment/Plan Problem List: (1) Dysphagia ICD Codes: R13.10 - Dysphagia, unspecified SNOMED: 11828722, [id number] (2) Atrial fibrillation with RVR ICD Codes: I48.91 - Unspecified atrial fibrillation SNOMED: 532257791142631 Assessment/Plan plan EGD/peg placement for today Subjective ROS Limited/Unobtainable: No Allergies: Coded Allergies: No Known Allergies (Unverified , 02/27/16) Objective Last 24 Hour Vital Signs Date Time Temp Pulse Resp B/P (MAP) Pulse Ox O2 Delivery O2 Flow Rate FiO2 04/26/17 06:42 68 114/57 04/26/17 04:02 65 04/26/17 01:06 67 124/55 04/26/17 00:00 97.5 67 16 124/55 95 Nasal Cannula 4.0 97.5 04/26/17 00:00 69 04/25/17 21:00 97.7 65 18 124/62 95 Nasal Cannula 4.0 97.7 04/25/17 20:01 72 16 96 Nasal Cannula 3.0 32 04/25/17 20:00 60 04/25/17 20:00 97.7 65 16 124/57 95 97.7 04/25/17 20:00 68 20 92 Nasal Cannula 3.0 32 04/25/17 19:58 Nasal Cannula 3.0 32 04/25/17 19:30 92 Nasal Cannula 3.0 32 04/25/17 17:27 67 130/71 04/25/17 16:00 97.5 72 17 130/71 96 Nasal Cannula 4.0 97.5 04/25/17 16:00 67 04/25/17 13:59 69 18 97 Nasal Cannula 4.0 36 04/25/17 13:50 65 20 Nasal Cannula 4.0 36 04/25/17 12:00 97.3 64 18 142/63 95 Nasal Cannula 4.0 97.3 04/25/17 12:00 69 04/25/17 11:58 70 126/85 04/25/17 09:43 70 126/85 04/25/17 09:12 70 18 97 Nasal Cannula 4.0 36 04/25/17 09:00 67 20 93 Nasal Cannula 4.0 36 04/25/17 08:00 66 04/25/17 07:50 Nasal Cannula 4.0 36 04/25/17 07:49 93 Nasal Cannula 4.0 36 04/25/17 07:46 97.1 69 18 126/85 94 97.1 Intake and Output 04/25/17 04/26/17 19:00 07:00 Intake Total 795.0 ml 710 ml Output Total 750 ml Balance 795.0 ml -40 ml IV Total 795.0 ml 710 ml Output Urine Total 750 ml # Bowel Movements 1 1 Laboratory Tests 04/26/17 04:00: White Blood Count 8.3, Red Blood Count 3.70L, Hemoglobin 11.7L, Hematocrit 34.1L , Mean Corpuscular Volume 92, Mean Corpuscular Hemoglobin 31.8H, Mean Corpuscular Hemoglobin Concent 34.4, Red Cell Distribution Width 12.4, Platelet Count 155, Mean Platelet Volume 9.8, Neutrophils (%) (Auto) 83.9H, Lymphocytes ( %) (Auto) 11.8L, Monocytes (%) (Auto) 3.6, Eosinophils (%) (Auto) 0.6, Basophils (%) (Auto) 0.1, Prothrombin Time 12.7H, Prothromb Time International Ratio 1.2H, Activated Partial Thromboplast Time 31, Sodium Level 145, Potassium Level 3.5, Chloride Level 113H, Carbon Dioxide Level 24, Anion Gap 8, Blood Urea Nitrogen 17, Creatinine 0.9, Estimat Glomerular Filtration Rate , Glucose Level 182H, Uric Acid 3.7, Calcium Level 7.4L, Phosphorus Level 2.1L, Magnesium Level 2.4, Total Bilirubin 0.2, Aspartate Amino Transf (AST/SGOT) 78H, Alanine Aminotransferase (ALT/SGPT) 35, Alkaline Phosphatase 94, Troponin I 0.078H, C- Reactive Protein, Quantitative 9.7H, Pro-B-Type Natriuretic Peptide 2197H, Total Protein 5.1L, Albumin 1.8L, Globulin 3.3, Albumin/Globulin Ratio 0.5L, Vancomycin Level Trough 5.6 Height (Feet): 5 Height (Inches): 3.00 Weight (Pounds): 135 General Appearance: no apparent distress EENT: normal ENT inspection Neck: supple Cardiovascular: normal rate Respiratory/Chest: decreased breath sounds Abdomen: normal bowel sounds, non tender, soft Extremities: non-tender CHRISTIE RASCON Apr 26, 2017 07:05
[2017-04-26] MEDS ORDERED: Propofol 200mg/20ml IV ONE (07:45)
[2017-04-26] MEDS ORDERED: Lidocaine 1% MPF 10mg/ml 5ml ONE (07:45)
[2017-04-26] MEDS ORDERED: NS 500ML IV ONE (08:00)
--- NOTE | 2017-04-26 08:11 | Endoscopy Procedure Note ---
Endoscopy Procedure Note General Indication for Procedure: ftt, dysphagia Procedures Performed: EGD, PEG Operative Findings/Diagnosis: gastritis, s/p peg Specimen: none Pt Tolerated Procedure Well: Yes Estimated Blood Loss: none Anesthesia Anesthesiologist: coco Anesthesia: MAC Inserted Devices Implant(s) used?: No GI Core Measures 50 yrs or older w/o bx or poly: Not Applicable 10yrs. F/U not recommended: Not Applicable CHRISTIE RASCON Apr 26, 2017 08:11
[2017-04-26] MEDS: Heparin 5000 units/ml inj SUBQ SCH ×2 (09:00→22:17)
[2017-04-26] MEDS ORDERED: Vancomycin 750mg/NS 250ml IVPB ONE (09:00)
[2017-04-26] MEDS: Amiodarone 200mg tab ORAL SCH (09:00)
--- NOTE | 2017-04-26 09:07 | Immediate Post-Op Evaluation ---
Immediate Post-Op Evalulation Immediate Post-Op Evalulation Procedure: egd/peg Date of Evaluation: Apr 26, 2017 Time of Evaluation: 08:31 IV Fluids: 150ml 0.9ns Blood Products: none Estimated Blood Loss: negligible Blood Pressure Systolic: 101 Blood Pressure Diastolic: 49 Pulse Rate: 57 Respiratory Rate: 18 O2 Sat by Pulse Oximetry: 97 Temperature (Fahrenheit): 97.8 Pain Score (1-10): 0 Nausea: No Vomiting: No Complications none Patient Status: awake, reacts, patent Hydration Status: adequate Drug: RONALD Fung Apr 26, 2017 09:07
--- NOTE | 2017-04-26 09:08 | 48 Hour Post Anesthesia Eval ---
Post Anesthesia Evaluation Procedure: egd/peg Date of Evaluation: Apr 26, 2017 Time of Evaluation: 08:33 Blood Pressure Systolic: 101 0: 49 Pulse Rate: 57 Respiratory Rate: 18 Temperature (Fahrenheit): 97.8 O2 Sat by Pulse Oximetry: 97 Airway: patent Nausea: No Vomiting: No Pain Intensity: 0 Hydration Status: adequate Cardiopulmonary Status: stable Mental Status/LOC: patient returned to baseline Post-Anesthesia Complications: none Follow-up care needed: N/A RONALD LANGE Apr 26, 2017 09:08
--- NOTE | 2017-04-26 09:22 | Pulmonology Progress Note ---
Assessment/Plan Problems: (1) Pneumonia (2) Acute renal failure (3) Atrial fibrillation with RVR (4) Fever (5) Sepsis Assessment/Plan titrate fio2 to st of 92% aspiration precaution respiratory treatment continue abx check cultures dvt prophylaxis monitor heart rate, sinus and afib d/w social media developer and pts DPOA, for PEG placement today might go to med/surg afterwards Subjective ROS Limited/Unobtainable: No Constitutional: Reports: no symptoms HEENT: Repors: no symptoms Allergies: Coded Allergies: No Known Allergies (Unverified , 02/27/16) Objective Last 24 Hour Vital Signs Date Time Temp Pulse Resp B/P (MAP) Pulse Ox O2 Delivery O2 Flow Rate FiO2 04/26/17 08:46 64 20 119/54 99 Nasal Cannula 4.0 04/26/17 08:29 55 20 110/51 99 Nasal Cannula 4.0 04/26/17 08:24 56 20 106/51 99 Nasal Cannula 4.0 04/26/17 08:19 97.0 56 20 101/49 99 Nasal Cannula 4.0 97.0 04/26/17 07:55 Nasal Cannula 04/26/17 07:55 Nasal Cannula 3.0 32 04/26/17 07:55 Nasal Cannula 04/26/17 07:55 Nasal Cannula 04/26/17 06:42 68 114/57 04/26/17 04:02 65 04/26/17 01:06 67 124/55 04/26/17 00:00 97.5 67 16 124/55 95 Nasal Cannula 4.0 97.5 04/26/17 00:00 69 04/25/17 21:00 97.7 65 18 124/62 95 Nasal Cannula 4.0 97.7 04/25/17 20:01 72 16 96 Nasal Cannula 3.0 32 04/25/17 20:00 60 04/25/17 20:00 97.7 65 16 124/57 95 97.7 04/25/17 20:00 68 20 92 Nasal Cannula 3.0 32 04/25/17 19:58 Nasal Cannula 3.0 32 04/25/17 19:30 92 Nasal Cannula 3.0 32 04/25/17 17:27 67 130/71 04/25/17 16:00 97.5 72 17 130/71 96 Nasal Cannula 4.0 97.5 04/25/17 16:00 67 04/25/17 13:59 69 18 97 Nasal Cannula 4.0 36 04/25/17 13:50 65 20 Nasal Cannula 4.0 36 04/25/17 12:00 97.3 64 18 142/63 95 Nasal Cannula 4.0 97.3 04/25/17 12:00 69 04/25/17 11:58 70 126/85 04/25/17 09:43 70 126/85 Intake and Output 04/25/17 04/26/17 19:00 07:00 Intake Total 795.0 ml 710 ml Output Total 750 ml Balance 795.0 ml -40 ml IV Total 795.0 ml 710 ml Output Urine Total 750 ml # Bowel Movements 1 1 Objective General Appearance: WD/WN Lines, tubes and drains: peripheral HEENT: normocephalic, atraumatic Neck: non-tender, normal alignment Respiratory/Chest: chest wall non-tender, lungs clear Breasts: no masses Cardiovascular/Chest: normal peripheral pulses, normal rate Abdomen: normal bowel sounds, non tender Genitourinary/Rectal: normal genital exam, heme negative stool Extremities: normal range of motion, non-tender Skin Exam: normal pigmentation Microbiology Date/Time Source Procedure Growth Status 04/24/17 16:00 Sputum Expectorated Gram Stain Pending Resulted 04/24/17 16:00 Sputum Culture - Preliminary Val Albicans Resulted Laboratory Tests 04/26/17 04:00: White Blood Count 8.3, Red Blood Count 3.70L, Hemoglobin 11.7L, Hematocrit 34.1L , Mean Corpuscular Volume 92, Mean Corpuscular Hemoglobin 31.8H, Mean Corpuscular Hemoglobin Concent 34.4, Red Cell Distribution Width 12.4, Platelet Count 155, Mean Platelet Volume 9.8, Neutrophils (%) (Auto) 83.9H, Lymphocytes ( %) (Auto) 11.8L, Monocytes (%) (Auto) 3.6, Eosinophils (%) (Auto) 0.6, Basophils (%) (Auto) 0.1, Prothrombin Time 12.7H, Prothromb Time International Ratio 1.2H, Activated Partial Thromboplast Time 31, Sodium Level 145, Potassium Level 3.5, Chloride Level 113H, Carbon Dioxide Level 24, Anion Gap 8, Blood Urea Nitrogen 17, Creatinine 0.9, Estimat Glomerular Filtration Rate , Glucose Level 182H, Uric Acid 3.7, Calcium Level 7.4L, Phosphorus Level 2.1L, Magnesium Level 2.4, Total Bilirubin 0.2, Aspartate Amino Transf (AST/SGOT) 78H, Alanine Aminotransferase (ALT/SGPT) 35, Alkaline Phosphatase 94, Troponin I 0.078H, C- Reactive Protein, Quantitative 9.7H, Pro-B-Type Natriuretic Peptide 2197H, Total Protein 5.1L, Albumin 1.8L, Globulin 3.3, Albumin/Globulin Ratio 0.5L, Vancomycin Level Trough 5.6 Current Medications Medications (Trade) Dose Ordered Sig/Baljit Route PRN Reason Start Time Stop Time Status Last Admin Dose Admin Acetaminophen (Tylenol) 650 mg Q4H PRN RECTAL Mild Pain (Pain Scale 1-3) 04/25/17 01:30 05/23/17 01:29 Al Hydroxide/Mg Hydroxide (Mylanta) 15 ml Q1H PRN ORAL gi upset 04/26/17 06:45 04/26/17 13:00 Amiodarone HCl (Cordarone) 200 mg EVERY 12 HOURS ORAL 04/25/17 09:00 05/02/17 08:59 04/25/17 21:08 Aspirin (ASA) 325 mg DAILY ORAL 04/25/17 09:00 05/23/17 12:29 04/25/17 09:42 Atropine Sulfate (Atropine) 0.5 mg Q5M PRN IV HR less than 45bpm 04/26/17 06:45 04/26/17 13:00 Cefepime HCl 1 gm/ Sodium Chloride 55 ml @ 110 mls/hr Q24H IVPB 04/25/17 21:00 05/01/17 20:59 04/25/17 21:07 Dextrose 1,000 ml @ 100 mls/hr Q10H IV 04/25/17 13:45 05/25/17 13:44 04/25/17 23:39 Diltiazem HCl (Cardizem) 30 mg EVERY 6 HOURS NG 04/25/17 12:00 05/25/17 11:59 04/26/17 06:42 Diphenhydramine HCl (Benadryl) 25 mg Q15M PRN IVP Itching 04/26/17 06:45 04/26/17 13:00 Fentanyl Citrate (Sublimaze 100 mcg/2 mL) 25 mcg Q10M PRN IV Moderate Pain (Pain Scale 4-6) 04/26/17 06:45 04/26/17 13:00 Heparin Sodium (Porcine) (Heparin 5000 units/ml) 5,000 units EVERY 12 HOURS SUBQ 04/25/17 09:00 05/23/17 08:59 04/25/17 11:14 Hydralazine HCl (Apresoline) 5 mg Q30M PRN IV SBP>160 /DBP>90 04/26/17 06:45 04/26/17 13:00 Levalbuterol HCl (Xopenex) 1.25 mg TIDRT HHN 04/25/17 07:00 04/28/17 18:59 04/25/17 19:56 Metoprolol Tartrate (Lopressor) 5 mg Q6HR PRN IVP for heart rate >125 04/25/17 00:00 05/23/17 23:44 Metronidazole 100 ml @ 100 mls/hr Q8HR IVPB 04/25/17 06:00 04/30/17 05:59 04/26/17 06:08 Ondansetron HCl (Zofran) 4 mg Q1H PRN IVP Nausea & Vomiting 04/26/17 06:45 04/26/17 13:00 Ondansetron HCl (Zofran) 4 mg Q6H PRN IVP Nausea & Vomiting 04/25/17 01:30 05/23/17 01:29 Vancomycin HCl (Vanco rx to dose) 1 ea DAILY PRN MISC Per rx protocol 04/25/17 09:00 05/23/17 01:14 Vancomycin HCl/ Dextrose 250 ml @ 166.667 mls/hr Q24H IVPB 04/27/17 09:00 05/02/17 08:59 Vancomycin/Sodium Chloride 250 ml @ 166.667 mls/hr ONCE ONCE IVPB 04/26/17 09:00 04/26/17 10:29 CARA SOARES Apr 26, 2017 09:22
[2017-04-26] MEDS ORDERED: Hydromorphone 0.5mg/0.5ml inj IVP PRN ×2 (10:15→20:53)
--- NOTE | 2017-04-26 12:22 | General Progress Note ---
Assessment/Plan Problem List: (1) Urinary tract infection ICD Codes: N39.0 - Urinary tract infection, site not specified SNOMED: 49898182 (2) Sepsis ICD Codes: A41.9 - Sepsis, unspecified organism SNOMED: 66215146 (3) Pneumonia Assessment & Plan: likely aspiration ICD Codes: J18.9 - Pneumonia, unspecified organism SNOMED: 478504955 (4) Acute renal failure Assessment & Plan: partly dehydration ICD Codes: N17.9 - Acute kidney failure, unspecified SNOMED: 06136856 (5) Atrial fibrillation with RVR Assessment & Plan: new onset ICD Codes: I48.91 - Unspecified atrial fibrillation SNOMED: 246407148777507 Assessment/Plan Had PEG 04/26 Stop Hydrate Meds via GT Pain meds Antibiotics Vanco Cefepime DC in am Per orders Subjective ROS Limited/Unobtainable: No Constitutional: Reports: malaise Allergies: Coded Allergies: No Known Allergies (Unverified , 02/27/16) Objective Last 24 Hour Vital Signs Date Time Temp Pulse Resp B/P (MAP) Pulse Ox O2 Delivery O2 Flow Rate FiO2 04/26/17 09:15 69 04/26/17 08:46 64 20 119/54 99 Nasal Cannula 4.0 04/26/17 08:29 55 20 110/51 99 Nasal Cannula 4.0 04/26/17 08:24 56 20 106/51 99 Nasal Cannula 4.0 04/26/17 08:19 97.0 56 20 101/49 99 Nasal Cannula 4.0 97.0 04/26/17 07:55 Nasal Cannula 04/26/17 07:55 Nasal Cannula 3.0 32 04/26/17 07:55 Nasal Cannula 04/26/17 07:55 Nasal Cannula 04/26/17 06:42 68 114/57 04/26/17 04:02 65 04/26/17 01:06 67 124/55 04/26/17 00:00 97.5 67 16 124/55 95 Nasal Cannula 4.0 97.5 04/26/17 00:00 69 04/25/17 21:00 97.7 65 18 124/62 95 Nasal Cannula 4.0 97.7 04/25/17 20:01 72 16 96 Nasal Cannula 3.0 32 04/25/17 20:00 60 04/25/17 20:00 97.7 65 16 124/57 95 97.7 04/25/17 20:00 68 20 92 Nasal Cannula 3.0 32 04/25/17 19:58 Nasal Cannula 3.0 32 04/25/17 19:30 92 Nasal Cannula 3.0 32 04/25/17 17:27 67 130/71 04/25/17 16:00 97.5 72 17 130/71 96 Nasal Cannula 4.0 97.5 04/25/17 16:00 67 04/25/17 13:59 69 18 97 Nasal Cannula 4.0 36 04/25/17 13:50 65 20 Nasal Cannula 4.0 36 Intake and Output 04/25/17 04/26/17 19:00 07:00 Intake Total 795.0 ml 710 ml Output Total 750 ml Balance 795.0 ml -40 ml IV Total 795.0 ml 710 ml Output Urine Total 750 ml # Bowel Movements 1 1 Current Medications Medications (Trade) Dose Ordered Sig/Baljit Route PRN Reason Start Time Stop Time Status Last Admin Dose Admin Acetaminophen (Tylenol) 650 mg Q4H PRN RECTAL Mild Pain (Pain Scale 1-3) 04/25/17 01:30 05/23/17 01:29 Amiodarone HCl (Cordarone) 200 mg DAILY GT 04/27/17 09:00 05/02/17 08:59 UNV Aspirin (ASA) 325 mg DAILY GT 04/27/17 09:00 05/27/17 08:59 UNV Cefepime HCl 1 gm/ Sodium Chloride 55 ml @ 110 mls/hr Q24H IVPB 04/25/17 21:00 05/01/17 20:59 04/25/17 21:07 Diltiazem HCl (Cardizem) 30 mg EVERY 8 HOURS GT 04/26/17 14:00 05/25/17 11:59 UNV Famotidine (Pepcid) 20 mg BID GT 04/26/17 12:15 05/26/17 12:14 UNV Heparin Sodium (Porcine) (Heparin 5000 units/ml) 5,000 units EVERY 12 HOURS SUBQ 04/25/17 09:00 05/23/17 08:59 04/25/17 11:14 Hydromorphone HCl (Dilaudid) 0.5 mg Q4H PRN IVP PAIN 4-10 04/26/17 10:15 05/03/17 10:14 04/26/17 10:59 Levalbuterol HCl (Xopenex) 1.25 mg TIDRT HHN 04/25/17 07:00 04/28/17 18:59 04/25/17 19:56 Metoprolol Tartrate (Lopressor) 5 mg Q6HR PRN IVP for heart rate >125 04/25/17 00:00 05/23/17 23:44 Metronidazole 100 ml @ 100 mls/hr Q8HR IVPB 04/25/17 06:00 04/30/17 05:59 04/26/17 06:08 Ondansetron HCl (Zofran) 4 mg Q6H PRN IVP Nausea & Vomiting 04/25/17 01:30 05/23/17 01:29 Tramadol HCl (Ultram) 25 mg Q6H GT 04/26/17 12:15 05/03/17 12:14 UNV Tramadol HCl (Ultram) 50 mg ONCE ONCE GT 04/26/17 12:15 04/26/17 12:16 UNV Vancomycin HCl (Vanco rx to dose) 1 ea DAILY PRN MISC Per rx protocol 04/25/17 09:00 05/23/17 01:14 Vancomycin HCl/ Dextrose 250 ml @ 166.667 mls/hr Q24H IVPB 04/27/17 09:00 05/02/17 08:59 Laboratory Tests 04/26/17 04:00: White Blood Count 8.3, Red Blood Count 3.70L, Hemoglobin 11.7L, Hematocrit 34.1L , Mean Corpuscular Volume 92, Mean Corpuscular Hemoglobin 31.8H, Mean Corpuscular Hemoglobin Concent 34.4, Red Cell Distribution Width 12.4, Platelet Count 155, Mean Platelet Volume 9.8, Neutrophils (%) (Auto) 83.9H, Lymphocytes ( %) (Auto) 11.8L, Monocytes (%) (Auto) 3.6, Eosinophils (%) (Auto) 0.6, Basophils (%) (Auto) 0.1, Prothrombin Time 12.7H, Prothromb Time International Ratio 1.2H, Activated Partial Thromboplast Time 31, Sodium Level 145, Potassium Level 3.5, Chloride Level 113H, Carbon Dioxide Level 24, Anion Gap 8, Blood Urea Nitrogen 17, Creatinine 0.9, Estimat Glomerular Filtration Rate , Glucose Level 182H, Uric Acid 3.7, Calcium Level 7.4L, Phosphorus Level 2.1L, Magnesium Level 2.4, Total Bilirubin 0.2, Aspartate Amino Transf (AST/SGOT) 78H, Alanine Aminotransferase (ALT/SGPT) 35, Alkaline Phosphatase 94, Troponin I 0.078H, C- Reactive Protein, Quantitative 9.7H, Pro-B-Type Natriuretic Peptide 2197H, Total Protein 5.1L, Albumin 1.8L, Globulin 3.3, Albumin/Globulin Ratio 0.5L, Vancomycin Level Trough 5.6 Height (Feet): 5 Height (Inches): 5.00 Weight (Pounds): 135 General Appearance: mild distress Cardiovascular: bradycardia Respiratory/Chest: decreased breath sounds Abdomen: other - PEG + YAZMIN CROSS Apr 26, 2017 12:22
[2017-04-26] MEDS ORDERED: traMADol 50mg tab GT ONE (12:30)
[2017-04-26] MEDS ORDERED: Potassium Phosphate 30 MM in NS 275 ML IV ONE (14:00)
[2017-04-26] MEDS ORDERED: dilTIAZem HCl 30mg tab GT SCH (14:00)
--- NOTE | 2017-04-26 14:57 | Infectious Diseases Prog Note ---
Assessment/Plan Problems: (1) Pneumonia Assessment & Plan: with right perihilar infiltrates , continue vancomycin, cefepime and metronidazole for 10 days . sputum culture grew yeast which is colonization . (2) Foot osteomyelitis, right Assessment & Plan: confirmed on MRI of the right foot , will need 6 weeks of iv antibiotics , and local wound care (3) Right foot ulcer Assessment & Plan: with cellulitis and underlying osteomyelitis as per MRI of of the right foot, await wound culture , continue vancomycin, cefepime, and metronidazole for 6 weeks . monitor labs weekly , continue local wound care (4) Urinary tract infection Assessment & Plan: no urine culture was done , already on cefepime (5) Sepsis Assessment & Plan: with negative blood culture , already vancomycin and cefepime (6) Fever Assessment & Plan: improving , due to the above , continue wide spectrum antibiotics , and tylenol as needed (7) Tachycardia Assessment & Plan: suspect due to A fIB , new onset started on rate controlling meds , monitor HR, repeat EKG , cardiology is following Subjective ROS Limited/Unobtainable: Yes Allergies: Coded Allergies: No Known Allergies (Unverified , 02/27/16) Subjective she was up in bed, unresponsive, non verbal , on high flow oxygen , has harsh breathing sounds , no cough or SOB, no fever or chills, no nausea or vomiting. Objective Vital Signs Last 24 Hour Vital Signs Date Time Temp Pulse Resp B/P (MAP) Pulse Ox O2 Delivery O2 Flow Rate FiO2 04/26/17 13:44 76 20 98 Nasal Cannula 3.0 32 04/26/17 13:28 78 20 94 Nasal Cannula 3.0 32 04/26/17 13:20 208.0 57 18 97 04/26/17 13:17 208.0 57 18 97 04/26/17 12:30 97.0 04/26/17 09:15 69 04/26/17 08:46 64 20 119/54 99 Nasal Cannula 4.0 04/26/17 08:29 55 20 110/51 99 Nasal Cannula 4.0 04/26/17 08:24 56 20 106/51 99 Nasal Cannula 4.0 04/26/17 08:19 97.0 56 20 101/49 99 Nasal Cannula 4.0 97.0 04/26/17 07:55 Nasal Cannula 04/26/17 07:55 Nasal Cannula 3.0 32 04/26/17 07:55 Nasal Cannula 04/26/17 07:55 Nasal Cannula 04/26/17 06:42 68 114/57 04/26/17 04:02 65 04/26/17 01:06 67 124/55 04/26/17 00:00 97.5 67 16 124/55 95 Nasal Cannula 4.0 97.5 04/26/17 00:00 69 04/25/17 21:00 97.7 65 18 124/62 95 Nasal Cannula 4.0 97.7 04/25/17 20:01 72 16 96 Nasal Cannula 3.0 32 04/25/17 20:00 60 04/25/17 20:00 97.7 65 16 124/57 95 97.7 04/25/17 20:00 68 20 92 Nasal Cannula 3.0 32 04/25/17 19:58 Nasal Cannula 3.0 32 04/25/17 19:30 92 Nasal Cannula 3.0 32 04/25/17 17:27 67 130/71 04/25/17 16:00 97.5 72 17 130/71 96 Nasal Cannula 4.0 97.5 04/25/17 16:00 67 Height (Feet): 5 Height (Inches): 5.00 Weight (Pounds): 135 General Appearance: WD/WN, no acute distress HEENT: normocephalic, atraumatic, anicteric, mucous membranes moist, PERRL Respiratory/Chest: chest wall non-tender, lungs clear, normal breath sounds, no respiratory distress, no accessory muscle use, respiratory distress Cardiovascular: normal peripheral pulses, normal rate, regular rhythm, no gallop/murmur, no JVD Abdomen: normal bowel sounds, soft, non tender, no organomegaly, non distended , no mass, no scars Extremities: no cyanosis, no clubbing Skin: no rash, no lesions, ulcers Neurologic/Psychiatric: unresponsiveness Microbiology Date/Time Source Procedure Growth Status 04/24/17 16:00 Sputum Expectorated Gram Stain - Final Resulted 04/24/17 16:00 Sputum Culture - Preliminary Val Albicans Resulted Laboratory Tests Test 04/26/17 04:00 White Blood Count 8.3 K/UL (4.8-10.8) Red Blood Count 3.70 M/UL (4.20-5.40) L Hemoglobin 11.7 G/DL (12.0-16.0) L Hematocrit 34.1 % (37.0-47.0) L Mean Corpuscular Volume 92 FL (80-99) Mean Corpuscular Hemoglobin 31.8 PG (27.0-31.0) H Mean Corpuscular Hemoglobin Concent 34.4 G/DL (32.0-36.0) Red Cell Distribution Width 12.4 % (11.6-14.8) Platelet Count 155 K/UL (150-450) Mean Platelet Volume 9.8 FL (6.5-10.1) Neutrophils (%) (Auto) 83.9 % (45.0-75.0) H Lymphocytes (%) (Auto) 11.8 % (20.0-45.0) L Monocytes (%) (Auto) 3.6 % (1.0-10.0) Eosinophils (%) (Auto) 0.6 % (0.0-3.0) Basophils (%) (Auto) 0.1 % (0.0-2.0) Prothrombin Time 12.7 SEC (9.30-11.50) H Prothromb Time International Ratio 1.2 (0.9-1.1) H Activated Partial Thromboplast Time 31 SEC (23-33) Sodium Level 145 MMOL/L (136-145) Potassium Level 3.5 MMOL/L (3.5-5.1) Chloride Level 113 MMOL/L (98-107) H Carbon Dioxide Level 24 MMOL/L (21-32) Anion Gap 8 mmol/L (5-15) Blood Urea Nitrogen 17 mg/dL (7-18) Creatinine 0.9 MG/DL (0.55-1.30) Estimat Glomerular Filtration Rate mL/min (>60) Glucose Level 182 MG/DL (74-106) H Uric Acid 3.7 MG/DL (2.6-7.2) Calcium Level 7.4 MG/DL (8.5-10.1) L Phosphorus Level 2.1 MG/DL (2.5-4.9) L Magnesium Level 2.4 MG/DL (1.8-2.4) Total Bilirubin 0.2 MG/DL (0.2-1.0) Aspartate Amino Transf (AST/SGOT) 78 U/L (15-37) H Alanine Aminotransferase (ALT/SGPT) 35 U/L (12-78) Alkaline Phosphatase 94 U/L (46-116) Troponin I 0.078 ng/mL (0.000-0.056) C-Reactive Protein, Quantitative 9.7 mg/dL (0.00-0.90) H Pro-B-Type Natriuretic Peptide 2197 pg/mL (0-125) H Total Protein 5.1 G/DL (6.4-8.2) L Albumin 1.8 G/DL (3.4-5.0) L Globulin 3.3 g/dL Albumin/Globulin Ratio 0.5 (1.0-2.7) L Vancomycin Level Trough 5.6 ug/mL (5.0-12.0) Current Medications Medications (Trade) Dose Ordered Sig/Baljit Route PRN Reason Start Time Stop Time Status Last Admin Dose Admin Acetaminophen (Tylenol) 650 mg Q4H PRN RECTAL Mild Pain (Pain Scale 1-3) 04/25/17 01:30 05/23/17 01:29 Amiodarone HCl (Cordarone) 200 mg DAILY GT 04/27/17 09:00 05/02/17 08:59 Aspirin (ASA) 325 mg DAILY GT 04/27/17 09:00 05/27/17 08:59 Cefepime HCl 1 gm/ Sodium Chloride 55 ml @ 110 mls/hr Q24H IVPB 04/25/17 21:00 05/01/17 20:59 04/25/17 21:07 Diltiazem HCl (Cardizem) 30 mg EVERY 8 HOURS GT 04/26/17 14:00 05/25/17 11:59 Famotidine (Pepcid) 20 mg BID GT 04/26/17 12:30 05/26/17 12:29 04/26/17 13:06 Heparin Sodium (Porcine) (Heparin 5000 units/ml) 5,000 units EVERY 12 HOURS SUBQ 04/25/17 09:00 05/23/17 08:59 04/25/17 11:14 Hydromorphone HCl (Dilaudid) 0.5 mg Q4H PRN IVP PAIN 4-10 04/26/17 10:15 05/03/17 10:14 04/26/17 10:59 Isosorbide Dinitrate (Isordil) 10 mg Q6HR GT 04/26/17 18:00 05/26/17 17:59 Levalbuterol HCl (Xopenex) 1.25 mg TIDRT HHN 04/25/17 07:00 04/28/17 18:59 04/26/17 13:30 Metronidazole 100 ml @ 100 mls/hr Q8HR IVPB 04/25/17 06:00 04/30/17 05:59 04/26/17 06:08 Ondansetron HCl (Zofran) 4 mg Q6H PRN IVP Nausea & Vomiting 04/25/17 01:30 05/23/17 01:29 Potassium Phosphate 30 mm/ Sodium Chloride 285 ml @ 47.5 mls/hr ONCE ONCE IV 04/26/17 14:00 04/26/17 19:59 Tramadol HCl (Ultram) 25 mg Q6HR GT 04/26/17 18:00 05/03/17 17:59 Vancomycin HCl (Vanco rx to dose) 1 ea DAILY PRN MISC Per rx protocol 04/25/17 09:00 05/23/17 01:14 Vancomycin HCl/ Dextrose 250 ml @ 166.667 mls/hr Q24H IVPB 04/27/17 09:00 05/02/17 08:59 Damon Birggs M.D. Apr 26, 2017 14:57
--- NOTE | 2017-04-26 15:00 | Procedure Note ---
DATE OF PROCEDURE: 04/26/2017 SURGEON: Karlos Briggs M.D. REFERRING PHYSICIAN: Seth Shore M.D. PROCEDURE: Upper endoscopy with PEG placement. ANESTHESIA: Per Dr. Shi. INSTRUMENT: Olympus adult flexible upper endoscope. INDICATION: Failure to thrive and dysphagia. The procedure, risks, benefits, and possible consequences, including hemorrhage, aspiration, perforation and infection, and alternative treatments, were explained to the patient/legal guardian by Dr. Karlos Briggs and the patient/legal guardian understood and accepted these risks. DESCRIPTION OF PROCEDURE: After informed consent was obtained and the patient was adequately sedated, Olympus upper endoscope was advanced from mouth into the second portion of duodenum and retroflexion was performed in the stomach. The patient has evidence of diffuse atrophic gastritis. No evidence of any ulceration or bleeding. Then, under endoscopic guidance, under sterile condition, a 20-[place] pull type of G-tube was successfully placed in the epigastric area. The distance from the tip of the tube to skin was about 3 cm in size. The patient tolerated the procedure very well without any complication. SUMMARY OF FINDINGS: 1. Status post successful PEG placement. 2. Atrophic gastritis. RECOMMENDATIONS: 1. Abdominal binder. 2. Elevate the head of the bed at all times. 3. G-tube flush. 4. G-tube care. 5. Start tube feeding later today. 6. The patient currently on two antibiotics, vancomycin and cefepime. I want to thank, Dr. Shore, for this kind referral. Karlos Briggs M.D. DR: ERIN JOB#: [id number] CC: Seth Shore M.D.
[2017-04-26] MEDS ORDERED: traMADol 50mg tab GT SCH (18:00)
--- NOTE | 2017-04-26 19:19 | Cardiology Progress Note ---
Assessment/Plan Assessment/Plan 1. Acute onset of atrial fibrillation with rapid ventricular response. 2. Tachycardia. 3. Dementia. 4. History of cerebrovascular accident. 5. Azotemia. 6. Possible sepsis on tele unit tele sinus last afib 04/25 on amiod oral / ng loading trop min elevated likely related to demand with hr in excess of 160 bpm previously bp seem good tel personally reviewed amiod loading 200 mg bid for 1 week then 200 mg dialy is to start on feedign today na now normal agree with dc planning Subjective ROS Limited/Unobtainable: Yes Objective Last 24 Hour Vital Signs Date Time Temp Pulse Resp B/P (MAP) Pulse Ox O2 Delivery O2 Flow Rate FiO2 04/26/17 17:57 128/64 04/26/17 16:00 89 04/26/17 16:00 97.7 80 18 128/64 94 Nasal Cannula 4.0 97.7 04/26/17 15:00 70 141/71 04/26/17 13:44 76 20 98 Nasal Cannula 3.0 32 04/26/17 13:28 78 20 94 Nasal Cannula 3.0 32 04/26/17 13:20 208.0 57 18 97 04/26/17 13:17 208.0 57 18 97 04/26/17 12:30 97.0 04/26/17 12:00 69 04/26/17 12:00 97.9 70 19 141/71 96 Nasal Cannula 4.0 97.9 04/26/17 09:15 69 04/26/17 08:46 64 20 119/54 99 Nasal Cannula 4.0 04/26/17 08:29 55 20 110/51 99 Nasal Cannula 4.0 04/26/17 08:24 56 20 106/51 99 Nasal Cannula 4.0 04/26/17 08:19 97.0 56 20 101/49 99 Nasal Cannula 4.0 97.0 04/26/17 07:55 Nasal Cannula 04/26/17 07:55 Nasal Cannula 3.0 32 04/26/17 07:55 Nasal Cannula 04/26/17 07:55 Nasal Cannula 04/26/17 06:42 68 114/57 04/26/17 04:02 65 04/26/17 01:06 67 124/55 04/26/17 00:00 97.5 67 16 124/55 95 Nasal Cannula 4.0 97.5 04/26/17 00:00 69 04/25/17 21:00 97.7 65 18 124/62 95 Nasal Cannula 4.0 97.7 04/25/17 20:01 72 16 96 Nasal Cannula 3.0 32 04/25/17 20:00 60 04/25/17 20:00 97.7 65 16 124/57 95 97.7 04/25/17 20:00 68 20 92 Nasal Cannula 3.0 32 04/25/17 19:58 Nasal Cannula 3.0 32 04/25/17 19:30 92 Nasal Cannula 3.0 32 General Appearance: patient on isolation Cardiovascular: normal rate, regular rhythm Respiratory/Chest: lungs clear Abdomen: normal bowel sounds, soft Extremities: no swelling Intake and Output 04/25/17 04/26/17 19:00 07:00 Intake Total 795.0 ml 710 ml Output Total 750 ml Balance 795.0 ml -40 ml IV Total 795.0 ml 710 ml Output Urine Total 750 ml # Bowel Movements 1 1 Laboratory Tests Test 04/26/17 04:00 White Blood Count 8.3 K/UL (4.8-10.8) Red Blood Count 3.70 M/UL (4.20-5.40) L Hemoglobin 11.7 G/DL (12.0-16.0) L Hematocrit 34.1 % (37.0-47.0) L Mean Corpuscular Volume 92 FL (80-99) Mean Corpuscular Hemoglobin 31.8 PG (27.0-31.0) H Mean Corpuscular Hemoglobin Concent 34.4 G/DL (32.0-36.0) Red Cell Distribution Width 12.4 % (11.6-14.8) Platelet Count 155 K/UL (150-450) Mean Platelet Volume 9.8 FL (6.5-10.1) Neutrophils (%) (Auto) 83.9 % (45.0-75.0) H Lymphocytes (%) (Auto) 11.8 % (20.0-45.0) L Monocytes (%) (Auto) 3.6 % (1.0-10.0) Eosinophils (%) (Auto) 0.6 % (0.0-3.0) Basophils (%) (Auto) 0.1 % (0.0-2.0) Prothrombin Time 12.7 SEC (9.30-11.50) H Prothromb Time International Ratio 1.2 (0.9-1.1) H Activated Partial Thromboplast Time 31 SEC (23-33) Sodium Level 145 MMOL/L (136-145) Potassium Level 3.5 MMOL/L (3.5-5.1) Chloride Level 113 MMOL/L (98-107) H Carbon Dioxide Level 24 MMOL/L (21-32) Anion Gap 8 mmol/L (5-15) Blood Urea Nitrogen 17 mg/dL (7-18) Creatinine 0.9 MG/DL (0.55-1.30) Estimat Glomerular Filtration Rate mL/min (>60) Glucose Level 182 MG/DL (74-106) H Uric Acid 3.7 MG/DL (2.6-7.2) Calcium Level 7.4 MG/DL (8.5-10.1) L Phosphorus Level 2.1 MG/DL (2.5-4.9) L Magnesium Level 2.4 MG/DL (1.8-2.4) Total Bilirubin 0.2 MG/DL (0.2-1.0) Aspartate Amino Transf (AST/SGOT) 78 U/L (15-37) H Alanine Aminotransferase (ALT/SGPT) 35 U/L (12-78) Alkaline Phosphatase 94 U/L (46-116) Troponin I 0.078 ng/mL (0.000-0.056) C-Reactive Protein, Quantitative 9.7 mg/dL (0.00-0.90) H Pro-B-Type Natriuretic Peptide 2197 pg/mL (0-125) H Total Protein 5.1 G/DL (6.4-8.2) L Albumin 1.8 G/DL (3.4-5.0) L Globulin 3.3 g/dL Albumin/Globulin Ratio 0.5 (1.0-2.7) L Vancomycin Level Trough 5.6 ug/mL (5.0-12.0) Microbiology Date/Time Source Procedure Growth Status 04/24/17 16:00 Sputum Expectorated Gram Stain - Final Resulted 04/24/17 16:00 Sputum Culture - Preliminary Val Albicans Resulted KHOA KWONG Apr 26, 2017 19:19
[2017-04-26] MEDS ORDERED: Acetaminophen 650 MG SUPP RECTAL PRN (20:52)
[2017-04-26] MEDS ORDERED: Cefepime HCl 1 GM in NS 55 ML IVPB SCH (21:00)
[2017-04-26] MEDS: dilTIAZem HCl 30mg tab GT SCH (22:15)
[2017-04-27] VITALS: BP 107/73
[2017-04-27] MEDS: traMADol 50mg tab GT SCH ×2 (00:24→05:53)
[2017-04-27 04:00] VITALS: BP 152/68
[2017-04-27] MEDS: dilTIAZem HCl 30mg tab GT SCH ×2 (05:52→14:33)
[2017-04-27] MEDS: Levalbuterol Inh UD 1.25mg/0.5ml HHN SCH ×2 (07:25→12:57)
[2017-04-27 08:00] VITALS: BP 117/50
[2017-04-27 08:08] LABS: BASOPHILS % (AUTO) 0.6 % (0.0-2.0); EOSINOPHILS % (AUTO) 0.5 % (0.0-3.0); HEMATOCRIT 33.8 % (37.0-47.0); HEMOGLOBIN 11.7 G/DL (12.0-16.0); LYMPHOCYTES % (AUTO) 11.1 % (20.0-45.0); MEAN CORPUSCULAR VOLUME 91 FL (80-99); MONOCYTES % (AUTO) 5.2 % (1.0-10.0); NEUTROPHILS % (AUTO) 82.6 % (45.0-75.0); PLATELET COUNT 179 K/UL (150-450); RED BLOOD COUNT 3.71 M/UL (4.20-5.40); RED CELL DISTRIBUTION WIDTH 12.4 % (11.6-14.8)
[2017-04-27 08:46] LABS: ANION GAP 4 mmol/L (5-15); BLOOD UREA NITROGEN 12 mg/dL (7-18); CALCIUM 7.7 MG/DL (8.5-10.1); CARBON DIOXIDE 27 MMOL/L (21-32); CHLORIDE 111 MMOL/L (98-107); CREATININE 0.8 MG/DL (0.55-1.30); PHOSPHORUS 2.7 MG/DL (2.5-4.9); POTASSIUM 3.7 MMOL/L (3.5-5.1); SODIUM 142 MMOL/L (136-145)
[2017-04-27] MEDS ORDERED: Amiodarone 200mg tab GT SCH ×2 (09:00)
[2017-04-27] MEDS ORDERED: Vancomycin 1250mg/D5W 250ml IVPB SCH (09:00)
[2017-04-27] MEDS ORDERED: Vancomycin 1250mg/D5W 250ml 250 ML IVPB SCH (09:00)
[2017-04-27 09:20] LABS: ALANINE AMINOTRANSFERASE 55 U/L (12-78); ALBUMIN 1.7 G/DL (3.4-5.0); ALKALINE PHOSPHATASE 174 U/L (46-116); ASPARTATE AMINO TRANSFERASE 105 U/L (15-37); BILIRUBIN,DIRECT 0.2 MG/DL (0.0-0.3); BILIRUBIN,TOTAL 0.3 MG/DL (0.2-1.0)
--- NOTE | 2017-04-27 09:58 | General Progress Note ---
Assessment/Plan Problem List: (1) Urinary tract infection ICD Codes: N39.0 - Urinary tract infection, site not specified SNOMED: 53305423 (2) Sepsis ICD Codes: A41.9 - Sepsis, unspecified organism SNOMED: 88442784 (3) Pneumonia Assessment & Plan: likely aspiration ICD Codes: J18.9 - Pneumonia, unspecified organism SNOMED: 314900727 (4) Acute renal failure Assessment & Plan: partly dehydration ICD Codes: N17.9 - Acute kidney failure, unspecified SNOMED: 09995630 (5) Atrial fibrillation with RVR Assessment & Plan: new onset ICD Codes: I48.91 - Unspecified atrial fibrillation SNOMED: 863680645798186 (6) Osteomyelitis Assessment & Plan: 1st metatarsal ICD Codes: M86.9 - Osteomyelitis, unspecified SNOMED: 09642550 Status: stable Status Narrative Abnormal marrow signal within the first metatarsal head and base of the first proximal phalanx, highly suspicious for acute osteomyelitis. Surrounding edema is suspicious for soft tissue cellulitis. There is probably involvement of the adjacent largest sesamoid as well. Assessment/Plan Had PEG 04/26 Meds via GT Pain meds Antibiotics Vanco Cefepime flagyl DC on Cipro and Doxy- Picc line and IV vanco will be discussed with DPOA as OP will discuss with ID Per orders Subjective ROS Limited/Unobtainable: No Constitutional: Reports: malaise Allergies: Coded Allergies: No Known Allergies (Unverified , 02/27/16) Objective Last 24 Hour Vital Signs Date Time Temp Pulse Resp B/P (MAP) Pulse Ox O2 Delivery O2 Flow Rate FiO2 04/27/17 08:00 97.8 82 17 117/50 97 Nasal Cannula 97.8 04/27/17 07:36 73 20 99 Nasal Cannula 2.0 28 04/27/17 07:25 Nasal Cannula 2.0 28 04/27/17 07:25 71 18 98 Nasal Cannula 2.0 28 04/27/17 07:25 98 Nasal Cannula 2.0 28 04/27/17 05:52 152/68 04/27/17 05:52 76 152/68 04/27/17 04:00 98.7 76 20 152/68 96 Nasal Cannula 98.7 04/27/17 00:22 129/53 04/27/17 00:00 98.1 80 20 107/73 95 98.1 04/26/17 22:15 98 129/53 04/26/17 22:00 97.7 98 22 129/53 98 97.7 04/26/17 19:49 Nasal Cannula 04/26/17 19:48 32 04/26/17 19:47 89 18 94 Nasal Cannula 3.0 32 04/26/17 19:41 Nasal Cannula 3.0 32 04/26/17 19:40 94 Nasal Cannula 3.0 32 04/26/17 17:57 128/64 04/26/17 16:00 89 04/26/17 16:00 97.7 80 18 128/64 94 Nasal Cannula 4.0 97.7 04/26/17 15:00 70 141/71 04/26/17 13:44 76 20 98 Nasal Cannula 3.0 32 04/26/17 13:28 78 20 94 Nasal Cannula 3.0 32 04/26/17 13:20 208.0 57 18 97 04/26/17 13:17 208.0 57 18 97 04/26/17 12:30 97.0 04/26/17 12:00 69 04/26/17 12:00 97.9 70 19 141/71 96 Nasal Cannula 4.0 97.9 Intake and Output 04/26/17 04/27/17 19:00 07:00 Intake Total 1243.334 ml 155 ml Output Total 750 ml 650 ml Balance 493.334 ml -495 ml Free Water 150 ml IV Total 873.334 ml 155 ml Tube Feeding 220 ml Output Urine Total 750 ml 650 ml # Bowel Movements 1 1 Current Medications Medications (Trade) Dose Ordered Sig/Baljit Route PRN Reason Start Time Stop Time Status Last Admin Dose Admin Acetaminophen (Tylenol) 650 mg Q4H PRN RECTAL Mild Pain (Pain Scale 1-3) 04/26/17 20:52 05/23/17 20:51 Amiodarone HCl (Cordarone) 200 mg DAILY GT 04/27/17 09:00 05/02/17 08:59 Aspirin (ASA) 325 mg DAILY GT 04/27/17 09:00 05/27/17 08:59 Cefepime HCl 1 gm/ Sodium Chloride 55 ml @ 110 mls/hr Q24H IVPB 04/26/17 21:00 05/01/17 20:59 04/26/17 22:16 Diltiazem HCl (Cardizem) 30 mg EVERY 8 HOURS GT 04/26/17 22:00 05/25/17 11:59 04/27/17 05:52 Famotidine (Pepcid) 20 mg BID GT 04/27/17 09:00 05/26/17 12:29 Heparin Sodium (Porcine) (Heparin 5000 units/ml) 5,000 units EVERY 12 HOURS SUBQ 04/26/17 21:00 05/23/17 08:59 04/26/17 22:17 Hydromorphone HCl (Dilaudid) 0.5 mg Q4H PRN IVP PAIN 4-10 04/26/17 20:53 05/03/17 20:52 Isosorbide Dinitrate (Isordil) 10 mg Q6HR GT 04/27/17 00:00 05/26/17 17:59 04/27/17 05:52 Levalbuterol HCl (Xopenex) 1.25 mg TIDRT HHN 04/27/17 07:00 04/28/17 18:59 04/27/17 07:25 Metronidazole 100 ml @ 100 mls/hr Q8HR IVPB 04/26/17 22:00 04/30/17 05:59 04/27/17 05:52 Ondansetron HCl (Zofran) 4 mg Q6H PRN IVP Nausea & Vomiting 04/26/17 20:54 05/26/17 20:53 Tramadol HCl (Ultram) 25 mg Q6HR GT 04/27/17 00:00 05/03/17 17:59 04/27/17 05:53 Vancomycin HCl (Vanco rx to dose) 1 ea DAILY PRN MISC Per rx protocol 04/27/17 09:00 05/23/17 01:14 Vancomycin HCl/ Dextrose 250 ml @ 166.667 mls/hr Q24H IVPB 04/27/17 09:00 05/02/17 08:59 Laboratory Tests 04/27/17 07:00: White Blood Count 8.0, Red Blood Count 3.71L, Hemoglobin 11.7L, Hematocrit 33.8L , Mean Corpuscular Volume 91, Mean Corpuscular Hemoglobin 31.6H, Mean Corpuscular Hemoglobin Concent 34.6, Red Cell Distribution Width 12.4, Platelet Count 179, Mean Platelet Volume 8.5, Neutrophils (%) (Auto) 82.6H, Lymphocytes ( %) (Auto) 11.1L, Monocytes (%) (Auto) 5.2, Eosinophils (%) (Auto) 0.5, Basophils (%) (Auto) 0.6, Sodium Level 142, Potassium Level 3.7, Chloride Level 111H, Carbon Dioxide Level 27, Anion Gap 4L, Blood Urea Nitrogen 12, Creatinine 0.8, Estimat Glomerular Filtration Rate , Glucose Level 168H, Uric Acid 2.9, Calcium Level 7.7L, Phosphorus Level 2.7, Magnesium Level 1.9, Total Bilirubin 0.3, Direct Bilirubin 0.2, Aspartate Amino Transf (AST/SGOT) 105H, Alanine Aminotransferase (ALT/SGPT) 55, Alkaline Phosphatase 174H, Troponin I [Pending] , C-Reactive Protein, Quantitative 9.2H, Total Protein 4.9L, Albumin 1.7L Height (Feet): 5 Height (Inches): 5.00 Weight (Pounds): 135 General Appearance: no apparent distress Cardiovascular: normal rate Respiratory/Chest: decreased breath sounds Abdomen: soft, other - PEG Objective no change YAZMIN CROSS Apr 27, 2017 09:58
[2017-04-27] MEDS ORDERED: traMADol 50mg tab GT PRN (10:00)
[2017-04-27] MEDS: Heparin 5000 units/ml inj SUBQ SCH (10:33)
[2017-04-27] MEDS ORDERED: TRAMADOL HCL50 MG GT (10:39)
[2017-04-27] MEDS ORDERED: CULTURELLE1 EACH GT (10:39)
[2017-04-27] MEDS ORDERED: FAMOTIDINE20 MG GT (10:39)
[2017-04-27] MEDS ORDERED: CIPROFLOXACIN250 MG GT (10:39)
[2017-04-27] MEDS ORDERED: ISOSORBIDE DINI10 MG GT (10:39)
[2017-04-27] MEDS ORDERED: PACERONE200 MG GT (10:39)
[2017-04-27] MEDS ORDERED: XOPENEX0.5 MG HHN (10:39)
[2017-04-27] MEDS ORDERED: CARDIZEM30 MG GT (10:39)
[2017-04-27] MEDS ORDERED: DOXYCYCLINE HY100 M2 GT (10:39)
[2017-04-27] MEDS ORDERED: ACETAMINOPHEN650 MG RECTAL (10:39)
--- NOTE | 2017-04-27 10:41 | Discharge Instructions ---
Discharge Instructions Discharge Instructions Follow up with: myself at [facility] Diet: other - tube feeding Special Instructions local care foot wound- aspiration percautions- tube feeding 50 cc hour Glucerna Skin care For Congestive Heart Failure Reminder Report to your physician any weight gain of 5 pounds or more in one week. YAZMIN CROSS Apr 27, 2017 10:41
[2017-04-27 12:00] VITALS: BP 110/60
--- NOTE | 2017-04-27 12:22 | GI Progress Note ---
Assessment/Plan Problems: (1) Dysphagia ICD Codes: R13.10 - Dysphagia, unspecified SNOMED: 91386321, 221500680 (2) Encounter for PEG (percutaneous endoscopic gastrostomy) ICD Codes: Z43.1 - Encounter for attention to gastrostomy SNOMED: 183512701, [id number] Status: unchanged Status Narrative Discussed with Dr. Briggs. Assessment/Plan SUMMARY OF FINDINGS: 1. Status post successful PEG placement. 2. Atrophic gastritis. RECOMMENDATIONS: 1. Abdominal binder. 2. Elevate the head of the bed at all times. 3. G-tube flush. 4. G-tube care. 5. Start tube feeding later today. 6. The patient currently on two antibiotics, vancomycin and cefepime. The patient was seen and examined at bedside and all new and available data was reviewed in the patients chart. I agree with the above findings, impression and plan. (Patient seen earlier today. Signature stamp does not reflect patient encounter time.). - Flower Briggs MD Subjective Subjective limited Objective Last 24 Hour Vital Signs Date Time Temp Pulse Resp B/P (MAP) Pulse Ox O2 Delivery O2 Flow Rate FiO2 04/27/17 08:00 97.8 82 17 117/50 97 Nasal Cannula 97.8 04/27/17 07:36 73 20 99 Nasal Cannula 2.0 28 04/27/17 07:25 Nasal Cannula 2.0 28 04/27/17 07:25 71 18 98 Nasal Cannula 2.0 28 04/27/17 07:25 98 Nasal Cannula 2.0 28 04/27/17 05:52 152/68 04/27/17 05:52 76 152/68 04/27/17 04:00 98.7 76 20 152/68 96 Nasal Cannula 98.7 04/27/17 00:22 129/53 04/27/17 00:00 98.1 80 20 107/73 95 98.1 04/26/17 22:15 98 129/53 04/26/17 22:00 97.7 98 22 129/53 98 97.7 04/26/17 19:49 Nasal Cannula 04/26/17 19:48 32 04/26/17 19:47 89 18 94 Nasal Cannula 3.0 32 04/26/17 19:41 Nasal Cannula 3.0 32 04/26/17 19:40 94 Nasal Cannula 3.0 32 04/26/17 17:57 128/64 04/26/17 16:00 89 04/26/17 16:00 97.7 80 18 128/64 94 Nasal Cannula 4.0 97.7 04/26/17 15:00 70 141/71 04/26/17 13:44 76 20 98 Nasal Cannula 3.0 32 04/26/17 13:28 78 20 94 Nasal Cannula 3.0 32 04/26/17 13:20 208.0 57 18 97 04/26/17 13:17 208.0 57 18 97 04/26/17 12:30 97.0 Intake and Output 04/26/17 04/27/17 19:00 07:00 Intake Total 1243.334 ml 155 ml Output Total 750 ml 650 ml Balance 493.334 ml -495 ml Free Water 150 ml IV Total 873.334 ml 155 ml Tube Feeding 220 ml Output Urine Total 750 ml 650 ml # Bowel Movements 1 1 Laboratory Tests Test 04/27/17 07:00 White Blood Count 8.0 K/UL (4.8-10.8) Red Blood Count 3.71 M/UL (4.20-5.40) L Hemoglobin 11.7 G/DL (12.0-16.0) L Hematocrit 33.8 % (37.0-47.0) L Mean Corpuscular Volume 91 FL (80-99) Mean Corpuscular Hemoglobin 31.6 PG (27.0-31.0) H Mean Corpuscular Hemoglobin Concent 34.6 G/DL (32.0-36.0) Red Cell Distribution Width 12.4 % (11.6-14.8) Platelet Count 179 K/UL (150-450) Mean Platelet Volume 8.5 FL (6.5-10.1) Neutrophils (%) (Auto) 82.6 % (45.0-75.0) H Lymphocytes (%) (Auto) 11.1 % (20.0-45.0) L Monocytes (%) (Auto) 5.2 % (1.0-10.0) Eosinophils (%) (Auto) 0.5 % (0.0-3.0) Basophils (%) (Auto) 0.6 % (0.0-2.0) Sodium Level 142 MMOL/L (136-145) Potassium Level 3.7 MMOL/L (3.5-5.1) Chloride Level 111 MMOL/L (98-107) H Carbon Dioxide Level 27 MMOL/L (21-32) Anion Gap 4 mmol/L (5-15) L Blood Urea Nitrogen 12 mg/dL (7-18) Creatinine 0.8 MG/DL (0.55-1.30) Estimat Glomerular Filtration Rate mL/min (>60) Glucose Level 168 MG/DL (74-106) H Uric Acid 2.9 MG/DL (2.6-7.2) Calcium Level 7.7 MG/DL (8.5-10.1) L Phosphorus Level 2.7 MG/DL (2.5-4.9) Magnesium Level 1.9 MG/DL (1.8-2.4) Total Bilirubin 0.3 MG/DL (0.2-1.0) Direct Bilirubin 0.2 MG/DL (0.0-0.3) Aspartate Amino Transf (AST/SGOT) 105 U/L (15-37) H Alanine Aminotransferase (ALT/SGPT) 55 U/L (12-78) Alkaline Phosphatase 174 U/L (46-116) H Troponin I 0.069 ng/mL (0.000-0.056) C-Reactive Protein, Quantitative 9.2 mg/dL (0.00-0.90) H Total Protein 4.9 G/DL (6.4-8.2) L Albumin 1.7 G/DL (3.4-5.0) L Height (Feet): 5 Height (Inches): 5.00 Weight (Pounds): 135 General Appearance: WD/WN, no apparent distress, alert, thin Cardiovascular: normal rate Respiratory/Chest: normal breath sounds, no respiratory distress, other - NC Abdominal Exam: normal bowel sounds, non tender, soft, GT site - c/d/i Extremities: non-tender Albertina Davenport N.P. Apr 27, 2017 12:22 CHRISTIE BRIGGS May 03, 2017 11:34
[2017-04-27] MEDS ORDERED: Lactobacillus-GG tablet GT SCH (13:00)
--- NOTE | 2017-04-27 14:08 | Infectious Diseases Prog Note ---
Assessment/Plan Problems: (1) Pneumonia Assessment & Plan: with right perihilar infiltrates , on vancomycin, cefepime and metronidazole for 10 days . sputum culture grew yeast which is colonization .may switch to ciprofloxacin and doxycycline to finish her course (2) Foot osteomyelitis, right Assessment & Plan: confirmed on MRI of the right foot , will need 6 weeks of iv antibiotics , and local wound care , may consider oral antibiotics treatment for now with doxycycline and ciprofloxacin , pedning discussion with POA regarding [facility] IV antibiotics with Dr Shore (3) Right foot ulcer Assessment & Plan: with cellulitis and underlying osteomyelitis as per MRI of of the right foot, await wound culture , continue vancomycin, cefepime, and metronidazole for 6 weeks . monitor labs weekly , continue local wound care (4) Urinary tract infection Assessment & Plan: no urine culture was done , already on cefepime (5) Sepsis Assessment & Plan: with negative blood culture , already on vancomycin and cefepime (6) Fever Assessment & Plan: improving , due to the above , continue wide spectrum antibiotics , and tylenol as needed (7) Tachycardia Assessment & Plan: suspect due to A fIB , new onset started on rate controlling meds , monitor HR, repeat EKG , cardiology is following Subjective ROS Limited/Unobtainable: Yes Allergies: Coded Allergies: No Known Allergies (Unverified , 02/27/16) Subjective she was up in bed, alert, unresponsive to verbal commands , non verbal , no cough or SOB, no fever or chills, no nausea or vomiting. Objective Vital Signs Last 24 Hour Vital Signs Date Time Temp Pulse Resp B/P (MAP) Pulse Ox O2 Delivery O2 Flow Rate FiO2 04/27/17 12:57 69 20 94 Nasal Cannula 2.0 28 04/27/17 12:42 117/50 04/27/17 12:08 70 18 99 Nasal Cannula 2.0 28 04/27/17 08:00 97.8 82 17 117/50 97 Nasal Cannula 97.8 04/27/17 07:36 73 20 99 Nasal Cannula 2.0 28 04/27/17 07:25 Nasal Cannula 2.0 28 04/27/17 07:25 71 18 98 Nasal Cannula 2.0 28 04/27/17 07:25 98 Nasal Cannula 2.0 28 04/27/17 05:52 152/68 04/27/17 05:52 76 152/68 04/27/17 04:00 98.7 76 20 152/68 96 Nasal Cannula 98.7 04/27/17 00:22 129/53 04/27/17 00:00 98.1 80 20 107/73 95 98.1 04/26/17 22:15 98 129/53 04/26/17 22:00 97.7 98 22 129/53 98 97.7 04/26/17 19:49 Nasal Cannula 04/26/17 19:48 32 04/26/17 19:47 89 18 94 Nasal Cannula 3.0 32 04/26/17 19:41 Nasal Cannula 3.0 32 04/26/17 19:40 94 Nasal Cannula 3.0 32 04/26/17 17:57 128/64 04/26/17 16:00 89 04/26/17 16:00 97.7 80 18 128/64 94 Nasal Cannula 4.0 97.7 04/26/17 15:00 70 141/71 Height (Feet): 5 Height (Inches): 5.00 Weight (Pounds): 135 General Appearance: WD/WN, no acute distress HEENT: normocephalic, atraumatic, anicteric, mucous membranes moist, PERRL Respiratory/Chest: chest wall non-tender, normal breath sounds, no respiratory distress, no accessory muscle use, decreased breath sounds Cardiovascular: normal peripheral pulses, normal rate, regular rhythm, no gallop/murmur, no JVD Abdomen: normal bowel sounds, soft, non tender, no organomegaly, non distended , no mass, no scars Genitourinary: normal external genitalia Extremities: no cyanosis, no clubbing Skin: no rash, no lesions, ulcers - right foot wound Neurologic/Psychiatric: alert Microbiology Date/Time Source Procedure Growth Status 04/26/17 04:30 Skin Gram Stain - Final Resulted 04/26/17 04:30 Skin Wound Culture Pending Resulted 04/24/17 16:00 Sputum Expectorated Gram Stain - Final Complete 04/24/17 16:00 Sputum Culture - Final Val Albicans Complete Laboratory Tests Test 04/27/17 07:00 White Blood Count 8.0 K/UL (4.8-10.8) Red Blood Count 3.71 M/UL (4.20-5.40) L Hemoglobin 11.7 G/DL (12.0-16.0) L Hematocrit 33.8 % (37.0-47.0) L Mean Corpuscular Volume 91 FL (80-99) Mean Corpuscular Hemoglobin 31.6 PG (27.0-31.0) H Mean Corpuscular Hemoglobin Concent 34.6 G/DL (32.0-36.0) Red Cell Distribution Width 12.4 % (11.6-14.8) Platelet Count 179 K/UL (150-450) Mean Platelet Volume 8.5 FL (6.5-10.1) Neutrophils (%) (Auto) 82.6 % (45.0-75.0) H Lymphocytes (%) (Auto) 11.1 % (20.0-45.0) L Monocytes (%) (Auto) 5.2 % (1.0-10.0) Eosinophils (%) (Auto) 0.5 % (0.0-3.0) Basophils (%) (Auto) 0.6 % (0.0-2.0) Sodium Level 142 MMOL/L (136-145) Potassium Level 3.7 MMOL/L (3.5-5.1) Chloride Level 111 MMOL/L (98-107) H Carbon Dioxide Level 27 MMOL/L (21-32) Anion Gap 4 mmol/L (5-15) L Blood Urea Nitrogen 12 mg/dL (7-18) Creatinine 0.8 MG/DL (0.55-1.30) Estimat Glomerular Filtration Rate mL/min (>60) Glucose Level 168 MG/DL (74-106) H Uric Acid 2.9 MG/DL (2.6-7.2) Calcium Level 7.7 MG/DL (8.5-10.1) L Phosphorus Level 2.7 MG/DL (2.5-4.9) Magnesium Level 1.9 MG/DL (1.8-2.4) Total Bilirubin 0.3 MG/DL (0.2-1.0) Direct Bilirubin 0.2 MG/DL (0.0-0.3) Aspartate Amino Transf (AST/SGOT) 105 U/L (15-37) H Alanine Aminotransferase (ALT/SGPT) 55 U/L (12-78) Alkaline Phosphatase 174 U/L (46-116) H Troponin I 0.069 ng/mL (0.000-0.056) C-Reactive Protein, Quantitative 9.2 mg/dL (0.00-0.90) H Total Protein 4.9 G/DL (6.4-8.2) L Albumin 1.7 G/DL (3.4-5.0) L Current Medications Medications (Trade) Dose Ordered Sig/Baljit Route PRN Reason Start Time Stop Time Status Last Admin Dose Admin Acetaminophen (Tylenol) 650 mg Q4H PRN RECTAL Mild Pain (Pain Scale 1-3) 04/26/17 20:52 05/23/17 20:51 Amiodarone HCl (Cordarone) 200 mg DAILY GT 04/27/17 09:00 05/02/17 08:59 04/27/17 10:31 Aspirin (ASA) 325 mg DAILY GT 04/27/17 09:00 05/27/17 08:59 04/27/17 09:00 Ciprofloxacin (Cipro 250mg tab) 250 mg EVERY 12 HOURS GT 04/27/17 21:00 05/04/17 20:59 UNV Diltiazem HCl (Cardizem) 30 mg EVERY 8 HOURS GT 04/26/17 22:00 05/25/17 11:59 04/27/17 05:52 Doxycycline Monohydrate (Vibramycin) 100 mg EVERY 12 HOURS GT 04/27/17 21:00 05/04/17 20:59 Famotidine (Pepcid) 20 mg BID GT 04/27/17 09:00 05/26/17 12:29 04/27/17 10:31 Heparin Sodium (Porcine) (Heparin 5000 units/ml) 5,000 units EVERY 12 HOURS SUBQ 04/26/17 21:00 05/23/17 08:59 04/27/17 10:33 Isosorbide Dinitrate (Isordil) 10 mg Q6HR GT 04/27/17 00:00 05/26/17 17:59 04/27/17 12:42 Lactobacillus Acidophilus (Culturelle) 1 tab THREE TIMES A DAY GT 04/27/17 13:00 05/27/17 12:59 04/27/17 12:52 Levalbuterol HCl (Xopenex) 1.25 mg TIDRT HHN 04/27/17 07:00 04/28/17 18:59 04/27/17 12:57 Ondansetron HCl (Zofran) 4 mg Q6H PRN IVP Nausea & Vomiting 04/26/17 20:54 05/26/17 20:53 Tramadol HCl (Ultram) 25 mg Q6HR PRN GT pain 04/27/17 10:00 05/04/17 09:59 04/27/17 12:42 Damon Briggs M.D. Apr 27, 2017 14:07
[2017-04-27 16:00] VITALS: BP 116/66
[2017-04-27] MEDS ORDERED: NS 275ml ONE (17:32)
[2017-04-27] MEDS ORDERED: Tubing IV Secondary IV ONE ×2 (17:32)
--- NOTE | 2017-04-27 18:20 | Pulmonology Progress Note ---
Assessment/Plan Problems: (1) Pneumonia (2) Acute renal failure (3) Atrial fibrillation with RVR (4) Fever (5) Sepsis Assessment/Plan titrate fio2 to st of 92% aspiration precaution respiratory treatment dvt prophylaxis monitor heart rate, sinus and afib d/w social work professor and pts DPOA, dc planning for today Subjective ROS Limited/Unobtainable: No Constitutional: Reports: no symptoms HEENT: Repors: no symptoms Respiratory: Reports: no symptoms Allergies: Coded Allergies: No Known Allergies (Unverified , 02/27/16) Objective Last 24 Hour Vital Signs Date Time Temp Pulse Resp B/P (MAP) Pulse Ox O2 Delivery O2 Flow Rate FiO2 04/27/17 16:00 98.2 75 19 116/66 97 Nasal Cannula 98.2 04/27/17 14:33 69 117/50 04/27/17 12:57 69 20 94 Nasal Cannula 2.0 28 04/27/17 12:42 117/50 04/27/17 12:08 70 18 99 Nasal Cannula 2.0 28 04/27/17 12:00 97.8 97 17 110/60 97 Nasal Cannula 97.8 04/27/17 08:00 97.8 82 17 117/50 97 Nasal Cannula 97.8 04/27/17 07:36 73 20 99 Nasal Cannula 2.0 28 04/27/17 07:25 Nasal Cannula 2.0 28 04/27/17 07:25 71 18 98 Nasal Cannula 2.0 28 04/27/17 07:25 98 Nasal Cannula 2.0 28 04/27/17 05:52 152/68 04/27/17 05:52 76 152/68 04/27/17 04:00 98.7 76 20 152/68 96 Nasal Cannula 98.7 04/27/17 00:22 129/53 04/27/17 00:00 98.1 80 20 107/73 95 98.1 04/26/17 22:15 98 129/53 04/26/17 22:00 97.7 98 22 129/53 98 97.7 04/26/17 19:49 Nasal Cannula 04/26/17 19:48 32 04/26/17 19:47 89 18 94 Nasal Cannula 3.0 32 04/26/17 19:41 Nasal Cannula 3.0 32 04/26/17 19:40 94 Nasal Cannula 3.0 32 Intake and Output 04/26/17 04/27/17 19:00 07:00 Intake Total 1243.334 ml 155 ml Output Total 750 ml 650 ml Balance 493.334 ml -495 ml Free Water 150 ml IV Total 873.334 ml 155 ml Tube Feeding 220 ml Output Urine Total 750 ml 650 ml # Bowel Movements 1 1 Objective General Appearance: WD/WN Lines, tubes and drains: peripheral HEENT: normocephalic, atraumatic Neck: non-tender, normal alignment Respiratory/Chest: chest wall non-tender, lungs clear Breasts: no masses Cardiovascular/Chest: normal peripheral pulses, normal rate Abdomen: normal bowel sounds, non tender Genitourinary/Rectal: normal genital exam, heme negative stool Extremities: normal range of motion, non-tender Skin Exam: normal pigmentation Microbiology Date/Time Source Procedure Growth Status 04/26/17 04:30 Skin Gram Stain - Final Resulted 04/26/17 04:30 Skin Wound Culture Pending Resulted Laboratory Tests 04/27/17 07:00: White Blood Count 8.0, Red Blood Count 3.71L, Hemoglobin 11.7L, Hematocrit 33.8L , Mean Corpuscular Volume 91, Mean Corpuscular Hemoglobin 31.6H, Mean Corpuscular Hemoglobin Concent 34.6, Red Cell Distribution Width 12.4, Platelet Count 179, Mean Platelet Volume 8.5, Neutrophils (%) (Auto) 82.6H, Lymphocytes ( %) (Auto) 11.1L, Monocytes (%) (Auto) 5.2, Eosinophils (%) (Auto) 0.5, Basophils (%) (Auto) 0.6, Sodium Level 142, Potassium Level 3.7, Chloride Level 111H, Carbon Dioxide Level 27, Anion Gap 4L, Blood Urea Nitrogen 12, Creatinine 0.8, Estimat Glomerular Filtration Rate , Glucose Level 168H, Uric Acid 2.9, Calcium Level 7.7L, Phosphorus Level 2.7, Magnesium Level 1.9, Total Bilirubin 0.3, Direct Bilirubin 0.2, Aspartate Amino Transf (AST/SGOT) 105H, Alanine Aminotransferase (ALT/SGPT) 55, Alkaline Phosphatase 174H, Troponin I 0.069H, C- Reactive Protein, Quantitative 9.2H, Total Protein 4.9L, Albumin 1.7L CARA SOARES Apr 27, 2017 18:20
--- NOTE | 2017-04-28 14:42 | Discharge Summary ---
Discharge Summary Hospital Course Date of Admission Apr 22, 2017 at 22:07 Date of Discharge Apr 27, 2017 at 17:33 Admitting Diagnosis SEPSIS HPI Negin Victoria is a 82 year old female who was admitted on Apr 22, 2017 at 22:07 for Sepsis Hospital Course [id number] Discharge Discharge Disposition Patient was discharged to SNF/Subacute Facility(03) Discharge Diagnoses: Discharge Instructions Discharge Instructions Follow up with: myself at [facility] Gretchen Perez NP Apr 28, 2017 14:42
--- NOTE | 2017-04-29 02:45 | Discharge Summary 2 SIG ---
DATE OF ADMISSION: 04/22/2017 DATE OF DISCHARGE: 04/27/2017 CONSULTANTS: 1. Lauro Lopez M.D. 2. Damon Briggs M.D. 3. Karlos Briggs M.D. 4. Bryn Islas M.D. BRIEF HOSPITAL COURSE: The patient is an 82-year-old female, who is a resident of [facility]. The patient has medical history significant for organic brain syndrome, previous CVA, hypertension, hypercholesterolemia, and osteoporosis. She is DNR and DNI. She was transferred to [facility] ER for chest congestion and fever. On evaluation at ED, the patient was febrile, temperature was 100.9. Blood work showed slight leukocytosis, WBC of 13. Sodium was 156 and chloride 117 with creatinine elevated to 1.4 and BUN of 44. She had elevated troponin 0.084. Chest x-ray showed no acute disease. She was started empirically on antibiotic. Influenza A and B screen was negative. However, was having some episodes of coughing and she was given empiric Tamiflu treatment. She was eventually admitted to telemetry for possible aspiration pneumonia, acute renal failure, hypernatremia, and elevated troponin. She was given hydration with half normal saline and was placed on NPO. She was given pulmonary treatment and chest physiotherapy. During breathing treatment, she developed atrial fibrillation with rapid RVR. She was given one dose of digoxin and Cardizem. An urgent Cardiology referral was made with Dr. Islas. She was eventually transferred to [facility]. NG tube was inserted. She was given amiodarone loading dose. She was also noted to have a right foot ulcer. She was given wound care. She was followed by Infectious Disease specialist and was initially started on vancomycin, cefepime, and metronidazole. MRI of the foot confirmed osteomyelitis. The patient will eventually need six weeks of IV antibiotics. Speech evaluation was done. The patient is high risk for aspiration and was recommended non-oral feeding. Social service was called. DPOA consented to G-tube placement. On 04/26/2017, she underwent EGD with PEG tube placement by Dr. Briggs. She was eventually started on tube feedings. She converted to sinus rhythm. She had minimal troponin elevation likely related to demand ischemia due to increased heart rate. Her sodium level normalized. She was eventually cleared for discharge back to alf to continue local foot wound care and on strict aspiration precaution to continue tube feeding 50 mL/h. The patient was discharged back to alf. FINAL DIAGNOSES: 1. Sepsis. 2. Pneumonia likely aspiration. 3. Acute osteomyelitis of the first metatarsal right foot. 4. Acute renal failure. 5. Atrial fibrillation with rapid ventricular response. 6. Urinary tract infection. 7. Right plantar first metatarsal head stage IV pressure ulcer, present on admission. DISPOSITION: The patient was discharged to alf. DISCHARGE MEDICATIONS: Refer to medication list. Seth Shore M.D. I have been assigned to dictate discharge summary on this account and I was not involved in the patient's management. Gretchen Perez N.P. DR: MALI JOB#: [id number] CC: WILLI
[2017-05-02] MEDS ORDERED: Amiodarone 200mg tab ORAL SCH (09:00)
== END 2017-04-27 17:33 | DRG 871 ==
LOC: EDBD 21:43 → EDSEX 21:43 → EMR 22:00 → 2E 22:07 → EDBEDREQ 22:41 → 2E 04-23 08:40 → ICU 04-23 15:38 → 2W 04-23 21:00 → 2E 04-24 23:20 → 4E 04-26 20:32
PROC: 0DH63UZ Insertion of Feeding Device into Stomach, Percutaneous Approach (ICD-10-PCS; principal; 2017-04-26 08:02)
DX: A41.9 Sepsis, unspecified organism (principal); J69.0 Pneumonitis due to inhalation of food and vomit; J96.01 Acute respiratory failure with hypoxia; N17.9 Acute kidney failure, unspecified; L89.894 Pressure ulcer of other site, stage 4; E87.0 Hyperosmolality and hypernatremia; R53.2 Functional quadriplegia; R13.10 Dysphagia, unspecified; N39.0 Urinary tract infection, site not specified; M86.141 Other acute osteomyelitis, right hand; I24.8 Other forms of acute ischemic heart disease; I48.91 Unspecified atrial fibrillation; E86.0 Dehydration; Z66 Do not resuscitate; Z23 Encounter for immunization; M81.0 Age-related osteoporosis without current pathological fracture; G30.9 Alzheimer's disease, unspecified; F02.80 Dementia in other diseases classified elsewhere, unspecified severity, without behavioral disturbance, psychotic disturbance, mood disturbance, and anxiety; I10 Essential (primary) hypertension; I69.365 Other paralytic syndrome following cerebral infarction, bilateral; K21.9 Gastro-esophageal reflux disease without esophagitis; R62.7 Adult failure to thrive; E88.09 Other disorders of plasma-protein metabolism, not elsewhere classified; K29.40 Chronic atrophic gastritis without bleeding
CPT/HCPCS: 36415; 71045; 74018; 80048; 80053; 80061; 80076; 80202; 81003; 82550; 82553; 82962; 83036; 83605; 83735; 83880; 84100; 84443; 84484; 84550; 85007; 85025; 85610; 85651; 85730; 86140; 86710; 87040; 87070; 87181; 87205; 93005; 94003; 94150; 94640; 94664; 94760; 99285; J7620

== ENCOUNTER 2017-06-29 18:52 | Inpatient (IN) | payer MEDICARE, OTHER ==
[~2017-06-29] VITALS: Ht 160 cm; Wt 65.3 kg
[~2017-06-29 18:52] MED LIST changes: +ACETAMINOPHEN650 MG RECTAL; +CARDIZEM30 MG GT; +CIPROFLOXACIN250 MG GT; +CULTURELLE1 EACH GT; +DOXYCYCLINE HY100 M2 GT; +FAMOTIDINE20 MG GT; +ISOSORBIDE DINI10 MG GT; +PACERONE200 MG GT; +TRAMADOL HCL50 MG GT; +XOPENEX0.5 MG HHN
[2017-06-29 19:00] VITALS: BP 124/47
[2017-06-29] MEDS ORDERED: Ipratropium 0.02% Inh Soln 2.5ml UD HHN ONE (19:30)
[2017-06-29] MEDS ORDERED: Albuterol ud Inhalation HHN ONE (19:30)
[2017-06-29 20:21] LABS: BASOPHILS % (AUTO) 0.7 % (0.0-2.0); EOSINOPHILS % (AUTO) 0.9 % (0.0-3.0); HEMATOCRIT 41.1 % (37.0-47.0); HEMOGLOBIN 13.9 G/DL (12.0-16.0); LYMPHOCYTES % (AUTO) 15.8 % (20.0-45.0); MEAN CORPUSCULAR VOLUME 92 FL (80-99); NEUTROPHILS % (AUTO) 77.6 % (45.0-75.0); PLATELET COUNT 193 K/UL (150-450); RED BLOOD COUNT 4.46 M/UL (4.20-5.40); RED CELL DISTRIBUTION WIDTH 12.9 % (11.6-14.8); WHITE BLOOD COUNT 8.4 K/UL (4.8-10.8)
[2017-06-29 20:41] LABS: ANION GAP 9 mmol/L (5-15); BLOOD UREA NITROGEN 26 mg/dL (7-18); CALCIUM 9.1 MG/DL (8.5-10.1); CARBON DIOXIDE 28 MMOL/L (21-32); CHLORIDE 103 MMOL/L (98-107); CREATININE 0.8 MG/DL (0.55-1.30); POTASSIUM 4.3 MMOL/L (3.5-5.1); SODIUM 140 MMOL/L (136-145)
[2017-06-29 20:46] LABS: ALANINE AMINOTRANSFERASE 33 U/L (12-78); ALBUMIN 3.3 G/DL (3.4-5.0); ALBUMIN/GLOBULIN RATIO 0.8 (1.0-2.7); ALKALINE PHOSPHATASE 109 U/L (46-116); ASPARTATE AMINO TRANSFERASE 28 U/L (15-37); BILIRUBIN,TOTAL 0.5 MG/DL (0.2-1.0)
[2017-06-29] MEDS ORDERED: Ampicillin/Sulbactam Sod 3 GM in NS 110 ML IVPB ONE (21:00)
[2017-06-29 21:03] LABS: APPEARANCE,URINE CLEAR; BILIRUBIN, URINE NEGATIVE (NEGATIVE); GLUCOSE, URINE (UA) NEGATIVE (NEGATIVE); KETONES,URINE NEGATIVE (NEGATIVE); LEUKOCYTE ESTERASE ,URINE 2+ (NEGATIVE); NITRITE,URINE NEGATIVE (NEGATIVE); PH,URINE 5 (4.5-8.0); PROTEIN,URINE NEGATIVE (NEGATIVE); UROBILINOGEN,URINE NORMAL MG/DL (0.0-1.0)
[2017-06-29 21:05] LABS: COLOR,URINE YELLOW
[2017-06-29] MEDS ORDERED: VERAPAMIL HCL40 M1 PO (21:05)
[2017-06-29] MEDS ORDERED: ERYTHROMYCIN 2%30 GM TP (21:05)
[2017-06-29] MEDS ORDERED: COLLAGENASE1 EACH MC (21:05)
[2017-06-29] MEDS ORDERED: BETAMETHASONE D15 GM TP (21:05)
[2017-06-29] MEDS ORDERED: VITAMIN C500 M1 GT (21:05)
--- NOTE | 2017-06-29 21:22 | Emergency Room Report ---
History of Present Illness General Chief Complaint: Shortness of breath Source: Family Member Present Illness HPI Patient is an 82-year-old female who presented after increased difficulty breathing. Patient had prior history of chronic dementia. Patient was increased productive cough. Allergies: Coded Allergies: No Known Allergies (Unverified , 02/27/16) Patient History Reviewed Nursing Documentation: PMH: Agreed; PSxH: Agreed Nursing Documentation-PMH Hx Cardiac Problems: Yes - rhabdo anemia Hx Hypertension: Yes Hx Cancer: No Hx Gastrointestinal Problems: Yes - Sepsis, UTI, gastric reflux Hx Neurological Problems: Yes - Dysphagia, Hx Dementia: Yes Hx Dysphasia: Yes Physical Exam Vital Signs Date Time Temp Pulse Resp B/P (MAP) Pulse Ox O2 Delivery O2 Flow Rate FiO2 06/29/17 18:48 96.6 67 19 120/69 95 Room Air 96.6 06/29/17 19:43 21 Medical Decision Making Diagnostic Impression: Primary Impression: Pneumonia Additional Impression: Urinary tract infection ER Course Patient presented for shortness of breath increased cough. Differential diagnosis included was not limited to pneumonia, upper respiratory infection, COPD, sepsis, congestive heart failure among others.Because of complexity of patient's case laboratory testing and imaging studies were ordered. The laboratory testing showed evidence of urinary infection. Dr. Shore was contacted for inpatient management due to primary care physician Labs Test 06/29/17 19:55 White Blood Count 8.4 K/UL (4.8-10.8) Red Blood Count 4.46 M/UL (4.20-5.40) Hemoglobin 13.9 G/DL (12.0-16.0) Hematocrit 41.1 % (37.0-47.0) Mean Corpuscular Volume 92 FL (80-99) Mean Corpuscular Hemoglobin 31.1 PG (27.0-31.0) Mean Corpuscular Hemoglobin Concent 33.8 G/DL (32.0-36.0) Red Cell Distribution Width 12.9 % (11.6-14.8) Platelet Count 193 K/UL (150-450) Mean Platelet Volume 8.1 FL (6.5-10.1) Neutrophils (%) (Auto) 77.6 % (45.0-75.0) Lymphocytes (%) (Auto) 15.8 % (20.0-45.0) Monocytes (%) (Auto) 5.0 % (1.0-10.0) Eosinophils (%) (Auto) 0.9 % (0.0-3.0) Basophils (%) (Auto) 0.7 % (0.0-2.0) Urine Color Yellow Urine Appearance Clear Urine pH 5 (4.5-8.0) Urine Specific [place] 1.015 (1.005-1.035) Urine Protein Negative (NEGATIVE) Urine Glucose (UA) Negative (NEGATIVE) Urine Ketones Negative (NEGATIVE) Urine Occult Blood 2+ (NEGATIVE) Urine Nitrite Negative (NEGATIVE) Urine Bilirubin Negative (NEGATIVE) Urine Urobilinogen Normal MG/DL (0.0-1.0) Urine Leukocyte Esterase 2+ (NEGATIVE) Urine RBC 0-2 /HPF (0 - 2) Urine WBC 10-15 /HPF (0 - 2) Urine Squamous Epithelial Cells Few /LPF (NONE/OCC) Urine Bacteria Occasional /HPF (NONE) Sodium Level 140 MMOL/L (136-145) Potassium Level 4.3 MMOL/L (3.5-5.1) Chloride Level 103 MMOL/L (98-107) Carbon Dioxide Level 28 MMOL/L (21-32) Anion Gap 9 mmol/L (5-15) Blood Urea Nitrogen 26 mg/dL (7-18) Creatinine 0.8 MG/DL (0.55-1.30) Estimat Glomerular Filtration Rate mL/min (>60) Glucose Level 108 MG/DL (74-106) Calcium Level 9.1 MG/DL (8.5-10.1) Total Bilirubin 0.5 MG/DL (0.2-1.0) Aspartate Amino Transf (AST/SGOT) 28 U/L (15-37) Alanine Aminotransferase (ALT/SGPT) 33 U/L (12-78) Alkaline Phosphatase 109 U/L (46-116) Troponin I 0.014 ng/mL (0.000-0.056) Pro-B-Type Natriuretic Peptide 371 pg/mL (0-125) Total Protein 7.4 G/DL (6.4-8.2) Albumin 3.3 G/DL (3.4-5.0) Globulin 4.1 g/dL Albumin/Globulin Ratio 0.8 (1.0-2.7) EKG Diagnostic Results Rate: normal Rhythm: NSR ST Segments: no acute changes Rhythm Strip Diag. Results EP Interpretation: yes Rhythm: NSR, no PVC's, no ectopy Last Vital Signs Date Time Temp Pulse Resp B/P (MAP) Pulse Ox O2 Delivery O2 Flow Rate FiO2 06/29/17 20:00 72 20 98 Room Air 21 06/29/17 19:00 124/47 06/29/17 18:48 96.6 96.6 Status: unchanged Disposition: ADMITTED INPATIENT Referrals: YAZMIN SHORE (PCP) Tim Hannah MD June 29, 2017 21:22
[2017-06-29 21:29] VITALS: BP 135/55
[2017-06-29 22:30] VITALS: BP 129/69
[2017-06-30] VITALS: BP 158/72
--- NOTE | 2017-06-30 00:11 | History & Physical ---
History and Physical History & Physicial UTI Resp Distress / Pneumonia PH 1. Sepsis. 2. Pneumonia likely aspiration. 3. Acute osteomyelitis of the first metatarsal right foot. 4. Acute renal failure. 5. Atrial fibrillation with rapid ventricular response. 6. Urinary tract infection. 7. Right plantar first metatarsal head stage IV pressure ulcer, present on admission. # [id number] YAZMIN CROSS June 30, 2017 00:11
[2017-06-30] MEDS ORDERED: D5 1/2NS 1,000 ML IV SCH (00:15)
[2017-06-30] MEDS ORDERED: Vancomycin 1.5gm/D5W 250ml 250 ML IVPB SCH (00:15)
[2017-06-30] MEDS ORDERED: CefTAZidime 2 GM in D5W 110 ML IV SCH (00:15)
[2017-06-30 04:00] VITALS: BP 134/62
[2017-06-30] MEDS ORDERED: dilTIAZem HCl 30mg tab GT SCH (06:00)
[2017-06-30 06:16] LABS: BASOPHILS % (AUTO) 0.8 % (0.0-2.0); EOSINOPHILS % (AUTO) 0.9 % (0.0-3.0); HEMATOCRIT 44.5 % (37.0-47.0); HEMOGLOBIN 14.6 G/DL (12.0-16.0); LYMPHOCYTES % (AUTO) 12.8 % (20.0-45.0); MEAN CORPUSCULAR VOLUME 95 FL (80-99); MONOCYTES % (AUTO) 4.9 % (1.0-10.0); NEUTROPHILS % (AUTO) 80.6 % (45.0-75.0); PLATELET COUNT 201 K/UL (150-450); RED BLOOD COUNT 4.69 M/UL (4.20-5.40); RED CELL DISTRIBUTION WIDTH 13.5 % (11.6-14.8); WHITE BLOOD COUNT 8.5 K/UL (4.8-10.8)
[2017-06-30 06:38] LABS: ALANINE AMINOTRANSFERASE 36 U/L (12-78); ALBUMIN 3.3 G/DL (3.4-5.0); ALBUMIN/GLOBULIN RATIO 0.7 (1.0-2.7); ALKALINE PHOSPHATASE 111 U/L (46-116); ANION GAP 9 mmol/L (5-15); ASPARTATE AMINO TRANSFERASE 26 U/L (15-37); BILIRUBIN,TOTAL 0.7 MG/DL (0.2-1.0); BLOOD UREA NITROGEN 20 mg/dL (7-18); CALCIUM 9.3 MG/DL (8.5-10.1); CARBON DIOXIDE 26 MMOL/L (21-32); CHLORIDE 105 MMOL/L (98-107); CREATININE 0.8 MG/DL (0.55-1.30); GAMMA GLUTAMYL TRANSPEPTIDASE 20 U/L (5-85); PHOSPHORUS 3.8 MG/DL (2.5-4.9); POTASSIUM 4.3 MMOL/L (3.5-5.1); SODIUM 140 MMOL/L (136-145)
[2017-06-30 08:00] VITALS: BP 165/71
[2017-06-30] MEDS ORDERED: Amiodarone 200mg tab GT SCH (09:00)
[2017-06-30] MEDS ORDERED: Aspirin Baby 81mg GT SCH (09:00)
[2017-06-30] MEDS ORDERED: Heparin 5000 units/ml inj SUBQ SCH (09:00)
[2017-06-30] MEDS: Docusate 100mg/10ml Liq GT SCH ×2 (09:05→13:00)
--- NOTE | 2017-06-30 10:47 | Diagnostic Imaging Report ---
Indication: Dyspnea Comparison: 04/24/2017 A single view chest radiograph was obtained. Findings: Interstitial densities and mild prominent vascularity noted. Heart is normal in size. Bones are osteopenic. IMPRESSION: Suspected mild interstitial edema.
--- NOTE | 2017-06-30 10:58 | General Progress Note ---
Assessment/Plan Problem List: (1) Urinary tract infection ICD Codes: N39.0 - Urinary tract infection, site not specified SNOMED: 17320430 (2) Foot osteomyelitis, right ICD Codes: M86.9 - Osteomyelitis, unspecified SNOMED: 5143580691742515 (3) Dementia ICD Codes: F03.90 - Unspecified dementia without behavioral disturbance SNOMED: 12103859 (4) PEG (percutaneous endoscopic gastrostomy) status ICD Codes: Z93.1 - Gastrostomy status SNOMED: 403127551, 999094559 (5) Atrial fibrillation ICD Codes: I48.91 - Unspecified atrial fibrillation SNOMED: 52752438 Status: stable Status Narrative UTI Resp Distress / Pneumonia PH 1. Sepsis. 2. Pneumonia likely aspiration. 3. Acute osteomyelitis of the first metatarsal right foot. 4. h/o Acute renal failure. 5. h/o Atrial fibrillation with rapid ventricular response. 6. Urinary tract infection. 7. Right plantar first metatarsal head stage IV pressure ulcer, present on admission. Assessment/Plan Breathing treatment adjust BP meds ID eval Rocephin CXR per orders Subjective ROS Limited/Unobtainable: No Constitutional: Reports: weakness Allergies: Coded Allergies: No Known Allergies (Unverified , 02/27/16) Objective Last 24 Hour Vital Signs Date Time Temp Pulse Resp B/P (MAP) Pulse Ox O2 Delivery O2 Flow Rate FiO2 06/30/17 09:01 71 165/71 06/30/17 08:00 97.0 71 19 165/71 99 Room Air 97.0 06/30/17 05:55 150/59 06/30/17 05:55 72 150/59 06/30/17 04:00 98.2 79 18 134/62 94 Room Air 98.2 06/30/17 04:00 65 06/30/17 01:40 158/72 06/30/17 00:00 97.2 76 19 158/72 94 Room Air 97.2 06/30/17 00:00 72 06/29/17 22:50 76 06/29/17 22:30 65 22 129/69 97 Room Air 06/29/17 22:30 97.3 65 22 129/69 97 Room Air 21 96.6 06/29/17 21:29 69 24 135/55 98 Room Air 06/29/17 20:00 72 20 98 Room Air 21 06/29/17 19:44 21 06/29/17 19:44 63 26 95 Room Air 21 06/29/17 19:43 63 26 Room Air 21 06/29/17 19:00 67 19 Room Air 06/29/17 19:00 64 20 124/47 96 Room Air 06/29/17 18:48 96.6 67 19 120/69 95 Room Air 96.6 Laboratory Tests 06/29/17 19:55: White Blood Count 8.4, Red Blood Count 4.46, Hemoglobin 13.9, Hematocrit 41.1, Mean Corpuscular Volume 92, Mean Corpuscular Hemoglobin 31.1H, Mean Corpuscular Hemoglobin Concent 33.8, Red Cell Distribution Width 12.9, Platelet Count 193, Mean Platelet Volume 8.1, Neutrophils (%) (Auto) 77.6H, Lymphocytes (%) (Auto) 15.8L, Monocytes (%) (Auto) 5.0, Eosinophils (%) (Auto) 0.9, Basophils (%) (Auto ) 0.7, Urine Color Yellow, Urine Appearance Clear, Urine pH 5, Urine Specific [place] 1.015, Urine Protein Negative, Urine Glucose (UA) Negative, Urine Ketones Negative, Urine Occult Blood 2+H, Urine Nitrite Negative, Urine Bilirubin Negative, Urine Urobilinogen Normal, Urine Leukocyte Esterase 2+H, Urine RBC 0-2, Urine WBC 10-15H, Urine Squamous Epithelial Cells Few, Urine Bacteria Occasional, Sodium Level 140, Potassium Level 4.3, Chloride Level 103, Carbon Dioxide Level 28, Anion Gap 9, Blood Urea Nitrogen 26H, Creatinine 0.8, Estimat Glomerular Filtration Rate , Glucose Level 108H, Calcium Level 9.1, Total Bilirubin 0.5, Aspartate Amino Transf (AST/SGOT) 28, Alanine Aminotransferase (ALT/SGPT) 33, Alkaline Phosphatase 109, Troponin I 0.014, Pro- B-Type Natriuretic Peptide 371H, Total Protein 7.4, Albumin 3.3L, Globulin 4.1, Albumin/Globulin Ratio 0.8L 06/30/17 05:35: White Blood Count 8.5, Red Blood Count 4.69, Hemoglobin 14.6, Hematocrit 44.5, Mean Corpuscular Volume 95, Mean Corpuscular Hemoglobin 31.1H, Mean Corpuscular Hemoglobin Concent 32.8, Red Cell Distribution Width 13.5, Platelet Count 201, Mean Platelet Volume 7.3, Neutrophils (%) (Auto) 80.6H, Lymphocytes (%) (Auto) 12.8L, Monocytes (%) (Auto) 4.9, Eosinophils (%) (Auto) 0.9, Basophils (%) (Auto ) 0.8, Sodium Level 140, Potassium Level 4.3, Chloride Level 105, Carbon Dioxide Level 26, Anion Gap 9, Blood Urea Nitrogen 20H, Creatinine 0.8, Estimat Glomerular Filtration Rate , Glucose Level 134H, Calcium Level 9.3, Total Bilirubin 0.7, Aspartate Amino Transf (AST/SGOT) 26, Alanine Aminotransferase ( ALT/SGPT) 36, Alkaline Phosphatase 111, Troponin I 0.007, Pro-B-Type Natriuretic Peptide 415H, Total Protein 8.2, Albumin 3.3L, Globulin 4.9, Albumin /Globulin Ratio 0.7L, Hemoglobin A1c 5.9, Phosphorus Level 3.8, Magnesium Level 2.2, Gamma Glutamyl Transpeptidase 20, C-Reactive Protein, Quantitative 0.7, Thyroid Stimulating Hormone (TSH) 1.702 Height (Feet): 5 Height (Inches): 3.00 Weight (Pounds): 130 General Appearance: no apparent distress Neck: limited range of motion Cardiovascular: normal rate Respiratory/Chest: decreased breath sounds Abdomen: soft, other - PEG Extremities: other - right metatarsal open blister YAZMIN CROSS June 30, 2017 10:58
--- NOTE | 2017-06-30 11:27 | Consultation ---
History of Present Illness General Date patient seen: June 30, 2017 Chief Complaint: Upper Respiratory Illness Present Illness HPI 82-year-old female with hx of end stage dementia, contractures, Gtube feeding, bed bound, [facility] resident presented to ER with CC of difficulty breathing. and congestion, increased productive cough. Pt was diagnosed with pneumonia and bronchitis and for further management. Allergies: Coded Allergies: No Known Allergies (Unverified , 02/27/16) Medication History Scheduled Amiodarone Hcl* (Pacerone*), 200 MG GT DAILY Amlodipine Besylate (Norvasc), 2.5 MG ORAL DAILY, (Reported) Ascorbic Acid* (Vitamin C*), 500 MG GT DAILY, (Reported) Aspirin* (Aspirin*), 81 MG ORAL DAILY, (Reported) Betamet Diprop/Prop Gly (Betamethasone Dp Aug 0.05% Crm), 15 GM TP DAILY, ( Reported) Calcium Carbonate (Calcium Carbonate), 500 MG PO BID, (Reported) Ciprofloxacin* (Ciprofloxacin*), 250 MG GT EVERY 12 HOURS Diltiazem HCl (Diltiazem 12Hr ER), 30 MG GT EVERY 8 HOURS Docusate Sodium* (Colace*), 100 MG ORAL THREE TIMES A DAY Donepezil Hcl* (Donepezil Hcl*), 10 MG ORAL HS, (Reported) Doxycycline Hyclate (Doxycycline Hyclate), 100 MG GT EVERY 12 HOURS Famotidine (Famotidine), 20 MG GT BID Isosorbide Dinitrate* (Isordil*), 10 MG GT Q6HR Lactobacillus Rhamnosus Gg* (Culturelle*), 1 TAB GT THREE TIMES A DAY Levalbuterol HCl (Xopenex Concentrate), 1.25 MG HHN TIDRT Levofloxacin* (Levaquin*), 250 MG ORAL DAILY Multivitamin (Multivitamins), 1 CAP ORAL DAILY, (Reported) Omeprazole (Omeprazole), 20 MG ORAL DAILY, (Reported) Simvastatin (Zocor), 10 MG ORAL BEDTIME, (Reported) Vitamin A & D (Vitamin A & D Ointment), TOPIC DAILY, (Reported) Vitamin D (Vitamin D3), 2,000 UNITS ORAL DAILY, (Reported) Scheduled PRN Acetaminophen* (Acetaminophen 325MG Tablet*), 650 MG ORAL Q6H PRN Acetaminophen* (Acetaminophen*), 650 MG RECTAL Q4H PRN Codeine/Promethazine Hcl* (Promethazine-Codeine Syrup*), 5 ML ORAL Q4H PRN Tramadol Hcl* (Ultram*), 25 MG GT Q6HR PRN Miscellaneous Medications Collagenase Clostridium Hist. (Collagenase), 1 EACH , (Reported) Erythromycin Base/Ethanol (Erythromycin 2% Gel), 30 GM TP, (Reported) Verapamil Hcl (Verapamil Hcl), 40 MG PO, (Reported) Patient History Healthcare decision maker Resuscitation status Do Not Resuscitate Advanced Directive on File No Past Medical/Surgical History Past Medical/Surgical History: (1) Advanced age (2) Advanced dementia (3) Contracture of joint of multiple sites (4) PEG (percutaneous endoscopic gastrostomy) status (5) Dementia Review of Systems All Other Systems: negative except mentioned in HPI Physical Exam General Appearance: cachetic Lines, tubes and drains: peripheral HEENT: normocephalic, atraumatic Neck: non-tender, normal alignment Respiratory/Chest: chest wall non-tender, rhonchi - left, rhonchi - right Breasts: no masses Cardiovascular/Chest: normal peripheral pulses, normal rate Abdomen: normal bowel sounds, non tender Genitourinary/Rectal: normal genital exam Extremities: normal range of motion Skin Exam: normal pigmentation Neurologic: aphasia Last 24 Hour Vital Signs Date Time Temp Pulse Resp B/P (MAP) Pulse Ox O2 Delivery O2 Flow Rate FiO2 06/30/17 09:01 71 165/71 06/30/17 08:00 97.0 71 19 165/71 99 Room Air 97.0 06/30/17 05:55 150/59 06/30/17 05:55 72 150/59 06/30/17 04:00 98.2 79 18 134/62 94 Room Air 98.2 06/30/17 04:00 65 06/30/17 01:40 158/72 06/30/17 00:00 97.2 76 19 158/72 94 Room Air 97.2 06/30/17 00:00 72 06/29/17 22:50 76 06/29/17 22:30 65 22 129/69 97 Room Air 06/29/17 22:30 97.3 65 22 129/69 97 Room Air 21 96.6 06/29/17 21:29 69 24 135/55 98 Room Air 06/29/17 20:00 72 20 98 Room Air 21 06/29/17 19:44 21 06/29/17 19:44 63 26 95 Room Air 21 06/29/17 19:43 63 26 Room Air 21 06/29/17 19:00 67 19 Room Air 06/29/17 19:00 64 20 124/47 96 Room Air 06/29/17 18:48 96.6 67 19 120/69 95 Room Air 96.6 Laboratory Tests Test 06/29/17 19:55 06/30/17 05:35 White Blood Count 8.4 K/UL (4.8-10.8) 8.5 K/UL (4.8-10.8) Red Blood Count 4.46 M/UL (4.20-5.40) 4.69 M/UL (4.20-5.40) Hemoglobin 13.9 G/DL (12.0-16.0) 14.6 G/DL (12.0-16.0) Hematocrit 41.1 % (37.0-47.0) 44.5 % (37.0-47.0) Mean Corpuscular Volume 92 FL (80-99) 95 FL (80-99) Mean Corpuscular Hemoglobin 31.1 PG (27.0-31.0) H 31.1 PG (27.0-31.0) H Mean Corpuscular Hemoglobin Concent 33.8 G/DL (32.0-36.0) 32.8 G/DL (32.0-36.0) Red Cell Distribution Width 12.9 % (11.6-14.8) 13.5 % (11.6-14.8) Platelet Count 193 K/UL (150-450) 201 K/UL (150-450) Mean Platelet Volume 8.1 FL (6.5-10.1) 7.3 FL (6.5-10.1) Neutrophils (%) (Auto) 77.6 % (45.0-75.0) H 80.6 % (45.0-75.0) H Lymphocytes (%) (Auto) 15.8 % (20.0-45.0) L 12.8 % (20.0-45.0) L Monocytes (%) (Auto) 5.0 % (1.0-10.0) 4.9 % (1.0-10.0) Eosinophils (%) (Auto) 0.9 % (0.0-3.0) 0.9 % (0.0-3.0) Basophils (%) (Auto) 0.7 % (0.0-2.0) 0.8 % (0.0-2.0) Urine Color Yellow Urine Appearance Clear Urine pH 5 (4.5-8.0) Urine Specific [place] 1.015 (1.005-1.035) Urine Protein Negative (NEGATIVE) Urine Glucose (UA) Negative (NEGATIVE) Urine Ketones Negative (NEGATIVE) Urine Occult Blood 2+ (NEGATIVE) H Urine Nitrite Negative (NEGATIVE) Urine Bilirubin Negative (NEGATIVE) Urine Urobilinogen Normal MG/DL (0.0-1.0) Urine Leukocyte Esterase 2+ (NEGATIVE) H Urine RBC 0-2 /HPF (0 - 2) Urine WBC 10-15 /HPF (0 - 2) H Urine Squamous Epithelial Cells Few /LPF (NONE/OCC) Urine Bacteria Occasional /HPF (NONE) Sodium Level 140 MMOL/L (136-145) 140 MMOL/L (136-145) Potassium Level 4.3 MMOL/L (3.5-5.1) 4.3 MMOL/L (3.5-5.1) Chloride Level 103 MMOL/L (98-107) 105 MMOL/L (98-107) Carbon Dioxide Level 28 MMOL/L (21-32) 26 MMOL/L (21-32) Anion Gap 9 mmol/L (5-15) 9 mmol/L (5-15) Blood Urea Nitrogen 26 mg/dL (7-18) H 20 mg/dL (7-18) H Creatinine 0.8 MG/DL (0.55-1.30) 0.8 MG/DL (0.55-1.30) Estimat Glomerular Filtration Rate mL/min (>60) mL/min (>60) Glucose Level 108 MG/DL (74-106) H 134 MG/DL (74-106) H Calcium Level 9.1 MG/DL (8.5-10.1) 9.3 MG/DL (8.5-10.1) Total Bilirubin 0.5 MG/DL (0.2-1.0) 0.7 MG/DL (0.2-1.0) Aspartate Amino Transf (AST/SGOT) 28 U/L (15-37) 26 U/L (15-37) Alanine Aminotransferase (ALT/SGPT) 33 U/L (12-78) 36 U/L (12-78) Alkaline Phosphatase 109 U/L (46-116) 111 U/L (46-116) Troponin I 0.014 ng/mL (0.000-0.056) 0.007 ng/mL (0.000-0.056) Pro-B-Type Natriuretic Peptide 371 pg/mL (0-125) H 415 pg/mL (0-125) H Total Protein 7.4 G/DL (6.4-8.2) 8.2 G/DL (6.4-8.2) Albumin 3.3 G/DL (3.4-5.0) L 3.3 G/DL (3.4-5.0) L Globulin 4.1 g/dL 4.9 g/dL Albumin/Globulin Ratio 0.8 (1.0-2.7) L 0.7 (1.0-2.7) L Hemoglobin A1c 5.9 % (4.3-6.0) Phosphorus Level 3.8 MG/DL (2.5-4.9) Magnesium Level 2.2 MG/DL (1.8-2.4) Gamma Glutamyl Transpeptidase 20 U/L (5-85) C-Reactive Protein, Quantitative 0.7 mg/dL (0.00-0.90) Thyroid Stimulating Hormone (TSH) 1.702 uiU/mL (0.358-3.740) Height (Feet): 5 Height (Inches): 3.00 Weight (Pounds): 130 Medications Current Medications Medications (Trade) Dose Ordered Sig/Baljit Route PRN Reason Start Time Stop Time Status Last Admin Dose Admin Acetaminophen (Tylenol) 650 mg Q6H PRN ORAL pain 2-5 06/30/17 11:00 07/30/17 10:59 UNV Amiodarone HCl (Cordarone) 100 mg DAILY GT 06/30/17 09:00 07/30/17 08:59 06/30/17 08:58 Amlodipine Besylate (Norvasc) 5 mg BID GT 06/30/17 18:00 07/30/17 08:59 Aspirin (ASA) 81 mg DAILY GT 06/30/17 09:00 07/30/17 08:59 06/30/17 08:59 Ceftriaxone Sodium 1 gm/ Dextrose 55 ml @ 110 mls/hr Q24H IVPB 06/30/17 12:00 07/07/17 11:59 Docusate Sodium (Colace) 100 mg TID GT 06/30/17 09:00 07/30/17 08:59 06/30/17 09:05 Famotidine (Pepcid) 20 mg BID GT 06/30/17 09:00 07/30/17 08:59 06/30/17 08:59 Heparin Sodium (Porcine) (Heparin 5000 units/ml) 5,000 units EVERY 12 HOURS SUBQ 06/30/17 09:00 07/30/17 08:59 06/30/17 09:03 Isosorbide Dinitrate (Isordil) 10 mg Q6HR GT 06/30/17 00:00 07/30/17 00:00 06/30/17 05:55 Ondansetron HCl (Zofran) 4 mg Q6H PRN IVP Nausea & Vomiting 06/30/17 00:15 07/30/17 00:14 Tramadol HCl (Ultram) 25 mg Q6HR PRN GT pain level 6 and up 06/30/17 00:00 07/07/17 00:00 Assessment/Plan Problem List: (1) Aspiration pneumonia ICD Codes: J69.0 - Pneumonitis due to inhalation of food and vomit SNOMED: 276971945 (2) Advanced dementia ICD Codes: F03.90 - Unspecified dementia without behavioral disturbance SNOMED: 54680449 (3) Contracture of joint of multiple sites ICD Codes: M24.50 - Contracture, unspecified joint SNOMED: 64677732, 626573982 (4) Dementia ICD Codes: F03.90 - Unspecified dementia without behavioral disturbance SNOMED: 56059754 (5) PEG (percutaneous endoscopic gastrostomy) status ICD Codes: Z93.1 - Gastrostomy status SNOMED: 400225156, 266033689 (6) Advanced age ICD Codes: R54 - Age-related physical debility SNOMED: 39158893 Assessment/Plan respiratory treatment check sputum chest pt iv abx sputum induction aspiration precaution Lauro Lopez MD June 30, 2017 11:27
[2017-06-30 12:00] VITALS: BP 156/75
[2017-06-30] MEDS ORDERED: cefTRIAXone 1 GM in D5W 55 ML IVPB SCH (12:00)
[2017-06-30] MEDS ORDERED: Acetaminophen 650mg/20.3ml GT PRN ×2 (12:00→20:00)
[2017-06-30] MEDS ORDERED: Promethazine/Codeine 5ml UD ORAL PRN ×2 (12:00→20:00)
--- NOTE | 2017-06-30 12:09 | Diagnostic Imaging Report ---
Indication: Dyspnea Comparison: 06/29/2017 A single view chest radiograph was obtained. Findings: No definite infiltrate or pulmonary vascular congestion identified. The heart is enlarged. The aorta is mildly enlarged consistent with atherosclerotic vascular disease. The bones are osteopenic. Impression: No acute disease
--- NOTE | 2017-06-30 13:45 | Infectious Diseases Prog Note ---
Assessment/Plan Problems: (1) Aspiration pneumonia Assessment & Plan: continue zosyn empirically, monitor CXR , send sputum culture if she produce any (2) Sepsis Assessment & Plan: due to the above, send blood culture continue zosyn (3) Right foot ulcer Assessment & Plan: clean and dry , not infected, with no drainage or foul smell (4) Dementia Assessment & Plan: continue supportive care Subjective Allergies: Coded Allergies: No Known Allergies (Unverified , 02/27/16) Objective Vital Signs Last 24 Hour Vital Signs Date Time Temp Pulse Resp B/P (MAP) Pulse Ox O2 Delivery O2 Flow Rate FiO2 06/30/17 13:02 156/75 06/30/17 09:01 71 165/71 06/30/17 08:00 72 06/30/17 08:00 97.0 71 19 165/71 99 Room Air 97.0 06/30/17 05:55 150/59 06/30/17 05:55 72 150/59 06/30/17 04:00 98.2 79 18 134/62 94 Room Air 98.2 06/30/17 04:00 65 06/30/17 01:40 158/72 06/30/17 00:00 97.2 76 19 158/72 94 Room Air 97.2 06/30/17 00:00 72 06/29/17 22:50 76 06/29/17 22:30 65 22 129/69 97 Room Air 06/29/17 22:30 97.3 65 22 129/69 97 Room Air 21 96.6 06/29/17 21:29 69 24 135/55 98 Room Air 06/29/17 20:00 72 20 98 Room Air 21 06/29/17 19:44 21 06/29/17 19:44 63 26 95 Room Air 21 06/29/17 19:43 63 26 Room Air 21 06/29/17 19:00 67 19 Room Air 06/29/17 19:00 64 20 124/47 96 Room Air 06/29/17 18:48 96.6 67 19 120/69 95 Room Air 96.6 Height (Feet): 5 Height (Inches): 3.00 Weight (Pounds): 130 Laboratory Tests Test 06/29/17 19:55 06/30/17 05:35 White Blood Count 8.4 K/UL (4.8-10.8) 8.5 K/UL (4.8-10.8) Red Blood Count 4.46 M/UL (4.20-5.40) 4.69 M/UL (4.20-5.40) Hemoglobin 13.9 G/DL (12.0-16.0) 14.6 G/DL (12.0-16.0) Hematocrit 41.1 % (37.0-47.0) 44.5 % (37.0-47.0) Mean Corpuscular Volume 92 FL (80-99) 95 FL (80-99) Mean Corpuscular Hemoglobin 31.1 PG (27.0-31.0) H 31.1 PG (27.0-31.0) H Mean Corpuscular Hemoglobin Concent 33.8 G/DL (32.0-36.0) 32.8 G/DL (32.0-36.0) Red Cell Distribution Width 12.9 % (11.6-14.8) 13.5 % (11.6-14.8) Platelet Count 193 K/UL (150-450) 201 K/UL (150-450) Mean Platelet Volume 8.1 FL (6.5-10.1) 7.3 FL (6.5-10.1) Neutrophils (%) (Auto) 77.6 % (45.0-75.0) H 80.6 % (45.0-75.0) H Lymphocytes (%) (Auto) 15.8 % (20.0-45.0) L 12.8 % (20.0-45.0) L Monocytes (%) (Auto) 5.0 % (1.0-10.0) 4.9 % (1.0-10.0) Eosinophils (%) (Auto) 0.9 % (0.0-3.0) 0.9 % (0.0-3.0) Basophils (%) (Auto) 0.7 % (0.0-2.0) 0.8 % (0.0-2.0) Urine Color Yellow Urine Appearance Clear Urine pH 5 (4.5-8.0) Urine Specific [place] 1.015 (1.005-1.035) Urine Protein Negative (NEGATIVE) Urine Glucose (UA) Negative (NEGATIVE) Urine Ketones Negative (NEGATIVE) Urine Occult Blood 2+ (NEGATIVE) H Urine Nitrite Negative (NEGATIVE) Urine Bilirubin Negative (NEGATIVE) Urine Urobilinogen Normal MG/DL (0.0-1.0) Urine Leukocyte Esterase 2+ (NEGATIVE) H Urine RBC 0-2 /HPF (0 - 2) Urine WBC 10-15 /HPF (0 - 2) H Urine Squamous Epithelial Cells Few /LPF (NONE/OCC) Urine Bacteria Occasional /HPF (NONE) Sodium Level 140 MMOL/L (136-145) 140 MMOL/L (136-145) Potassium Level 4.3 MMOL/L (3.5-5.1) 4.3 MMOL/L (3.5-5.1) Chloride Level 103 MMOL/L (98-107) 105 MMOL/L (98-107) Carbon Dioxide Level 28 MMOL/L (21-32) 26 MMOL/L (21-32) Anion Gap 9 mmol/L (5-15) 9 mmol/L (5-15) Blood Urea Nitrogen 26 mg/dL (7-18) H 20 mg/dL (7-18) H Creatinine 0.8 MG/DL (0.55-1.30) 0.8 MG/DL (0.55-1.30) Estimat Glomerular Filtration Rate mL/min (>60) mL/min (>60) Glucose Level 108 MG/DL (74-106) H 134 MG/DL (74-106) H Calcium Level 9.1 MG/DL (8.5-10.1) 9.3 MG/DL (8.5-10.1) Total Bilirubin 0.5 MG/DL (0.2-1.0) 0.7 MG/DL (0.2-1.0) Aspartate Amino Transf (AST/SGOT) 28 U/L (15-37) 26 U/L (15-37) Alanine Aminotransferase (ALT/SGPT) 33 U/L (12-78) 36 U/L (12-78) Alkaline Phosphatase 109 U/L (46-116) 111 U/L (46-116) Troponin I 0.014 ng/mL (0.000-0.056) 0.007 ng/mL (0.000-0.056) Pro-B-Type Natriuretic Peptide 371 pg/mL (0-125) H 415 pg/mL (0-125) H Total Protein 7.4 G/DL (6.4-8.2) 8.2 G/DL (6.4-8.2) Albumin 3.3 G/DL (3.4-5.0) L 3.3 G/DL (3.4-5.0) L Globulin 4.1 g/dL 4.9 g/dL Albumin/Globulin Ratio 0.8 (1.0-2.7) L 0.7 (1.0-2.7) L Hemoglobin A1c 5.9 % (4.3-6.0) Phosphorus Level 3.8 MG/DL (2.5-4.9) Magnesium Level 2.2 MG/DL (1.8-2.4) Gamma Glutamyl Transpeptidase 20 U/L (5-85) C-Reactive Protein, Quantitative 0.7 mg/dL (0.00-0.90) Thyroid Stimulating Hormone (TSH) 1.702 uiU/mL (0.358-3.740) Current Medications Medications (Trade) Dose Ordered Sig/Baljit Route PRN Reason Start Time Stop Time Status Last Admin Dose Admin Acetaminophen (Tylenol) 650 mg Q6H PRN GT pain 2-5 06/30/17 12:00 07/30/17 11:59 Amiodarone HCl (Cordarone) 100 mg DAILY GT 06/30/17 09:00 07/30/17 08:59 06/30/17 08:58 Amlodipine Besylate (Norvasc) 5 mg BID GT 06/30/17 18:00 07/30/17 08:59 Aspirin (ASA) 81 mg DAILY GT 06/30/17 09:00 07/30/17 08:59 06/30/17 08:59 Ceftriaxone Sodium 1 gm/ Dextrose 55 ml @ 110 mls/hr Q24H IVPB 06/30/17 12:00 07/07/17 11:59 06/30/17 13:00 Docusate Sodium (Colace) 100 mg TID GT 06/30/17 09:00 07/30/17 08:59 06/30/17 13:00 Famotidine (Pepcid) 20 mg BID GT 06/30/17 09:00 07/30/17 08:59 06/30/17 08:59 Heparin Sodium (Porcine) (Heparin 5000 units/ml) 5,000 units EVERY 12 HOURS SUBQ 06/30/17 09:00 07/30/17 08:59 06/30/17 09:03 Isosorbide Dinitrate (Isordil) 10 mg Q6HR GT 06/30/17 00:00 07/30/17 00:00 06/30/17 13:02 Ondansetron HCl (Zofran) 4 mg Q6H PRN IVP Nausea & Vomiting 06/30/17 00:15 07/30/17 00:14 Piperacillin Sod/ Tazobactam Sod 3.375 gm/Sodium Chloride 110 ml @ 220 mls/hr EVERY 8 HOURS IVPB 06/30/17 14:00 07/07/17 13:59 Promethazine HCl/ Codeine (Phenergan with Codeine) 5 ml Q4H PRN ORAL For Cough 06/30/17 12:00 07/30/17 11:59 Tramadol HCl (Ultram) 25 mg Q6HR PRN GT pain level 6 and up 06/30/17 00:00 07/07/17 00:00 Damon Briggs M.D. June 30, 2017 13:45
[2017-06-30] MEDS: Piperacillin/Tazobactam 3.375 GM in NS 110 ML IVPB SCH ×2 (14:46→21:45)
[2017-06-30 16:00] VITALS: BP 160/85
[2017-06-30] MEDS ORDERED: Docusate 100mg/10ml Liq GT SCH (18:00)
[2017-06-30 20:00] VITALS: BP 131/87
[2017-06-30] MEDS ORDERED: traMADol 50mg tab GT PRN ×2 (20:00)
--- NOTE | 2017-06-30 20:45 | History and Physical Report ---
DATE OF ADMISSION: 06/29/2017 HISTORY OF PRESENT ILLNESS: This is an 82-year-old female, who lives in [facility] with multiple medical problems. The patient was transferred to our emergency room for shortness of breath and subsequently after evaluation by the emergency room physician, is being admitted with a diagnosis of urinary tract infection and pneumonia. PAST MEDICAL HISTORY: Significant for organic brain syndrome, previous CVA, hypertension, high cholesterol, osteoporosis, and also during the last admission in April 2017, the patient was found to have osteomyelitis of the first metatarsal of the right foot and an episode of atrial fibrillation. At that time, the patient also had acute renal failure, which has resolved with hydration. PHYSICAL EXAMINATION: VITAL SIGNS: On examination today, the patient had temperature of 97, pulse rate 71 and regular, blood pressure 150/59, and respiratory rate is 19. GENERAL: The patient is nonverbal and not in any distress. HEENT: Head is normocephalic. NECK: Rigid to all directions. HEART: Regular mainly with occasional irregular rate. LUNGS: No wheeze. Decreased breath sounds over the bases. The patient does not take deep inspiratory inspiration. ABDOMEN: Soft. There is a GT tube in place. EXTREMITIES: The patient is weak and also there is a blister over the right metatarsal area, which is dressed. LABORATORY DATA: No leukocytosis. Hemoglobin is normal. BUN 26. Natriuretic peptic assay 371. Albumin 3.3. Urine, the patient has 2+ leukocyte esterase and 15 white blood cells. Chest x-ray is read as suspected mid interstitial edema. IMPRESSION: The patient is an 82-year-old with a past history of dementia and is admitted with diagnoses of urinary tract infection and possible pneumonia. She has history of atrial fibrillation and right plantar first metatarsal head pressure ulcer and osteomyelitis. Also, the patient has hypertension. PLAN: The patient is admitted. Blood pressure medication is being adjusted. Antibiotic is being started. Pulmonary toilet is given. ID and Pulmonary consult is called. The patient was previously DNR/DNI, we will continue as such. We will transfer to a non-monitored bed. According to how the patient's condition evolves, we will make the proper changes in our future management. Seth Shore M.D. DR: PAU JOB#: [id number] CC:
[2017-06-30] MEDS: Heparin 5000 units/ml inj SUBQ SCH (21:46)
--- NOTE | 2017-06-30 23:16 | Consultation ---
DATE OF CONSULTATION: 06/30/2017 INFECTIOUS DISEASE CONSULTATION CONSULTING PHYSICIAN: Damon Briggs M.D. REQUESTING PHYSICIAN: Seth Dalal M.D. REASON FOR CONSULTATION: Aspiration pneumonia and sepsis with right foot wound and history of osteomyelitis, recommendation for antibiotics treatment. HISTORY OF PRESENT ILLNESS: The patient is an 82-year-old female, well known to me from previous visit, who is a retirement resident with history of dementia, cardiac disease, hypertension, urinary tract infection, gastric reflux, dysphagia, and right foot osteomyelitis in April and was treated with IV antibiotics for six weeks, presented today to the emergency room at [facility] with cough, congestion, and shortness of breath with difficulty breathing. The patient had productive cough as per the retirement facility. She was found to have temperature of 96.6, saturating 95% on room air. X-ray showed possible interstitial infiltrates on the right side and urinalysis showed evidence of infection, so she was admitted to the hospital for further evaluation and management and started on Zosyn, antibiotics treatment, and Infectious Disease consultation was requested for further evaluation and management. As of note, the patient is demented, cannot provide any history. History was mainly obtained from the medical record. REVIEW OF SYSTEMS: Unable to obtain. The patient cannot provide any history with dementia. PAST MEDICAL HISTORY: Significant for coronary artery disease, hypertension, gastroesophageal reflux disease, sepsis, urinary tract infection, dementia, dysphagia, status post tube feeding, and right foot osteomyelitis. PAST SURGICAL HISTORY: Not on record. FAMILY HISTORY: Unable to obtain. ALLERGIES: She has no known drug allergy. MEDICATIONS: She is currently on Zosyn, received ceftriaxone and fortaz x1. PHYSICAL EXAMINATION: VITAL SIGNS: Temperature 97, pulse 71, respirations 19, blood pressure 165/71, and saturation 99% on room air. GENERAL: Elderly female, up in bed, alert, not responding to verbal commands with dementia, contracted, not in acute distress. HEENT: Normocephalic and atraumatic. Pupils are reactive to light. Dry secretion in both eyes. Unable to assess oral mucosa. The patient does not follow commands. NECK: Supple. No lymphadenopathy. CARDIOVASCULAR: Regular rate and rhythm. No murmur. No gallop. LUNGS: She had crackles on the right lower side with diminished breathing sounds. No wheezing or rhonchi. ABDOMEN: Soft, nontender, and nondistended. Positive bowel sounds. No hepatosplenomegaly. No ascites. EXTREMITIES: Contracted. Muscle atrophy. Right metatarsal bone pressure wound with clean base and granulation and clean border with no drainage or sign of infection. LABORATORY AND DIAGNOSTIC DATA: Labs showed white count of 8.5, hemoglobin 14.6, and platelet count of 201,000. BUN of 20, creatinine of 0.8. Urinalysis showed +2 leukocyte esterase, 10 to 15 WBC, and occasional bacteria. Imaging, chest x-ray showed mild interstitial edema. ASSESSMENT AND RECOMMENDATION: 1. Aspiration pneumonia. Continue Zosyn empiric coverage. Monitor chest x-ray. Send sputum culture if she produce any. 2. Sepsis due to the above. Send the blood culture. Continue Zosyn. 3. Right foot ulcer clean and dry, not infected with no drainage or foul smell. Continue local wound care as per hospital protocol. Follow up with prefabricated houses trimmer for possible graft. 4. Dementia. Continue supportive care. Thank you for the consult. Infectious Disease will continue to follow. Damon Briggs M.D. DR: EDDIE JOB#: [id number] CC: WILLI
[2017-07-01] VITALS (7 sets, daily range): BP systolic 115–144; BP diastolic 64–95
[2017-07-01] MEDS: Piperacillin/Tazobactam 3.375 GM in NS 110 ML IVPB SCH ×4 (05:25→21:37)
[2017-07-01] MEDS ORDERED: Aspirin Baby 81mg GT SCH (09:00)
[2017-07-01] MEDS ORDERED: Docusate 100mg/10ml Liq GT SCH (09:00)
[2017-07-01] MEDS ORDERED: Amiodarone 200mg tab GT SCH (09:00)
[2017-07-01] MEDS: Heparin 5000 units/ml inj SUBQ SCH ×2 (09:00→20:31)
[2017-07-01] MEDS ORDERED: Heparin 5000 units/ml inj SUBQ SCH (10:30)
[2017-07-01] MEDS ORDERED: Acetaminophen 650mg/20.3ml GT PRN (10:30)
[2017-07-01] MEDS ORDERED: traMADol 50mg tab GT PRN (10:30)
[2017-07-01] MEDS ORDERED: Promethazine/Codeine 5ml UD ORAL PRN (10:30)
--- NOTE | 2017-07-01 11:13 | General Progress Note ---
Assessment/Plan Problem List: (1) Urinary tract infection ICD Codes: N39.0 - Urinary tract infection, site not specified SNOMED: 38775825 (2) Foot osteomyelitis, right ICD Codes: M86.9 - Osteomyelitis, unspecified SNOMED: 9843497193759717 (3) Dementia ICD Codes: F03.90 - Unspecified dementia without behavioral disturbance SNOMED: 83405472 (4) PEG (percutaneous endoscopic gastrostomy) status ICD Codes: Z93.1 - Gastrostomy status SNOMED: 444070126, 411380913 (5) Atrial fibrillation ICD Codes: I48.91 - Unspecified atrial fibrillation SNOMED: 76965092 (6) Bacteremia ICD Codes: R78.81 - Bacteremia SNOMED: 5629671 Status: unchanged Assessment/Plan Breathing treatment adjust BP meds ID eval and advise Rocephin CXR per orders Subjective ROS Limited/Unobtainable: No Constitutional: Reports: malaise Allergies: Coded Allergies: No Known Allergies (Unverified , 02/27/16) Objective Last 24 Hour Vital Signs Date Time Temp Pulse Resp B/P (MAP) Pulse Ox O2 Delivery O2 Flow Rate FiO2 07/01/17 09:42 95 141/83 07/01/17 08:16 97.6 95 18 141/83 94 97.6 07/01/17 07:47 76 16 Room Air 21 07/01/17 05:25 131/85 07/01/17 04:00 97.2 92 19 131/85 97 97.2 07/01/17 00:07 133/95 07/01/17 00:00 97.3 72 21 133/95 97 97.3 06/30/17 20:00 97.4 86 20 131/87 97.4 06/30/17 19:10 61 22 Room Air 21 06/30/17 18:46 160/85 06/30/17 18:45 73 160/85 06/30/17 16:00 97.7 73 19 160/85 95 Room Air 97.7 06/30/17 13:02 156/75 06/30/17 12:00 97.7 70 19 156/75 94 Room Air 97.7 06/30/17 12:00 64 Intake and Output 06/30/17 07/01/17 19:00 07:00 Intake Total 20 ml 280 ml Output Total 2000 ml 11157 ml Balance -1980 ml -76724 ml Intake Tube Feeding 20 ml 280 ml Output Urine Total 2000 ml 88760 ml Height (Feet): 5 Height (Inches): 3.00 Weight (Pounds): 130 General Appearance: no apparent distress Respiratory/Chest: decreased breath sounds Abdomen: soft YAZMIN CROSS July 01, 2017 11:13
[2017-07-01] MEDS: Vancomycin 1gm in D5W 275ml IVPB SCH (11:25)
[2017-07-01] MEDS ORDERED: cefTRIAXone 1 GM in D5W 55 ML IVPB SCH (12:00)
[2017-07-01] MEDS: Docusate 100mg/10ml Liq GT SCH ×2 (13:31→17:40)
--- NOTE | 2017-07-01 19:01 | Infectious Diseases Prog Note ---
Assessment/Plan Problems: (1) Aspiration pneumonia Assessment & Plan: continue zosyn empirically, monitor CXR , send sputum culture if she produce any (2) Sepsis Assessment & Plan: with gram positive cocci , source suspect right big toe wound, will send wound culture and order X ray of the right foot , add vancomycin pending blood culture , and continue zosyn (3) Right foot ulcer Assessment & Plan: clean and dry , not infected, with no drainage or foul smell , will order X RAY to rule out osteomyelitis (4) Dementia Assessment & Plan: continue supportive care Subjective ROS Limited/Unobtainable: Yes Allergies: Coded Allergies: No Known Allergies (Unverified , 02/27/16) Subjective she was resting in bed, comfortable, not agitated, afebrile Objective Vital Signs Last 24 Hour Vital Signs Date Time Temp Pulse Resp B/P (MAP) Pulse Ox O2 Delivery O2 Flow Rate FiO2 07/01/17 17:41 132/69 07/01/17 17:41 79 132/69 07/01/17 16:00 Room Air 07/01/17 15:40 97.8 79 18 132/69 94 97.8 07/01/17 12:00 Room Air 07/01/17 11:49 97.2 77 18 119/68 95 97.2 07/01/17 11:25 141/83 07/01/17 09:42 95 141/83 07/01/17 08:16 97.6 95 18 141/83 94 97.6 07/01/17 08:16 Room Air 07/01/17 07:47 76 16 Room Air 21 07/01/17 05:25 131/85 07/01/17 04:00 97.2 92 19 131/85 97 97.2 07/01/17 00:07 133/95 07/01/17 00:00 97.3 72 21 133/95 97 97.3 06/30/17 20:00 97.4 86 20 131/87 97.4 06/30/17 19:10 61 22 Room Air 21 Height (Feet): 5 Height (Inches): 3.00 Weight (Pounds): 130 General Appearance: WD/WN, no acute distress HEENT: normocephalic, atraumatic, anicteric, mucous membranes moist, PERRL Respiratory/Chest: chest wall non-tender, no respiratory distress, no accessory muscle use, decreased breath sounds, crackles/rales Cardiovascular: normal peripheral pulses, normal rate, regular rhythm, no gallop/murmur, no JVD Abdomen: normal bowel sounds, soft, non tender, no organomegaly, non distended , no mass, no scars Genitourinary: normal external genitalia Extremities: no cyanosis, no clubbing Skin: no rash, no lesions, ulcers - right big toe wound Neurologic/Psychiatric: alert, responsive Lymphatic: no neck adenopathy, no groin adenopathy Microbiology Date/Time Source Procedure Growth Status 06/29/17 19:55 Blood Blood Culture - Preliminary Resulted 06/29/17 19:40 Blood Blood Culture - Preliminary Resulted 06/30/17 15:32 Sputum Gram Stain - Final Resulted 06/30/17 15:32 Sputum Sputum Culture Pending Resulted 06/29/17 20:10 Nasal Nares MRSA Culture - Final Staphylococcus Aureus - Mrsa Complete 06/29/17 19:55 Urine,Clean Catch Urine Culture - Preliminary Mixed Urogenital Contaminants Resulted Laboratory Tests Test 07/01/17 11:50 Erythrocyte Sedimentation Rate 26 MM/HR (0-30) Current Medications Medications (Trade) Dose Ordered Sig/Baljit Route PRN Reason Start Time Stop Time Status Last Admin Dose Admin Acetaminophen (Tylenol) 650 mg Q6H PRN GT pain 2-5 07/01/17 10:30 07/31/17 10:29 Amiodarone HCl (Cordarone) 100 mg DAILY GT 07/02/17 09:00 08/01/17 08:59 Amlodipine Besylate (Norvasc) 5 mg BID GT 07/01/17 18:00 07/31/17 17:59 07/01/17 17:41 Aspirin (ASA) 81 mg DAILY GT 07/02/17 09:00 08/01/17 08:59 Docusate Sodium (Colace) 100 mg TID GT 07/01/17 13:00 07/31/17 12:59 07/01/17 17:40 Famotidine (Pepcid) 20 mg BID GT 07/01/17 18:00 07/31/17 17:59 07/01/17 17:41 Heparin Sodium (Porcine) (Heparin 5000 units/ml) 5,000 units EVERY 12 HOURS SUBQ 07/01/17 21:00 07/31/17 20:59 Isosorbide Dinitrate (Isordil) 10 mg Q6HR GT 07/01/17 18:00 07/31/17 17:59 07/01/17 17:41 Ondansetron HCl (Zofran) 4 mg Q6H PRN IVP Nausea & Vomiting 07/01/17 10:30 07/31/17 10:29 Piperacillin Sod/ Tazobactam Sod 3.375 gm/Sodium Chloride 110 ml @ 220 mls/hr EVERY 8 HOURS IVPB 06/30/17 22:00 07/07/17 13:59 07/01/17 13:31 Promethazine HCl/ Codeine (Phenergan with Codeine) 5 ml Q4H PRN ORAL For Cough 07/01/17 10:30 07/31/17 10:29 Tramadol HCl (Ultram) 25 mg Q6H PRN GT pain level 6 and up 07/01/17 10:30 07/08/17 10:29 Vancomycin HCl (Vanco rx to dose) 1 ea DAILY PRN MISC Per rx protocol 07/01/17 10:00 07/31/17 09:59 Vancomycin HCl 1 gm/Dextrose 275 ml @ 183.708 mls/hr Q24H IVPB 07/01/17 12:00 07/06/17 11:59 07/01/17 11:25 Damon Briggs M.D. July 01, 2017 19:01
--- NOTE | 2017-07-01 22:14 | Pulmonology Progress Note ---
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 (4) Dementia (5) PEG (percutaneous endoscopic gastrostomy) status (6) Advanced age Assessment/Plan doing better no new events respiratory treatment check sputum chest pt iv abx sputum induction aspiration precaution all reviewed Subjective ROS Limited/Unobtainable: No Constitutional: Reports: no symptoms HEENT: Repors: no symptoms Respiratory: Reports: no symptoms Allergies: Coded Allergies: No Known Allergies (Unverified , 02/27/16) Objective Last 24 Hour Vital Signs Date Time Temp Pulse Resp B/P (MAP) Pulse Ox O2 Delivery O2 Flow Rate FiO2 07/01/17 20:52 94 07/01/17 20:20 94 Room Air 07/01/17 20:14 97.9 82 19 144/64 85 97.9 07/01/17 19:45 81 16 Room Air 21 07/01/17 17:41 132/69 07/01/17 17:41 79 132/69 07/01/17 16:00 Room Air 07/01/17 15:40 97.8 79 18 132/69 94 97.8 07/01/17 12:00 Room Air 07/01/17 11:49 97.2 77 18 119/68 95 97.2 07/01/17 11:25 141/83 07/01/17 09:42 95 141/83 07/01/17 08:16 97.6 95 18 141/83 94 97.6 07/01/17 08:16 Room Air 07/01/17 07:47 76 16 Room Air 21 07/01/17 05:25 131/85 07/01/17 04:00 97.2 92 19 131/85 97 97.2 07/01/17 00:07 133/95 07/01/17 00:00 97.3 72 21 133/95 97 97.3 Intake and Output 06/30/17 07/01/17 19:00 07:00 Intake Total 20 ml 310 ml Output Total 2000 ml 23540 ml Balance -1980 ml -23360 ml Tube Feeding 20 ml 310 ml Output Urine Total 2000 ml 19201 ml General Appearance: cachetic HEENT: atraumatic Respiratory/Chest: rhonchi Breasts: no masses Cardiovascular: normal peripheral pulses Abdomen: normal bowel sounds, soft, non tender, no scars Genitourinary: normal external genitalia Skin: no rash Microbiology Date/Time Source Procedure Growth Status 06/29/17 19:55 Blood Blood Culture - Preliminary Resulted 06/29/17 19:40 Blood Blood Culture - Preliminary Resulted 06/30/17 15:32 Sputum Gram Stain - Final Resulted 06/30/17 15:32 Sputum Sputum Culture Pending Resulted 06/29/17 20:10 Nasal Nares MRSA Culture - Final Staphylococcus Aureus - Mrsa Complete 06/29/17 19:55 Urine,Clean Catch Urine Culture - Preliminary Mixed Urogenital Contaminants Resulted Laboratory Tests 07/01/17 11:50: Erythrocyte Sedimentation Rate 26 Current Medications Medications (Trade) Dose Ordered Sig/Baljit Route PRN Reason Start Time Stop Time Status Last Admin Dose Admin Acetaminophen (Tylenol) 650 mg Q6H PRN GT pain 2-5 07/01/17 10:30 07/31/17 10:29 Amiodarone HCl (Cordarone) 100 mg DAILY GT 07/02/17 09:00 08/01/17 08:59 Amlodipine Besylate (Norvasc) 5 mg BID GT 07/01/17 18:00 07/31/17 17:59 07/01/17 17:41 Aspirin (ASA) 81 mg DAILY GT 07/02/17 09:00 08/01/17 08:59 Docusate Sodium (Colace) 100 mg TID GT 07/01/17 13:00 07/31/17 12:59 07/01/17 17:40 Famotidine (Pepcid) 20 mg BID GT 07/01/17 18:00 07/31/17 17:59 07/01/17 17:41 Heparin Sodium (Porcine) (Heparin 5000 units/ml) 5,000 units EVERY 12 HOURS SUBQ 07/01/17 21:00 07/31/17 20:59 07/01/17 20:31 Isosorbide Dinitrate (Isordil) 10 mg Q6HR GT 07/01/17 18:00 07/31/17 17:59 07/01/17 17:41 Ondansetron HCl (Zofran) 4 mg Q6H PRN IVP Nausea & Vomiting 07/01/17 10:30 07/31/17 10:29 Piperacillin Sod/ Tazobactam Sod 3.375 gm/Sodium Chloride 110 ml @ 220 mls/hr EVERY 8 HOURS IVPB 06/30/17 22:00 07/07/17 13:59 07/01/17 21:37 Promethazine HCl/ Codeine (Phenergan with Codeine) 5 ml Q4H PRN ORAL For Cough 07/01/17 10:30 07/31/17 10:29 Tramadol HCl (Ultram) 25 mg Q6H PRN GT pain level 6 and up 07/01/17 10:30 07/08/17 10:29 Vancomycin HCl (Vanco rx to dose) 1 ea DAILY PRN MISC Per rx protocol 07/01/17 10:00 07/31/17 09:59 Vancomycin HCl 1 gm/Dextrose 275 ml @ 183.708 mls/hr Q24H IVPB 07/01/17 12:00 07/06/17 11:59 07/01/17 11:25 Lauro Lopez MD July 01, 2017 22:14
[2017-07-02] VITALS: BP 151/72
[2017-07-02 04:45] VITALS: BP 142/75
[2017-07-02] MEDS: Piperacillin/Tazobactam 3.375 GM in NS 110 ML IVPB SCH ×3 (05:30→21:43)
[2017-07-02 08:00] VITALS: BP 130/67
[2017-07-02] MEDS: Docusate 100mg/10ml Liq GT SCH ×3 (09:09→18:54)
[2017-07-02] MEDS: Amiodarone 200mg tab GT SCH (09:10)
[2017-07-02] MEDS: Aspirin Baby 81mg GT SCH (09:10)
[2017-07-02] MEDS: Heparin 5000 units/ml inj SUBQ SCH ×2 (09:11→20:20)
--- NOTE | 2017-07-02 09:12 | Diagnostic Imaging Report ---
RIGHT FOOT, Views INDICATION: Osteotomy COMPARISON: None FINDINGS: 3 views of the right foot are obtained. Bony structures are intact. Bone mineralization is within normal limits. Joint spaces are preserved. Soft tissues within normal limits. No radio-opaque foreign bodies. IMPRESSION: No acute fracture or subluxation identified.
[2017-07-02] MEDS ORDERED: Tubing IV Secondary IV ONE ×2 (10:50→10:53)
[2017-07-02] MEDS ORDERED: Sterile Water Irrig 1000ml IRRIG ONE (10:53)
[2017-07-02] MEDS ORDERED: D5 1/2NS 1000ml IV ONE (10:53)
[2017-07-02 12:00] VITALS: BP 116/76
[2017-07-02] MEDS: Vancomycin 1gm in D5W 275ml IVPB SCH (12:15)
--- NOTE | 2017-07-02 13:33 | Infectious Diseases Prog Note ---
Assessment/Plan Problems: (1) Aspiration pneumonia Assessment & Plan: with gram negative rods . continue zosyn empirically, monitor CXR , await final sputum culture (2) Sepsis Assessment & Plan: with coag negative staph , source suspect right big toe wound, await wound culture, X ray of the right foot was negative for any osteomyelitis , continue vancomycin , repeat blood culture to confirm clearance (3) Right foot ulcer Assessment & Plan: clean and dry , not infected, with no drainage or foul smell , X RAY ruled out osteomyelitis (4) Dementia Assessment & Plan: continue supportive care Subjective ROS Limited/Unobtainable: Yes Allergies: Coded Allergies: No Known Allergies (Unverified , 02/27/16) Subjective she was resting in bed, comfortable, afebrile Objective Vital Signs Last 24 Hour Vital Signs Date Time Temp Pulse Resp B/P (MAP) Pulse Ox O2 Delivery O2 Flow Rate FiO2 07/02/17 12:14 116/76 07/02/17 12:00 97.7 78 19 116/76 95 97.7 07/02/17 09:10 80 130/67 07/02/17 08:00 97.7 80 18 130/67 96 97.7 07/02/17 07:35 86 18 Room Air 21 07/02/17 05:30 142/75 07/02/17 04:45 97.3 77 19 142/75 96 97.3 07/02/17 04:45 Room Air 07/02/17 00:00 97.8 77 18 151/72 95 97.8 07/02/17 00:00 Room Air 07/01/17 23:37 151/72 07/01/17 20:52 94 07/01/17 20:20 94 Room Air 07/01/17 20:14 97.9 82 19 144/64 85 97.9 07/01/17 19:45 81 16 Room Air 21 07/01/17 17:41 132/69 07/01/17 17:41 79 132/69 07/01/17 16:00 Room Air 07/01/17 15:40 97.8 79 18 132/69 94 97.8 Height (Feet): 5 Height (Inches): 3.00 Weight (Pounds): 130 General Appearance: WD/WN, no acute distress HEENT: normocephalic, atraumatic, anicteric, mucous membranes moist, PERRL Respiratory/Chest: chest wall non-tender, no respiratory distress, no accessory muscle use, decreased breath sounds, crackles/rales Cardiovascular: normal peripheral pulses, normal rate, regular rhythm, no gallop/murmur, no JVD Abdomen: normal bowel sounds, soft, non tender, no organomegaly, non distended , no mass, no scars Extremities: no cyanosis, no clubbing Skin: no rash, no lesions, ulcers - right big toe Neurologic/Psychiatric: alert, responsive Lymphatic: no neck adenopathy, no groin adenopathy Microbiology Date/Time Source Procedure Growth Status 06/29/17 19:55 Blood Blood Culture - Preliminary Staphylococcus Sp Coag Neg Resulted 06/29/17 19:40 Blood Blood Culture - Preliminary Staphylococcus Sp Coag Neg Resulted 06/30/17 15:32 Sputum Gram Stain - Final Resulted 06/30/17 15:32 Sputum Culture - Preliminary Gram Negative Bacillus 1 Resulted 06/29/17 20:10 Nasal Nares MRSA Culture - Final Staphylococcus Aureus - Mrsa Complete 06/29/17 19:55 Urine,Clean Catch Urine Culture - Final Mixed Urogenital Contaminants Complete 07/01/17 15:00 Toe Right Big Gram Stain - Final Resulted 07/01/17 15:00 Toe Right Big Wound Culture - Preliminary Resulted 06/29/17 20:10 Rectum VRE Culture - Final NO VANCOMYCIN RESISTANT ENTEROCOCCUS ... Complete Current Medications Medications (Trade) Dose Ordered Sig/Baljit Route PRN Reason Start Time Stop Time Status Last Admin Dose Admin Acetaminophen (Tylenol) 650 mg Q6H PRN GT pain 2-5 07/01/17 10:30 07/31/17 10:29 Amiodarone HCl (Cordarone) 100 mg DAILY GT 07/02/17 09:00 08/01/17 08:59 07/02/17 09:10 Amlodipine Besylate (Norvasc) 5 mg BID GT 07/01/17 18:00 07/31/17 17:59 07/02/17 09:10 Aspirin (ASA) 81 mg DAILY GT 07/02/17 09:00 08/01/17 08:59 07/02/17 09:10 Docusate Sodium (Colace) 100 mg TID GT 07/01/17 13:00 07/31/17 12:59 07/02/17 12:15 Famotidine (Pepcid) 20 mg BID GT 07/01/17 18:00 07/31/17 17:59 07/02/17 09:10 Heparin Sodium (Porcine) (Heparin 5000 units/ml) 5,000 units EVERY 12 HOURS SUBQ 07/01/17 21:00 07/31/17 20:59 07/02/17 09:11 Isosorbide Dinitrate (Isordil) 10 mg Q6HR GT 07/01/17 18:00 07/31/17 17:59 07/02/17 12:14 Ondansetron HCl (Zofran) 4 mg Q6H PRN IVP Nausea & Vomiting 07/01/17 10:30 07/31/17 10:29 Piperacillin Sod/ Tazobactam Sod 3.375 gm/Sodium Chloride 110 ml @ 220 mls/hr EVERY 8 HOURS IVPB 06/30/17 22:00 07/07/17 13:59 07/02/17 05:30 Promethazine HCl/ Codeine (Phenergan with Codeine) 5 ml Q4H PRN ORAL For Cough 07/01/17 10:30 07/31/17 10:29 Tramadol HCl (Ultram) 25 mg Q6H PRN GT pain level 6 and up 07/01/17 10:30 07/08/17 10:29 Vancomycin HCl (Vanco rx to dose) 1 ea DAILY PRN MISC Per rx protocol 07/01/17 10:00 07/31/17 09:59 Vancomycin HCl 1 gm/Dextrose 275 ml @ 183.708 mls/hr Q24H IVPB 07/01/17 12:00 07/06/17 11:59 07/02/17 12:15 Damon Briggs M.D. July 02, 2017 13:33
--- NOTE | 2017-07-02 14:12 | General Progress Note ---
Assessment/Plan Problem List: (1) Urinary tract infection ICD Codes: N39.0 - Urinary tract infection, site not specified SNOMED: 52245336 (2) Foot osteomyelitis, right ICD Codes: M86.9 - Osteomyelitis, unspecified SNOMED: 2448163215970257 (3) Dementia ICD Codes: F03.90 - Unspecified dementia without behavioral disturbance SNOMED: 76752387 (4) PEG (percutaneous endoscopic gastrostomy) status ICD Codes: Z93.1 - Gastrostomy status SNOMED: 458077812, 089563282 (5) Atrial fibrillation ICD Codes: I48.91 - Unspecified atrial fibrillation SNOMED: 00885140 (6) Bacteremia ICD Codes: R78.81 - Bacteremia SNOMED: 0685518 (7) Gram-negative pneumonia ICD Codes: J15.6 - Pneumonia due to other Gram-negative bacteria SNOMED: 233979627 (8) Functional quadriplegia ICD Codes: R53.2 - Functional quadriplegia SNOMED: 799320580654241 Assessment/Plan bone scan Breathing treatment adjust BP meds ID eval and advise Vanco and Zosyn CXR per orders Subjective ROS Limited/Unobtainable: No Constitutional: Reports: malaise Allergies: Coded Allergies: No Known Allergies (Unverified , 02/27/16) Objective Last 24 Hour Vital Signs Date Time Temp Pulse Resp B/P (MAP) Pulse Ox O2 Delivery O2 Flow Rate FiO2 07/02/17 12:14 116/76 07/02/17 12:00 97.7 78 19 116/76 95 97.7 07/02/17 09:10 80 130/67 07/02/17 08:00 97.7 80 18 130/67 96 97.7 07/02/17 07:35 86 18 Room Air 21 07/02/17 05:30 142/75 07/02/17 04:45 97.3 77 19 142/75 96 97.3 07/02/17 04:45 Room Air 07/02/17 00:00 97.8 77 18 151/72 95 97.8 07/02/17 00:00 Room Air 07/01/17 23:37 151/72 07/01/17 20:52 94 07/01/17 20:20 94 Room Air 07/01/17 20:14 97.9 82 19 144/64 85 97.9 07/01/17 19:45 81 16 Room Air 21 07/01/17 17:41 132/69 07/01/17 17:41 79 132/69 07/01/17 16:00 Room Air 07/01/17 15:40 97.8 79 18 132/69 94 97.8 Intake and Output 07/01/17 07/02/17 19:00 07:00 Intake Total 1045.000 ml 530 ml Output Total 800 ml 1700 ml Balance 245.000 ml -1170 ml Intake Free Water 300 ml 100 ml IV Total 385.000 ml 220 ml Tube Feeding 360 ml 210 ml Output Urine Total 800 ml 1700 ml # Voids 1 # Bowel Movements 1 Height (Feet): 5 Height (Inches): 3.00 Weight (Pounds): 130 General Appearance: no apparent distress Objective no other change YAZMIN CROSS July 02, 2017 14:12
[2017-07-02 16:00] VITALS: BP 134/55
[2017-07-02 20:18] VITALS: BP 137/78
[2017-07-03] VITALS (7 sets, daily range): BP systolic 122–158; BP diastolic 67–92
[2017-07-03] MEDS: Piperacillin/Tazobactam 3.375 GM in NS 110 ML IVPB SCH ×3 (05:33→21:59)
[2017-07-03] MEDS: Heparin 5000 units/ml inj SUBQ SCH ×2 (08:35→21:18)
[2017-07-03 08:36] LABS: ALANINE AMINOTRANSFERASE 34 U/L (12-78); ALBUMIN 2.7 G/DL (3.4-5.0); ALBUMIN/GLOBULIN RATIO 0.6 (1.0-2.7); ALKALINE PHOSPHATASE 110 U/L (46-116); ANION GAP 10 mmol/L (5-15); ASPARTATE AMINO TRANSFERASE 21 U/L (15-37); BILIRUBIN,TOTAL 0.6 MG/DL (0.2-1.0); BLOOD UREA NITROGEN 24 mg/dL (7-18); CALCIUM 8.7 MG/DL (8.5-10.1); CARBON DIOXIDE 26 MMOL/L (21-32); CHLORIDE 106 MMOL/L (98-107); CREATININE 0.9 MG/DL (0.55-1.30); PHOSPHORUS 3.6 MG/DL (2.5-4.9); SODIUM 142 MMOL/L (136-145)
[2017-07-03] MEDS: Docusate 100mg/10ml Liq GT SCH ×3 (08:36→18:22)
[2017-07-03] MEDS: Amiodarone 200mg tab GT SCH (08:37)
[2017-07-03] MEDS: Aspirin Baby 81mg GT SCH (08:41)
--- NOTE | 2017-07-03 11:21 | General Progress Note ---
Assessment/Plan Problem List: (1) Urinary tract infection ICD Codes: N39.0 - Urinary tract infection, site not specified SNOMED: 28307924 (2) Foot osteomyelitis, right ICD Codes: M86.9 - Osteomyelitis, unspecified SNOMED: 2720229177519339 (3) Dementia ICD Codes: F03.90 - Unspecified dementia without behavioral disturbance SNOMED: 05032407 (4) PEG (percutaneous endoscopic gastrostomy) status ICD Codes: Z93.1 - Gastrostomy status SNOMED: 080223685, 160841332 (5) Atrial fibrillation ICD Codes: I48.91 - Unspecified atrial fibrillation SNOMED: 80310149 (6) Bacteremia ICD Codes: R78.81 - Bacteremia SNOMED: 4548087 (7) Gram-negative pneumonia ICD Codes: J15.6 - Pneumonia due to other Gram-negative bacteria SNOMED: 124398243 (8) Functional quadriplegia ICD Codes: R53.2 - Functional quadriplegia SNOMED: 179026690616219 Status: stable Assessment/Plan bone scan- Breathing treatment adjust BP meds ID eval and advise Vanco and Zosyn CXR per orders Subjective ROS Limited/Unobtainable: No Constitutional: Reports: malaise Allergies: Coded Allergies: No Known Allergies (Unverified , 02/27/16) Objective Last 24 Hour Vital Signs Date Time Temp Pulse Resp B/P (MAP) Pulse Ox O2 Delivery O2 Flow Rate FiO2 07/03/17 08:37 83 144/81 07/03/17 08:33 97.5 83 18 144/81 93 Room Air 97.5 07/03/17 07:55 83 18 Room Air 21 07/03/17 05:33 134/87 07/03/17 04:32 Room Air 07/03/17 04:32 97.7 86 17 124/89 95 97.7 07/03/17 00:22 Room Air 07/03/17 00:20 97.7 84 18 155/76 93 97.7 07/02/17 23:55 155/76 07/02/17 20:40 95 Room Air 07/02/17 20:18 97.7 83 18 137/78 93 97.7 07/02/17 19:26 81 18 Room Air 21 07/02/17 18:55 134/55 07/02/17 18:55 78 134/55 07/02/17 16:00 98.1 78 19 134/55 94 98.1 07/02/17 12:14 116/76 07/02/17 12:00 97.7 78 19 116/76 95 97.7 Intake and Output 07/02/17 07/03/17 19:00 07:00 Intake Total 30 ml 650 ml Output Total 200 ml 250 ml Balance -170 ml 400 ml Intake Free Water 100 ml IV Total 220 ml Tube Feeding 30 ml 330 ml Output Urine Total 200 ml 250 ml # Voids 2 Laboratory Tests 07/03/17 06:10: Sodium Level 142, Potassium Level 4.0, Chloride Level 106, Carbon Dioxide Level 26, Anion Gap 10, Blood Urea Nitrogen 24H, Creatinine 0.9, Estimat Glomerular Filtration Rate , Glucose Level 126H, Calcium Level 8.7, Phosphorus Level 3.6, Magnesium Level 1.9, Total Bilirubin 0.6, Aspartate Amino Transf (AST/SGOT) 21, Alanine Aminotransferase (ALT/SGPT) 34, Alkaline Phosphatase 110, C-Reactive Protein, Quantitative 0.9, Total Protein 7.0, Albumin 2.7L, Globulin 4.3, Albumin/Globulin Ratio 0.6L Height (Feet): 5 Height (Inches): 3.00 Weight (Pounds): 130 General Appearance: no apparent distress Objective no other change YAZMIN CROSS July 03, 2017 11:21
[2017-07-03] MEDS: Vancomycin 1gm in D5W 275ml IVPB SCH (13:33)
--- NOTE | 2017-07-03 14:02 | Infectious Diseases Prog Note ---
Assessment/Plan Problems: (1) Aspiration pneumonia Assessment & Plan: with MDR Providencia stuartii, and gram negative rods . continue zosyn empirically pending final sputum culture . will treat with antibiotics for 10 days total . EOT 07/09/17 (2) Sepsis Assessment & Plan: with coag negative staph , source suspect right big toe wound, with culture grew the same coag negative staph , X ray of the right foot was negative for any osteomyelitis , continue vancomycin , repeat blood culture to confirm clearance is pending. bone scan of the right foot is pending to rule out osteomyelitis . will need vancomycin for two weeks total if no evidence of osteomyelitis to treat her bacteremia (3) Right foot ulcer Assessment & Plan: clean and dry , does not look infected, with no drainage or foul smell, X RAY ruled out osteomyelitis, continue local wound care as per hospital protocol , and bone scan to rule out underlying osteomyelitis (4) Dementia Assessment & Plan: continue supportive care Subjective ROS Limited/Unobtainable: Yes Allergies: Coded Allergies: No Known Allergies (Unverified , 02/27/16) Subjective she was resting in bed, no signs of distress , comfortable, afebrile Objective Vital Signs Last 24 Hour Vital Signs Date Time Temp Pulse Resp B/P (MAP) Pulse Ox O2 Delivery O2 Flow Rate FiO2 07/03/17 12:32 122/67 07/03/17 12:00 97.7 79 18 122/67 94 97.7 07/03/17 08:37 83 144/81 07/03/17 08:33 97.5 83 18 144/81 93 Room Air 97.5 07/03/17 07:55 83 18 Room Air 21 07/03/17 05:33 134/87 07/03/17 04:32 Room Air 07/03/17 04:32 97.7 86 17 124/89 95 97.7 07/03/17 00:22 Room Air 07/03/17 00:20 97.7 84 18 155/76 93 97.7 07/02/17 23:55 155/76 07/02/17 20:40 95 Room Air 07/02/17 20:18 97.7 83 18 137/78 93 97.7 07/02/17 19:26 81 18 Room Air 21 07/02/17 18:55 134/55 07/02/17 18:55 78 134/55 07/02/17 16:00 98.1 78 19 134/55 94 98.1 Height (Feet): 5 Height (Inches): 3.00 Weight (Pounds): 130 General Appearance: WD/WN, no acute distress, cachetic HEENT: normocephalic, atraumatic, anicteric, mucous membranes moist Respiratory/Chest: chest wall non-tender, no respiratory distress, no accessory muscle use, decreased breath sounds, crackles/rales Cardiovascular: normal peripheral pulses, normal rate, regular rhythm, no gallop/murmur, no JVD Abdomen: normal bowel sounds, soft, non tender, no organomegaly, non distended , no mass, no scars Extremities: no cyanosis, no clubbing Skin: no rash, no lesions, ulcers Neurologic/Psychiatric: alert, unresponsiveness Lymphatic: no neck adenopathy, no groin adenopathy Musculoskeletal: normal muscle bulk, no effusion Microbiology Date/Time Source Procedure Growth Status 06/30/17 15:32 Sputum Gram Stain - Final Resulted 06/30/17 15:32 Sputum Culture - Preliminary Providencia Stuartii Gram Negative Bacillus 2 Usual Respiratory Dorys Resulted 07/01/17 15:00 Toe Right Big Gram Stain - Final Resulted 07/01/17 15:00 Wound Culture - Preliminary Staphylococcus Sp Coag Neg Resulted Laboratory Tests Test 07/03/17 06:10 07/03/17 11:10 Sodium Level 142 MMOL/L (136-145) Potassium Level 4.0 MMOL/L (3.5-5.1) Chloride Level 106 MMOL/L (98-107) Carbon Dioxide Level 26 MMOL/L (21-32) Anion Gap 10 mmol/L (5-15) Blood Urea Nitrogen 24 mg/dL (7-18) H Creatinine 0.9 MG/DL (0.55-1.30) Estimat Glomerular Filtration Rate mL/min (>60) Glucose Level 126 MG/DL (74-106) H Calcium Level 8.7 MG/DL (8.5-10.1) Phosphorus Level 3.6 MG/DL (2.5-4.9) Magnesium Level 1.9 MG/DL (1.8-2.4) Total Bilirubin 0.6 MG/DL (0.2-1.0) Aspartate Amino Transf (AST/SGOT) 21 U/L (15-37) Alanine Aminotransferase (ALT/SGPT) 34 U/L (12-78) Alkaline Phosphatase 110 U/L (46-116) C-Reactive Protein, Quantitative 0.9 mg/dL (0.00-0.90) Total Protein 7.0 G/DL (6.4-8.2) Albumin 2.7 G/DL (3.4-5.0) L Globulin 4.3 g/dL Albumin/Globulin Ratio 0.6 (1.0-2.7) L Vancomycin Level Trough 10.2 ug/mL (5.0-12.0) Current Medications Medications (Trade) Dose Ordered Sig/Baljit Route PRN Reason Start Time Stop Time Status Last Admin Dose Admin Acetaminophen (Tylenol) 650 mg Q6H PRN GT pain 2-5 07/01/17 10:30 07/31/17 10:29 Amiodarone HCl (Cordarone) 100 mg DAILY GT 07/02/17 09:00 08/01/17 08:59 07/03/17 08:37 Amlodipine Besylate (Norvasc) 5 mg BID GT 07/01/17 18:00 07/31/17 17:59 07/03/17 08:37 Aspirin (ASA) 81 mg DAILY GT 07/02/17 09:00 08/01/17 08:59 07/03/17 08:41 Docusate Sodium (Colace) 100 mg TID GT 07/01/17 13:00 07/31/17 12:59 07/03/17 12:42 Famotidine (Pepcid) 20 mg BID GT 07/01/17 18:00 07/31/17 17:59 07/03/17 08:36 Heparin Sodium (Porcine) (Heparin 5000 units/ml) 5,000 units EVERY 12 HOURS SUBQ 07/01/17 21:00 07/31/17 20:59 07/03/17 08:35 Isosorbide Dinitrate (Isordil) 10 mg Q6HR GT 07/01/17 18:00 07/31/17 17:59 07/03/17 12:32 Ondansetron HCl (Zofran) 4 mg Q6H PRN IVP Nausea & Vomiting 07/01/17 10:30 07/31/17 10:29 Piperacillin Sod/ Tazobactam Sod 3.375 gm/Sodium Chloride 110 ml @ 220 mls/hr EVERY 8 HOURS IVPB 06/30/17 22:00 07/07/17 13:59 07/03/17 05:33 Promethazine HCl/ Codeine (Phenergan with Codeine) 5 ml Q4H PRN ORAL For Cough 07/01/17 10:30 07/31/17 10:29 Tramadol HCl (Ultram) 25 mg Q6H PRN GT pain level 6 and up 07/01/17 10:30 07/08/17 10:29 Vancomycin HCl (Vanco rx to dose) 1 ea DAILY PRN MISC Per rx protocol 07/01/17 10:00 07/31/17 09:59 Vancomycin HCl 1 gm/Dextrose 275 ml @ 183.708 mls/hr Q24H IVPB 07/01/17 12:00 07/03/17 14:30 07/03/17 13:33 Vancomycin HCl/ Dextrose 250 ml @ 166.667 mls/hr Q24H IVPB 07/04/17 12:00 07/09/17 11:59 Damon Briggs M.D. July 03, 2017 14:02
--- NOTE | 2017-07-03 15:43 | Pulmonology Progress Note ---
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 (4) Dementia (5) PEG (percutaneous endoscopic gastrostomy) status (6) Advanced age Assessment/Plan respiratory treatment check sputum chest pt iv abx sputum induction aspiration precaution BC and sputum pending Subjective ROS Limited/Unobtainable: Yes Allergies: Coded Allergies: No Known Allergies (Unverified , 02/27/16) Objective Last 24 Hour Vital Signs Date Time Temp Pulse Resp B/P (MAP) Pulse Ox O2 Delivery O2 Flow Rate FiO2 07/03/17 12:32 122/67 07/03/17 12:00 97.7 79 18 122/67 94 97.7 07/03/17 08:37 83 144/81 07/03/17 08:33 97.5 83 18 144/81 93 Room Air 97.5 07/03/17 07:55 83 18 Room Air 21 07/03/17 05:33 134/87 07/03/17 04:32 Room Air 07/03/17 04:32 97.7 86 17 124/89 95 97.7 07/03/17 00:22 Room Air 07/03/17 00:20 97.7 84 18 155/76 93 97.7 07/02/17 23:55 155/76 07/02/17 20:40 95 Room Air 07/02/17 20:18 97.7 83 18 137/78 93 97.7 07/02/17 19:26 81 18 Room Air 21 07/02/17 18:55 134/55 07/02/17 18:55 78 134/55 07/02/17 16:00 98.1 78 19 134/55 94 98.1 Intake and Output 07/02/17 07/03/17 19:00 07:00 Intake Total 30 ml 650 ml Output Total 200 ml 250 ml Balance -170 ml 400 ml Intake Free Water 100 ml IV Total 220 ml Tube Feeding 30 ml 330 ml Output Urine Total 200 ml 250 ml # Voids 2 General Appearance: WD/WN HEENT: atraumatic, anicteric Respiratory/Chest: chest wall non-tender, normal breath sounds Breasts: no masses Cardiovascular: normal rate Abdomen: normal bowel sounds, no organomegaly Extremities: no clubbing Microbiology Date/Time Source Procedure Growth Status 07/01/17 15:00 Toe Right Big Gram Stain - Final Resulted 07/01/17 15:00 Wound Culture - Preliminary Staphylococcus Sp Coag Neg Resulted Laboratory Tests 07/03/17 06:10: Sodium Level 142, Potassium Level 4.0, Chloride Level 106, Carbon Dioxide Level 26, Anion Gap 10, Blood Urea Nitrogen 24H, Creatinine 0.9, Estimat Glomerular Filtration Rate , Glucose Level 126H, Calcium Level 8.7, Phosphorus Level 3.6, Magnesium Level 1.9, Total Bilirubin 0.6, Aspartate Amino Transf (AST/SGOT) 21, Alanine Aminotransferase (ALT/SGPT) 34, Alkaline Phosphatase 110, C-Reactive Protein, Quantitative 0.9, Total Protein 7.0, Albumin 2.7L, Globulin 4.3, Albumin/Globulin Ratio 0.6L 07/03/17 11:10: Vancomycin Level Trough 10.2 Current Medications Medications (Trade) Dose Ordered Sig/Baljit Route PRN Reason Start Time Stop Time Status Last Admin Dose Admin Acetaminophen (Tylenol) 650 mg Q6H PRN GT pain 2-5 07/01/17 10:30 07/31/17 10:29 Amiodarone HCl (Cordarone) 100 mg DAILY GT 07/02/17 09:00 08/01/17 08:59 07/03/17 08:37 Amlodipine Besylate (Norvasc) 5 mg BID GT 07/01/17 18:00 07/31/17 17:59 07/03/17 08:37 Aspirin (ASA) 81 mg DAILY GT 07/02/17 09:00 08/01/17 08:59 07/03/17 08:41 Docusate Sodium (Colace) 100 mg TID GT 07/01/17 13:00 07/31/17 12:59 07/03/17 12:42 Famotidine (Pepcid) 20 mg BID GT 07/01/17 18:00 07/31/17 17:59 07/03/17 08:36 Heparin Sodium (Porcine) (Heparin 5000 units/ml) 5,000 units EVERY 12 HOURS SUBQ 07/01/17 21:00 07/31/17 20:59 07/03/17 08:35 Isosorbide Dinitrate (Isordil) 10 mg Q6HR GT 07/01/17 18:00 07/31/17 17:59 07/03/17 12:32 Ondansetron HCl (Zofran) 4 mg Q6H PRN IVP Nausea & Vomiting 07/01/17 10:30 07/31/17 10:29 Piperacillin Sod/ Tazobactam Sod 3.375 gm/Sodium Chloride 110 ml @ 220 mls/hr EVERY 8 HOURS IVPB 06/30/17 22:00 07/07/17 13:59 07/03/17 05:33 Promethazine HCl/ Codeine (Phenergan with Codeine) 5 ml Q4H PRN ORAL For Cough 07/01/17 10:30 07/31/17 10:29 Tramadol HCl (Ultram) 25 mg Q6H PRN GT pain level 6 and up 07/01/17 10:30 07/08/17 10:29 Vancomycin HCl (Vanco rx to dose) 1 ea DAILY PRN MISC Per rx protocol 07/01/17 10:00 07/31/17 09:59 Vancomycin HCl/ Dextrose 250 ml @ 166.667 mls/hr Q24H IVPB 07/04/17 12:00 07/09/17 11:59 Lauro Lopez MD July 03, 2017 15:43
--- NOTE | 2017-07-03 16:55 | Diagnostic Imaging Report ---
Indication: Cellulitis Technique: 25.2 mCi of technetium 99 M-MDP was injected intravenously. A triple phase bone scan was then performed with blood flow, blood pool and delayed planar imaging in the region of interest. Several spot images were also obtained. Comparison: No prior bone scan available for comparison Findings: There is focal increased radiotracer activity in the region of the right first metatarsal head on blood pool images. This is noted on immediate planar images as well as on delayed images. Findings are concerning for osteomyelitis.. IMPRESSION: Focal abnormal radiotracer uptake in the region of the first metatarsal head concerning for osteomyelitis. Please note that a dorsal dislocation of the first phalanx is seen on right foot radiographs 07/02/17. No definite fracture is noted in this area. Correlate with physical exam. Findings were discussed the patient's treating nurse on 4 W. via telephone conversation approximately 16:40 on 07/03/2017.
[2017-07-04 04:00] VITALS: BP 147/78
[2017-07-04] MEDS: Piperacillin/Tazobactam 3.375 GM in NS 110 ML IVPB SCH ×3 (05:44→21:23)
[2017-07-04 08:11] VITALS: BP 106/70
[2017-07-04] MEDS: Aspirin Baby 81mg GT SCH (09:11)
[2017-07-04] MEDS: Amiodarone 200mg tab GT SCH (09:19)
[2017-07-04] MEDS: Docusate 100mg/10ml Liq GT SCH ×3 (09:22→18:48)
[2017-07-04] MEDS: Heparin 5000 units/ml inj SUBQ SCH ×2 (09:23→21:24)
[2017-07-04 12:26] VITALS: BP 130/70
--- NOTE | 2017-07-04 14:17 | Infectious Diseases Prog Note ---
Assessment/Plan Problems: (1) Aspiration pneumonia Assessment & Plan: with MDR Providencia stuartii, and gram negative rods . continue zosyn empirically pending final sputum culture . will treat with antibiotics for 10 days total . EOT 07/09/17 (2) Sepsis Assessment & Plan: with coag negative staph , source suspect right big toe wound infection with underlying osteomyelitis , bone scan of the right foot was positive for osteomyelitis of the big toe , will treat with vancomycin for 6 weeks , repeat blood culture to confirm clearance is pending. will need PICC line for care home antibiotics treatment if repeated blood culture is negative . (3) Right foot ulcer Assessment & Plan: with dorsal dislocation of the first phalanx , does not look infected, with no drainage or foul smell, X RAY ruled out osteomyelitis , but bone scan showed osteomyelitis , continue local wound care as per hospital protocol , and antibiotics for 6 weeks to treat her osteomyelitis. will consult sulky driver (4) Dementia Assessment & Plan: continue supportive care Subjective ROS Limited/Unobtainable: Yes Allergies: Coded Allergies: No Known Allergies (Unverified , 02/27/16) Subjective she was resting in bed, no signs of distress , comfortable, afebrile Objective Vital Signs Last 24 Hour Vital Signs Date Time Temp Pulse Resp B/P (MAP) Pulse Ox O2 Delivery O2 Flow Rate FiO2 07/04/17 12:26 97.3 69 18 130/70 95 97.3 07/04/17 09:21 74 134/66 07/04/17 08:11 97.5 77 18 106/70 95 97.5 07/04/17 07:55 78 18 Room Air 21 07/04/17 05:49 147/78 07/04/17 04:00 98.2 79 16 147/78 96 Room Air 98.2 07/04/17 00:47 137/75 07/03/17 20:00 97.0 77 16 137/75 96 Room Air 97.0 07/03/17 19:44 80 18 Room Air 21 07/03/17 18:32 158/92 07/03/17 18:22 74 158/92 07/03/17 18:20 74 158/92 07/03/17 16:00 98.5 72 19 143/75 96 98.5 07/03/17 16:00 Room Air Height (Feet): 5 Height (Inches): 3.00 Weight (Pounds): 130 General Appearance: WD/WN, no acute distress HEENT: normocephalic, atraumatic, anicteric, mucous membranes moist, PERRL Respiratory/Chest: chest wall non-tender, lungs clear, normal breath sounds, no respiratory distress, no accessory muscle use Cardiovascular: normal peripheral pulses, normal rate, regular rhythm, no gallop/murmur, no JVD Abdomen: normal bowel sounds, soft, non tender, no organomegaly, non distended , no mass, no scars Extremities: no cyanosis, no clubbing Skin: no rash, no lesions, ulcers - right big toe wound with granulation at the base Neurologic/Psychiatric: alert, unresponsiveness Microbiology Date/Time Source Procedure Growth Status 07/01/17 15:00 Toe Right Big Gram Stain - Final Complete 07/01/17 15:00 Wound Culture - Final Staphylococcus Sp Coag Neg Diphtheroids Complete Current Medications Medications (Trade) Dose Ordered Sig/Baljit Route PRN Reason Start Time Stop Time Status Last Admin Dose Admin Acetaminophen (Tylenol) 650 mg Q6H PRN GT pain 2-5 07/01/17 10:30 07/31/17 10:29 Amiodarone HCl (Cordarone) 100 mg DAILY GT 07/02/17 09:00 08/01/17 08:59 07/04/17 09:19 Amlodipine Besylate (Norvasc) 5 mg BID GT 07/01/17 18:00 07/31/17 17:59 07/04/17 09:21 Aspirin (ASA) 81 mg DAILY GT 07/02/17 09:00 08/01/17 08:59 07/04/17 09:11 Docusate Sodium (Colace) 100 mg TID GT 07/01/17 13:00 07/31/17 12:59 07/04/17 09:22 Famotidine (Pepcid) 20 mg BID GT 07/01/17 18:00 07/31/17 17:59 07/04/17 09:13 Heparin Sodium (Porcine) (Heparin 5000 units/ml) 5,000 units EVERY 12 HOURS SUBQ 07/01/17 21:00 07/31/17 20:59 07/04/17 09:23 Isosorbide Dinitrate (Isordil) 10 mg Q6HR GT 07/01/17 18:00 07/31/17 17:59 07/04/17 05:49 Ondansetron HCl (Zofran) 4 mg Q6H PRN IVP Nausea & Vomiting 07/01/17 10:30 07/31/17 10:29 Piperacillin Sod/ Tazobactam Sod 3.375 gm/Sodium Chloride 110 ml @ 27.5 mls/hr EVERY 8 HOURS IVPB 07/04/17 14:00 07/07/17 13:59 Promethazine HCl/ Codeine (Phenergan with Codeine) 5 ml Q4H PRN ORAL For Cough 07/01/17 10:30 07/31/17 10:29 Tramadol HCl (Ultram) 25 mg Q6H PRN GT pain level 6 and up 07/01/17 10:30 07/08/17 10:29 Vancomycin HCl (Vanco rx to dose) 1 ea DAILY PRN MISC Per rx protocol 07/01/17 10:00 07/31/17 09:59 Vancomycin HCl/ Dextrose 250 ml @ 166.667 mls/hr Q24H IVPB 07/04/17 12:00 07/09/17 11:59 Damon Briggs M.D. July 04, 2017 14:17
--- NOTE | 2017-07-04 14:32 | Pulmonology Progress Note ---
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 (4) Dementia (5) PEG (percutaneous endoscopic gastrostomy) status (6) Advanced age Assessment/Plan no new events sputum cultures reviewed respiratory treatment check sputum chest pt iv abx sputum induction aspiration precaution tolerating diet Subjective ROS Limited/Unobtainable: Yes Allergies: Coded Allergies: No Known Allergies (Unverified , 02/27/16) Objective Last 24 Hour Vital Signs Date Time Temp Pulse Resp B/P (MAP) Pulse Ox O2 Delivery O2 Flow Rate FiO2 07/04/17 14:25 152/75 07/04/17 12:26 97.3 69 18 130/70 95 97.3 07/04/17 09:21 74 134/66 07/04/17 08:11 97.5 77 18 106/70 95 97.5 07/04/17 07:55 78 18 Room Air 21 07/04/17 05:49 147/78 07/04/17 04:00 98.2 79 16 147/78 96 Room Air 98.2 07/04/17 00:47 137/75 07/03/17 20:00 97.0 77 16 137/75 96 Room Air 97.0 07/03/17 19:44 80 18 Room Air 21 07/03/17 18:32 158/92 07/03/17 18:22 74 158/92 07/03/17 18:20 74 158/92 07/03/17 16:00 98.5 72 19 143/75 96 98.5 07/03/17 16:00 Room Air Intake and Output 07/03/17 07/04/17 19:00 07:00 Intake Total 530 ml 1830 ml Output Total 200 ml Balance 330 ml 1830 ml Intake Free Water 200 ml 1500 ml Tube Feeding 330 ml 330 ml Output Urine Total 200 ml # Voids 4 General Appearance: cachetic HEENT: normocephalic, atraumatic Respiratory/Chest: chest wall non-tender, lungs clear Breasts: no masses Cardiovascular: normal rate Abdomen: normal bowel sounds, soft, non tender Genitourinary: normal external genitalia Skin: no rash Microbiology Date/Time Source Procedure Growth Status 07/01/17 15:00 Toe Right Big Gram Stain - Final Complete 07/01/17 15:00 Wound Culture - Final Staphylococcus Sp Coag Neg Diphtheroids Complete Current Medications Medications (Trade) Dose Ordered Sig/Baljit Route PRN Reason Start Time Stop Time Status Last Admin Dose Admin Acetaminophen (Tylenol) 650 mg Q6H PRN GT pain 2-5 07/01/17 10:30 07/31/17 10:29 Amiodarone HCl (Cordarone) 100 mg DAILY GT 07/02/17 09:00 08/01/17 08:59 07/04/17 09:19 Amlodipine Besylate (Norvasc) 5 mg BID GT 07/01/17 18:00 07/31/17 17:59 07/04/17 09:21 Aspirin (ASA) 81 mg DAILY GT 07/02/17 09:00 08/01/17 08:59 07/04/17 09:11 Docusate Sodium (Colace) 100 mg TID GT 07/01/17 13:00 07/31/17 12:59 07/04/17 14:25 Famotidine (Pepcid) 20 mg BID GT 07/01/17 18:00 07/31/17 17:59 07/04/17 09:13 Heparin Sodium (Porcine) (Heparin 5000 units/ml) 5,000 units EVERY 12 HOURS SUBQ 07/01/17 21:00 07/31/17 20:59 07/04/17 09:23 Isosorbide Dinitrate (Isordil) 10 mg Q6HR GT 07/01/17 18:00 07/31/17 17:59 07/04/17 14:25 Ondansetron HCl (Zofran) 4 mg Q6H PRN IVP Nausea & Vomiting 07/01/17 10:30 07/31/17 10:29 Piperacillin Sod/ Tazobactam Sod 3.375 gm/Sodium Chloride 110 ml @ 27.5 mls/hr EVERY 8 HOURS IVPB 07/04/17 14:00 07/07/17 13:59 Promethazine HCl/ Codeine (Phenergan with Codeine) 5 ml Q4H PRN ORAL For Cough 07/01/17 10:30 07/31/17 10:29 Tramadol HCl (Ultram) 25 mg Q6H PRN GT pain level 6 and up 07/01/17 10:30 07/08/17 10:29 Vancomycin HCl (Vanco rx to dose) 1 ea DAILY PRN MISC Per rx protocol 07/01/17 10:00 07/31/17 09:59 Vancomycin HCl/ Dextrose 250 ml @ 166.667 mls/hr Q24H IVPB 07/04/17 12:00 07/09/17 11:59 Lauro Lopez MD July 04, 2017 14:32
--- NOTE | 2017-07-04 14:42 | Consultation ---
History of Present Illness General Date patient seen: July 04, 2017 Chief Complaint: Upper Respiratory Illness Reason for Consultation: osteo Present Illness HPI 82F with multiple medical comorbidities currently admitted for care and management was noted to have wound on her right foot. seems to have been chronic and concerns for deep infection. plain films without significant findings but CT with concerns for osteo. surgery called to evaluate. patient seen, chart reviewed, patient examined. Allergies: Coded Allergies: No Known Allergies (Unverified , 02/27/16) Medication History Scheduled Amiodarone Hcl* (Pacerone*), 200 MG GT DAILY Amlodipine Besylate (Norvasc), 2.5 MG ORAL DAILY, (Reported) Ascorbic Acid* (Vitamin C*), 500 MG GT DAILY, (Reported) Aspirin* (Aspirin*), 81 MG ORAL DAILY, (Reported) Betamet Diprop/Prop Gly (Betamethasone Dp Aug 0.05% Crm), 15 GM TP DAILY, ( Reported) Calcium Carbonate (Calcium Carbonate), 500 MG PO BID, (Reported) Ciprofloxacin* (Ciprofloxacin*), 250 MG GT EVERY 12 HOURS Diltiazem HCl (Diltiazem 12Hr ER), 30 MG GT EVERY 8 HOURS Docusate Sodium* (Colace*), 100 MG ORAL THREE TIMES A DAY Donepezil Hcl* (Donepezil Hcl*), 10 MG ORAL HS, (Reported) Doxycycline Hyclate (Doxycycline Hyclate), 100 MG GT EVERY 12 HOURS Famotidine (Famotidine), 20 MG GT BID Isosorbide Dinitrate* (Isordil*), 10 MG GT Q6HR Lactobacillus Rhamnosus Gg* (Culturelle*), 1 TAB GT THREE TIMES A DAY Levalbuterol HCl (Xopenex Concentrate), 1.25 MG HHN TIDRT Levofloxacin* (Levaquin*), 250 MG ORAL DAILY Multivitamin (Multivitamins), 1 CAP ORAL DAILY, (Reported) Omeprazole (Omeprazole), 20 MG ORAL DAILY, (Reported) Simvastatin (Zocor), 10 MG ORAL BEDTIME, (Reported) Vitamin A & D (Vitamin A & D Ointment), TOPIC DAILY, (Reported) Vitamin D (Vitamin D3), 2,000 UNITS ORAL DAILY, (Reported) Scheduled PRN Acetaminophen* (Acetaminophen 325MG Tablet*), 650 MG ORAL Q6H PRN Acetaminophen* (Acetaminophen*), 650 MG RECTAL Q4H PRN Codeine/Promethazine Hcl* (Promethazine-Codeine Syrup*), 5 ML ORAL Q4H PRN Tramadol Hcl* (Ultram*), 25 MG GT Q6HR PRN Miscellaneous Medications Collagenase Clostridium Hist. (Collagenase), 1 EACH , (Reported) Erythromycin Base/Ethanol (Erythromycin 2% Gel), 30 GM TP, (Reported) Verapamil Hcl (Verapamil Hcl), 40 MG PO, (Reported) Patient History History Provided By: Family Member, Medical Record, PMD Healthcare decision maker Resuscitation status Do Not Resuscitate Advanced Directive on File No Past Medical/Surgical History Past Medical/Surgical History: (1) Fever (2) Tachycardia (3) Atrial fibrillation with RVR (4) Dysphagia (5) Encounter for PEG (percutaneous endoscopic gastrostomy) (6) Osteomyelitis (7) Pneumonia (8) Urinary tract infection (9) Foot osteomyelitis, right (10) Dementia (11) Atrial fibrillation (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 (13) Advanced dementia (14) Advanced age (15) Aspiration pneumonia (16) Acute renal failure (17) Sepsis (18) Right foot ulcer (19) Bacteremia (20) Gram-negative pneumonia (21) Functional quadriplegia (22) PEG (percutaneous endoscopic gastrostomy) status Review of Systems ROS Narrative cannot obtain given patients medical condition Physical Exam General Appearance: no apparent distress, alert HEENT: normocephalic, mucous membranes moist Neck: normal inspection Respiratory/Chest: normal breath sounds, no respiratory distress, no accessory muscle use Cardiovascular/Chest: normal rate Abdomen: non tender, soft, no organomegaly Extremities: other - see wound care photos. right medial distal foot 1cm ulcer chronic healing. no abscess. no pus Neurologic: unresponsiveness Last 24 Hour Vital Signs Date Time Temp Pulse Resp B/P (MAP) Pulse Ox O2 Delivery O2 Flow Rate FiO2 07/04/17 14:25 152/75 07/04/17 12:26 97.3 69 18 130/70 95 97.3 07/04/17 09:21 74 134/66 07/04/17 08:11 97.5 77 18 106/70 95 97.5 07/04/17 07:55 78 18 Room Air 21 07/04/17 05:49 147/78 07/04/17 04:00 98.2 79 16 147/78 96 Room Air 98.2 07/04/17 00:47 137/75 07/03/17 20:00 97.0 77 16 137/75 96 Room Air 97.0 07/03/17 19:44 80 18 Room Air 21 07/03/17 18:32 158/92 07/03/17 18:22 74 158/92 07/03/17 18:20 74 158/92 07/03/17 16:00 98.5 72 19 143/75 96 98.5 07/03/17 16:00 Room Air Intake and Output 07/03/17 07/04/17 19:00 07:00 Intake Total 530 ml 1830 ml Output Total 200 ml Balance 330 ml 1830 ml Intake Free Water 200 ml 1500 ml Tube Feeding 330 ml 330 ml Output Urine Total 200 ml # Voids 4 Height (Feet): 5 Height (Inches): 3.00 Weight (Pounds): 130 Medications Current Medications Medications (Trade) Dose Ordered Sig/Baljit Route PRN Reason Start Time Stop Time Status Last Admin Dose Admin Acetaminophen (Tylenol) 650 mg Q6H PRN GT pain 2-5 07/01/17 10:30 07/31/17 10:29 Amiodarone HCl (Cordarone) 100 mg DAILY GT 07/02/17 09:00 08/01/17 08:59 07/04/17 09:19 Amlodipine Besylate (Norvasc) 5 mg BID GT 07/01/17 18:00 07/31/17 17:59 07/04/17 09:21 Aspirin (ASA) 81 mg DAILY GT 07/02/17 09:00 08/01/17 08:59 07/04/17 09:11 Docusate Sodium (Colace) 100 mg TID GT 07/01/17 13:00 07/31/17 12:59 07/04/17 14:25 Famotidine (Pepcid) 20 mg BID GT 07/01/17 18:00 07/31/17 17:59 07/04/17 09:13 Heparin Sodium (Porcine) (Heparin 5000 units/ml) 5,000 units EVERY 12 HOURS SUBQ 07/01/17 21:00 07/31/17 20:59 07/04/17 09:23 Isosorbide Dinitrate (Isordil) 10 mg Q6HR GT 07/01/17 18:00 07/31/17 17:59 07/04/17 14:25 Ondansetron HCl (Zofran) 4 mg Q6H PRN IVP Nausea & Vomiting 07/01/17 10:30 07/31/17 10:29 Piperacillin Sod/ Tazobactam Sod 3.375 gm/Sodium Chloride 110 ml @ 27.5 mls/hr EVERY 8 HOURS IVPB 07/04/17 14:00 07/07/17 13:59 Promethazine HCl/ Codeine (Phenergan with Codeine) 5 ml Q4H PRN ORAL For Cough 07/01/17 10:30 07/31/17 10:29 Tramadol HCl (Ultram) 25 mg Q6H PRN GT pain level 6 and up 07/01/17 10:30 07/08/17 10:29 Vancomycin HCl (Vanco rx to dose) 1 ea DAILY PRN MISC Per rx protocol 07/01/17 10:00 07/31/17 09:59 Vancomycin HCl/ Dextrose 250 ml @ 166.667 mls/hr Q24H IVPB 07/04/17 12:00 07/09/17 11:59 Assessment/Plan Problem List: (1) Foot osteomyelitis, right Assessment & Plan: 82F with chronic right foot wound that has osteo. afebrile , HD stable, exam as above. bone scan: Focal abnormal radiotracer uptake in the region of the first metatarsal head concerning for osteomyelitis. Please note that a dorsal dislocation of the first phalanx is seen on right foot radiographs 07/02/17. No definite fracture is noted in this area. Correlate with physical exam. -concerns for osteo on right first metatarsal -can consider 6 weeks IV Abx vs amputation of toe. if amputation would not need skilled nursing antibiotics which has its own risks. -will discuss with POA -will follow with recs for now cont IV abx and wound care with non adherent dressings. thank you for this consultation ICD Codes: M86.9 - Osteomyelitis, unspecified SNOMED: 1264423595414599 Status: stable Rafat Olvera July 04, 2017 14:42
[2017-07-04] MEDS: Vancomycin 1250mg/D5W 250ml IVPB SCH (14:48)
--- NOTE | 2017-07-04 15:01 | Cardiology Report ---
APPROVED REPORT EKG Measurement Heart [id number] ID [id number] Normal sinus rhythm Normal ECG
--- NOTE | 2017-07-04 15:09 | General Progress Note ---
Assessment/Plan Problem List: (1) Urinary tract infection ICD Codes: N39.0 - Urinary tract infection, site not specified SNOMED: 44606922 (2) Foot osteomyelitis, right ICD Codes: M86.9 - Osteomyelitis, unspecified SNOMED: 8454979773297954 (3) Dementia ICD Codes: F03.90 - Unspecified dementia without behavioral disturbance SNOMED: 40877188 (4) PEG (percutaneous endoscopic gastrostomy) status ICD Codes: Z93.1 - Gastrostomy status SNOMED: 080739687, 741922680 (5) Atrial fibrillation ICD Codes: I48.91 - Unspecified atrial fibrillation SNOMED: 74909311 (6) Bacteremia ICD Codes: R78.81 - Bacteremia SNOMED: 9451639 (7) Gram-negative pneumonia ICD Codes: J15.6 - Pneumonia due to other Gram-negative bacteria SNOMED: 953875877 (8) Functional quadriplegia ICD Codes: R53.2 - Functional quadriplegia SNOMED: 642392131984941 Status: unchanged Assessment/Plan bone scan- suggests Osteo surgery vs 6 weeks IV antibiotics Will discuss with DPOA Breathing treatment adjust BP meds ID eval and advise Vanco and Zosyn CXR per orders Subjective ROS Limited/Unobtainable: No Allergies: Coded Allergies: No Known Allergies (Unverified , 02/27/16) Objective Last 24 Hour Vital Signs Date Time Temp Pulse Resp B/P (MAP) Pulse Ox O2 Delivery O2 Flow Rate FiO2 07/04/17 14:25 152/75 07/04/17 12:26 97.3 69 18 130/70 95 97.3 07/04/17 09:21 74 134/66 07/04/17 08:11 97.5 77 18 106/70 95 97.5 07/04/17 07:55 78 18 Room Air 21 07/04/17 05:49 147/78 07/04/17 04:00 98.2 79 16 147/78 96 Room Air 98.2 07/04/17 00:47 137/75 07/03/17 20:00 97.0 77 16 137/75 96 Room Air 97.0 07/03/17 19:44 80 18 Room Air 21 07/03/17 18:32 158/92 07/03/17 18:22 74 158/92 07/03/17 18:20 74 158/92 07/03/17 16:00 98.5 72 19 143/75 96 98.5 07/03/17 16:00 Room Air Intake and Output 07/03/17 07/04/17 19:00 07:00 Intake Total 530 ml 1830 ml Output Total 200 ml Balance 330 ml 1830 ml Intake Free Water 200 ml 1500 ml Tube Feeding 330 ml 330 ml Output Urine Total 200 ml # Voids 4 Height (Feet): 5 Height (Inches): 3.00 Weight (Pounds): 130 General Appearance: no apparent distress Cardiovascular: regular rhythm Respiratory/Chest: decreased breath sounds Abdomen: soft Objective no other change YAZMIN CROSS July 04, 2017 15:09
[2017-07-04 15:47] VITALS: BP 128/75
[2017-07-04 18:45] VITALS: BP 142/66
[2017-07-04 19:46] VITALS: BP 124/87
[2017-07-05] VITALS (7 sets, daily range): BP systolic 108–161; BP diastolic 63–83
[2017-07-05] MEDS: Piperacillin/Tazobactam 3.375 GM in NS 110 ML IVPB SCH (05:36)
[2017-07-05] MEDS: Heparin 5000 units/ml inj SUBQ SCH ×2 (09:00→21:25)
[2017-07-05] MEDS: Aspirin Baby 81mg GT SCH (09:55)
[2017-07-05] MEDS: Amiodarone 200mg tab GT SCH (09:55)
[2017-07-05] MEDS: Docusate 100mg/10ml Liq GT SCH ×3 (09:55→18:48)
[2017-07-05] MEDS ORDERED: Ertapenem 1 GM in NS 55 ML IVPB SCH (10:00)
--- NOTE | 2017-07-05 10:45 | General Progress Note ---
Assessment/Plan Problem List: (1) Urinary tract infection ICD Codes: N39.0 - Urinary tract infection, site not specified SNOMED: 74082206 (2) Foot osteomyelitis, right ICD Codes: M86.9 - Osteomyelitis, unspecified SNOMED: 8554876770634628 (3) Dementia ICD Codes: F03.90 - Unspecified dementia without behavioral disturbance SNOMED: 69642803 (4) PEG (percutaneous endoscopic gastrostomy) status ICD Codes: Z93.1 - Gastrostomy status SNOMED: 526446897, 897072799 (5) Atrial fibrillation ICD Codes: I48.91 - Unspecified atrial fibrillation SNOMED: 30688325 (6) Bacteremia ICD Codes: R78.81 - Bacteremia SNOMED: 0948949 (7) Gram-negative pneumonia ICD Codes: J15.6 - Pneumonia due to other Gram-negative bacteria SNOMED: 940051394 (8) Functional quadriplegia ICD Codes: R53.2 - Functional quadriplegia SNOMED: 031123970260014 Assessment/Plan bone scan- suggests Osteo surgery vs 6 weeks IV antibiotics Will discuss with DPOA- agreed to amputation due in am Breathing treatment adjust BP meds ID eval and advise Vanco and Zosyn CXR per orders Subjective ROS Limited/Unobtainable: No Constitutional: Reports: malaise Allergies: Coded Allergies: No Known Allergies (Unverified , 02/27/16) Objective Last 24 Hour Vital Signs Date Time Temp Pulse Resp B/P (MAP) Pulse Ox O2 Delivery O2 Flow Rate FiO2 07/05/17 09:55 87 147/76 07/05/17 08:00 98.4 87 26 147/76 96 98.4 07/05/17 07:49 78 18 Room Air 21 07/05/17 05:35 161/75 07/05/17 05:05 98.1 79 20 161/75 94 Room Air 98.1 07/05/17 04:00 98.1 81 20 161/75 94 Room Air 98.1 07/05/17 00:51 125/65 07/05/17 00:33 97.3 77 20 125/65 94 Room Air 97.3 07/04/17 20:00 Room Air 07/04/17 19:46 96.6 84 18 124/87 94 96.6 07/04/17 19:42 154/63 5/15/18 19:30 82 18 Room Air 21 07/04/17 18:47 81 142/66 07/04/17 18:45 81 142/66 07/04/17 15:47 98.0 72 20 128/75 98 98.0 07/04/17 14:25 152/75 07/04/17 12:26 97.3 69 18 130/70 95 97.3 07/04/17 12:26 69 Intake and Output 07/04/17 07/05/17 19:00 07:00 Intake Total 460 ml 287.5 ml Output Total 200 ml Balance 460 ml 87.5 ml Intake Free Water 100 ml IV Total 137.5 ml Tube Feeding 360 ml 150 ml Output Urine Total 200 ml # Voids 3 1 Height (Feet): 5 Height (Inches): 3.00 Weight (Pounds): 144 General Appearance: no apparent distress Objective no other change YAZMIN CROSS July 05, 2017 10:45
[2017-07-05] MEDS: Vancomycin 1250mg/D5W 250ml IVPB SCH (12:33)
[2017-07-05] MEDS: Ertapenem 1 GM in NS 55 ML IVPB SCH (14:18)
--- NOTE | 2017-07-05 14:29 | Infectious Diseases Prog Note ---
Assessment/Plan Problems: (1) Aspiration pneumonia Assessment & Plan: with MDR Providencia stuartii, and ESBL+ proteus mirabilis . will switch zosyn empirically to ertapenem and treat for 14 days total (2) Sepsis Assessment & Plan: with coag negative staph , source suspect right big toe wound infection with underlying osteomyelitis , bone scan of the right foot was positive for osteomyelitis of the big toe , will treat with vancomycin for 6 weeks , repeat blood culture to confirm clearance is pending. 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 (3) Right foot ulcer Assessment & Plan: with dorsal dislocation of the first phalanx , with no drainage or foul smell, X RAY ruled out osteomyelitis, but bone scan showed osteomyelitis , continue local wound care as per hospital protocol , and antibiotics for 6 weeks to treat her osteomyelitis. general surgery was consulted for amputation of the right big toe (4) Dementia Assessment & Plan: continue supportive care Subjective ROS Limited/Unobtainable: Yes Allergies: Coded Allergies: No Known Allergies (Unverified , 02/27/16) Subjective she was resting in bed, no signs of distress , comfortable, afebrile Objective Vital Signs Last 24 Hour Vital Signs Date Time Temp Pulse Resp B/P (MAP) Pulse Ox O2 Delivery O2 Flow Rate FiO2 07/05/17 12:32 132/63 07/05/17 12:00 97.3 80 22 132/63 94 97.3 07/05/17 09:55 87 147/76 07/05/17 08:00 98.4 87 26 147/76 96 98.4 07/05/17 07:49 78 18 Room Air 21 07/05/17 05:35 161/75 07/05/17 05:05 98.1 79 20 161/75 94 Room Air 98.1 07/05/17 04:00 98.1 81 20 161/75 94 Room Air 98.1 07/05/17 00:51 125/65 07/05/17 00:33 97.3 77 20 125/65 94 Room Air 97.3 07/04/17 20:00 Room Air 07/04/17 19:46 96.6 84 18 124/87 94 96.6 07/04/17 19:42 154/63 07/04/17 19:30 82 18 Room Air 21 07/04/17 18:47 81 142/66 07/04/17 18:45 81 142/66 07/04/17 15:47 98.0 72 20 128/75 98 98.0 07/04/17 14:25 152/75 Height (Feet): 5 Height (Inches): 3.00 Weight (Pounds): 144 General Appearance: WD/WN, no acute distress HEENT: normocephalic, atraumatic, anicteric, mucous membranes moist Respiratory/Chest: chest wall non-tender, no respiratory distress, no accessory muscle use, decreased breath sounds Cardiovascular: normal peripheral pulses, normal rate, regular rhythm, no gallop/murmur, no JVD Abdomen: normal bowel sounds, soft, non tender, no organomegaly, non distended , no mass, no scars Extremities: no cyanosis, no clubbing Skin: no rash, no lesions, ulcers - on the right big toe Neurologic/Psychiatric: unresponsiveness Laboratory Tests Test 07/05/17 13:30 Prothrombin Time 10.7 SEC (9.30-11.50) Prothromb Time International Ratio 1.0 (0.9-1.1) Activated Partial Thromboplast Time 27 SEC (23-33) Current Medications Medications (Trade) Dose Ordered Sig/Baljit Route PRN Reason Start Time Stop Time Status Last Admin Dose Admin Acetaminophen (Tylenol) 650 mg Q6H PRN GT pain 2-5 07/01/17 10:30 07/31/17 10:29 Amiodarone HCl (Cordarone) 100 mg DAILY GT 07/02/17 09:00 08/01/17 08:59 07/05/17 09:55 Amlodipine Besylate (Norvasc) 5 mg BID GT 07/01/17 18:00 07/31/17 17:59 07/05/17 09:55 Aspirin (ASA) 81 mg DAILY GT 07/02/17 09:00 08/01/17 08:59 07/05/17 09:55 Docusate Sodium (Colace) 100 mg TID GT 07/01/17 13:00 07/31/17 12:59 07/05/17 14:18 Ertapenem 1 gm/ Sodium Chloride 55 ml @ 110 mls/hr Q24H IVPB 07/05/17 13:00 07/10/17 12:59 07/05/17 14:18 Famotidine (Pepcid) 20 mg BID GT 07/01/17 18:00 07/31/17 17:59 07/05/17 09:55 Heparin Sodium (Porcine) (Heparin 5000 units/ml) 5,000 units EVERY 12 HOURS SUBQ 07/01/17 21:00 07/31/17 20:59 07/04/17 21:24 Isosorbide Dinitrate (Isordil) 10 mg Q6HR GT 07/01/17 18:00 07/31/17 17:59 07/05/17 12:32 Ondansetron HCl (Zofran) 4 mg Q6H PRN IVP Nausea & Vomiting 07/01/17 10:30 07/31/17 10:29 Promethazine HCl/ Codeine (Phenergan with Codeine) 5 ml Q4H PRN ORAL For Cough 07/01/17 10:30 07/31/17 10:29 Tramadol HCl (Ultram) 25 mg Q6H PRN GT pain level 6 and up 07/01/17 10:30 07/08/17 10:29 Vancomycin HCl (Vanco rx to dose) 1 ea DAILY PRN MISC Per rx protocol 07/01/17 10:00 07/31/17 09:59 Vancomycin HCl/ Dextrose 250 ml @ 166.667 mls/hr Q24H IVPB 07/04/17 12:00 07/09/17 11:59 07/05/17 12:33 Damon Briggs M.D. July 05, 2017 14:29
--- NOTE | 2017-07-05 15:33 | Pulmonology Progress Note ---
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 (4) Dementia (5) PEG (percutaneous endoscopic gastrostomy) status (6) Advanced age Assessment/Plan no new events sputum cultures reviewed respiratory treatment check sputum chest pt iv abx sputum induction aspiration precaution tolerating diet check labs in am Subjective ROS Limited/Unobtainable: Yes Constitutional: Reports: no symptoms Respiratory: Reports: no symptoms Allergies: Coded Allergies: No Known Allergies (Unverified , 02/27/16) Objective Last 24 Hour Vital Signs Date Time Temp Pulse Resp B/P (MAP) Pulse Ox O2 Delivery O2 Flow Rate FiO2 07/05/17 12:32 132/63 07/05/17 12:00 97.3 80 22 132/63 94 97.3 07/05/17 09:55 87 147/76 07/05/17 08:00 98.4 87 26 147/76 96 98.4 07/05/17 07:49 78 18 Room Air 21 07/05/17 05:35 161/75 07/05/17 05:05 98.1 79 20 161/75 94 Room Air 98.1 07/05/17 04:00 98.1 81 20 161/75 94 Room Air 98.1 07/05/17 00:51 125/65 07/05/17 00:33 97.3 77 20 125/65 94 Room Air 97.3 07/04/17 20:00 Room Air 07/04/17 19:46 96.6 84 18 124/87 94 96.6 07/04/17 19:42 154/63 07/04/17 19:30 82 18 Room Air 21 07/04/17 18:47 81 142/66 07/04/17 18:45 81 142/66 07/04/17 15:47 98.0 72 20 128/75 98 98.0 Intake and Output 07/04/17 07/05/17 19:00 07:00 Intake Total 460 ml 287.5 ml Output Total 200 ml Balance 460 ml 87.5 ml Intake Free Water 100 ml IV Total 137.5 ml Tube Feeding 360 ml 150 ml Output Urine Total 200 ml # Voids 3 1 General Appearance: WD/WN HEENT: normocephalic, atraumatic Respiratory/Chest: chest wall non-tender, lungs clear Breasts: no masses Cardiovascular: normal peripheral pulses Abdomen: normal bowel sounds, no organomegaly Genitourinary: normal external genitalia Skin: no lesions Laboratory Tests 07/05/17 13:30: Prothrombin Time 10.7, Prothromb Time International Ratio 1.0, Activated Partial Thromboplast Time 27 Current Medications Medications (Trade) Dose Ordered Sig/Baljit Route PRN Reason Start Time Stop Time Status Last Admin Dose Admin Acetaminophen (Tylenol) 650 mg Q6H PRN GT pain 2-5 07/01/17 10:30 07/31/17 10:29 Amiodarone HCl (Cordarone) 100 mg DAILY GT 07/02/17 09:00 08/01/17 08:59 07/05/17 09:55 Amlodipine Besylate (Norvasc) 5 mg BID GT 07/01/17 18:00 07/31/17 17:59 07/05/17 09:55 Aspirin (ASA) 81 mg DAILY GT 07/02/17 09:00 08/01/17 08:59 07/05/17 09:55 Docusate Sodium (Colace) 100 mg TID GT 07/01/17 13:00 07/31/17 12:59 07/05/17 14:18 Ertapenem 1 gm/ Sodium Chloride 55 ml @ 110 mls/hr Q24H IVPB 07/05/17 13:00 07/10/17 12:59 07/05/17 14:18 Famotidine (Pepcid) 20 mg BID GT 07/01/17 18:00 07/31/17 17:59 07/05/17 09:55 Heparin Sodium (Porcine) (Heparin 5000 units/ml) 5,000 units EVERY 12 HOURS SUBQ 07/01/17 21:00 07/31/17 20:59 07/04/17 21:24 Isosorbide Dinitrate (Isordil) 10 mg Q6HR GT 07/01/17 18:00 07/31/17 17:59 07/05/17 12:32 Ondansetron HCl (Zofran) 4 mg Q6H PRN IVP Nausea & Vomiting 07/01/17 10:30 07/31/17 10:29 Promethazine HCl/ Codeine (Phenergan with Codeine) 5 ml Q4H PRN ORAL For Cough 5/12/18 10:30 07/31/17 10:29 Tramadol HCl (Ultram) 25 mg Q6H PRN GT pain level 6 and up 07/01/17 10:30 07/08/17 10:29 Vancomycin HCl (Vanco rx to dose) 1 ea DAILY PRN MISC Per rx protocol 07/01/17 10:00 07/31/17 09:59 Vancomycin HCl/ Dextrose 250 ml @ 166.667 mls/hr Q24H IVPB 07/04/17 12:00 07/09/17 11:59 07/05/17 12:33 Lauro Lopez MD July 05, 2017 15:33
--- NOTE | 2017-07-05 18:20 | General Surgery Progress Note ---
General Surgery-Progress Note Subjective Additional Comments no acute events. Objective Last 24 Hour Vital Signs Date Time Temp Pulse Resp B/P (MAP) Pulse Ox O2 Delivery O2 Flow Rate FiO2 07/05/17 16:00 97.5 87 18 137/83 93 97.5 07/05/17 12:32 132/63 07/05/17 12:00 97.3 80 22 132/63 94 97.3 07/05/17 09:55 87 147/76 07/05/17 08:00 98.4 87 26 147/76 96 98.4 07/05/17 07:49 78 18 Room Air 21 07/05/17 05:35 161/75 07/05/17 05:05 98.1 79 20 161/75 94 Room Air 98.1 07/05/17 04:00 98.1 81 20 161/75 94 Room Air 98.1 07/05/17 00:51 125/65 07/05/17 00:33 97.3 77 20 125/65 94 Room Air 97.3 07/04/17 20:00 Room Air 07/04/17 19:46 96.6 84 18 124/87 94 96.6 07/04/17 19:42 154/63 07/04/17 19:30 82 18 Room Air 21 07/04/17 18:47 81 142/66 07/04/17 18:45 81 142/66 I&O Intake and Output 07/04/17 07/05/17 19:00 07:00 Intake Total 460 ml 287.5 ml Output Total 200 ml Balance 460 ml 87.5 ml Intake Free Water 100 ml IV Total 137.5 ml Tube Feeding 360 ml 150 ml Output Urine Total 200 ml # Voids 3 1 Extremities: edema, other - right medial first ray with chronic ulcer. toe subluxation at metacarpalphylangeal joint. Laboratory Tests Test 07/05/17 13:30 Prothrombin Time 10.7 SEC (9.30-11.50) Prothromb Time International Ratio 1.0 (0.9-1.1) Activated Partial Thromboplast Time 27 SEC (23-33) Plan Problems: (1) Foot osteomyelitis, right Assessment & Plan: 82F with chronic right foot wound that has osteo. afebrile , HD stable, exam as above. bone scan: Focal abnormal radiotracer uptake in the region of the first metatarsal head concerning for osteomyelitis. Please note that a dorsal dislocation of the first phalanx is seen on right foot radiographs 07/02/17. No definite fracture is noted in this area. Correlate with physical exam. -osteo on right first metatarsal. given exam with chronic ulcer down to bone and dislocated at metacarpal phalangeal joint likely has been infected for some time with bone deterioration. the toe on exam is freely mobile and without use. -discussed with POA. 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 scheduled for tomorrow AM -npo after midnight -iv fluids -consent thank you for this consultation Rafat Olvera July 05, 2017 18:20
--- NOTE | 2017-07-05 18:20 | Pre-Procedure Note/Attestation ---
Pre-Procedure Note/Attestation Complete Prior to Procedure Planned Procedure: right Procedure Narrative: amputation of right first toe Indications for Procedure Pre-Operative Diagnosis: osteo of right first toe Attestation I attest that I discussed the nature of the procedure; its benefits; risks and complications; and alternatives (and the risks and benefits of such alternatives ), prior to the procedure, with the patient (or the patient's legal motor vehicle representative). I attest that, if there was a reasonable possibility of needing a blood transfusion, the patient (or the patient's legal motor vehicle representative) was given the [facility] standardized written summary, pursuant to the [place] Blood Safety Act ([place] Health and Safety Code # 1645, as amended). I attest that I re-evaluated the patient just prior to the surgery and that there has been no change in the patient's H&P, except as documented below: Rafat Olvera July 05, 2017 18:20
[2017-07-05] MEDS: LR 1000ml 1,000 ML IV SCH (21:19)
[2017-07-06] VITALS (13 sets, daily range): BP systolic 108–156; BP diastolic 52–81
[2017-07-06 07:49] LABS: EOSINOPHILS % (AUTO) 1.2 % (0.0-3.0); HEMATOCRIT 42.5 % (37.0-47.0); HEMOGLOBIN 14.4 G/DL (12.0-16.0); LYMPHOCYTES % (AUTO) 12.2 % (20.0-45.0); MEAN CORPUSCULAR VOLUME 93 FL (80-99); MONOCYTES % (AUTO) 6.9 % (1.0-10.0); NEUTROPHILS % (AUTO) 78.7 % (45.0-75.0); PLATELET COUNT 191 K/UL (150-450); RED BLOOD COUNT 4.56 M/UL (4.20-5.40); RED CELL DISTRIBUTION WIDTH 13.1 % (11.6-14.8); WHITE BLOOD COUNT 9.7 K/UL (4.8-10.8)
--- NOTE | 2017-07-06 08:08 | Anethesia Preoperative Eval ---
Anesthesia Pre-op PMH/ROS General Date of Evaluation: July 06, 2017 Time of Evaluation: 08:05 Anesthesiologist: Joycelyn ASA Score: ASA 4 Mallampati Score Class I : Soft palate, uvula, fauces, pillars visible Class II: Soft palate, uvula, fauces visible Class III: Soft palate, base of uvula visible Class IV: Only hard plate visible Mallampati Classification: Class III Surgeon: Erick Diagnosis: R foot osteo Surgical Procedure: Amputation of R big toe Anesthesia History: none Family History: no anesthesia problems Allergies: Coded Allergies: No Known Allergies (Unverified , 02/27/16) Medications: see eMAR Past Medical History Cardiovascular: Reports: HTN; Denies: CAD, ME, valve dz, arrhythmia, other Pulmonary: Denies: asthma, COPD, JOE, other Gastrointestinal/Genitourinary: Reports: other - Dysphagia PEG tube in place; Denies: GERD, CRI, ESRD Neurologic/Psychiatric: Reports: dementia - severe dementia; Denies: CVA, depression/anxiety, TIA, other Endocrine: Reports: hypothyroidism; Denies: DM, steroids, other HEENT: Denies: cataract (L), cataract (R), glaucoma, GAKONA (L), GAKONA (R), other Hematology/Immune: Denies: anemia, DVT, bleeding disorder, other Musculoskeletal/Integumentary: Reports: other - severe conrtractions; Denies: OA, RA, DJD, DDD, edema PMH Narrative: as above PSxH Narrative: see H&P Anesthesia Pre-op Phys. Exam Physician Exam Last Vital Signs Date Time Temp Pulse Resp B/P (MAP) Pulse Ox O2 Delivery O2 Flow Rate FiO2 07/06/17 06:50 91 18 Room Air 21 07/06/17 05:19 130/65 07/06/17 03:49 97.5 94 97.5 Constitutional: NAD Neurologic: other - unable to obtaine Cardiovascular: RRR Respiratory: CTA Gastrointestinal: S/NT/ND Airway Exam Mallampati Score: Class III MO: limited Neck: stiff ROM: limited Teeth: missing, broken, loose Dentures: no upper, no lower Anesthesia Pre-op A/P Labs Hematology Test 07/06/17 07:05 White Blood Count 9.7 K/UL (4.8-10.8) Red Blood Count 4.56 M/UL (4.20-5.40) Hemoglobin 14.4 G/DL (12.0-16.0) Hematocrit 42.5 % (37.0-47.0) Mean Corpuscular Volume 93 FL (80-99) Mean Corpuscular Hemoglobin 31.6 PG (27.0-31.0) H Mean Corpuscular Hemoglobin Concent 33.8 G/DL (32.0-36.0) Red Cell Distribution Width 13.1 % (11.6-14.8) Platelet Count 191 K/UL (150-450) Mean Platelet Volume 7.8 FL (6.5-10.1) Neutrophils (%) (Auto) 78.7 % (45.0-75.0) H Lymphocytes (%) (Auto) 12.2 % (20.0-45.0) L Monocytes (%) (Auto) 6.9 % (1.0-10.0) Eosinophils (%) (Auto) 1.2 % (0.0-3.0) Basophils (%) (Auto) 1.0 % (0.0-2.0) Erythrocyte Sedimentation Rate Pending Coagulation Test 07/05/17 13:30 Prothrombin Time 10.7 SEC (9.30-11.50) Prothromb Time International Ratio 1.0 (0.9-1.1) Activated Partial Thromboplast Time 27 SEC (23-33) Chemistry Test 07/06/17 07:05 Sodium Level Pending Potassium Level Pending Chloride Level Pending Carbon Dioxide Level Pending Blood Urea Nitrogen Pending Creatinine Pending Estimat Glomerular Filtration Rate Pending Glucose Level Pending Calcium Level Pending Phosphorus Level Pending Magnesium Level Pending Total Bilirubin Pending Aspartate Amino Transf (AST/SGOT) Pending Alanine Aminotransferase (ALT/SGPT) Pending Alkaline Phosphatase Pending C-Reactive Protein, Quantitative Pending Total Protein Pending Albumin Pending Globulin Pending Risk Assessment & Plan Assessment: ASA 4 Plan: GA vs MAC Status Change Before Surgery: No Pre-Antibiotics Drug: as scheduled Stephon Hirsch MD July 06, 2017 08:08
[2017-07-06 08:25] LABS: ALANINE AMINOTRANSFERASE 34 U/L (12-78); ALBUMIN 2.9 G/DL (3.4-5.0); ALBUMIN/GLOBULIN RATIO 0.6 (1.0-2.7); ALKALINE PHOSPHATASE 124 U/L (46-116); ANION GAP 10 mmol/L (5-15); ASPARTATE AMINO TRANSFERASE 31 U/L (15-37); BILIRUBIN,TOTAL 0.6 MG/DL (0.2-1.0); BLOOD UREA NITROGEN 17 mg/dL (7-18); CALCIUM 9.8 MG/DL (8.5-10.1); CARBON DIOXIDE 26 MMOL/L (21-32); CHLORIDE 106 MMOL/L (98-107); CREATININE 1.2 MG/DL (0.55-1.30); POTASSIUM 3.7 MMOL/L (3.5-5.1); SODIUM 142 MMOL/L (136-145)
[2017-07-06 08:29] LABS: PHOSPHORUS 3.2 MG/DL (2.5-4.9)
[2017-07-06] MEDS: Docusate 100mg/10ml Liq GT SCH ×3 (09:00→17:10)
[2017-07-06] MEDS: Aspirin Baby 81mg GT SCH (09:00)
[2017-07-06] MEDS: Amiodarone 200mg tab GT SCH (09:00)
[2017-07-06] MEDS: Heparin 5000 units/ml inj SUBQ SCH ×2 (09:00→21:44)
[2017-07-06] MEDS: LR 1000ml 1,000 ML IV SCH ×2 (09:19→22:10)
[2017-07-06] MEDS: Vancomycin 1250mg/D5W 250ml IVPB SCH (12:18)
[2017-07-06] MEDS: Ertapenem 1 GM in NS 55 ML IVPB SCH (13:00)
[2017-07-06] MEDS ORDERED: LR 1000ml 1,000 ML IVLG SCH (13:14)
[2017-07-06] MEDS ORDERED: LORazepam Inj 2mg/ml 1ml IV PRN (13:15)
[2017-07-06] MEDS ORDERED: DiphenhydrAMINE 50mg/ml Inj IVP PRN (13:15)
[2017-07-06] MEDS ORDERED: fentaNYL 100 mcg/2 mL IV PRN (13:15)
[2017-07-06] MEDS ORDERED: Labetalol 5mg/ml 20ml vial IV PRN (13:15)
[2017-07-06] MEDS ORDERED: Midazolam 2mg/2ml Inj ONE (13:19)
[2017-07-06] MEDS ORDERED: Propofol 200mg/20ml IV ONE (13:19)
[2017-07-06] MEDS ORDERED: Sterile Water Irrig 1000ml IRRIG ONE (13:30)
[2017-07-06] MEDS ORDERED: NS Irrig 1000ml ONE (13:30)
[2017-07-06] MEDS ORDERED: Lidocaine 1% MPF 10mg/ml 5ml ONE (13:30)
--- NOTE | 2017-07-06 13:37 | General Progress Note ---
Assessment/Plan Problem List: (1) Urinary tract infection ICD Codes: N39.0 - Urinary tract infection, site not specified SNOMED: 66834094 (2) Foot osteomyelitis, right ICD Codes: M86.9 - Osteomyelitis, unspecified SNOMED: 5129141344289048 (3) Dementia ICD Codes: F03.90 - Unspecified dementia without behavioral disturbance SNOMED: 91557863 (4) PEG (percutaneous endoscopic gastrostomy) status ICD Codes: Z93.1 - Gastrostomy status SNOMED: 537020297, 809184907 (5) Atrial fibrillation ICD Codes: I48.91 - Unspecified atrial fibrillation SNOMED: 29016648 (6) Bacteremia ICD Codes: R78.81 - Bacteremia SNOMED: 7722250 (7) Gram-negative pneumonia ICD Codes: J15.6 - Pneumonia due to other Gram-negative bacteria SNOMED: 451352614 (8) Functional quadriplegia ICD Codes: R53.2 - Functional quadriplegia SNOMED: 862704659572542 Status: stable Assessment/Plan bone scan- suggests Osteo surgery vs 6 weeks IV antibiotics Will discuss with DPOA- agreed to amputation due today Breathing treatment adjust BP meds ID eval and advise Vanco and Zosyn CXR per orders Subjective ROS Limited/Unobtainable: No Constitutional: Reports: malaise, weakness Allergies: Coded Allergies: No Known Allergies (Unverified , 02/27/16) Objective Last 24 Hour Vital Signs Date Time Temp Pulse Resp B/P (MAP) Pulse Ox O2 Delivery O2 Flow Rate FiO2 07/06/17 12:00 126/52 07/06/17 11:37 98.0 94 18 126/52 94 98.0 07/06/17 09:00 90 156/81 07/06/17 08:15 98.2 90 18 156/81 92 98.2 07/06/17 06:50 91 18 Room Air 21 07/06/17 05:19 130/65 07/06/17 04:00 Room Air 07/06/17 03:49 97.5 79 18 130/65 94 97.5 07/06/17 00:16 143/66 07/06/17 00:00 Room Air 07/06/17 00:00 97.7 95 18 148/66 96 97.7 07/05/17 20:00 Room Air 07/05/17 20:00 97.3 92 18 108/64 93 97.3 07/05/17 19:29 82 18 Room Air 21 07/05/17 18:48 137/83 07/05/17 18:48 87 137/83 07/05/17 16:00 97.5 87 18 137/83 93 97.5 Intake and Output 07/05/17 07/06/17 19:00 07:00 Intake Total 530 ml 900 ml Balance 530 ml 900 ml Intake Free Water 200 ml 100 ml IV Total 650 ml Tube Feeding 330 ml 150 ml # Voids 4 4 # Bowel Movements 2 4 Laboratory Tests 07/06/17 07:05: White Blood Count 9.7, Red Blood Count 4.56, Hemoglobin 14.4, Hematocrit 42.5, Mean Corpuscular Volume 93, Mean Corpuscular Hemoglobin 31.6H, Mean Corpuscular Hemoglobin Concent 33.8, Red Cell Distribution Width 13.1, Platelet Count 191, Mean Platelet Volume 7.8, Neutrophils (%) (Auto) 78.7H, Lymphocytes (%) (Auto) 12.2L, Monocytes (%) (Auto) 6.9, Eosinophils (%) (Auto) 1.2, Basophils (%) (Auto ) 1.0, Erythrocyte Sedimentation Rate 84H, Sodium Level 142, Potassium Level 3.7 , Chloride Level 106, Carbon Dioxide Level 26, Anion Gap 10, Blood Urea Nitrogen 17, Creatinine 1.2, Estimat Glomerular Filtration Rate , Glucose Level 132H, Calcium Level 9.8, Phosphorus Level 3.2, Magnesium Level 2.0, Total Bilirubin 0.6, Aspartate Amino Transf (AST/SGOT) 31, Alanine Aminotransferase ( ALT/SGPT) 34, Alkaline Phosphatase 124H, C-Reactive Protein, Quantitative 2.8H, Total Protein 7.8, Albumin 2.9L, Globulin 4.9, Albumin/Globulin Ratio 0.6L Height (Feet): 5 Height (Inches): 3.00 Weight (Pounds): 144 General Appearance: no apparent distress Objective no other change YAZMIN CROSS July 06, 2017 13:37
[2017-07-06] MEDS ORDERED: EPINEPHrine 1mg/1ml Amp ONE (13:44)
[2017-07-06] MEDS ORDERED: Bupivacaine 0.5% Inj 30 ml vial INJ ONE (13:44)
--- NOTE | 2017-07-06 13:52 | Immediate Post-Op Evaluation ---
Immediate Post-Op Evalulation Immediate Post-Op Evalulation Procedure: Right great toe amputation Date of Evaluation: July 06, 2017 Time of Evaluation: 14:39 IV Fluids: 200 Blood Products: 0 Estimated Blood Loss: 25 Urinary Output: 0 Blood Pressure Systolic: 133 Blood Pressure Diastolic: 56 Pulse Rate: 69 Respiratory Rate: 16 O2 Sat by Pulse Oximetry: 98 Temperature (Fahrenheit): 97 Pain Score (1-10): 0 Nausea: No Vomiting: No Complications 0 Patient Status: awake, reacts, patent, none Hydration Status: adequate Drug: N/A, given on floor prior to OR ANGELLA JIMENEZ M.D. July 06, 2017 13:52
--- NOTE | 2017-07-06 14:44 | Brief Operative Note ---
Immediate Post Operative Note Operative Note Pre-op Diagnosis: osteo of right first toe Procedure: amputation of right first toe Post-op Diagnosis: same as pre-op Surgeon: arnaud Anesthesiologist: Adrián Anesthesia: regional, local, moderate sedation Specimen: yes Complications: none Condition: stable Fluids: see records Estimated Blood Loss: minimal Drains: none Implant(s) used?: No Rafat Olvera July 06, 2017 14:44
[2017-07-06] MEDS ORDERED: NeoSporin Gu Irrig 1ml Amp IRRIG ONE (14:53)
[2017-07-06] MEDS ORDERED: Bacitracin 50000 Units Vial ONE (14:53)
--- NOTE | 2017-07-06 19:15 | Operative Note - Dictated ---
DATE OF OPERATION: 07/06/2017 SURGEON: Rafat Olvera M.D. PREOPERATIVE DIAGNOSIS: Right first toe osteomyelitis and chronic nonhealing wound. POSTOPERATIVE DIAGNOSIS: Right first toe osteomyelitis and chronic nonhealing wound. OPERATION PERFORMED: Great toe ray amputation. ESTIMATED BLOOD LOSS: Minimal. IV FLUIDS: Please see anesthesia records. COMPLICATIONS: None. WOUND CLASSIFICATION: Class 3. COUNTS: Sponge and needle count correct x2. SPECIMENS: Right great toe sent to pathology for evaluation. INDICATIONS FOR PROCEDURE: This is an 82-year-old female with multiple medical comorbidities, who is currently hospitalized for acute active inflammatory process and was noted to have a chronic nonhealing right great toe metatarsophalangeal joint site ulcer likely pressure ulcer, which has been unhealing and infected and failing medical therapy. Plain films were obtained and noted abnormalities as well as the bone scan was consistent with likely osteomyelitis. On examination, the patient has a large ulcer running through the metatarsophalangeal joint site and a subluxed toe that is nonfunctional. The patient is bed-bound and requires full care. Given above findings, both medical therapy with continued prolonged intravenous antibiotics were discussed with as well as surgical intervention with ray amputation with the patient's power of senior trial attorney. After all options including nonoperating were discussed, decision was made to proceed with amputation, which was recommended and indicated. Risks, benefits, and alternatives were discussed in detail with [id number], who consented to surgery. OPERATIVE NOTE: The patient was taken to the operating room and placed on the operating table in supine position. The patient had significant contracture, so decision was appropriated for the patient's contractures of lower and upper extremities should be comfortable. Appropriate time-out was taken in identifying the patient, procedure, operative staff, and surgical staff. The decision was made not to intubate the patient given her multiple medical comorbidities and a regional block plus some sedation was given to the patient. The right foot and leg were then prepped and draped in the standard surgical fashion. An elliptical incision was then performed at the level of the metatarsophalangeal joint along the longitudinal access of the metatarsal bone encompassing the ulcer. The incision was deep to the level of bone dividing all tendinous attachments. The periosteum overlying the metatarsal bone was then elevated with a periosteal elevator. The bone was then transected at proximal metatarsal level. The toe was then sent to pathology for review. Hemostasis was secured and the wound was irrigated with copious amounts of sterile saline. At this time, the skin was then closed using interrupted 2-0 Monocryl sutures. Dressings were applied. The patient tolerated the procedure well and was taken to the postanesthetic care unit in stable condition. Rafat Olvera M.D. DR: BARBIE JOB#: [id number] CC:
[2017-07-07] VITALS: BP 133/67
[2017-07-07 04:00] VITALS: BP 111/60
[2017-07-07] MEDS: LR 1000ml 1,000 ML IV SCH (05:40)
[2017-07-07 08:00] VITALS: BP 128/60
--- NOTE | 2017-07-07 09:18 | Infectious Diseases Prog Note ---
Assessment/Plan Problems: (1) Aspiration pneumonia Assessment & Plan: with MDR Providencia stuartii, and ESBL+ proteus mirabilis . will switch zosyn empirically to ertapenem and treat for 14 days total (2) Sepsis Assessment & Plan: with coag negative staph , source suspect right big toe wound infection with underlying osteomyelitis , bone scan of the right foot was positive for osteomyelitis of the big toe , will treat with vancomycin for 2 weeks after her big toe amputation , repeat blood culture to confirm clearance is pending. will need PICC line for long-term antibiotics treatment if repeated blood culture is negative . (3) Right foot ulcer Assessment & Plan: with dorsal dislocation of the first phalanx , bone scan showed osteomyelitis , S/P big toe amputation , continue local wound care as per surgery , continue vancomycin for 2 weeks to treat her osteomyelitis. (4) Dementia Assessment & Plan: continue supportive care Subjective ROS Limited/Unobtainable: Yes Allergies: Coded Allergies: No Known Allergies (Unverified , 02/27/16) Subjective late entry note for 07/06/17. she had right big toe amputation , resting in bed, no signs of distress , comfortable, afebrile Objective Vital Signs Last 24 Hour Vital Signs Date Time Temp Pulse Resp B/P (MAP) Pulse Ox O2 Delivery O2 Flow Rate FiO2 07/07/17 08:00 99.0 78 20 128/60 99.0 07/07/17 05:36 111/60 07/07/17 04:00 97.0 77 24 111/60 96 97.0 07/07/17 04:00 Room Air 07/07/17 00:30 133/67 07/07/17 00:00 Room Air 07/07/17 00:00 96.8 78 18 133/67 95 96.8 07/06/17 20:00 Room Air 07/06/17 20:00 86 18 Room Air 21 07/06/17 20:00 97.7 82 18 116/60 92 97.7 07/06/17 17:11 137/66 07/06/17 17:11 72 137/66 07/06/17 15:52 97.7 72 20 137/66 97 97.7 07/06/17 15:30 97.0 78 19 125/57 100 Nasal Cannula 2.0 97.0 07/06/17 15:15 67 18 108/52 100 Nasal Cannula 2.0 07/06/17 15:04 66 18 116/56 100 Nasal Cannula 2.0 07/06/17 14:54 76 17 128/58 100 Nasal Cannula 2.0 07/06/17 14:44 70 18 136/52 99 Simple Mask 6.0 07/06/17 14:39 71 18 128/58 99 Simple Mask 6.0 07/06/17 14:37 206.6 69 16 98 07/06/17 14:34 97.0 71 17 133/56 99 Simple Mask 6.0 97.0 07/06/17 12:00 126/52 07/06/17 11:37 98.0 94 18 126/52 94 98.0 Height (Feet): 5 Height (Inches): 3.00 Weight (Pounds): 144 General Appearance: WD/WN, no acute distress HEENT: normocephalic, atraumatic, anicteric, mucous membranes moist, PERRL Respiratory/Chest: chest wall non-tender, lungs clear, normal breath sounds, no respiratory distress, no accessory muscle use Cardiovascular: normal peripheral pulses, normal rate, regular rhythm, no gallop/murmur, no JVD Abdomen: normal bowel sounds, soft, non tender, no organomegaly, non distended , no mass, no scars Genitourinary: normal external genitalia Extremities: no cyanosis, no clubbing, other - right foot big toe amputation surgical wound covered with bandage Skin: no rash, no lesions Current Medications Medications (Trade) Dose Ordered Sig/Baljit Route PRN Reason Start Time Stop Time Status Last Admin Dose Admin Acetaminophen (Tylenol) 650 mg Q6H PRN GT pain 2-5 07/01/17 10:30 07/31/17 10:29 Amiodarone HCl (Cordarone) 100 mg DAILY GT 07/02/17 09:00 08/01/17 08:59 07/05/17 09:55 Amlodipine Besylate (Norvasc) 5 mg BID GT 07/01/17 18:00 07/31/17 17:59 07/06/17 17:11 Aspirin (ASA) 81 mg DAILY GT 07/02/17 09:00 08/01/17 08:59 07/05/17 09:55 Docusate Sodium (Colace) 100 mg TID GT 07/01/17 13:00 07/31/17 12:59 07/06/17 17:10 Ertapenem 1 gm/ Sodium Chloride 55 ml @ 110 mls/hr Q24H IVPB 07/05/17 13:00 07/19/17 12:59 07/05/17 14:18 Famotidine (Pepcid) 20 mg BID GT 07/01/17 18:00 07/31/17 17:59 07/06/17 17:11 Heparin Sodium (Porcine) (Heparin 5000 units/ml) 5,000 units EVERY 12 HOURS SUBQ 07/01/17 21:00 07/31/17 20:59 07/06/17 21:44 Isosorbide Dinitrate (Isordil) 10 mg Q6HR GT 07/01/17 18:00 07/31/17 17:59 07/07/17 05:36 Lactated Ringer's 1,000 ml @ 75 mls/hr [id number] IV 07/05/17 19:30 08/04/17 19:29 07/07/17 05:40 Ondansetron HCl (Zofran) 4 mg Q6H PRN IVP Nausea & Vomiting 07/01/17 10:30 07/31/17 10:29 Promethazine HCl/ Codeine (Phenergan with Codeine) 5 ml Q4H PRN ORAL For Cough 07/01/17 10:30 07/31/17 10:29 Tramadol HCl (Ultram) 25 mg Q6H PRN GT pain level 6 and up 07/01/17 10:30 07/08/17 10:29 07/07/17 00:38 Vancomycin HCl (Vanco rx to dose) 1 ea DAILY PRN MISC Per rx protocol 07/01/17 10:00 07/31/17 09:59 Vancomycin HCl/ Dextrose 250 ml @ 166.667 mls/hr Q24H IVPB 07/04/17 12:00 07/09/17 11:59 07/06/17 12:18 Damon Briggs M.D. July 07, 2017 09:18
[2017-07-07] MEDS: Amiodarone 200mg tab GT SCH (09:45)
[2017-07-07] MEDS: Docusate 100mg/10ml Liq GT SCH ×3 (09:46→17:21)
[2017-07-07] MEDS: Aspirin Baby 81mg GT SCH (09:46)
[2017-07-07] MEDS: Heparin 5000 units/ml inj SUBQ SCH ×2 (09:47→21:11)
[2017-07-07] MEDS ORDERED: Promethazine/Codeine 5ml UD GT PRN (10:45)
[2017-07-07 12:00] VITALS: BP 128/59
[2017-07-07] MEDS: Vancomycin 1250mg/D5W 250ml IVPB SCH (12:49)
--- NOTE | 2017-07-07 13:44 | 48 Hour Post Anesthesia Eval ---
Post Anesthesia Evaluation Procedure: Right great toe amputation Date of Evaluation: July 07, 2017 Time of Evaluation: 12:00 Blood Pressure Systolic: 128 0: 59 Pulse Rate: 76 Respiratory Rate: 20 Temperature (Fahrenheit): 98 O2 Sat by Pulse Oximetry: 99 Airway: patent Nausea: No Vomiting: No Hydration Status: adequate Mental Status/LOC: patient returned to baseline Post-Anesthesia Complications: none Follow-up care needed: N/A Kimberly Lovelace M.D. July 07, 2017 13:44
--- NOTE | 2017-07-07 13:48 | Infectious Diseases Prog Note ---
Assessment/Plan Problems: (1) Aspiration pneumonia Assessment & Plan: with MDR Providencia stuartii, and ESBL+ proteus mirabilis . continue ertapenem for 14 days total, EOT 07/19/17 (2) Sepsis Assessment & Plan: with coag negative staph , source suspect right big toe wound infection with underlying osteomyelitis , bone scan of the right foot was positive for osteomyelitis of the big toe metatarsal bone , S/P big toe amputation . will treat with vancomycin for 2 weeks after her big toe amputation , repeat blood culture to confirm clearance is pending. will need PICC line for half-way antibiotics treatment if repeated blood culture is negative . EOT 07/19/17 (3) Right foot ulcer Assessment & Plan: with dorsal dislocation of the first phalanx , bone scan showed osteomyelitis , S/P big toe amputation , continue local wound care as per surgery , continue vancomycin for 2 weeks after her amputation (4) Dementia Assessment & Plan: continue supportive care Subjective ROS Limited/Unobtainable: Yes Allergies: Coded Allergies: No Known Allergies (Unverified , 02/27/16) Subjective she had right big toe amputation yesterday , she was resting in bed comfortably , awake , no signs of distress , afebrile Objective Vital Signs Last 24 Hour Vital Signs Date Time Temp Pulse Resp B/P (MAP) Pulse Ox O2 Delivery O2 Flow Rate FiO2 07/07/17 12:49 128/59 07/07/17 12:00 98.0 76 20 128/59 99 98.0 07/07/17 09:46 78 128/60 07/07/17 08:00 99.0 78 20 128/60 99.0 07/07/17 05:36 111/60 07/07/17 04:00 97.0 77 24 111/60 96 97.0 07/07/17 04:00 Room Air 07/07/17 00:30 133/67 07/07/17 00:00 Room Air 07/07/17 00:00 96.8 78 18 133/67 95 96.8 07/06/17 20:00 Room Air 07/06/17 20:00 86 18 Room Air 21 07/06/17 20:00 97.7 82 18 116/60 92 97.7 07/06/17 17:11 137/66 07/06/17 17:11 72 137/66 07/06/17 15:52 97.7 72 20 137/66 97 97.7 07/06/17 15:30 97.0 78 19 125/57 100 Nasal Cannula 2.0 97.0 07/06/17 15:15 67 18 108/52 100 Nasal Cannula 2.0 07/06/17 15:04 66 18 116/56 100 Nasal Cannula 2.0 07/06/17 14:54 76 17 128/58 100 Nasal Cannula 2.0 07/06/17 14:44 70 18 136/52 99 Simple Mask 6.0 07/06/17 14:39 71 18 128/58 99 Simple Mask 6.0 07/06/17 14:37 206.6 69 16 98 07/06/17 14:34 97.0 71 17 133/56 99 Simple Mask 6.0 97.0 Height (Feet): 5 Height (Inches): 3.00 Weight (Pounds): 144 General Appearance: WD/WN, no acute distress, cachetic HEENT: normocephalic, atraumatic, anicteric, mucous membranes moist Respiratory/Chest: chest wall non-tender, lungs clear, no respiratory distress , no accessory muscle use, decreased breath sounds Cardiovascular: normal peripheral pulses, normal rate, regular rhythm, no gallop/murmur, no JVD Abdomen: normal bowel sounds, soft, non tender, no organomegaly, non distended , no mass, no scars Extremities: no cyanosis, no clubbing Skin: no rash, no lesions, no ulcers, other - right big toe surgical wound covered with bandage Neurologic/Psychiatric: alert, unresponsiveness Laboratory Tests Test 07/07/17 11:15 Vancomycin Level Trough 16.4 ug/mL (5.0-12.0) H Current Medications Medications (Trade) Dose Ordered Sig/Baljit Route PRN Reason Start Time Stop Time Status Last Admin Dose Admin Acetaminophen (Tylenol) 650 mg Q6H PRN GT pain 2-5 07/01/17 10:30 07/31/17 10:29 Amiodarone HCl (Cordarone) 100 mg DAILY GT 07/02/17 09:00 08/01/17 08:59 07/07/17 09:45 Amlodipine Besylate (Norvasc) 5 mg BID GT 07/01/17 18:00 07/31/17 17:59 07/07/17 09:46 Aspirin (ASA) 81 mg DAILY GT 07/02/17 09:00 08/01/17 08:59 07/07/17 09:46 Docusate Sodium (Colace) 100 mg TID GT 07/01/17 13:00 07/31/17 12:59 07/07/17 12:49 Ertapenem 1 gm/ Sodium Chloride 55 ml @ 110 mls/hr Q24H IVPB 07/05/17 13:00 07/19/17 12:59 07/05/17 14:18 Famotidine (Pepcid) 20 mg BID GT 07/01/17 18:00 07/31/17 17:59 07/07/17 09:46 Heparin Sodium (Porcine) (Heparin 5000 units/ml) 5,000 units EVERY 12 HOURS SUBQ 07/01/17 21:00 07/31/17 20:59 07/07/17 09:47 Isosorbide Dinitrate (Isordil) 10 mg Q6HR GT 07/01/17 18:00 07/31/17 17:59 07/07/17 12:49 Ondansetron HCl (Zofran) 4 mg Q6H PRN IVP Nausea & Vomiting 07/01/17 10:30 07/31/17 10:29 Promethazine HCl/ Codeine (Phenergan with Codeine) 5 ml Q4H PRN GT For Cough 07/07/17 10:45 07/31/17 10:29 Tramadol HCl (Ultram) 25 mg Q6H PRN GT pain level 6 and up 07/01/17 10:30 07/08/17 10:29 07/07/17 00:38 Vancomycin HCl (Vanco rx to dose) 1 ea DAILY PRN MISC Per rx protocol 07/01/17 10:00 07/31/17 09:59 Vancomycin HCl/ Dextrose 250 ml @ 166.667 mls/hr Q24H IVPB 07/04/17 12:00 07/09/17 11:59 07/07/17 12:49 Damon Briggs M.D. July 07, 2017 13:48
[2017-07-07] MEDS: Ertapenem 1 GM in NS 55 ML IVPB SCH (14:26)
--- NOTE | 2017-07-07 15:47 | Pulmonology Progress Note ---
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 (4) Dementia (5) PEG (percutaneous endoscopic gastrostomy) status (6) Advanced age Assessment/Plan no new events sputum cultures reviewed respiratory treatment check sputum chest pt iv abx sputum induction aspiration precaution tolerating diet check labs in am Subjective Allergies: Coded Allergies: No Known Allergies (Unverified , 02/27/16) Objective Last 24 Hour Vital Signs Date Time Temp Pulse Resp B/P (MAP) Pulse Ox O2 Delivery O2 Flow Rate FiO2 07/07/17 13:44 208.4 76 20 99 07/07/17 12:49 128/59 07/07/17 12:00 98.0 76 20 128/59 99 98.0 07/07/17 09:46 78 128/60 07/07/17 08:00 99.0 78 20 128/60 99.0 07/07/17 05:36 111/60 07/07/17 04:00 97.0 77 24 111/60 96 97.0 07/07/17 04:00 Room Air 07/07/17 00:30 133/67 07/07/17 00:00 Room Air 07/07/17 00:00 96.8 78 18 133/67 95 96.8 07/06/17 20:00 Room Air 07/06/17 20:00 86 18 Room Air 21 07/06/17 20:00 97.7 82 18 116/60 92 97.7 07/06/17 17:11 137/66 07/06/17 17:11 72 137/66 07/06/17 15:52 97.7 72 20 137/66 97 97.7 Intake and Output 07/06/17 07/07/17 19:00 07:00 Intake Total 651.667 ml 1330 ml Balance 651.667 ml 1330 ml Intake Free Water 50 ml 100 ml IV Total 541.667 ml 900 ml Tube Feeding 60 ml 330 ml # Voids 2 1 # Bowel Movements 2 1 Laboratory Tests 07/07/17 11:15: Vancomycin Level Trough 16.4H Current Medications Medications (Trade) Dose Ordered Sig/Baljit Route PRN Reason Start Time Stop Time Status Last Admin Dose Admin Acetaminophen (Tylenol) 650 mg Q6H PRN GT pain 2-5 07/01/17 10:30 07/31/17 10:29 Amiodarone HCl (Cordarone) 100 mg DAILY GT 07/02/17 09:00 08/01/17 08:59 07/07/17 09:45 Amlodipine Besylate (Norvasc) 5 mg BID GT 07/01/17 18:00 07/31/17 17:59 07/07/17 09:46 Aspirin (ASA) 81 mg DAILY GT 07/02/17 09:00 08/01/17 08:59 07/07/17 09:46 Docusate Sodium (Colace) 100 mg TID GT 07/01/17 13:00 07/31/17 12:59 07/07/17 12:49 Ertapenem 1 gm/ Sodium Chloride 55 ml @ 110 mls/hr Q24H IVPB 07/05/17 13:00 07/19/17 12:59 07/07/17 14:26 Famotidine (Pepcid) 20 mg BID GT 07/01/17 18:00 07/31/17 17:59 07/07/17 09:46 Heparin Sodium (Porcine) (Heparin 5000 units/ml) 5,000 units EVERY 12 HOURS SUBQ 07/01/17 21:00 07/31/17 20:59 07/07/17 09:47 Isosorbide Dinitrate (Isordil) 10 mg Q6HR GT 07/01/17 18:00 07/31/17 17:59 07/07/17 12:49 Ondansetron HCl (Zofran) 4 mg Q6H PRN IVP Nausea & Vomiting 07/01/17 10:30 07/31/17 10:29 Promethazine HCl/ Codeine (Phenergan with Codeine) 5 ml Q4H PRN GT For Cough 07/07/17 10:45 07/31/17 10:29 Tramadol HCl (Ultram) 25 mg Q6H PRN GT pain level 6 and up 07/01/17 10:30 07/08/17 10:29 07/07/17 00:38 Tramadol HCl (Ultram) 25 mg Q8H ORAL 07/07/17 15:45 07/14/17 15:44 UNV Vancomycin HCl (Vanco rx to dose) 1 ea DAILY PRN MISC Per rx protocol 07/01/17 10:00 07/31/17 09:59 Vancomycin HCl/ Dextrose 250 ml @ 166.667 mls/hr Q24H IVPB 07/04/17 12:00 07/09/17 11:59 07/07/17 12:49 Lauro Lopez MD July 07, 2017 15:47
--- NOTE | 2017-07-07 15:57 | General Progress Note ---
Assessment/Plan Problem List: (1) Urinary tract infection ICD Codes: N39.0 - Urinary tract infection, site not specified SNOMED: 77731044 (2) Foot osteomyelitis, right ICD Codes: M86.9 - Osteomyelitis, unspecified SNOMED: 7767345782187178 (3) Dementia ICD Codes: F03.90 - Unspecified dementia without behavioral disturbance SNOMED: 75011765 (4) PEG (percutaneous endoscopic gastrostomy) status ICD Codes: Z93.1 - Gastrostomy status SNOMED: 776637651, 400345073 (5) Atrial fibrillation ICD Codes: I48.91 - Unspecified atrial fibrillation SNOMED: 79795486 (6) Bacteremia ICD Codes: R78.81 - Bacteremia SNOMED: 0324355 (7) Gram-negative pneumonia ICD Codes: J15.6 - Pneumonia due to other Gram-negative bacteria SNOMED: 980731742 (8) Functional quadriplegia ICD Codes: R53.2 - Functional quadriplegia SNOMED: 245299761936565 Status: stable Assessment/Plan Amputated 07/06 Pain meds + Post Op care Breathing treatment adjust BP meds ID eval and advise per orders Subjective ROS Limited/Unobtainable: No Allergies: Coded Allergies: No Known Allergies (Unverified , 02/27/16) Objective Last 24 Hour Vital Signs Date Time Temp Pulse Resp B/P (MAP) Pulse Ox O2 Delivery O2 Flow Rate FiO2 07/07/17 13:44 208.4 76 20 99 07/07/17 12:49 128/59 07/07/17 12:00 98.0 76 20 128/59 99 98.0 07/07/17 09:46 78 128/60 07/07/17 08:00 99.0 78 20 128/60 99.0 07/07/17 05:36 111/60 07/07/17 04:00 97.0 77 24 111/60 96 97.0 07/07/17 04:00 Room Air 07/07/17 00:30 133/67 07/07/17 00:00 Room Air 07/07/17 00:00 96.8 78 18 133/67 95 96.8 07/06/17 20:00 Room Air 07/06/17 20:00 86 18 Room Air 21 07/06/17 20:00 97.7 82 18 116/60 92 97.7 07/06/17 17:11 137/66 07/06/17 17:11 72 137/66 Intake and Output 07/06/17 07/07/17 19:00 07:00 Intake Total 651.667 ml 1330 ml Balance 651.667 ml 1330 ml Intake Free Water 50 ml 100 ml IV Total 541.667 ml 900 ml Tube Feeding 60 ml 330 ml # Voids 2 1 # Bowel Movements 2 1 Laboratory Tests 07/07/17 11:15: Vancomycin Level Trough 16.4H Height (Feet): 5 Height (Inches): 3.00 Weight (Pounds): 144 General Appearance: no apparent distress Cardiovascular: normal rate Respiratory/Chest: decreased breath sounds Abdomen: soft Pelvis: other - GT Extremities: other - surgical site dressing Objective no other change YAZMIN CROSS July 07, 2017 15:57
[2017-07-07 16:00] VITALS: BP 134/72
--- NOTE | 2017-07-07 16:02 | General Progress Note ---
Progress Note Progress Note Surgery: POD #1, recovering. no acute events. dressings clean. plan to remove dressings tomorrow. will follow with recs. thank you Rafat Olvera July 07, 2017 16:02
[2017-07-07 20:31] VITALS: BP 140/65
[2017-07-07] MEDS: traMADol 50mg tab GT SCH (22:53)
[2017-07-08 00:12] VITALS: BP 148/75
[2017-07-08 04:43] VITALS: BP 151/70
[2017-07-08] MEDS: traMADol 50mg tab GT SCH ×3 (06:11→21:29)
--- NOTE | 2017-07-08 07:45 | Pulmonology Progress Note ---
Assessment/Plan Assessment/Plan ASSESSMENT Sepsis with Staph coag negative bacteremia Right foot first great toe osteomyelitis and chronic non-healing wound Aspiration pneumonia Status post right great toe amputation on 07/06/2017 Advanced dementia Multiply contractures Functional quadriplegia Dysphagia. G-tube PLAN OF CARE Med-surg floor Wound positive for SCON , blood culture + SCON, urine culture revealed mixed urogenital contaminants. Sputum cx +Providencia and Proteus ESBL Bone scan was suggestive for osteomyelitis right first metatarsal head DPOA agreed to right great toe amputation surgeon consulted status post 07/06 right great toe amputation pain management wound care antibiotic as per ID supplemental oxygen to keep pulse oximetry above 92%, pulmonary toilet as needed antitussive as needed IV fluids strict aspiration precautions G-tube feeding, monitor tolerance blood pressure management with calcium channel josué continue ASA and nitrates bowel regimen instituted DVT/ GI prophylaxis Dc plan as per PMD DNR/DNI status case discussed and evaluated by supervising physician Subjective Allergies: Coded Allergies: No Known Allergies (Unverified , 02/27/16) Subjective afebrile, no leukocytosis pulse oximetry stable on room air Objective Last 24 Hour Vital Signs Date Time Temp Pulse Resp B/P (MAP) Pulse Ox O2 Delivery O2 Flow Rate FiO2 07/08/17 07:10 97.5 07/08/17 06:11 97.5 07/08/17 06:11 151/70 07/08/17 04:43 97.5 89 19 151/70 98 97.5 07/08/17 00:52 148/75 07/08/17 00:12 97.9 84 18 148/75 95 97.9 07/07/17 22:53 98.1 07/07/17 20:31 98.1 83 19 140/65 92 98.1 07/07/17 17:22 134/72 07/07/17 17:21 88 134/72 07/07/17 16:00 98.6 88 19 134/72 97 98.6 07/07/17 13:44 208.4 76 20 99 07/07/17 12:49 128/59 07/07/17 12:00 98.0 76 20 128/59 99 98.0 07/07/17 09:46 78 128/60 07/07/17 08:00 99.0 78 20 128/60 99.0 Intake and Output 07/07/17 07/08/17 19:00 07:00 Intake Total 2305.000 ml 700 ml Balance 2305.000 ml 700 ml Intake Free Water 100 ml 260 ml IV Total 305.000 ml Tube Feeding 400 ml 440 ml Other 1500 ml # Voids 3 General Appearance: no acute distress, other - chronically ill lookng, elderly bedridden female HEENT: normocephalic, atraumatic, anicteric Respiratory/Chest: chest wall non-tender, no respiratory distress, no accessory muscle use, other - few isolated rhonchi Cardiovascular: normal rate Abdomen: soft, non tender, no organomegaly, other - G tube Extremities: no edema, pedal pulses normal, other - s/p R great toe amputation , dressing C/D/I Neurologic/Psychiatric: abnormal gait - bedridden, poorly responsive Musculoskeletal: atrophy - BLE Laboratory Tests 07/07/17 11:15: Vancomycin Level Trough 16.4H 07/08/17 07:32: White Blood Count [Pending], Red Blood Count [Pending], Hemoglobin [Pending], Hematocrit [Pending], Mean Corpuscular Volume [Pending], Mean Corpuscular Hemoglobin [Pending], Mean Corpuscular Hemoglobin Concent [Pending], Red Cell Distribution Width [Pending], Platelet Count [Pending], Mean Platelet Volume [ Pending], Neutrophils (%) (Auto) [Pending], Lymphocytes (%) (Auto) [Pending], Monocytes (%) (Auto) [Pending], Eosinophils (%) (Auto) [Pending], Basophils (%) (Auto) [Pending], Sodium Level [Pending], Potassium Level [Pending], Chloride Level [Pending], Carbon Dioxide Level [Pending], Blood Urea Nitrogen [Pending], Creatinine [Pending], Estimat Glomerular Filtration Rate [Pending], Glucose Level [Pending], Calcium Level [Pending], Phosphorus Level [Pending], Magnesium Level [Pending], Total Bilirubin [Pending], Aspartate Amino Transf (AST/SGOT) [ Pending], Alanine Aminotransferase (ALT/SGPT) [Pending], Alkaline Phosphatase [ Pending], C-Reactive Protein, Quantitative [Pending], Pro-B-Type Natriuretic Peptide [Pending], Total Protein [Pending], Albumin [Pending], Globulin [Pending ] Current Medications Medications (Trade) Dose Ordered Sig/Baljit Route PRN Reason Start Time Stop Time Status Last Admin Dose Admin Acetaminophen (Tylenol) 650 mg Q6H PRN GT pain 2-5 07/01/17 10:30 07/31/17 10:29 Amiodarone HCl (Cordarone) 100 mg DAILY GT 07/02/17 09:00 08/01/17 08:59 07/07/17 09:45 Amlodipine Besylate (Norvasc) 5 mg BID GT 07/01/17 18:00 07/31/17 17:59 07/07/17 17:21 Aspirin (ASA) 81 mg DAILY GT 07/02/17 09:00 08/01/17 08:59 07/07/17 09:46 Docusate Sodium (Colace) 100 mg TID GT 07/01/17 13:00 07/31/17 12:59 07/07/17 17:21 Ertapenem 1 gm/ Sodium Chloride 55 ml @ 110 mls/hr Q24H IVPB 07/05/17 13:00 07/19/17 12:59 07/07/17 14:26 Famotidine (Pepcid) 20 mg BID GT 07/01/17 18:00 07/31/17 17:59 07/07/17 17:21 Heparin Sodium (Porcine) (Heparin 5000 units/ml) 5,000 units EVERY 12 HOURS SUBQ 07/01/17 21:00 07/31/17 20:59 07/07/17 21:11 Isosorbide Dinitrate (Isordil) 10 mg Q6HR GT 07/01/17 18:00 07/31/17 17:59 07/08/17 06:11 Ondansetron HCl (Zofran) 4 mg Q6H PRN IVP Nausea & Vomiting 07/01/17 10:30 07/31/17 10:29 Promethazine HCl/ Codeine (Phenergan with Codeine) 5 ml Q4H PRN GT For Cough 07/07/17 10:45 07/31/17 10:29 Tramadol HCl (Ultram) 25 mg Q6H PRN GT pain level 6 and up 07/01/17 10:30 07/08/17 10:29 07/07/17 00:38 Tramadol HCl (Ultram) 25 mg Q8HR GT 07/07/17 22:00 07/14/17 21:59 07/08/17 06:11 Vancomycin HCl (Vanco rx to dose) 1 ea DAILY PRN MISC Per rx protocol 07/01/17 10:00 07/31/17 09:59 Vancomycin HCl/ Dextrose 250 ml @ 166.667 mls/hr Q24H IVPB 07/04/17 12:00 07/09/17 11:59 07/07/17 12:49 Benita Lemons NP July 08, 2017 07:45
[2017-07-08 07:53] LABS: BASOPHILS % (AUTO) 0.8 % (0.0-2.0); EOSINOPHILS % (AUTO) 0.7 % (0.0-3.0); HEMATOCRIT 36.2 % (37.0-47.0); HEMOGLOBIN 12.4 G/DL (12.0-16.0); LYMPHOCYTES % (AUTO) 10.9 % (20.0-45.0); MEAN CORPUSCULAR VOLUME 93 FL (80-99); MONOCYTES % (AUTO) 9.4 % (1.0-10.0); NEUTROPHILS % (AUTO) 78.1 % (45.0-75.0); PLATELET COUNT 197 K/UL (150-450); RED BLOOD COUNT 3.91 M/UL (4.20-5.40); RED CELL DISTRIBUTION WIDTH 12.8 % (11.6-14.8); WHITE BLOOD COUNT 9.4 K/UL (4.8-10.8)
[2017-07-08 08:00] VITALS: BP 133/68
[2017-07-08 08:18] LABS: ALANINE AMINOTRANSFERASE 30 U/L (12-78); ALBUMIN 2.5 G/DL (3.4-5.0); ALBUMIN/GLOBULIN RATIO 0.6 (1.0-2.7); ALKALINE PHOSPHATASE 110 U/L (46-116); ANION GAP 7 mmol/L (5-15); ASPARTATE AMINO TRANSFERASE 23 U/L (15-37); BILIRUBIN,TOTAL 0.5 MG/DL (0.2-1.0); BLOOD UREA NITROGEN 18 mg/dL (7-18); CALCIUM 8.9 MG/DL (8.5-10.1); CARBON DIOXIDE 28 MMOL/L (21-32); CHLORIDE 104 MMOL/L (98-107); CREATININE 1.2 MG/DL (0.55-1.30); PHOSPHORUS 2.9 MG/DL (2.5-4.9); SODIUM 139 MMOL/L (136-145)
[2017-07-08] MEDS: Aspirin Baby 81mg GT SCH (09:40)
[2017-07-08] MEDS: Docusate 100mg/10ml Liq GT SCH ×3 (09:40→17:57)
[2017-07-08] MEDS: Amiodarone 200mg tab GT SCH (09:41)
[2017-07-08] MEDS: Heparin 5000 units/ml inj SUBQ SCH ×2 (09:42→21:27)
--- NOTE | 2017-07-08 11:32 | General Progress Note ---
Progress Note Progress Note Surgery: doing well. no acute events. afebrile, HD stable, labs okay dressings removed and surgical wound evaluated. edema in foot. sutures in place. surgical incision with some possibly ischemic edges but wound intact. some bruising as anticipated. no signs of infection. DP pulse palpable. -unfortunately cannot elevate leg given her severe contractures and thus will develop some dependent edema. will have to monitor for now. no acute intervention planned. as edema subsides and wound heals will be able to remove sutures. if areas of ischemia need debridement will do when healed and declared. Rafat Olvera July 08, 2017 11:32
[2017-07-08 12:00] VITALS: BP 127/61
[2017-07-08] MEDS: Vancomycin 1250mg/D5W 250ml IVPB SCH (12:52)
[2017-07-08] MEDS: Ertapenem 1 GM in NS 55 ML IVPB SCH (14:30)
--- NOTE | 2017-07-08 14:39 | General Progress Note ---
Assessment/Plan Problem List: (1) Urinary tract infection ICD Codes: N39.0 - Urinary tract infection, site not specified SNOMED: 13523677 (2) Foot osteomyelitis, right ICD Codes: M86.9 - Osteomyelitis, unspecified SNOMED: 2705840427574106 (3) Dementia ICD Codes: F03.90 - Unspecified dementia without behavioral disturbance SNOMED: 35367102 (4) PEG (percutaneous endoscopic gastrostomy) status ICD Codes: Z93.1 - Gastrostomy status SNOMED: 926789601, 845074739 (5) Atrial fibrillation ICD Codes: I48.91 - Unspecified atrial fibrillation SNOMED: 66714951 (6) Bacteremia ICD Codes: R78.81 - Bacteremia SNOMED: 8308156 (7) Gram-negative pneumonia ICD Codes: J15.6 - Pneumonia due to other Gram-negative bacteria SNOMED: 053656141 (8) Functional quadriplegia ICD Codes: R53.2 - Functional quadriplegia SNOMED: 881852002402104 Status: stable Assessment/Plan Amputated 07/06 Pain meds + Post Op care Breathing treatment adjust BP meds ID eval and advise per orders Subjective ROS Limited/Unobtainable: No Constitutional: Reports: malaise Allergies: Coded Allergies: No Known Allergies (Unverified , 02/27/16) Objective Last 24 Hour Vital Signs Date Time Temp Pulse Resp B/P (MAP) Pulse Ox O2 Delivery O2 Flow Rate FiO2 07/08/17 12:51 127/61 07/08/17 12:00 98.1 74 18 127/61 94 98.1 07/08/17 09:40 83 133/68 07/08/17 08:00 97.7 83 20 133/68 95 97.7 07/08/17 07:10 97.5 07/08/17 06:11 97.5 07/08/17 06:11 151/70 07/08/17 04:43 97.5 89 19 151/70 98 97.5 07/08/17 00:52 148/75 07/08/17 00:12 97.9 84 18 148/75 95 97.9 07/07/17 22:53 98.1 07/07/17 20:31 98.1 83 19 140/65 92 98.1 07/07/17 17:22 134/72 07/07/17 17:21 88 134/72 07/07/17 16:00 98.6 88 19 134/72 97 98.6 Intake and Output 07/07/17 07/08/17 19:00 07:00 Intake Total 2305.000 ml 740 ml Balance 2305.000 ml 740 ml Intake Free Water 100 ml 260 ml IV Total 305.000 ml Tube Feeding 400 ml 480 ml Other 1500 ml # Voids 3 Laboratory Tests 07/08/17 07:32: White Blood Count 9.4, Red Blood Count 3.91L, Hemoglobin 12.4, Hematocrit 36.2L , Mean Corpuscular Volume 93, Mean Corpuscular Hemoglobin 31.8H, Mean Corpuscular Hemoglobin Concent 34.3, Red Cell Distribution Width 12.8, Platelet Count 197, Mean Platelet Volume 7.0, Neutrophils (%) (Auto) 78.1H, Lymphocytes ( %) (Auto) 10.9L, Monocytes (%) (Auto) 9.4, Eosinophils (%) (Auto) 0.7, Basophils (%) (Auto) 0.8, Sodium Level 139, Potassium Level 4.0, Chloride Level 104, Carbon Dioxide Level 28, Anion Gap 7, Blood Urea Nitrogen 18, Creatinine 1.2, Estimat Glomerular Filtration Rate , Glucose Level 129H, Calcium Level 8.9 , Phosphorus Level 2.9, Magnesium Level 1.9, Total Bilirubin 0.5, Aspartate Amino Transf (AST/SGOT) 23, Alanine Aminotransferase (ALT/SGPT) 30, Alkaline Phosphatase 110, C-Reactive Protein, Quantitative 6.0H, Pro-B-Type Natriuretic Peptide 1444H, Total Protein 6.8, Albumin 2.5L, Globulin 4.3, Albumin/Globulin Ratio 0.6L Height (Feet): 5 Height (Inches): 3.00 Weight (Pounds): 144 General Appearance: no apparent distress Cardiovascular: normal rate Respiratory/Chest: decreased breath sounds Abdomen: soft Objective no other change YAZMIN CROSS July 08, 2017 14:39
--- NOTE | 2017-07-08 17:44 | Infectious Diseases Prog Note ---
Assessment/Plan Problems: (1) Aspiration pneumonia Assessment & Plan: with MDR Providencia stuartii, and ESBL+ proteus mirabilis . continue ertapenem for 14 days total, EOT 07/19/17 (2) Sepsis Assessment & Plan: with coag negative staph , source suspect right big toe wound infection with underlying osteomyelitis , bone scan of the right foot was positive for osteomyelitis of the big toe metatarsal bone , S/P big toe amputation . will treat with vancomycin for 2 weeks after her big toe amputation , repeat blood culture to confirm clearance is pending. will need PICC line for penitentiary antibiotics treatment if repeated blood culture is negative . EOT 07/19/17 (3) Right foot ulcer Assessment & Plan: with dorsal dislocation of the first phalanx , bone scan showed osteomyelitis , S/P big toe amputation , continue local wound care as per surgery , continue vancomycin for 2 weeks after her amputation (4) Dementia Assessment & Plan: continue supportive care Subjective ROS Limited/Unobtainable: Yes Allergies: Coded Allergies: No Known Allergies (Unverified , 02/27/16) Subjective she had right big toe amputation , and tolerated procedure well, wound looks clean as per nurse , she was resting in bed comfortably, no signs of distress , afebrile Objective Vital Signs Last 24 Hour Vital Signs Date Time Temp Pulse Resp B/P (MAP) Pulse Ox O2 Delivery O2 Flow Rate FiO2 07/08/17 16:00 98.0 74 19 90 98.0 07/08/17 12:51 127/61 07/08/17 12:00 98.1 74 18 127/61 94 98.1 07/08/17 09:40 83 133/68 07/08/17 08:00 97.7 83 20 133/68 95 97.7 07/08/17 07:10 97.5 07/08/17 06:11 97.5 07/08/17 06:11 151/70 07/08/17 04:43 97.5 89 19 151/70 98 97.5 07/08/17 00:52 148/75 07/08/17 00:12 97.9 84 18 148/75 95 97.9 07/07/17 22:53 98.1 07/07/17 20:31 98.1 83 19 140/65 92 98.1 Height (Feet): 5 Height (Inches): 3.00 Weight (Pounds): 144 General Appearance: WD/WN, no acute distress HEENT: normocephalic, atraumatic, anicteric, mucous membranes moist Respiratory/Chest: chest wall non-tender, lungs clear, no respiratory distress , no accessory muscle use, decreased breath sounds Cardiovascular: normal peripheral pulses, normal rate, regular rhythm, no gallop/murmur, no JVD Abdomen: normal bowel sounds, soft, non tender, no organomegaly, non distended , no mass, no scars Extremities: no cyanosis, no clubbing Skin: no rash, no lesions, no ulcers Neurologic/Psychiatric: unresponsiveness Lymphatic: no neck adenopathy Laboratory Tests Test 07/08/17 07:32 White Blood Count 9.4 K/UL (4.8-10.8) Red Blood Count 3.91 M/UL (4.20-5.40) L Hemoglobin 12.4 G/DL (12.0-16.0) Hematocrit 36.2 % (37.0-47.0) L Mean Corpuscular Volume 93 FL (80-99) Mean Corpuscular Hemoglobin 31.8 PG (27.0-31.0) H Mean Corpuscular Hemoglobin Concent 34.3 G/DL (32.0-36.0) Red Cell Distribution Width 12.8 % (11.6-14.8) Platelet Count 197 K/UL (150-450) Mean Platelet Volume 7.0 FL (6.5-10.1) Neutrophils (%) (Auto) 78.1 % (45.0-75.0) H Lymphocytes (%) (Auto) 10.9 % (20.0-45.0) L Monocytes (%) (Auto) 9.4 % (1.0-10.0) Eosinophils (%) (Auto) 0.7 % (0.0-3.0) Basophils (%) (Auto) 0.8 % (0.0-2.0) Sodium Level 139 MMOL/L (136-145) Potassium Level 4.0 MMOL/L (3.5-5.1) Chloride Level 104 MMOL/L (98-107) Carbon Dioxide Level 28 MMOL/L (21-32) Anion Gap 7 mmol/L (5-15) Blood Urea Nitrogen 18 mg/dL (7-18) Creatinine 1.2 MG/DL (0.55-1.30) Estimat Glomerular Filtration Rate mL/min (>60) Glucose Level 129 MG/DL (74-106) H Calcium Level 8.9 MG/DL (8.5-10.1) Phosphorus Level 2.9 MG/DL (2.5-4.9) Magnesium Level 1.9 MG/DL (1.8-2.4) Total Bilirubin 0.5 MG/DL (0.2-1.0) Aspartate Amino Transf (AST/SGOT) 23 U/L (15-37) Alanine Aminotransferase (ALT/SGPT) 30 U/L (12-78) Alkaline Phosphatase 110 U/L (46-116) C-Reactive Protein, Quantitative 6.0 mg/dL (0.00-0.90) H Pro-B-Type Natriuretic Peptide 1444 pg/mL (0-125) H Total Protein 6.8 G/DL (6.4-8.2) Albumin 2.5 G/DL (3.4-5.0) L Globulin 4.3 g/dL Albumin/Globulin Ratio 0.6 (1.0-2.7) L Current Medications Medications (Trade) Dose Ordered Sig/Baljit Route PRN Reason Start Time Stop Time Status Last Admin Dose Admin Acetaminophen (Tylenol) 650 mg Q6H PRN GT pain 2-5 07/01/17 10:30 07/31/17 10:29 Amiodarone HCl (Cordarone) 100 mg DAILY GT 07/02/17 09:00 08/01/17 08:59 07/08/17 09:41 Amlodipine Besylate (Norvasc) 5 mg BID GT 07/01/17 18:00 07/31/17 17:59 07/08/17 09:40 Aspirin (ASA) 81 mg DAILY GT 07/02/17 09:00 08/01/17 08:59 07/08/17 09:40 Docusate Sodium (Colace) 100 mg TID GT 07/01/17 13:00 07/31/17 12:59 07/08/17 12:52 Ertapenem 1 gm/ Sodium Chloride 55 ml @ 110 mls/hr Q24H IVPB 07/05/17 13:00 07/19/17 12:59 07/08/17 14:30 Famotidine (Pepcid) 20 mg BID GT 07/01/17 18:00 07/31/17 17:59 07/08/17 09:40 Heparin Sodium (Porcine) (Heparin 5000 units/ml) 5,000 units EVERY 12 HOURS SUBQ 07/01/17 21:00 07/31/17 20:59 07/08/17 09:42 Isosorbide Dinitrate (Isordil) 10 mg Q6HR GT 07/01/17 18:00 07/31/17 17:59 07/08/17 12:51 Ondansetron HCl (Zofran) 4 mg Q6H PRN IVP Nausea & Vomiting 07/01/17 10:30 07/31/17 10:29 Promethazine HCl/ Codeine (Phenergan with Codeine) 5 ml Q4H PRN GT For Cough 07/07/17 10:45 07/31/17 10:29 Tramadol HCl (Ultram) 25 mg Q8HR GT 07/07/17 22:00 07/14/17 21:59 07/08/17 14:36 Vancomycin HCl (Vanco rx to dose) 1 ea DAILY PRN MISC Per rx protocol 07/01/17 10:00 07/31/17 09:59 Vancomycin HCl/ Dextrose 250 ml @ 166.667 mls/hr Q24H IVPB 07/04/17 12:00 07/19/17 23:59 07/08/17 12:52 Damon Briggs M.D. July 08, 2017 17:44
[2017-07-08 20:18] VITALS: BP 108/48
[2017-07-09] VITALS: BP 137/70
[2017-07-09 04:00] VITALS: BP 147/62
[2017-07-09] MEDS: traMADol 50mg tab GT SCH ×3 (06:38→21:36)
[2017-07-09 08:00] VITALS: BP 124/78
--- NOTE | 2017-07-09 09:30 | Pulmonology Progress Note ---
Assessment/Plan Assessment/Plan ASSESSMENT Sepsis with Staph coag negative bacteremia Right foot first great toe osteomyelitis and chronic non-healing wound Aspiration pneumonia/Providencia, Proteus ESBL Status post right great toe amputation on 07/06/2017 Advanced dementia Multiply contractures Functional quadriplegia Dysphagia. G-tube PLAN OF CARE Med-surg floor Wound positive for SCON , blood culture + SCON, urine culture revealed mixed urogenital contaminants. Sputum cx +Providencia and Proteus ESBL O2 to keep sat above 92% pulm toilet prn, add CPT antibiotic as per ID antitussive as needed fup with CXR in am Bone scan was suggestive for osteomyelitis right first metatarsal head DPOA agreed to right great toe amputation surgeon consulted status post 07/06 right great toe amputation pain management wound care IV fluids strict aspiration precautions G-tube feeding, monitor tolerance blood pressure management with calcium channel josué continue ASA and nitrates bowel regimen instituted DVT/ GI prophylaxis Dc plan as per PMD DNR/DNI status case discussed and evaluated by supervising physician Subjective Allergies: Coded Allergies: No Known Allergies (Unverified , 02/27/16) Subjective afebrile, no leukocytosis pulse oximetry stable on room air Objective Last 24 Hour Vital Signs Date Time Temp Pulse Resp B/P (MAP) Pulse Ox O2 Delivery O2 Flow Rate FiO2 07/09/17 08:00 97.7 76 24 124/78 92 97.7 07/09/17 07:37 98.2 07/09/17 07:28 77 20 Nasal Cannula 2.0 28 07/09/17 06:38 98.2 07/09/17 06:37 147/62 07/09/17 04:00 98.2 83 24 147/62 98 Nasal Cannula 2.0 98.2 07/09/17 00:17 148/68 07/09/17 00:00 97.9 80 18 137/70 96 Nasal Cannula 97.9 07/08/17 21:29 98.2 07/08/17 20:18 98.2 81 24 108/48 95 Nasal Cannula 2.0 98.2 07/08/17 17:57 127/61 07/08/17 17:57 74 127/61 07/08/17 16:00 98.0 74 19 90 98.0 07/08/17 12:51 127/61 07/08/17 12:00 98.1 74 18 127/61 94 98.1 07/08/17 09:40 83 133/68 Intake and Output 07/08/17 07/09/17 19:00 07:00 Intake Total 985.000 ml 700 ml Balance 985.000 ml 700 ml Intake Free Water 260 ml IV Total 305.000 ml Tube Feeding 480 ml 440 ml Other 200 ml # Voids 3 Objective General Appearance: no acute distress, chronically ill looking, elderly bedridden female HEENT: normocephalic, atraumatic, anicteric Respiratory/Chest: chest wall non-tender, no respiratory distress, no accessory muscle use, few isolated rhonchi Cardiovascular: normal rate Abdomen: soft, non tender, no organomegaly, G tube Extremities: no edema, pedal pulses normal, s/p R great toe amputation, dressing C/D/I Neurologic/Psychiatric: abnormal gait/ bedridden, poorly responsive Musculoskeletal: atrophy BLE Current Medications Medications (Trade) Dose Ordered Sig/Baljit Route PRN Reason Start Time Stop Time Status Last Admin Dose Admin Acetaminophen (Tylenol) 650 mg Q6H PRN GT pain 2-5 07/01/17 10:30 07/31/17 10:29 Albuterol/ Ipratropium (Albuterol/ Ipratropium) 3 ml Q4H PRN HHN Shortness of Breath 07/08/17 19:00 07/13/17 18:59 Amiodarone HCl (Cordarone) 100 mg DAILY GT 07/02/17 09:00 08/01/17 08:59 07/08/17 09:41 Amlodipine Besylate (Norvasc) 5 mg BID GT 07/01/17 18:00 07/31/17 17:59 07/08/17 17:57 Aspirin (ASA) 81 mg DAILY GT 07/02/17 09:00 08/01/17 08:59 07/08/17 09:40 Docusate Sodium (Colace) 100 mg TID GT 07/01/17 13:00 07/31/17 12:59 07/08/17 17:57 Ertapenem 1 gm/ Sodium Chloride 55 ml @ 110 mls/hr Q24H IVPB 07/05/17 13:00 07/19/17 12:59 07/08/17 14:30 Famotidine (Pepcid) 20 mg BID GT 07/01/17 18:00 07/31/17 17:59 07/08/17 17:57 Heparin Sodium (Porcine) (Heparin 5000 units/ml) 5,000 units EVERY 12 HOURS SUBQ 07/01/17 21:00 07/31/17 20:59 07/08/17 21:27 Isosorbide Dinitrate (Isordil) 10 mg Q6HR GT 07/01/17 18:00 07/31/17 17:59 07/09/17 06:37 Ondansetron HCl (Zofran) 4 mg Q6H PRN IVP Nausea & Vomiting 07/01/17 10:30 07/31/17 10:29 Promethazine HCl/ Codeine (Phenergan with Codeine) 5 ml Q4H PRN GT For Cough 07/07/17 10:45 07/31/17 10:29 Tramadol HCl (Ultram) 25 mg Q8HR GT 07/07/17 22:00 07/14/17 21:59 07/09/17 06:38 Vancomycin HCl (Vanco rx to dose) 1 ea DAILY PRN MISC Per rx protocol 07/01/17 10:00 07/31/17 09:59 Vancomycin HCl/ Dextrose 250 ml @ 166.667 mls/hr Q24H IVPB 07/04/17 12:00 07/19/17 23:59 07/08/17 12:52 Benita Lemons NP July 09, 2017 09:30
[2017-07-09] MEDS: Aspirin Baby 81mg GT SCH (09:49)
[2017-07-09] MEDS ORDERED: Sterile Water Irrig 1000ml IRRIG ONE (09:49)
[2017-07-09] MEDS: Amiodarone 200mg tab GT SCH (09:49)
[2017-07-09] MEDS: Docusate 100mg/10ml Liq GT SCH ×3 (09:49→17:29)
[2017-07-09] MEDS: Heparin 5000 units/ml inj SUBQ SCH ×2 (09:56→21:37)
[2017-07-09 12:00] VITALS: BP 115/49
[2017-07-09] MEDS: Vancomycin 1250mg/D5W 250ml IVPB SCH (13:18)
[2017-07-09] MEDS: Albuterol/Ipratropium 3ml neb HHN PRN ×2 (13:33→20:01)
[2017-07-09] MEDS: Ertapenem 1 GM in NS 55 ML IVPB SCH (15:04)
--- NOTE | 2017-07-09 15:26 | Infectious Diseases Prog Note ---
Assessment/Plan Problems: (1) Aspiration pneumonia Assessment & Plan: with MDR Providencia stuartii, and ESBL+ proteus mirabilis . continue ertapenem for 14 days total, EOT 07/19/17 (2) Sepsis Assessment & Plan: with coag negative staph , source suspect right big toe wound infection with underlying osteomyelitis , bone scan of the right foot was positive for osteomyelitis of the big toe metatarsal bone , S/P big toe amputation . will treat with vancomycin for 2 weeks after her big toe amputation , will repeat blood culture to confirm clearance . will need PICC line for [facility] antibiotics treatment if repeated blood culture is negative . EOT 07/19/17 (3) Right foot ulcer Assessment & Plan: with dorsal dislocation of the first phalanx , bone scan showed osteomyelitis , S/P big toe amputation , continue local wound care as per surgery , continue vancomycin for 2 weeks after her amputation (4) Dementia Assessment & Plan: continue supportive care Subjective ROS Limited/Unobtainable: Yes Allergies: Coded Allergies: No Known Allergies (Unverified , 02/27/16) Subjective she had right big toe amputation , and tolerated procedure well, wound looks clean as per nurse , she was resting in bed comfortably, no signs of distress , afebrile Objective Vital Signs Last 24 Hour Vital Signs Date Time Temp Pulse Resp B/P (MAP) Pulse Ox O2 Delivery O2 Flow Rate FiO2 07/09/17 14:16 97.7 07/09/17 13:42 80 20 94 Nasal Cannula 2.0 28 07/09/17 13:33 81 18 92 Nasal Cannula 2.0 28 07/09/17 13:17 97.7 07/09/17 13:15 115/49 07/09/17 12:00 97.7 79 22 115/49 94 97.7 07/09/17 09:51 76 124/78 07/09/17 08:00 97.7 76 24 124/78 92 97.7 07/09/17 07:28 77 20 Nasal Cannula 2.0 28 07/09/17 06:38 98.2 07/09/17 06:37 147/62 07/09/17 04:00 98.2 83 24 147/62 98 Nasal Cannula 2.0 98.2 07/09/17 00:17 148/68 07/09/17 00:00 97.9 80 18 137/70 96 Nasal Cannula 97.9 07/08/17 21:29 98.2 07/08/17 20:18 98.2 81 24 108/48 95 Nasal Cannula 2.0 98.2 07/08/17 17:57 127/61 18 17:57 74 127/61 07/08/17 16:00 98.0 74 19 90 98.0 Height (Feet): 5 Height (Inches): 3.00 Weight (Pounds): 144 General Appearance: WD/WN, no acute distress HEENT: normocephalic, atraumatic, anicteric, mucous membranes moist, PERRL Respiratory/Chest: chest wall non-tender, lungs clear, normal breath sounds, no respiratory distress, no accessory muscle use Breasts: no masses Cardiovascular: normal peripheral pulses, normal rate, regular rhythm, no gallop/murmur, no JVD Abdomen: normal bowel sounds, soft, non tender, no organomegaly, non distended , no mass, no scars Genitourinary: normal external genitalia Extremities: no cyanosis, no clubbing Skin: no rash, no lesions, ulcers - right big toe surgical wound covered with bandages , no bleeding . Neurologic/Psychiatric: unresponsiveness Lymphatic: no neck adenopathy, no groin adenopathy Current Medications Medications (Trade) Dose Ordered Sig/Baljit Route PRN Reason Start Time Stop Time Status Last Admin Dose Admin Acetaminophen (Tylenol) 650 mg Q6H PRN GT pain 2-5 07/01/17 10:30 07/31/17 10:29 Albuterol/ Ipratropium (Albuterol/ Ipratropium) 3 ml Q4H PRN HHN Shortness of Breath 07/08/17 19:00 07/13/17 18:59 07/09/17 13:33 Amiodarone HCl (Cordarone) 100 mg DAILY GT 07/02/17 09:00 08/01/17 08:59 07/09/17 09:49 Amlodipine Besylate (Norvasc) 5 mg BID GT 07/01/17 18:00 07/31/17 17:59 07/09/17 09:51 Aspirin (ASA) 81 mg DAILY GT 07/02/17 09:00 08/01/17 08:59 07/09/17 09:49 Docusate Sodium (Colace) 100 mg TID GT 07/01/17 13:00 07/31/17 12:59 07/09/17 13:17 Ertapenem 1 gm/ Sodium Chloride 55 ml @ 110 mls/hr Q24H IVPB 07/05/17 13:00 07/19/17 12:59 07/09/17 15:04 Famotidine (Pepcid) 20 mg BID GT 07/01/17 18:00 07/31/17 17:59 07/09/17 09:50 Heparin Sodium (Porcine) (Heparin 5000 units/ml) 5,000 units EVERY 12 HOURS SUBQ 07/01/17 21:00 07/31/17 20:59 07/09/17 09:56 Isosorbide Dinitrate (Isordil) 10 mg Q6HR GT 07/01/17 18:00 07/31/17 17:59 07/09/17 13:15 Ondansetron HCl (Zofran) 4 mg Q6H PRN IVP Nausea & Vomiting 07/01/17 10:30 07/31/17 10:29 Promethazine HCl/ Codeine (Phenergan with Codeine) 5 ml Q4H PRN GT For Cough 07/07/17 10:45 07/31/17 10:29 Tramadol HCl (Ultram) 25 mg Q8HR GT 07/07/17 22:00 07/14/17 21:59 07/09/17 13:17 Vancomycin HCl (Vanco rx to dose) 1 ea DAILY PRN MISC Per rx protocol 07/01/17 10:00 07/31/17 09:59 Vancomycin HCl/ Dextrose 250 ml @ 166.667 mls/hr Q24H IVPB 07/04/17 12:00 07/19/17 23:59 07/09/17 13:18 Damon Briggs M.D. July 09, 2017 15:26
[2017-07-09] MEDS ORDERED: Heparin 2000 units/Ns 1000ml INJ PRN (15:45)
[2017-07-09] MEDS ORDERED: Lidocaine 1% Plain 30 ml INJ PRN (15:45)
--- NOTE | 2017-07-09 15:53 | General Progress Note ---
Assessment/Plan Problem List: (1) Urinary tract infection ICD Codes: N39.0 - Urinary tract infection, site not specified SNOMED: 45521133 (2) Foot osteomyelitis, right ICD Codes: M86.9 - Osteomyelitis, unspecified SNOMED: 9843530018011396 (3) Dementia ICD Codes: F03.90 - Unspecified dementia without behavioral disturbance SNOMED: 27626041 (4) PEG (percutaneous endoscopic gastrostomy) status ICD Codes: Z93.1 - Gastrostomy status SNOMED: 986809918, 715443984 (5) Atrial fibrillation ICD Codes: I48.91 - Unspecified atrial fibrillation SNOMED: 71629459 (6) Bacteremia ICD Codes: R78.81 - Bacteremia SNOMED: 6407990 (7) Gram-negative pneumonia ICD Codes: J15.6 - Pneumonia due to other Gram-negative bacteria SNOMED: 292502173 (8) Functional quadriplegia ICD Codes: R53.2 - Functional quadriplegia SNOMED: 088066256965087 Status: stable Assessment/Plan Amputated 07/06 Pain meds + Post Op care Breathing treatment adjust BP meds ID eval and advise per orders Subjective ROS Limited/Unobtainable: No Constitutional: Reports: malaise Allergies: Coded Allergies: No Known Allergies (Unverified , 02/27/16) Objective Last 24 Hour Vital Signs Date Time Temp Pulse Resp B/P (MAP) Pulse Ox O2 Delivery O2 Flow Rate FiO2 07/09/17 14:16 97.7 07/09/17 13:42 80 20 94 Nasal Cannula 2.0 07/09/17 13:33 81 18 92 Nasal Cannula 2.0 07/09/17 13:17 97.7 07/09/17 13:15 115/49 07/09/17 12:00 97.7 79 22 115/49 94 97.7 07/09/17 09:51 76 124/78 07/09/17 08:00 97.7 76 24 124/78 92 97.7 07/09/17 07:28 77 20 Nasal Cannula 2.0 28 07/09/17 06:38 98.2 07/09/17 06:37 147/62 07/09/17 04:00 98.2 83 24 147/62 98 Nasal Cannula 2.0 98.2 07/09/17 00:17 148/68 07/09/17 00:00 97.9 80 18 137/70 96 Nasal Cannula 97.9 07/08/17 21:29 98.2 07/08/17 20:18 98.2 81 24 108/48 95 Nasal Cannula 2.0 98.2 07/08/17 17:57 127/61 07/08/17 17:57 74 127/61 07/08/17 16:00 98.0 74 19 90 98.0 Intake and Output 07/08/17 07/09/17 19:00 07:00 Intake Total 985.000 ml 700 ml Balance 985.000 ml 700 ml Intake Free Water 260 ml IV Total 305.000 ml Tube Feeding 480 ml 440 ml Other 200 ml # Voids 3 Height (Feet): 5 Height (Inches): 3.00 Weight (Pounds): 144 General Appearance: no apparent distress Cardiovascular: normal rate Respiratory/Chest: decreased breath sounds Abdomen: soft, other - GT Objective no other change YAZMIN CROSS July 09, 2017 15:53
[2017-07-09 16:00] VITALS: BP 132/65
[2017-07-09 20:00] VITALS: BP 130/60
[2017-07-09] MEDS: Dyna-Hex 2% Top Sol 2oz TOPIC SCH (20:00)
[2017-07-10] VITALS (7 sets, daily range): BP systolic 100–151; BP diastolic 43–88
[2017-07-10] MEDS: Albuterol/Ipratropium 3ml neb HHN PRN ×3 (01:24→13:58)
[2017-07-10 05:24] LABS: BASOPHILS % (AUTO) 0.8 % (0.0-2.0); EOSINOPHILS % (AUTO) 2.4 % (0.0-3.0); HEMATOCRIT 32.2 % (37.0-47.0); HEMOGLOBIN 11.5 G/DL (12.0-16.0); LYMPHOCYTES % (AUTO) 13.9 % (20.0-45.0); MEAN CORPUSCULAR VOLUME 91 FL (80-99); MONOCYTES % (AUTO) 8.1 % (1.0-10.0); NEUTROPHILS % (AUTO) 74.8 % (45.0-75.0); PLATELET COUNT 188 K/UL (150-450); RED BLOOD COUNT 3.55 M/UL (4.20-5.40); RED CELL DISTRIBUTION WIDTH 12.4 % (11.6-14.8); WHITE BLOOD COUNT 8.3 K/UL (4.8-10.8)
[2017-07-10] MEDS: traMADol 50mg tab GT SCH ×3 (05:28→21:05)
[2017-07-10 05:31] LABS: ALANINE AMINOTRANSFERASE 29 U/L (12-78); ALBUMIN 2.3 G/DL (3.4-5.0); ALBUMIN/GLOBULIN RATIO 0.6 (1.0-2.7); ALKALINE PHOSPHATASE 107 U/L (46-116); ANION GAP 9 mmol/L (5-15); ASPARTATE AMINO TRANSFERASE 21 U/L (15-37); BILIRUBIN,TOTAL 0.4 MG/DL (0.2-1.0); BLOOD UREA NITROGEN 23 mg/dL (7-18); CALCIUM 8.2 MG/DL (8.5-10.1); CARBON DIOXIDE 29 MMOL/L (21-32); CHLORIDE 101 MMOL/L (98-107); CREATININE 1.4 MG/DL (0.55-1.30); PHOSPHORUS 4.3 MG/DL (2.5-4.9); POTASSIUM 4.5 MMOL/L (3.5-5.1); SODIUM 139 MMOL/L (136-145)
[2017-07-10] MEDS: Docusate 100mg/10ml Liq GT SCH ×3 (09:09→17:52)
[2017-07-10] MEDS: Amiodarone 200mg tab GT SCH (09:10)
[2017-07-10] MEDS: Aspirin Baby 81mg GT SCH (09:10)
[2017-07-10] MEDS: Heparin 5000 units/ml inj SUBQ SCH ×2 (09:11→21:08)
--- NOTE | 2017-07-10 11:14 | Diagnostic Imaging Report ---
Indication: Dyspnea Comparison: 06/30/2017 A single view chest radiograph was obtained. Findings: Mild basal atelectasis demonstrated. The heart is enlarged. Bones are osteopenic. IMPRESSION: Mild basal atelectasis. Cardiomegaly without overt CHF
--- NOTE | 2017-07-10 11:46 | General Progress Note ---
Assessment/Plan Problem List: (1) Urinary tract infection ICD Codes: N39.0 - Urinary tract infection, site not specified SNOMED: 22620161 (2) Foot osteomyelitis, right ICD Codes: M86.9 - Osteomyelitis, unspecified SNOMED: 1348786838932105 (3) Dementia ICD Codes: F03.90 - Unspecified dementia without behavioral disturbance SNOMED: 03590019 (4) PEG (percutaneous endoscopic gastrostomy) status ICD Codes: Z93.1 - Gastrostomy status SNOMED: 023044963, 261530209 (5) Atrial fibrillation ICD Codes: I48.91 - Unspecified atrial fibrillation SNOMED: 89832174 (6) Bacteremia ICD Codes: R78.81 - Bacteremia SNOMED: 9702743 (7) Gram-negative pneumonia ICD Codes: J15.6 - Pneumonia due to other Gram-negative bacteria SNOMED: 916559661 (8) Functional quadriplegia ICD Codes: R53.2 - Functional quadriplegia SNOMED: 027904383258157 Status: stable Assessment/Plan Amputated 07/06 Pain meds + Post Op care PICC and DC Breathing treatment adjust BP meds ID eval and advise per orders Subjective ROS Limited/Unobtainable: No Allergies: Coded Allergies: No Known Allergies (Unverified , 02/27/16) Objective Last 24 Hour Vital Signs Date Time Temp Pulse Resp B/P (MAP) Pulse Ox O2 Delivery O2 Flow Rate FiO2 07/10/17 09:22 75 16 99 Nasal Cannula 3.0 32 07/10/17 09:10 95 130/67 07/10/17 09:05 75 16 95 Nasal Cannula 3.0 32 07/10/17 09:05 Nasal Cannula 3.0 32 07/10/17 09:05 75 16 Nasal Cannula 3.0 32 07/10/17 08:00 98.1 65 20 151/88 100 Room Air 98.1 07/10/17 08:00 97.7 95 18 135/67 95 Room Air 97.7 07/10/17 06:27 97.7 07/10/17 05:28 97.7 07/10/17 05:28 135/60 07/10/17 05:04 85 135/60 07/10/17 04:00 97.7 81 19 110/43 81 97.7 07/10/17 01:32 79 20 99 Nasal Cannula 3.0 32 07/10/17 01:24 78 20 96 Nasal Cannula 3.0 32 07/10/17 00:33 130/60 07/10/17 00:00 97.9 75 20 114/62 93 Room Air 97.9 07/10/17 00:00 Nasal Cannula 2.0 07/09/17 21:36 97.7 07/09/17 20:06 83 20 99 Nasal Cannula 3.0 32 07/09/17 20:04 Nasal Cannula 3.0 32 07/09/17 20:03 84 20 Nasal Cannula 3.0 32 07/09/17 20:00 97.7 85 19 130/60 90 97.7 07/09/17 20:00 Nasal Cannula 2.0 07/09/17 19:59 84 20 94 Nasal Cannula 3.0 32 07/09/17 17:29 132/65 07/09/17 17:29 83 132/65 07/09/17 16:00 97.3 83 20 132/65 98 Nasal Cannula 2.0 97.3 07/09/17 13:42 80 20 94 Nasal Cannula 2.0 28 07/09/17 13:33 81 18 92 Nasal Cannula 2.0 28 07/09/17 13:17 97.7 07/09/17 13:15 115/49 07/09/17 12:00 97.7 79 22 115/49 94 97.7 Intake and Output 07/09/17 07/10/17 19:00 07:00 Intake Total 140 ml 770 ml Output Total 1 ml Balance 139 ml 770 ml Intake Free Water 100 ml 290 ml Tube Feeding 40 ml 480 ml Output Urine Total 1 ml # Voids 5 5 Laboratory Tests 07/10/17 04:50: White Blood Count 8.3, Red Blood Count 3.55L, Hemoglobin 11.5L, Hematocrit 32.2L , Mean Corpuscular Volume 91, Mean Corpuscular Hemoglobin 32.5H, Mean Corpuscular Hemoglobin Concent 35.8, Red Cell Distribution Width 12.4, Platelet Count 188, Mean Platelet Volume 7.7, Neutrophils (%) (Auto) 74.8, Lymphocytes (% ) (Auto) 13.9L, Monocytes (%) (Auto) 8.1, Eosinophils (%) (Auto) 2.4, Basophils (%) (Auto) 0.8, Sodium Level 139, Potassium Level 4.5, Chloride Level 101, Carbon Dioxide Level 29, Anion Gap 9, Blood Urea Nitrogen 23H, Creatinine 1.4H, Estimat Glomerular Filtration Rate , Glucose Level 114H, Calcium Level 8.2L, Phosphorus Level 4.3, Magnesium Level 2.1, Total Bilirubin 0.4, Aspartate Amino Transf (AST/SGOT) 21, Alanine Aminotransferase (ALT/SGPT) 29, Alkaline Phosphatase 107, C-Reactive Protein, Quantitative 9.8H, Total Protein 6.3L, Albumin 2.3L, Globulin 4.0, Albumin/Globulin Ratio 0.6L Height (Feet): 5 Height (Inches): 3.00 Weight (Pounds): 144 General Appearance: no apparent distress Objective no other change YAZMIN CROSS July 10, 2017 11:46
[2017-07-10] MEDS: Vancomycin 1250mg/D5W 250ml IVPB SCH (12:50)
--- NOTE | 2017-07-10 13:23 | General Progress Note ---
Progress Note Progress Note Surgery: doing well. no acute events. afebrile, HD stable, labs okay right foot with edema. good cap refill. incision c/d/i and without drainage. small areas of necrosis at skin edge improved. unfortunately worsening edema. would really benefit from leg elevation but given contractures cannot and this will lead to worsening edema. as long as wounds hold without too much tension should resolve in time. currently has good cap refill and blood supply. can potentially worsen and require further surgical intervention. will monitor. can see in [facility] as well upon d/c Rafat Olvera July 10, 2017 13:23
[2017-07-10] MEDS: Ertapenem 1 GM in NS 55 ML IVPB SCH (14:09)
--- NOTE | 2017-07-10 14:18 | Diagnostic Imaging Report ---
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 The left upper extremity was prepped with alcohol. All elements of maximal sterile barrier technique were followed including usage of a cap, mask, sterile gown, sterile gloves, hand hygiene and a large sterile sheet. Sonographic evaluation of the upper extremity was performed demonstrating a patent and compressible basilic vein. Access was obtained under real-time ultrasound guidance (with utilization of sterile gel and sterile probe cover) and digital image was saved and archived. An .018 wire was introduced. Needle exchanged for a 5 [place] peel-away sheath. Measurements were obtained. A 5 [place] dual-lumen Power PICC line catheter was cut to 40 cm and introduced over the wire. Peel-away sheath and wire were removed.Catheter was secured to the skin using 2-0 Prolene suture. Both ports aspirate and flush easily. Fluoroscopic images show distal tip in the superior vena cava. Total fluoroscopic time 0.1 minute Impression: Successful placement of an upper extremity PICC line catheter
--- NOTE | 2017-07-10 15:27 | Infectious Diseases Prog Note ---
Assessment/Plan Problems: (1) Aspiration pneumonia Assessment & Plan: with MDR Providencia stuartii, and ESBL+ proteus mirabilis . continue ertapenem for 14 days total, EOT 07/19/17 (2) Sepsis Assessment & Plan: with coag negative staph , source suspect right big toe wound infection with underlying osteomyelitis , bone scan of the right foot was positive for osteomyelitis of the big toe metatarsal bone , S/P big toe amputation . will treat with vancomycin for 2 weeks after her big toe amputation , will repeat blood culture to confirm clearance . will need PICC line for [facility] antibiotics treatment if repeated blood culture is negative . EOT 07/19/17 (3) Right foot ulcer Assessment & Plan: with dorsal dislocation of the first phalanx , and bone scan showed osteomyelitis , S/P big toe amputation , continue local wound care as per surgery , continue vancomycin for 2 weeks after her amputation (4) Dementia Assessment & Plan: continue supportive care Subjective ROS Limited/Unobtainable: Yes Allergies: Coded Allergies: No Known Allergies (Unverified , 02/27/16) Subjective she was comfortable, resting in bed, getting neb therapy , wound looks clean as per nurse , she was resting in bed comfortably, no signs of distress , afebrile Objective Vital Signs Last 24 Hour Vital Signs Date Time Temp Pulse Resp B/P (MAP) Pulse Ox O2 Delivery O2 Flow Rate FiO2 07/10/17 15:07 97.7 07/10/17 14:13 77 20 94 Nasal Cannula 3.0 32 07/10/17 14:08 97.7 07/10/17 13:58 96 16 92 Nasal Cannula 3.0 32 07/10/17 12:30 98.0 83 19 100/57 92 Nasal Cannula 2.0 98.0 07/10/17 12:00 100/57 07/10/17 09:22 75 16 99 Nasal Cannula 3.0 32 07/10/17 09:10 95 130/67 07/10/17 09:05 75 16 95 Nasal Cannula 3.0 32 07/10/17 09:05 Nasal Cannula 3.0 32 07/10/17 09:05 75 16 Nasal Cannula 3.0 32 07/10/17 08:00 98.1 65 20 151/88 100 Room Air 98.1 07/10/17 08:00 97.7 95 18 135/67 95 Room Air 97.7 5/21/18 05:28 97.7 07/10/17 05:28 135/60 07/10/17 05:04 85 135/60 07/10/17 04:00 97.7 81 19 110/43 81 97.7 07/10/17 01:32 79 20 99 Nasal Cannula 3.0 32 07/10/17 01:24 78 20 96 Nasal Cannula 3.0 32 07/10/17 00:33 130/60 07/10/17 00:00 97.9 75 20 114/62 93 Room Air 97.9 07/10/17 00:00 Nasal Cannula 2.0 07/09/17 21:36 97.7 07/09/17 20:06 83 20 99 Nasal Cannula 3.0 32 07/09/17 20:04 Nasal Cannula 3.0 32 07/09/17 20:03 84 20 Nasal Cannula 3.0 32 07/09/17 20:00 97.7 85 19 130/60 90 97.7 07/09/17 20:00 Nasal Cannula 2.0 07/09/17 19:59 84 20 94 Nasal Cannula 3.0 32 07/09/17 17:29 132/65 07/09/17 17:29 83 132/65 07/09/17 16:00 97.3 83 20 132/65 98 Nasal Cannula 2.0 97.3 Height (Feet): 5 Height (Inches): 3.00 Weight (Pounds): 144 General Appearance: WD/WN, no acute distress HEENT: normocephalic, atraumatic, anicteric, mucous membranes moist, PERRL Respiratory/Chest: chest wall non-tender, lungs clear, normal breath sounds, no respiratory distress, no accessory muscle use, decreased breath sounds Cardiovascular: normal peripheral pulses, normal rate, regular rhythm, no gallop/murmur, no JVD Abdomen: normal bowel sounds, soft, non tender, no organomegaly, non distended , no mass, no scars Extremities: no cyanosis, no clubbing Skin: no rash, no lesions, ulcers Neurologic/Psychiatric: alert, unresponsiveness Lymphatic: no neck adenopathy, no groin adenopathy Laboratory Tests Test 07/10/17 04:50 White Blood Count 8.3 K/UL (4.8-10.8) Red Blood Count 3.55 M/UL (4.20-5.40) L Hemoglobin 11.5 G/DL (12.0-16.0) L Hematocrit 32.2 % (37.0-47.0) L Mean Corpuscular Volume 91 FL (80-99) Mean Corpuscular Hemoglobin 32.5 PG (27.0-31.0) H Mean Corpuscular Hemoglobin Concent 35.8 G/DL (32.0-36.0) Red Cell Distribution Width 12.4 % (11.6-14.8) Platelet Count 188 K/UL (150-450) Mean Platelet Volume 7.7 FL (6.5-10.1) Neutrophils (%) (Auto) 74.8 % (45.0-75.0) Lymphocytes (%) (Auto) 13.9 % (20.0-45.0) L Monocytes (%) (Auto) 8.1 % (1.0-10.0) Eosinophils (%) (Auto) 2.4 % (0.0-3.0) Basophils (%) (Auto) 0.8 % (0.0-2.0) Sodium Level 139 MMOL/L (136-145) Potassium Level 4.5 MMOL/L (3.5-5.1) Chloride Level 101 MMOL/L (98-107) Carbon Dioxide Level 29 MMOL/L (21-32) Anion Gap 9 mmol/L (5-15) Blood Urea Nitrogen 23 mg/dL (7-18) H Creatinine 1.4 MG/DL (0.55-1.30) H Estimat Glomerular Filtration Rate mL/min (>60) Glucose Level 114 MG/DL (74-106) H Calcium Level 8.2 MG/DL (8.5-10.1) L Phosphorus Level 4.3 MG/DL (2.5-4.9) Magnesium Level 2.1 MG/DL (1.8-2.4) Total Bilirubin 0.4 MG/DL (0.2-1.0) Aspartate Amino Transf (AST/SGOT) 21 U/L (15-37) Alanine Aminotransferase (ALT/SGPT) 29 U/L (12-78) Alkaline Phosphatase 107 U/L (46-116) C-Reactive Protein, Quantitative 9.8 mg/dL (0.00-0.90) H Total Protein 6.3 G/DL (6.4-8.2) L Albumin 2.3 G/DL (3.4-5.0) L Globulin 4.0 g/dL Albumin/Globulin Ratio 0.6 (1.0-2.7) L Current Medications Medications (Trade) Dose Ordered Sig/Baljit Route PRN Reason Start Time Stop Time Status Last Admin Dose Admin Acetaminophen (Tylenol) 650 mg Q6H PRN GT pain 2-5 07/01/17 10:30 07/31/17 10:29 Albuterol/ Ipratropium (Albuterol/ Ipratropium) 3 ml Q4H PRN HHN Shortness of Breath 07/08/17 19:00 07/13/17 18:59 07/10/17 13:58 Amiodarone HCl (Cordarone) 100 mg DAILY GT 07/02/17 09:00 08/01/17 08:59 07/10/17 09:10 Amlodipine Besylate (Norvasc) 5 mg BID GT 07/01/17 18:00 07/31/17 17:59 07/10/17 09:10 Aspirin (ASA) 81 mg DAILY GT 07/02/17 09:00 08/01/17 08:59 07/10/17 09:10 Chlorhexidine Gluconate (Leslie-Hex 2%) 1 applic DAILY@2000 TOPIC 07/09/17 20:00 08/08/17 19:59 Docusate Sodium (Colace) 100 mg TID GT 07/01/17 13:00 07/31/17 12:59 07/10/17 12:49 Ertapenem 1 gm/ Sodium Chloride 55 ml @ 110 mls/hr Q24H IVPB 07/05/17 13:00 07/19/17 12:59 07/10/17 14:09 Famotidine (Pepcid) 20 mg BID GT 07/01/17 18:00 07/31/17 17:59 07/10/17 09:10 Heparin Sodium (Porcine) (Heparin 5000 units/ml) 5,000 units EVERY 12 HOURS SUBQ 07/01/17 21:00 07/31/17 20:59 07/10/17 09:11 Heparin Sodium/ Sodium Chloride (Heparin 2000 units/Ns 1000ml premix) 2,000 unit DAILY PRN INJ PICC PLACEMENT 07/09/17 15:45 07/11/17 23:59 Isosorbide Dinitrate (Isordil) 10 mg Q6HR GT 07/01/17 18:00 07/31/17 17:59 07/10/17 12:00 Lidocaine HCl (Xylocaine 1% 30ml) 30 ml DAILY PRN INJ PICC PLACEMENT 07/09/17 15:45 07/11/17 23:59 Ondansetron HCl (Zofran) 4 mg Q6H PRN IVP Nausea & Vomiting 07/01/17 10:30 07/31/17 10:29 Promethazine HCl/ Codeine (Phenergan with Codeine) 5 ml Q4H PRN GT For Cough 07/07/17 10:45 07/31/17 10:29 Tramadol HCl (Ultram) 25 mg Q8HR GT 07/07/17 22:00 07/14/17 21:59 07/10/17 14:08 Vancomycin HCl (Vanco rx to dose) 1 ea DAILY PRN MISC Per rx protocol 07/01/17 10:00 07/31/17 09:59 Vancomycin HCl/ Dextrose 250 ml @ 166.667 mls/hr Q24H IVPB 07/04/17 12:00 07/19/17 23:59 07/10/17 12:50 Damon Briggs M.D. July 10, 2017 15:27
--- NOTE | 2017-07-10 16:02 | Pulmonology Progress Note ---
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 (4) Dementia (5) PEG (percutaneous endoscopic gastrostomy) status (6) Advanced age Assessment/Plan looks comfortable respiratory treatment check sputum chest pt iv abx sputum induction aspiration precaution tolerating diet check labs in am Subjective ROS Limited/Unobtainable: No Constitutional: Reports: no symptoms HEENT: Repors: no symptoms Respiratory: Reports: no symptoms Allergies: Coded Allergies: No Known Allergies (Unverified , 02/27/16) Objective Last 24 Hour Vital Signs Date Time Temp Pulse Resp B/P (MAP) Pulse Ox O2 Delivery O2 Flow Rate FiO2 07/10/17 15:07 97.7 07/10/17 14:13 77 20 94 Nasal Cannula 3.0 32 07/10/17 14:08 97.7 07/10/17 13:58 96 16 92 Nasal Cannula 3.0 32 07/10/17 12:30 98.0 83 19 100/57 92 Nasal Cannula 2.0 98.0 07/10/17 12:00 100/57 07/10/17 09:22 75 16 99 Nasal Cannula 3.0 32 07/10/17 09:10 95 130/67 07/10/17 09:05 75 16 95 Nasal Cannula 3.0 32 07/10/17 09:05 Nasal Cannula 3.0 32 07/10/17 09:05 75 16 Nasal Cannula 3.0 32 07/10/17 08:00 98.1 65 20 151/88 100 Room Air 98.1 07/10/17 08:00 97.7 95 18 135/67 95 Room Air 97.7 07/10/17 05:28 97.7 07/10/17 05:28 135/60 07/10/17 05:04 85 135/60 07/10/17 04:00 97.7 81 19 110/43 81 97.7 07/10/17 01:32 79 20 99 Nasal Cannula 3.0 32 07/10/17 01:24 78 20 96 Nasal Cannula 3.0 32 07/10/17 00:33 130/60 07/10/17 00:00 97.9 75 20 114/62 93 Room Air 97.9 07/10/17 00:00 Nasal Cannula 2.0 07/09/17 21:36 97.7 07/09/17 20:06 83 20 99 Nasal Cannula 3.0 32 07/09/17 20:04 Nasal Cannula 3.0 32 07/09/17 20:03 84 20 Nasal Cannula 3.0 32 07/09/17 20:00 97.7 85 19 130/60 90 97.7 07/09/17 20:00 Nasal Cannula 2.0 07/09/17 19:59 84 20 94 Nasal Cannula 3.0 32 07/09/17 17:29 132/65 07/09/17 17:29 83 132/65 Intake and Output 07/09/17 07/10/17 19:00 07:00 Intake Total 140 ml 770 ml Output Total 1 ml Balance 139 ml 770 ml Intake Free Water 100 ml 290 ml Tube Feeding 40 ml 480 ml Output Urine Total 1 ml # Voids 5 5 General Appearance: WD/WN HEENT: normocephalic, anicteric Respiratory/Chest: chest wall non-tender, lungs clear Breasts: no masses Cardiovascular: normal peripheral pulses Abdomen: normal bowel sounds, soft, non tender Genitourinary: normal external genitalia Extremities: no clubbing 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, no motor/sensory deficits, oriented x 3 Lymphatic: no neck adenopathy Laboratory Tests 07/10/17 04:50: White Blood Count 8.3, Red Blood Count 3.55L, Hemoglobin 11.5L, Hematocrit 32.2L , Mean Corpuscular Volume 91, Mean Corpuscular Hemoglobin 32.5H, Mean Corpuscular Hemoglobin Concent 35.8, Red Cell Distribution Width 12.4, Platelet Count 188, Mean Platelet Volume 7.7, Neutrophils (%) (Auto) 74.8, Lymphocytes (% ) (Auto) 13.9L, Monocytes (%) (Auto) 8.1, Eosinophils (%) (Auto) 2.4, Basophils (%) (Auto) 0.8, Sodium Level 139, Potassium Level 4.5, Chloride Level 101, Carbon Dioxide Level 29, Anion Gap 9, Blood Urea Nitrogen 23H, Creatinine 1.4H, Estimat Glomerular Filtration Rate , Glucose Level 114H, Calcium Level 8.2L, Phosphorus Level 4.3, Magnesium Level 2.1, Total Bilirubin 0.4, Aspartate Amino Transf (AST/SGOT) 21, Alanine Aminotransferase (ALT/SGPT) 29, Alkaline Phosphatase 107, C-Reactive Protein, Quantitative 9.8H, Total Protein 6.3L, Albumin 2.3L, Globulin 4.0, Albumin/Globulin Ratio 0.6L Current Medications Medications (Trade) Dose Ordered Sig/Baljit Route PRN Reason Start Time Stop Time Status Last Admin Dose Admin Acetaminophen (Tylenol) 650 mg Q6H PRN GT pain 2-5 07/01/17 10:30 07/31/17 10:29 Albuterol/ Ipratropium (Albuterol/ Ipratropium) 3 ml Q4H PRN HHN Shortness of Breath 07/08/17 19:00 07/13/17 18:59 07/10/17 13:58 Amiodarone HCl (Cordarone) 100 mg DAILY GT 07/02/17 09:00 08/01/17 08:59 07/10/17 09:10 Amlodipine Besylate (Norvasc) 5 mg BID GT 07/01/17 18:00 07/31/17 17:59 07/10/17 09:10 Aspirin (ASA) 81 mg DAILY GT 07/02/17 09:00 08/01/17 08:59 07/10/17 09:10 Chlorhexidine Gluconate (Leslie-Hex 2%) 1 applic DAILY@2000 TOPIC 07/09/17 20:00 08/08/17 19:59 Docusate Sodium (Colace) 100 mg TID GT 07/01/17 13:00 07/31/17 12:59 07/10/17 12:49 Ertapenem 1 gm/ Sodium Chloride 55 ml @ 110 mls/hr Q24H IVPB 07/05/17 13:00 07/19/17 12:59 07/10/17 14:09 Famotidine (Pepcid) 20 mg BID GT 07/01/17 18:00 07/31/17 17:59 07/10/17 09:10 Heparin Sodium (Porcine) (Heparin 5000 units/ml) 5,000 units EVERY 12 HOURS SUBQ 07/01/17 21:00 07/31/17 20:59 07/10/17 09:11 Heparin Sodium/ Sodium Chloride (Heparin 2000 units/Ns 1000ml premix) 2,000 unit DAILY PRN INJ PICC PLACEMENT 07/09/17 15:45 5/22/18 23:59 Isosorbide Dinitrate (Isordil) 10 mg Q6HR GT 07/01/17 18:00 07/31/17 17:59 07/10/17 12:00 Lidocaine HCl (Xylocaine 1% 30ml) 30 ml DAILY PRN INJ PICC PLACEMENT 07/09/17 15:45 07/11/17 23:59 Ondansetron HCl (Zofran) 4 mg Q6H PRN IVP Nausea & Vomiting 07/01/17 10:30 07/31/17 10:29 Promethazine HCl/ Codeine (Phenergan with Codeine) 5 ml Q4H PRN GT For Cough 07/07/17 10:45 07/31/17 10:29 Tramadol HCl (Ultram) 25 mg Q8HR GT 07/07/17 22:00 07/14/17 21:59 07/10/17 14:08 Vancomycin HCl (Vanco rx to dose) 1 ea DAILY PRN MISC Per rx protocol 07/01/17 10:00 07/31/17 09:59 Vancomycin HCl/ Dextrose 250 ml @ 166.667 mls/hr Q24H IVPB 07/04/17 12:00 07/19/17 23:59 07/10/17 12:50 Lauro Lopez MD July 10, 2017 16:02
[2017-07-10] MEDS: Dyna-Hex 2% Top Sol 2oz TOPIC SCH (20:00)
[2017-07-11 00:07] VITALS: BP 116/60
[2017-07-11 04:00] VITALS: BP 120/65
[2017-07-11] MEDS: traMADol 50mg tab GT SCH (05:45)
[2017-07-11 08:00] VITALS: BP 123/68
[2017-07-11] MEDS: Amiodarone 200mg tab GT SCH (09:55)
[2017-07-11] MEDS: Aspirin Baby 81mg GT SCH (09:57)
[2017-07-11] MEDS: Docusate 100mg/10ml Liq GT SCH ×2 (10:34→13:34)
[2017-07-11] MEDS: Heparin 5000 units/ml inj SUBQ SCH (10:37)
--- NOTE | 2017-07-11 10:42 | General Progress Note ---
Assessment/Plan Problem List: (1) Urinary tract infection ICD Codes: N39.0 - Urinary tract infection, site not specified SNOMED: 91239934 (2) Foot osteomyelitis, right ICD Codes: M86.9 - Osteomyelitis, unspecified SNOMED: 2928142424484817 (3) Dementia ICD Codes: F03.90 - Unspecified dementia without behavioral disturbance SNOMED: 90188169 (4) PEG (percutaneous endoscopic gastrostomy) status ICD Codes: Z93.1 - Gastrostomy status SNOMED: 475420120, 652284996 (5) Atrial fibrillation ICD Codes: I48.91 - Unspecified atrial fibrillation SNOMED: 94483707 (6) Bacteremia ICD Codes: R78.81 - Bacteremia SNOMED: 2303309 (7) Gram-negative pneumonia ICD Codes: J15.6 - Pneumonia due to other Gram-negative bacteria SNOMED: 829939011 (8) Functional quadriplegia ICD Codes: R53.2 - Functional quadriplegia SNOMED: 353289063124138 Assessment/Plan Amputated 07/06 Pain meds + Post Op care PICC and DC with MDR Providencia stuartii, and ESBL+ proteus mirabilis . continue ertapenem for 14 days total, EOT 07/19/17 with coag negative staph , source suspect right big toe wound infection with underlying osteomyelitis , bone scan of the right foot was positive for osteomyelitis of the big toe metatarsal bone , S/P big toe amputation . will treat with vancomycin for 2 weeks after her big toe amputation , will repeat blood culture to confirm clearance . will need PICC line for fdc antibiotics treatment if repeated blood culture is negative . EOT 07/19/17 Breathing treatment adjust BP meds ID eval and advise per orders Subjective ROS Limited/Unobtainable: No Constitutional: Reports: malaise Allergies: Coded Allergies: No Known Allergies (Unverified , 02/27/16) Objective Last 24 Hour Vital Signs Date Time Temp Pulse Resp B/P (MAP) Pulse Ox O2 Delivery O2 Flow Rate FiO2 07/11/17 10:35 71 120/65 07/11/17 08:02 78 18 Nasal Cannula 4.0 36 07/11/17 08:02 Nasal Cannula 4.0 36 07/11/17 06:44 98.2 07/11/17 05:45 98.2 07/11/17 05:45 120/65 07/11/17 04:00 95 Nasal Cannula 3.0 07/11/17 04:00 98.2 82 19 120/65 95 98.2 07/11/17 00:12 116/60 07/11/17 00:07 97.9 79 18 116/60 93 Nasal Cannula 3.0 97.9 07/10/17 21:52 84 20 Nasal Cannula 3.0 32 07/10/17 21:27 Nasal Cannula 3.0 32 07/10/17 21:27 79 16 Nasal Cannula 3.0 32 07/10/17 21:05 97.9 07/10/17 20:46 97.9 88 19 126/88 97 97.9 07/10/17 20:46 97 Nasal Cannula 3.0 07/10/17 17:51 128/53 07/10/17 17:51 84 128/53 07/10/17 16:00 97.2 84 18 128/53 95 Nasal Cannula 2.0 97.2 07/10/17 14:13 77 20 94 Nasal Cannula 3.0 32 07/10/17 14:08 97.7 07/10/17 13:58 96 16 92 Nasal Cannula 3.0 32 07/10/17 12:30 98.0 83 19 100/57 92 Nasal Cannula 2.0 98.0 07/10/17 12:00 100/57 Intake and Output 07/10/17 07/11/17 19:00 07:00 Intake Total 1045 ml 700 ml Balance 1045 ml 700 ml Intake Free Water 300 ml 220 ml IV Total 305 ml Tube Feeding 440 ml 480 ml # Voids 2 Current Medications Medications (Trade) Dose Ordered Sig/Baljit Route PRN Reason Start Time Stop Time Status Last Admin Dose Admin Acetaminophen (Tylenol) 650 mg Q6H PRN GT pain 2-5 07/01/17 10:30 07/31/17 10:29 Albuterol/ Ipratropium (Albuterol/ Ipratropium) 3 ml Q4H PRN HHN Shortness of Breath 07/08/17 19:00 07/13/17 18:59 07/10/17 13:58 Amiodarone HCl (Cordarone) 100 mg DAILY GT 07/02/17 09:00 08/01/17 08:59 07/11/17 09:55 Amlodipine Besylate (Norvasc) 5 mg BID GT 07/01/17 18:00 07/31/17 17:59 07/11/17 10:35 Aspirin (ASA) 81 mg DAILY GT 07/02/17 09:00 08/01/17 08:59 07/11/17 09:57 Chlorhexidine Gluconate (Leslie-Hex 2%) 1 applic DAILY@2000 TOPIC 07/09/17 20:00 08/08/17 19:59 Docusate Sodium (Colace) 100 mg TID GT 07/01/17 13:00 07/31/17 12:59 07/11/17 10:34 Ertapenem 1 gm/ Sodium Chloride 55 ml @ 110 mls/hr Q24H IVPB 07/05/17 13:00 07/19/17 12:59 07/10/17 14:09 Famotidine (Pepcid) 20 mg BID GT 07/01/17 18:00 07/31/17 17:59 07/11/17 09:58 Heparin Sodium (Porcine) (Heparin 5000 units/ml) 5,000 units EVERY 12 HOURS SUBQ 07/01/17 21:00 07/31/17 20:59 07/11/17 10:37 Heparin Sodium/ Sodium Chloride (Heparin 2000 units/Ns 1000ml premix) 2,000 unit DAILY PRN INJ PICC PLACEMENT 07/09/17 15:45 07/11/17 23:59 Isosorbide Dinitrate (Isordil) 10 mg Q6HR GT 07/01/17 18:00 07/31/17 17:59 07/11/17 05:45 Lidocaine HCl (Xylocaine 1% 30ml) 30 ml DAILY PRN INJ PICC PLACEMENT 07/09/17 15:45 07/11/17 23:59 Ondansetron HCl (Zofran) 4 mg Q6H PRN IVP Nausea & Vomiting 07/01/17 10:30 07/31/17 10:29 Promethazine HCl/ Codeine (Phenergan with Codeine) 5 ml Q4H PRN GT For Cough 07/07/17 10:45 07/31/17 10:29 Tramadol HCl (Ultram) 25 mg Q8HR GT 07/07/17 22:00 07/14/17 21:59 07/11/17 05:45 Vancomycin HCl (Vanco rx to dose) 1 ea DAILY PRN MISC Per rx protocol 07/01/17 10:00 07/31/17 09:59 Vancomycin HCl/ Dextrose 250 ml @ 166.667 mls/hr Q24H IVPB 07/04/17 12:00 07/19/17 23:59 07/10/17 12:50 Height (Feet): 5 Height (Inches): 3.00 Weight (Pounds): 144 General Appearance: no apparent distress Objective no other change YAZMIN CROSS July 11, 2017 10:42
--- NOTE | 2017-07-11 10:44 | Discharge Instructions ---
Discharge Instructions Discharge Instructions Follow up with: seen by me at [facility] Diet: other - GT feeding Special Instructions HHN QID for 2 weeks Vancomycin 1250mg daily til 07/19 PICC line care For Congestive Heart Failure Reminder Report to your physician any weight gain of 5 pounds or more in one week. YAZMIN CROSS July 11, 2017 10:44
[2017-07-11] MEDS ORDERED: INVANZ1 G1 IM (10:46)
[2017-07-11] MEDS ORDERED: DUONEB 0.5-3(2.53 ML HHN (10:50)
[2017-07-11] MEDS ORDERED: COLACE100 MG/10 GT (10:50)
[2017-07-11] MEDS ORDERED: FAMOTIDINE20 MG GT (10:50)
[2017-07-11] MEDS ORDERED: ASPIRIN81 MG GT (10:50)
[2017-07-11] MEDS ORDERED: NORVASC5 MG GT (10:50)
[2017-07-11] MEDS ORDERED: PACERONE200 MG GT (10:50)
[2017-07-11] MEDS ORDERED: TRAMADOL HCL50 MG GT (10:50)
[2017-07-11] MEDS ORDERED: ISOSORBIDE DINI10 MG GT (10:50)
[2017-07-11] MEDS ORDERED: Acetaminophen GT (10:50)
[2017-07-11 12:00] VITALS: BP 126/70
[2017-07-11] MEDS: Vancomycin 1250mg/D5W 250ml IVPB SCH (12:00)
--- NOTE | 2017-07-11 13:15 | Infectious Diseases Prog Note ---
Assessment/Plan Problems: (1) Aspiration pneumonia Assessment & Plan: with MDR Providencia stuartii, and ESBL+ proteus mirabilis . continue ertapenem for 14 days total, EOT 07/19/17 (2) Sepsis Assessment & Plan: with coag negative staph , source suspect right big toe wound infection with underlying osteomyelitis , bone scan of the right foot was positive for osteomyelitis of the big toe metatarsal bone , S/P big toe amputation . will treat with vancomycin for 2 weeks after her big toe amputation , will repeat blood culture to confirm clearance . will need PICC line for skilled nursing antibiotics treatment if repeated blood culture is negative . EOT 07/19/17 (3) Right foot ulcer Assessment & Plan: with dorsal dislocation of the first phalanx , and bone scan showed osteomyelitis , S/P big toe amputation , continue local wound care as per surgery , continue vancomycin for 2 weeks after her amputation (4) Dementia Assessment & Plan: continue supportive care Subjective ROS Limited/Unobtainable: Yes Allergies: Coded Allergies: No Known Allergies (Unverified , 02/27/16) Subjective she was comfortable, resting in bed, wound looks clean as per nurse , she was resting in bed comfortably, no signs of distress , afebrile Objective Vital Signs Last 24 Hour Vital Signs Date Time Temp Pulse Resp B/P (MAP) Pulse Ox O2 Delivery O2 Flow Rate FiO2 07/11/17 10:35 71 120/65 07/11/17 08:02 78 18 Nasal Cannula 4.0 36 07/11/17 08:02 Nasal Cannula 4.0 36 07/11/17 06:44 98.2 07/11/17 05:45 98.2 07/11/17 05:45 120/65 07/11/17 04:00 95 Nasal Cannula 3.0 07/11/17 04:00 98.2 82 19 120/65 95 98.2 07/11/17 00:12 116/60 07/11/17 00:07 97.9 79 18 116/60 93 Nasal Cannula 3.0 97.9 07/10/17 21:52 84 20 Nasal Cannula 3.0 32 07/10/17 21:27 Nasal Cannula 3.0 32 07/10/17 21:27 79 16 Nasal Cannula 3.0 32 07/10/17 21:05 97.9 07/10/17 20:46 97.9 88 19 126/88 97 97.9 07/10/17 20:46 97 Nasal Cannula 3.0 07/10/17 17:51 128/53 07/10/17 17:51 84 128/53 07/10/17 16:00 97.2 84 18 128/53 95 Nasal Cannula 2.0 97.2 07/10/17 14:13 77 20 94 Nasal Cannula 3.0 32 07/10/17 14:08 97.7 07/10/17 13:58 96 16 92 Nasal Cannula 3.0 32 Height (Feet): 5 Height (Inches): 3.00 Weight (Pounds): 144 General Appearance: WD/WN, no acute distress, cachetic HEENT: normocephalic, atraumatic, anicteric, mucous membranes moist Respiratory/Chest: chest wall non-tender, lungs clear, normal breath sounds, no respiratory distress, no accessory muscle use Cardiovascular: normal peripheral pulses, normal rate, regular rhythm, no gallop/murmur, no JVD Abdomen: normal bowel sounds, soft, non tender, no organomegaly, non distended , no mass, no scars Extremities: no cyanosis, no clubbing Skin: no rash, no lesions, other - right big toe surgical wound looks good Neurologic/Psychiatric: alert Microbiology Date/Time Source Procedure Growth Status 07/09/17 18:30 Blood Blood Culture - Preliminary NO GROWTH AFTER 24 HOURS Resulted 07/09/17 18:15 Blood Blood Culture - Preliminary NO GROWTH AFTER 24 HOURS Resulted Laboratory Tests Test 07/11/17 11:05 Vancomycin Level Trough 24.8 ug/mL (5.0-12.0) H Current Medications Medications (Trade) Dose Ordered Sig/Baljit Route PRN Reason Start Time Stop Time Status Last Admin Dose Admin Acetaminophen (Tylenol) 650 mg Q6H PRN GT pain 2-5 07/01/17 10:30 07/31/17 10:29 Albuterol/ Ipratropium (Albuterol/ Ipratropium) 3 ml Q4H PRN HHN Shortness of Breath 07/08/17 19:00 07/13/17 18:59 07/10/17 13:58 Amiodarone HCl (Cordarone) 100 mg DAILY GT 07/02/17 09:00 08/01/17 08:59 07/11/17 09:55 Amlodipine Besylate (Norvasc) 5 mg BID GT 07/01/17 18:00 07/31/17 17:59 07/11/17 10:35 Aspirin (ASA) 81 mg DAILY GT 07/02/17 09:00 08/01/17 08:59 07/11/17 09:57 Chlorhexidine Gluconate (Leslie-Hex 2%) 1 applic DAILY@2000 TOPIC 07/09/17 20:00 08/08/17 19:59 Docusate Sodium (Colace) 100 mg TID GT 07/01/17 13:00 07/31/17 12:59 07/11/17 10:34 Ertapenem 1 gm/ Sodium Chloride 55 ml @ 110 mls/hr Q24H IVPB 07/05/17 13:00 07/19/17 12:59 07/10/17 14:09 Famotidine (Pepcid) 20 mg BID GT 07/01/17 18:00 07/31/17 17:59 07/11/17 09:58 Heparin Sodium (Porcine) (Heparin 5000 units/ml) 5,000 units EVERY 12 HOURS SUBQ 07/01/17 21:00 07/31/17 20:59 07/11/17 10:37 Heparin Sodium/ Sodium Chloride (Heparin 2000 units/Ns 1000ml premix) 2,000 unit DAILY PRN INJ PICC PLACEMENT 07/09/17 15:45 07/11/17 23:59 Isosorbide Dinitrate (Isordil) 10 mg Q6HR GT 07/01/17 18:00 07/31/17 17:59 07/11/17 05:45 Lidocaine HCl (Xylocaine 1% 30ml) 30 ml DAILY PRN INJ PICC PLACEMENT 07/09/17 15:45 07/11/17 23:59 Ondansetron HCl (Zofran) 4 mg Q6H PRN IVP Nausea & Vomiting 07/01/17 10:30 07/31/17 10:29 Promethazine HCl/ Codeine (Phenergan with Codeine) 5 ml Q4H PRN GT For Cough 07/07/17 10:45 07/31/17 10:29 Tramadol HCl (Ultram) 25 mg Q8HR GT 07/07/17 22:00 07/14/17 21:59 07/11/17 05:45 Vancomycin HCl (Vanco rx to dose) 1 ea DAILY PRN MISC Per rx protocol 07/01/17 10:00 07/31/17 09:59 Vancomycin/Sodium Chloride 250 ml @ 166.667 mls/hr Q24H IVPB 07/11/17 20:00 07/16/17 19:59 Damon Briggs M.D. July 11, 2017 13:15
[2017-07-11 13:34] VITALS: BP 120/65
[2017-07-11] MEDS: Ertapenem 1 GM in NS 55 ML IVPB SCH (13:42)
--- NOTE | 2017-07-11 14:06 | General Progress Note ---
Progress Note Progress Note Surgery: planned discharge today. dressings removed and right foot evaluated. edema somewhat improved today. pitting edema with good cap refill. wound clean and dry. no abscess or infection noted. sutures holding. mild ischemia and skin edge but wound holding well okay to d/c will follow as outpatient Rafat Olvera July 11, 2017 14:06
--- NOTE | 2017-07-11 14:30 | Pulmonology Progress Note ---
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 (4) Dementia (5) PEG (percutaneous endoscopic gastrostomy) status (6) Advanced age Assessment/Plan looks comfortable respiratory treatment check sputum chest pt iv abx sputum induction aspiration precaution tolerating diet check labs in am Subjective Allergies: Coded Allergies: No Known Allergies (Unverified , 02/27/16) Objective Last 24 Hour Vital Signs Date Time Temp Pulse Resp B/P (MAP) Pulse Ox O2 Delivery O2 Flow Rate FiO2 07/11/17 13:34 120/65 07/11/17 10:35 71 120/65 07/11/17 08:02 78 18 Nasal Cannula 4.0 36 07/11/17 08:02 Nasal Cannula 4.0 36 07/11/17 06:44 98.2 07/11/17 05:45 98.2 07/11/17 05:45 120/65 07/11/17 04:00 95 Nasal Cannula 3.0 07/11/17 04:00 98.2 82 19 120/65 95 98.2 07/11/17 00:12 116/60 07/11/17 00:07 97.9 79 18 116/60 93 Nasal Cannula 3.0 97.9 07/10/17 21:52 84 20 Nasal Cannula 3.0 32 07/10/17 21:27 Nasal Cannula 3.0 32 07/10/17 21:27 79 16 Nasal Cannula 3.0 32 07/10/17 21:05 97.9 07/10/17 20:46 97.9 88 19 126/88 97 97.9 07/10/17 20:46 97 Nasal Cannula 3.0 07/10/17 17:51 128/53 07/10/17 17:51 84 128/53 07/10/17 16:00 97.2 84 18 128/53 95 Nasal Cannula 2.0 97.2 Intake and Output 07/10/17 07/11/17 19:00 07:00 Intake Total 1045 ml 700 ml Balance 1045 ml 700 ml Intake Free Water 300 ml 220 ml IV Total 305 ml Tube Feeding 440 ml 480 ml # Voids 2 Microbiology Date/Time Source Procedure Growth Status 07/09/17 18:30 Blood Blood Culture - Preliminary NO GROWTH AFTER 24 HOURS Resulted 07/09/17 18:15 Blood Blood Culture - Preliminary NO GROWTH AFTER 24 HOURS Resulted Laboratory Tests 07/11/17 11:05: Vancomycin Level Trough 24.8H Current Medications Medications (Trade) Dose Ordered Sig/Baljit Route PRN Reason Start Time Stop Time Status Last Admin Dose Admin Acetaminophen (Tylenol) 650 mg Q6H PRN GT pain 2-5 07/01/17 10:30 07/31/17 10:29 Albuterol/ Ipratropium (Albuterol/ Ipratropium) 3 ml Q4H PRN HHN Shortness of Breath 07/08/17 19:00 07/13/17 18:59 07/10/17 13:58 Amiodarone HCl (Cordarone) 100 mg DAILY GT 07/02/17 09:00 08/01/17 08:59 07/11/17 09:55 Amlodipine Besylate (Norvasc) 5 mg BID GT 07/01/17 18:00 07/31/17 17:59 07/11/17 10:35 Aspirin (ASA) 81 mg DAILY GT 07/02/17 09:00 08/01/17 08:59 07/11/17 09:57 Chlorhexidine Gluconate (Leslie-Hex 2%) 1 applic DAILY@2000 TOPIC 07/09/17 20:00 08/08/17 19:59 Docusate Sodium (Colace) 100 mg TID GT 07/01/17 13:00 07/31/17 12:59 07/11/17 13:34 Ertapenem 1 gm/ Sodium Chloride 55 ml @ 110 mls/hr Q24H IVPB 07/05/17 13:00 07/19/17 12:59 07/11/17 13:42 Famotidine (Pepcid) 20 mg BID GT 07/01/17 18:00 07/31/17 17:59 07/11/17 09:58 Heparin Sodium (Porcine) (Heparin 5000 units/ml) 5,000 units EVERY 12 HOURS SUBQ 07/01/17 21:00 07/31/17 20:59 07/11/17 10:37 Heparin Sodium/ Sodium Chloride (Heparin 2000 units/Ns 1000ml premix) 2,000 unit DAILY PRN INJ PICC PLACEMENT 07/09/17 15:45 07/11/17 23:59 Isosorbide Dinitrate (Isordil) 10 mg Q6HR GT 07/01/17 18:00 07/31/17 17:59 07/11/17 13:34 Lidocaine HCl (Xylocaine 1% 30ml) 30 ml DAILY PRN INJ PICC PLACEMENT 07/09/17 15:45 07/11/17 23:59 Ondansetron HCl (Zofran) 4 mg Q6H PRN IVP Nausea & Vomiting 07/01/17 10:30 07/31/17 10:29 Promethazine HCl/ Codeine (Phenergan with Codeine) 5 ml Q4H PRN GT For Cough 07/07/17 10:45 07/31/17 10:29 Tramadol HCl (Ultram) 25 mg Q8HR GT 07/07/17 22:00 07/14/17 21:59 07/11/17 05:45 Vancomycin HCl (Vanco rx to dose) 1 ea DAILY PRN MISC Per rx protocol 07/01/17 10:00 07/31/17 09:59 Vancomycin/Sodium Chloride 250 ml @ 166.667 mls/hr Q24H IVPB 07/11/17 20:00 07/16/17 19:59 Lauro Lopez MD July 11, 2017 14:30
[2017-07-11] MEDS ORDERED: Tubing IV Secondary IV ONE (14:44)
[2017-07-11] MEDS ORDERED: Vancomycin 750mg/NS 250ml IVPB SCH (20:00)
--- NOTE | 2017-07-13 12:49 | Discharge Summary ---
Discharge Summary Hospital Course Date of Admission June 29, 2017 at 20:01 Date of Discharge July 11, 2017 at 14:45 Admitting Diagnosis pneumonia, dementia TANYA Victoria is a 82 year old female who was admitted on June 29, 2017 at 20:01 for Pneumonia, Dementia Hospital Course dc summary #[id number] Discharge Medications New Medications: Ertapenem (Invanz) 1 Gm Vial 1 GM IM DAILY for 10 Days, VIAL [Acetaminophen] () 650 MG/20.3 ML SOLN 650 MG GT Q6H PRN for 90 Days Amiodarone Hcl* (Pacerone*) 200 Mg Tablet 100 MG GT DAILY for 90 Days, TAB Amlodipine Besylate (Norvasc) 5 Mg Tablet 5 MG GT BID for 90 Days, TAB Aspirin* (Aspirin*) 81 Mg Tab.chew 81 MG GT DAILY for 90 Days, TAB Docusate Sodium (Docusate Sodium) 50 Mg/5 Ml Liquid 100 MG GT TID for 90 Days, ML Famotidine (Famotidine) 20 Mg Tablet 20 MG GT BID for 90 Days, TAB Ipratropium/Albuterol Sulfate (DuoNeb 0.5-3(2.5)mg/3ml) 3 Ml Ampul.neb 3 ML HHN Q4H PRN for 14 Days, EA Isosorbide Dinitrate* (Isordil*) 10 Mg Tablet 10 MG GT Q6HR for 90 Days, TAB Tramadol Hcl* (Ultram*) 50 Mg Tablet 25 MG GT Q8HR for 30 Days, TAB Discharge Condition Upon Discharge: stable Discharge Disposition Patient was discharged to SNF/Subacute Facility(03) Discharge Instructions Discharge Instructions Follow up with: seen by me at [facility] Benita Lemons NP July 13, 2017 12:49
--- NOTE | 2017-07-13 19:45 | Discharge Summary 2 SIG ---
DATE OF ADMISSION: 06/29/2017 DATE OF DISCHARGE: 07/11/2017 REASON FOR ADMISSION: 82-year-old female with past medical history significant for organic brain syndrome, history of CVA, hypertension, high cholesterol, and osteoporosis. [facility] to emergency department for evaluation of shortness of breath. On the last admission in April 2017, the patient was found to have osteomyelitis of the first right foot metatarsal and episodes of atrial fibrillation. At that time, the patient also had acute renal failure, which resolved with hydration. Upon evaluation in the emergency department, laboratory workup revealed no leukocytosis. Stable hemoglobin. BUN 26, pro BNP 371, and albumin 3.3. Urinalysis with evidence of +2 leukocyte esterase and pyuria and occasional bacteria. . Chest x-ray revealed possible pneumonia. The patient was admitted with diagnoses of pneumonia, possible urinary tract infection, atrial fibrillation, right first metatarsal ulcer and osteomyelitis, and hypertension. CONSULTANTS: 1. Rafat Olvera M.D., Surgeon. 2. Damon Briggs M.D., Infectious Disease specialist. 3. Lauro Lopez M.D., Mortgage Loan Processing Clerk/Critical Care. HOSPITAL COURSE: The patient was admitted. The patient was started on empiric antibiotic. Infectious Disease specialist directed antibiotic regimen. Mortgage Loan Processing Clerk closely followed. Supplemental oxygen titrated to keep pulse oximetry above 92%. Pulmonary toilet provided. Antitussives provided as needed. The patient with DNR/DNI status. Right foot x-ray revealed no acute fracture or dislocation. Subsequently bone scan was done on 07/03/2017, which revealed findings concerning for osteomyelitis in the region of the first metatarsal head. Blood culture revealed Staphylococcus species coagulase negative. Urine culture revealed mixed urogenital contaminant. Sputum culture revealed Providencia and Proteus ESBL. Wound/ toe culture revealed Staphylococcus coagulase negative. Durable power of trial attorney of the patient initially was declining surgical option, but finally agreed to surgery and opted for amputation of right great toe. Subsequently, surgery consult was requested. The patient undergone on 07/06/2017 right great toe amputation. Pain management was provided. Wound care was provided. Antibiotic continued as per ID specialist directions. The patient was on IV fluids. Renal parameters and electrolytes were closely monitored and electrolytes were corrected as needed. Nephrotoxics were avoided. Strict aspiration precautions were maintained. The patient was on G-tube feeding, which she was tolerated. Blood pressure was managed with calcium channel josué. Aspirin and nitrates were continued. Bowel regimen was instituted. DVT and GI prophylaxes were provided. Surgeon closely followed. Right foot was evaluated prior to discharge. The patient had a pitting edema with good capillary refill. Wound was clean and dry. No evidence of abscess or infection. Sutures intact. Mild ischemia at skin edge, but wound was holding well. Surgeon recommended follow up as outpatient and cleared for discharge. Infectious Disease doctor recommended to place a PICC line for IV antibiotics. Subsequently, PICC line was placed on 07/10/2017. ID specialist recommended to treat with ertapenem for total of 14 days for aspiration pneumonia. End of treatment - 07/19/2017. He also recommended to treat bacteremia with vancomycin for two weeks after surgery and repeat blood culture to confirm clearance. Estimated end of treatment therapy - 07/19/2017. The patient was stable for discharge back to [facility] for continuation of care. FINAL DIAGNOSES: 1. Sepsis with staphylococcal coagulase negative bacteremia likely due to osteomyelitis. 2. Right foot first great toe osteomyelitis and chronic nonhealing wound. 3. Aspiration pneumonia with Providencia, and Proteus extended spectrum beta-lactamases. 4. Status post right great toe amputation on 07/06/2017. 5. Advanced dementia. 6. Multiple contractures. 7. Dysphagia, gastrostomy tube. 8. Functional quadriplegia. DISCHARGE MEDICATIONS: See medication reconciliation list. DISCHARGE INSTRUCTIONS: The patient was discharged to [facility]. Follow up with medical doctor at the facility. Seth Shore M.D. Benita Lemons (Wildtyra) N.P. DR: FLORENTINO JOB#: [id number] CC: WILLI
== END 2017-07-11 14:45 | DRG 853 ==
LOC: EDBD 18:52 → EMR 19:58 → 2E 20:01 → EDBEDREQ 21:15 → 2E 06-30 09:23 → 4W 06-30 18:48
PROC: 0Y6P0Z1 Detachment at Right 1st Toe, High, Open Approach (ICD-10-PCS; 2017-07-06)
PROC: 02HV33Z Insertion of Infusion Device into Superior Vena Cava, Percutaneous Approach (ICD-10-PCS; principal; 2017-07-10)
DX: A41.1 Sepsis due to other specified staphylococcus (principal); J69.0 Pneumonitis due to inhalation of food and vomit; R53.2 Functional quadriplegia; J15.6 Pneumonia due to other Gram-negative bacteria; N39.0 Urinary tract infection, site not specified; M86.171 Other acute osteomyelitis, right ankle and foot; Z43.1 Encounter for attention to gastrostomy; L97.518 Non-pressure chronic ulcer of other part of right foot with other specified severity; N19 Unspecified kidney failure; F09 Unspecified mental disorder due to known physiological condition; Z86.73 Personal history of transient ischemic attack (TIA), and cerebral infarction without residual deficits; I48.91 Unspecified atrial fibrillation; I10 Essential (primary) hypertension; F03.90 Unspecified dementia, unspecified severity, without behavioral disturbance, psychotic disturbance, mood disturbance, and anxiety; M24.50 Contracture, unspecified joint; R13.10 Dysphagia, unspecified; I25.10 Atherosclerotic heart disease of native coronary artery without angina pectoris
CPT/HCPCS: 36415; 36569; 71045; 76937; 78315; 80053; 80202; 81003; 82962; 82977; 83036; 83735; 83880; 84100; 84443; 84484; 85025; 85610; 85651; 85730; 86140; 87040; 87070; 87081; 87086; 87181; 87205; 93005; 94003; 94150; 94640; 94664; 99285; J2250; J7620